=== PATIENT | female | born 1960 | race Caucasian/White ===

== ENCOUNTER 2016-12-01 11:24 | Inpatient (IN) ==
[2016-12-01] MEDS ORDERED: Ipratropium/Albuterol Neb 3 ML IH ONE (11:51)
[2016-12-01] MEDS ORDERED: methylPREDNISolone 125 MG/2 ML VIAL IVP ONE (11:51)
--- NOTE | 2016-12-01 11:54 | Emergency Department Note ---
Disposition Clinical Impression: Acute exacerbation of chronic obstructive airways disease Disposition: Admitted As Inpatient Condition: Fair Referrals: Siena Crespo, SAUD [Primary Care Provider] - Forms: ED Satisfaction Letter Time of Disposition: 13:44 SOB HPI - General Chief Complaint: ED Shortness of Breath/Dyspnea Stated Complaint: cough, low oxygen sats, lethargy Time Seen by Provider: 12/01/16 11:36 Source: patient, EMS Mode of arrival: ambulatory Limitations: no limitations Nursing Notes Reviewed: Yes Vital Signs Reviewed: Yes - History of Present Illness 56-year-old female who has a history of COPD comes in with increasing shortness of breath. Home health found her with pulse ox in the 70s. Squad arrived her pulse ox was in the 80s. Given a breathing treatment prior to arrival with minimal improvement. Pt Subjective Complaint: shortness of breath, cough Onset (ago): day(s) Context: recent illness Severity: moderate Consistency/Duration: constant Improves with: nothing Known history of: COPD Associated symptoms: Reports: cough, wheezing - Related Data Home Medications Medication Instructions Recorded Confirmed Albuterol Sulfate [Proair 2 puff IH Q4H PRN 11/26/15 03/19/16 Respiclick] Ascorbic Acid [Vitamin C] 500 mg PO DAILY 11/26/15 03/19/16 Aspirin [Adult Low Dose Aspirin EC] 81 mg PO DAILY 11/26/15 03/19/16 Cholecalciferol (Vitamin D3) 50,000 unit PO 2XW MDD mon, fri 11/26/15 03/19/16 [Vitamin D3] Diazepam [Valium] 5 mg PO BID 11/26/15 03/19/16 DiphenhydraMINE [Benadryl] 50 mg PO Q6HR 11/26/15 03/19/16 Diphenoxylate/Atropine [Lomotil 1 tab PO QID PRN 11/26/15 03/19/16 2.5 mg/0.025 mg] Esomeprazole Magnesium [Nexium] 40 mg PO BID 11/26/15 03/19/16 Ezetimibe [Zetia] 10 mg PO DAILY 11/26/15 03/19/16 FentaNYL PATCH [Duragesic] 25 mcg TD Q72H 11/26/15 03/19/16 Folic Acid [FA-8] 0.8 mg PO DAILY 11/26/15 03/19/16 Glucagon,Human Recombinant 1 mg IJ PER PKG DI 11/26/15 03/19/16 [Glucagon Emergency Kit] HYDROcodone/Acet 5/325 mg [[place] 1 tab PO Q6H PRN 11/26/15 03/19/16 5-325 mg] Isosorbide MONOnitrate (24 HR) 120 mg PO DAILY 11/26/15 03/19/16 [Imdur] Metoprolol [Lopressor] 100 mg PO BID 11/26/15 03/19/16 Nitroglycerin [Nitrostat] 0.4 mg SL Q8H 11/26/15 03/19/16 Potassium Chloride [K-Tab ER] 20 meq PO BID 11/26/15 03/19/16 Promethazine HCl 12.5 mg PO PRN PRN 11/26/15 03/19/16 Psyllium Husk [Metamucil] 660 gm PO PRN PRN 11/26/15 03/19/16 Ranitidine HCl 150 mg PO DAILY 11/26/15 03/19/16 Trazodone HCl 150 mg PO HS PRN 11/26/15 03/19/16 Venlafaxine XR (24 HR) [Effexor Xr] 37.5 mg PO DAILY 11/26/15 03/19/16 Vitamin B Complex [B Complex] 1 tab PO DAILY 11/26/15 03/19/16 Vitamin E (Dl,Tocopheryl Acet) 400 unit PO DAILY 11/26/15 03/19/16 [Vitamin E] Insulin ASPART [NovoLOG] 100 unit SQ DAILY 03/19/16 03/19/16 Insulin Glargine [Lantus] 35 unit SQ TID 03/19/16 03/19/16 Previous Rx's Medication Instructions Recorded Ferrous Sulfate 325 mg PO DAILY #30 tablet 07/21/16 Allergies Allergy/AdvReac Type Severity Reaction Status Date / Time Estrogens Allergy See Verified 12/01/16 11:42 Comments gabapentin Allergy Swelling Verified 12/01/16 11:42 of Lip/Tongue/Throat Penicillins Allergy See Verified 12/01/16 11:42 Comments aspirin [ASA] AdvReac See Verified 12/01/16 11:42 Comments lisinopril AdvReac Cough Verified 12/01/16 11:42 Constitutional: Denies: fever, chills, weakness, weight change Eyes: Denies: eye pain, eye discharge, vision change ENT ED: Denies: ear pain, throat pain, dental pain, hearing loss, epistaxis, congestion, dysphagia Cardiovascular: Denies: chest pain, palpitations, dyspnea on exertion, edema, syncope Respiratory: Reports: cough, dyspnea, wheezes. Denies: hemoptysis, stridor Gastrointestinal: Denies: abdominal pain, nausea, vomiting, diarrhea, constipation, hematemesis, melena, hematochezia Genitourinary: Denies: dysuria, frequency, hematuria, discharge Musculoskeletal: Denies: back pain, neck pain, arthralgia, myalgia Integumentary: Denies: rash, abrasion, lesions Neurological: Denies: headache, weakness, numbness, paresthesias, confusion, abnormal gait, vertigo Psychiatric: Denies: anxiety, depression, suicidal thoughts, homicidal thoughts , auditory hallucinations, visual hallucinations Endocrine: Denies: fatigue Hematological/Lymphatic: Denies: easy bleeding, easy bruising Allergic/Immunologic: Denies: facial swelling, urticaria Past Medical History - Past Medical History Medical history: Reports: atrial fibrillation, COPD, diabetes, hypertension Surgical history: Reports: other Psychiatric history: Reports: anxiety, bipolar, depression [employer] history: Reports: other - Social History Smoking Status: Current every day smoker Smokeless Tobacco Status: No Alcohol use: Reports: none Drug use: Reports: none Physical Exam - General Limitations: no limitations General appearance: alert - Head Head exam: atraumatic, normocephalic, normal inspection - Eye Eye exam: Present: normal appearance, PERRL, EOMI - ENT ENT exam: normal exam, normal oropharynx, mucous membranes moist - Neck Neck exam: Present: normal inspection, full ROM, trachea midline - Respiratory Respiratory exam: Present: respiratory distress, wheezes - Cardiovascular Cardiovascular exam: Present: regular rate, normal rhythm, normal heart sounds - Extremities Exam Extremities exam: Present: normal inspection, full ROM. Absent: tenderness, pedal edema - Expanded Lower Extremity Exam Neurovascular/Tendon exam: Absent: motor deficit, sensory deficit, tendon deficit Gait: observed and normal - Back Exam Back exam: Present: normal inspection, full ROM. Absent: tenderness - Neurological Exam Neurological exam: Present: alert, oriented X3 - Psychiatric Psychiatric exam: Present: normal affect, normal mood - Skin Skin exam: Present: warm, dry, intact, normal color Course - Reevaluation(s) Reevaluation #1: 56-year-old with history of COPD comes in with shortness of breath wheezing. Workup EKG was negative for acute findings her troponin is negative her BNP is negative. Chest x-ray was read as possible congestive changes although her BNP is negative Time: 13:43 - Consultations Consultation #1: Discussed with Anastasiia Alegre nurse practitioner, admit. Time: 13:42 Vital Signs Temperature 99.1 F 12/01/16 11:31 Pulse Rate 87 12/01/16 11:31 Respiratory Rate 28 12/01/16 11:31 Blood Pressure 120/73 12/01/16 11:31 O2 Sat by Pulse Oximetry 96 12/01/16 11:31 Temperature 99.1 F 12/01/16 11:31 Pulse Rate 89 12/01/16 13:07 Respiratory Rate 23 12/01/16 13:07 Blood Pressure 125/62 12/01/16 13:07 O2 Sat by Pulse Oximetry 96 12/01/16 13:07 Oxygen Delivery Oxygen Delivery Nasal Cannula Shortness of Breath/Dyspnea - Lab Data Lab results reviewed: Yes I reviewed the patient's lab results. Result diagrams: 12/01/16 12:48 12/01/16 12:48 Lab Results 12/01/16 12/01/16 12/01/16 Range/Units 12:05 12:48 12:48 WBC 6.8 (4.3-11.1) K/mcL RBC 4.76 (3.82-4.97) M/mcL Hgb 14.3 (11.5-15.4) g/dL Hct 42.7 (35.3-44.9) % MCV 89.7 (83.0-100.0) fL MCH 30.0 (28.0-33.3) pg MCHC 33.5 (31.6-35.5) g/dL RDW 13.6 (11.5-14.5) % Plt Count 115 L (140-400) K/mcL MPV 12.2 (9.4-12.4) fL Immature Gran % 0.6 (0-4) % Seg Neutrophils % 67.8 % Lymphocytes % 19.6 % Monocytes % 11.5 % Eosinophils % 0.1 % Basophils % 0.4 % Neutrophils # 4.6 (1.6-8.9) K/mcL Lymphocytes # 1.3 (0.6-4.6) K/mcL Monocytes # 0.8 (0.0-1.3) K/mcL Eosinophils # 0.0 (0.0-0.6) K/mcL Basophils # 0.0 (0.0-0.2) K/mcL PT 11.5 (9.4-12.1) Seconds INR 1.1 APTT 22.3 L (26.0-36.0) Seconds ABG pH 7.30 L (7.32-7.45) pH Units ABG pCO2 54 H (35-45) mmHg ABG pO2 62 L (85-104) mmHg ABG HCO3 26.6 (21-27) mEQ/L ABG Total CO2 28.3 H (20-26) mEq/L ABG O2 Saturation 89 L (95-98) % ABG Base Excess -0.8 (-2.0 to 3.0) mEq/L Liter Flow 2 L/MIN Blood Gas Modality NC Sodium (136-145) mEq/L Potassium (3.5-4.5) mEq/L Chloride (98-109) mEq/L Carbon Dioxide (19-29) mEq/L BUN (7-20) mg/dL Creatinine (0.57-1.11) mg/dL Est GFR ( Amer) (> 60) Est GFR (Non-Af Amer) (> 60) BUN/Creatinine Ratio (6-26) Glucose (70-99) mg/dL Calculated Osmolality (280-300) Lactic Acid (0.5-2.2) mmol/L Calcium (8.6-10.8) mg/dL Troponin I (0-0.03) ng/mL B-Natriuretic Peptide (0-100) pg/mL 12/01/16 12/01/16 12/01/16 Range/Units 12:48 12:48 12:48 WBC (4.3-11.1) K/mcL RBC (3.82-4.97) M/mcL Hgb (11.5-15.4) g/dL Hct (35.3-44.9) % MCV (83.0-100.0) fL MCH (28.0-33.3) pg MCHC (31.6-35.5) g/dL RDW (11.5-14.5) % Plt Count (140-400) K/mcL MPV (9.4-12.4) fL Immature Gran % (0-4) % Seg Neutrophils % % Lymphocytes % % Monocytes % % Eosinophils % % Basophils % % Neutrophils # (1.6-8.9) K/mcL Lymphocytes # (0.6-4.6) K/mcL Monocytes # (0.0-1.3) K/mcL Eosinophils # (0.0-0.6) K/mcL Basophils # (0.0-0.2) K/mcL PT (9.4-12.1) Seconds INR APTT (26.0-36.0) Seconds ABG pH (7.32-7.45) pH Units ABG pCO2 (35-45) mmHg ABG pO2 (85-104) mmHg ABG HCO3 (21-27) mEQ/L ABG Total CO2 (20-26) mEq/L ABG O2 Saturation (95-98) % ABG Base Excess (-2.0 to 3.0) mEq/L Liter Flow L/MIN Blood Gas Modality Sodium 130 L (136-145) mEq/L Potassium 3.7 (3.5-4.5) mEq/L Chloride 97 L (98-109) mEq/L Carbon Dioxide 25 (19-29) mEq/L BUN 14 (7-20) mg/dL Creatinine 1.63 H (0.57-1.11) mg/dL Est GFR ( Amer) 39 L (> 60) Est GFR (Non-Af Amer) 32 L (> 60) BUN/Creatinine Ratio 9 (6-26) Glucose 140 H (70-99) mg/dL Calculated Osmolality 273 L (280-300) Lactic Acid 1.0 (0.5-2.2) mmol/L Calcium 9.0 (8.6-10.8) mg/dL Troponin I 0.01 (0-0.03) ng/mL B-Natriuretic Peptide (0-100) pg/mL 12/01/16 Range/Units 12:48 WBC (4.3-11.1) K/mcL RBC (3.82-4.97) M/mcL Hgb (11.5-15.4) g/dL Hct (35.3-44.9) % MCV (83.0-100.0) fL MCH (28.0-33.3) pg MCHC (31.6-35.5) g/dL RDW (11.5-14.5) % Plt Count (140-400) K/mcL MPV (9.4-12.4) fL Immature Gran % (0-4) % Seg Neutrophils % % Lymphocytes % % Monocytes % % Eosinophils % % Basophils % % Neutrophils # (1.6-8.9) K/mcL Lymphocytes # (0.6-4.6) K/mcL Monocytes # (0.0-1.3) K/mcL Eosinophils # (0.0-0.6) K/mcL Basophils # (0.0-0.2) K/mcL PT (9.4-12.1) Seconds INR APTT (26.0-36.0) Seconds ABG pH (7.32-7.45) pH Units ABG pCO2 (35-45) mmHg ABG pO2 (85-104) mmHg ABG HCO3 (21-27) mEQ/L ABG Total CO2 (20-26) mEq/L ABG O2 Saturation (95-98) % ABG Base Excess (-2.0 to 3.0) mEq/L Liter Flow L/MIN Blood Gas Modality Sodium (136-145) mEq/L Potassium (3.5-4.5) mEq/L Chloride (98-109) mEq/L Carbon Dioxide (19-29) mEq/L BUN (7-20) mg/dL Creatinine (0.57-1.11) mg/dL Est GFR ( Amer) (> 60) Est GFR (Non-Af Amer) (> 60) BUN/Creatinine Ratio (6-26) Glucose (70-99) mg/dL Calculated Osmolality (280-300) Lactic Acid (0.5-2.2) mmol/L Calcium (8.6-10.8) mg/dL Troponin I (0-0.03) ng/mL B-Natriuretic Peptide 39 (0-100) pg/mL - Radiology Data Radiology results reviewed: Yes I reviewed the patient's radiology results. Chest X-Ray 12/01/16 11:51 IMPRESSION: Cardiomegaly with central pulmonary venous congestion and possible early congestive heart failure. No lobar pneumonia or large effusions. D/ / 12/01/2016 12:24:46 Moustapha Wise MD / blank Interpreting Provider: Moustapha Wise MD - EKG Data EKG attestation: Yes I reviewed and interpreted this EKG. EKG shows normal: Reports: sinus rhythm Rate: Reports: normal Rhythm: Reports: NSR Interpretation: Reports: no acute changes
[2016-12-01 12:18] LABS: ABG Base Excess -0.8 mEq/L (-2.0 to 3.0); ABG HCO3 26.6 mEQ/L (21-27); ABG Oxygen Saturation 89 % (95-98); ABG PCO2 54 mmHg (35-45); ABG PO2 62 mmHg (85-104); ABG TCO2 28.3 mEq/L (20-26); Blood Gas Liter Flow 2 L/MIN
[2016-12-01 12:57] LABS: Basophils % 0.4 %; Eosinophils % 0.1 %; Hematocrit 42.7 % (35.3-44.9); Hemoglobin 14.3 g/dL (11.5-15.4); Immature Granulocytes % 0.6 % (0-4); Lymphocytes # 1.3 K/mcL (0.6-4.6); Lymphocytes % 19.6 %; Mean Corpuscular HGB Conc 33.5 g/dL (31.6-35.5); Mean Corpuscular Volume 89.7 fL (83.0-100.0); Mean Platelet Volume 12.2 fL (9.4-12.4); Monocytes # 0.8 K/mcL (0.0-1.3); Monocytes % 11.5 %; Neutrophils # 4.6 K/mcL (1.6-8.9); Platelet Count 115 K/mcL (140-400); Red Blood Count 4.76 M/mcL (3.82-4.97); Red Cell Distribution Width 13.6 % (11.5-14.5); Segmented Neutrophils % 67.8 %
[2016-12-01 13:07] LABS: INR 1.1; Prothrombin Time 11.5 Seconds (9.4-12.1)
[2016-12-01 13:09] LABS: Activated Partial Thrombo Time 22.3 Seconds (26.0-36.0)
[2016-12-01 13:23] LABS: Potassium 3.7 mEq/L (3.5-4.5)
[2016-12-01] MEDS ORDERED: *HR* HYDROmorphone (PF) 1 MG/ML SYRINGE IVP ONE (13:24)
[2016-12-01] MEDS ORDERED: Ondansetron 4 MG/2 ML VIAL IVP ONE (13:24)
[2016-12-01 14:55] LABS: Bilirubin,Urine Negative (Negative); Blood,Urine Negative (Negative); Clarity,Urine Clear (Clear); Color,Urine Yellow (Yellow); Glucose,Urine (UA) Normal (Normal); Ketones,Urine Negative (Negative); Leukocyte Esterase,Urine Negative (Negative); Nitrite,Urine Negative (Negative); Protein,Urine Trace mg/dL (Neg-Trace); Specific Gravity,Urine 1.009 (1.010-1.025); Urobilinogen,Urine Normal (Normal)
[2016-12-01 14:59] LABS: Bacteria,Urine None Seen per hpf (None-Few); Hyaline Casts,Urine None Seen per lpf (None-Few); Squamous Epithelial Cell,Urine Many per lpf (None-Few)
[2016-12-01 15:10] LABS: RBC,Urine 0-3 per hpf (0-3)
[2016-12-01 15:11] LABS: Yeast,Urine Many per hpf (None Seen)
--- NOTE | 2016-12-01 16:23 | Internal Med History&Physical ---
<Art Jiang - Last Filed: 12/01/16 18:31> Date of Encounter: 12/01/16 Time of Encounter: 14:00 Assessment and Plan (1) COPD exacerbation Current visit: Yes Status: Acute Currently meets the criteria of COPD exacerbation with increasing SOB, increased coughing with sputum production plus change in color of sputum. ABG in the emergency department demonstrates pH 7.30, PCO2 54, PO2 62, bicarbonate 26.6 demonstrating respiratory acidosis uncompensated. Contributing factors: 3 pack per day smoker, underline COPD, failure to wear home oxygen as recommended. Plan: - 40mg Prednisone daily - Duonebs scheduled, Albuterol nebulizer - Levaquin 750 daily PO - Nasal canula oxygen (2) Hypercapnic respiratory failure Current visit: Yes Status: Acute Patient stable upon examination with 2 L nasal Oxygen. Likely multifactorial as patient has multiple contributing factors including COPD, obesity hypoventilation syndrome, obstructive sleep apnea. Currently meets the criteria of COPD exacerbation with increasing SOB, increased coughing with sputum production pluse change in color of sputum. ABG in the emergency department demonstrates pH 7.30, PCO2 54, PO2 62, bicarbonate 26.6 demonstrating respiratory acidosis uncompensated. Patient would benefit from BiPAP qualification and BiPAP at night while sleeping and at rest. Qualifiers: Qualified Code(s): J96.92 - Respiratory failure, unspecified with hypercapnia (3) Diastolic CHF Current visit: Yes Status: Acute Patient is a significant history of CAD with history of quadruple bypass. Patient recently evaluated by cardiology with last echocardiogram demonstrating EF of 60% mild diastolic heart failure. BNP 39 - Nuclear med stress test from 09/17/2016 demonstrated gated LVEF of 66%, there is a small size, moderate intensity, reversible perfusion defect involving the apical anterior wall, apical lateral wall and apex. Findings are consistent with reversible myocardial ischemia. - Bilateral carotid duplex imaging demonstrated minimal plaque disease. Chest x-ray from 12/01/2016 demonstrates cardiomegaly with central pulmonary venous congestion and possible early congestive heart failure. No lobar pneumonia and large effusions. Plan: - Lasix 40mg once - Cardiac diet - Fluid restictions 2L - Daily weights - Continue home medications including aspirin 81 mg daily, Lasix 40 mg by mouth twice a day, Lopressor 100 mg by mouth twice a day, patient is not on an David because she has an allergy and stage III kidney disease, continue Lipitor 40 mg by mouth at bedtime. Continue spironolactone 50 mg by mouth twice a day Qualifiers: Qualified Code(s): I50.30 - Unspecified diastolic (congestive) heart failure (4) Obesity hypoventilation syndrome Current visit: Yes Status: Acute Patient is morbidly obese BMI 43.3, obstructive sleep apnea and just x-ray demonstrates reduced lung volume with excess adipose. (5) Type 2 diabetes mellitus Current visit: Yes Status: Acute Type II diabetic - uncontrolled, patient presents hyperglycemic, last hemoglobin A1c in 03/19/2016 was 11.0 Home anti-hyperglycemics include NovoLog 30 units subcutaneous 3 times a day and sliding scale insulin. According to patient's outpatient record (11/03/2016): 1. Type II diabetes mellitus Notes: change to tid on u500 up to 40 units on a standard u100 syringe may increase at next appt follow up 1 month a1c remains the same but elevated. Plan: - inpatient sliding scale insulin- High dose - Start with Levemir 35units BID ( patients home medications should be verified.) - ACHS glucose checks - Hgb A1C Qualifiers: Qualified Code(s): E11.9 - Type 2 diabetes mellitus without complications (6) Diabetic neuropathy Current visit: Yes Status: Acute Patient is a type II diabetic with known history of diabetic neuropathy. Qualifiers: Qualified Code(s): E08.42 - Diabetes mellitus due to underlying condition with diabetic polyneuropathy (7) CAD (coronary artery disease) of artery bypass graft Current visit: No Status: Acute History of coronary artery disease with previous history of quadruple bypass, [place]. Recent cardiac workup demonstrated reversible myocardial ischemia on nuclear stress test. Patient states that she was told that she is not a candidate for left heart catheterization. Contributing factors include hyperlipidemia, hypercholesterolemia, uncontrolled type 2 diabetes, daily smoker and morbid obesity Review of patient's outpatient record demonstrates that she had an abnormal stress test recently and per cardiology recommended treating with medical therapy as she does not represent a good candidate for invasive approach unless absolutely necessary. Was recommended that she continue on both aspirin 81 mg and Plavix. Plan: - Continue Lipitor 40 mg at bedtime - Aspirin 81 mg by mouth daily - Plavix 75 mg by mouth daily - Continue isosorbide mononitrate 120 mg by mouth daily Qualifiers: [place] vs. transplanted heart: [place] heart Associated angina: without angina Qualified Code(s): I25.810 - Atherosclerosis of coronary artery bypass graft(s) without angina pectoris (8) Depression Current visit: Yes Status: Acute Stable. Continue home medications. Qualifiers: Qualified Code(s): F32.9 - Major depressive disorder, single episode, unspecified (9) Hypertension Current visit: Yes Status: Acute Blood pressure stable. Continue home antihypertensives. Qualifiers: Qualified Code(s): I10 - Essential (primary) hypertension (10) Colostomy and enterostomy malfunction Current visit: Yes Status: Acute Patient has a colostomy with complication of fistula surfacing to abdominal wall. Significant GI surgical history, (11) Syncope and collapse Current visit: Yes Status: Acute Patient patient's described multiple episodes of blacking out, no preceding symptoms including blurry vision, seeing spots, lightheadedness dizziness, weakness or fatigue. Patient has had multiple episodes per day for the last 7 weeks. Patient denies hitting her head with any episode. Head exam does not demonstrate any noticeable signs of trauma. CT of the head demonstrates no acute intracranial abnormalities. Differential: Orthostatic hypotension given the patient's GI loss, possible cardiac arrhythmia. Patient has a history of atrial fibrillation, recent reversible myocardial ischemia. - Patient had a recent cardiac workup roughly 2 months ago without plaque findings in the carotid arteries bilaterally, echocardiogram as described above , recent nuclear med stress test as described above. Plan: - Patient be placed on telemetry - Orthostatic blood pressures - Collect TSH, magnesium, phosphate with a.m. labs - Fall precautions. (12) GERD (gastroesophageal reflux disease) Current visit: Yes Status: Acute Continue home medications Qualifiers: Qualified Code(s): K21.9 - Gastro-esophageal reflux disease without esophagitis (13) DVT prophylaxis Current visit: Yes Status: Acute Lovenox 40 sq every am. Internal Medicine - H&P: HPI Admitted From: Emergency Dept Plans for Post Hospital Care: Home History of present illness: Ms. Price is a 56 year old female past medical history of diastolic heart failure, CAD, quadruple bypass, type 2 diabetes uncontrolled, COPD, obesity hypoventilation syndrome, diabetic neuropathy, morbid obesity, colectomy, colostomy with fistulization, CKD stage III who presented by EMS to the emergency department with hypoxia and trouble awakening. According to the patient's he had a difficult time trying to wake her up. He tried waking her up for 2 hours prior to calling EMS and found her oxygen saturations at home to be 70%. He said this is not the first time he has had difficulties waking her up and she sleeps 23 hours per day and is chronically tired. Ms. Price says that she has had difficulty with staying awake for roughly 7 weeks with worsening of symptoms including falling multiple times a day. She says that she blacks out at home with no preceding symptoms and fall to the floor. She also presents with associated symptoms of increasing worsening of shortness of breath, sputum production which is white to yellow in color with a tinge of blood recently. She says she takes her medications at home and schedule but is unsure exactly what she takes. Her is concerned given her symptoms that she falls multiple times daily and that she recently fell on him and he had difficulty moving her which she did not wake up originally to moving her over. They did not find it necessary to call EMS for these prior events. She denies wearing oxygen consistently at home and when asked about wearing a CPAP or BiPAP she said that the mask did not fit so she does not use it. She is every day smoker and smokes 3 packs a day. According to her this is not the first time she has had issues with breathing or her first admission for respiratory related issues. She was recently seen by Dr. King with cardiology in September of this year for which she says she was told she had blockages in her coronary arteries but was not a candidate for intervention including left heart catheterization. With regards to multiple falls at home she denies preceding symptoms including lightheadedness dizziness spotty vision, lightheadedness when standing or laying down, history of cardiac arrhythmias, chest pain, chest pressure, palpitations. She denies hitting her head with any of these falls but is unsure how long she is out with each of these falls. She denies any post ictal- like symptoms. The patient's was very concerned about her other medical problems mainly her abdominal colostomy. He said that after her last abdominal surgery she had a colostomy which was draining appropriately until the fistula fistulized to the surface and started draining fecal matter. She now uses the fistula for drainage but continue to have drainage from the original colostomy site which then wets the surrounding glue of the colostomy today and it falls off frequently. 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 They are very concerned about the colostomy and if we could have wound care evaluate. Past Med Surg Social Fam HX - Past Medical History Medical history: atrial fibrillation, CHF (diastolic), COPD, diabetes, hyperlipidemia, hypertension, myocardial infarction Psychiatric history: anxiety, bipolar, depression - Past Surgical History Surgical History: other - Social History Smoking Status: Current every day smoker Smokeless Tobacco Status: No Alcohol use: none Drug use: none Internal Medicine - H&P: Meds Albuterol Sulfate [Proair Respiclick] 2 puff IH Q4H PRN 11/26/15 [History] Ascorbic Acid [Vitamin C] 500 mg PO DAILY 11/26/15 [History] Aspirin [Adult Low Dose Aspirin EC] 81 mg PO DAILY 11/26/15 [History] Diazepam [Valium] 5 mg PO BID 11/26/15 [History] DiphenhydraMINE [Benadryl] 50 mg PO Q6HR 11/26/15 [History] Diphenoxylate/Atropine [Lomotil 2.5 mg/0.025 mg] 2 tab PO Q6H PRN 11/26/15 [ History] Esomeprazole Magnesium [Nexium] 40 mg PO BID 11/26/15 [History] Ezetimibe [Zetia] 10 mg PO DAILY 11/26/15 [History] FentaNYL PATCH [Duragesic] 25 mcg TD Q72H 11/26/15 [History] Folic Acid [FA-8] 0.8 mg PO DAILY 11/26/15 [History] Glucagon,Human Recombinant [Glucagon Emergency Kit] 1 mg IJ PER PKG DI 11/26/15 [History] HYDROcodone/Acet 5/325 mg [Odon 5-325 mg] 1 tab PO TID PRN 11/26/15 [History] Metoprolol [Lopressor] 100 mg PO BID 11/26/15 [History] Nitroglycerin [Nitrostat] 0.4 mg SL Q5M PRN 11/26/15 [History] Potassium Chloride [K-Tab ER] 20 meq PO DAILY 11/26/15 [History] Ranitidine HCl 150 mg PO DAILY 11/26/15 [History] Trazodone HCl 150 mg PO HS PRN 11/26/15 [History] Vitamin B Complex [B Complex] 1 tab PO DAILY 11/26/15 [History] Vitamin E (Dl,Tocopheryl Acet) [Vitamin E] 400 unit PO DAILY 11/26/15 [History] Insulin ASPART [NovoLOG] 30 unit SQ TID 03/19/16 [History] Ferrous Sulfate 325 mg PO DAILY #30 tablet 07/21/16 [Rx] Atorvastatin [Lipitor] 40 mg PO HS 12/01/16 [History] Cholecalciferol (Vitamin D3) [Dialyvite Vitamin D] 5,000 unit PO MOFR 12/01/16 [ History] Clopidogrel [Plavix] 75 mg PO DAILY 12/01/16 [History] Furosemide [Lasix] 40 mg PO DAILY PRN 12/01/16 [History] Hydrochlorothiazide 25 mg PO DAILY 12/01/16 [History] Hydroxychloroquine [Plaquenuil] 200 mg PO HS 12/01/16 [History] Insulin LISPRO [HumaLOG] 0 unit SQ TID 12/01/16 [History] Ipratropium/Albuterol Neb [Duoneb] 3 ml IH QID PRN 12/01/16 [History] Isosorbide MONOnitrate [Isosorbide Mononitrate ER] 120 mg PO DAILY 12/01/16 [ History] Oxygen 2 l NS AD 12/01/16 [History] Promethazine [Phenergan] 25 mg PO Q4H PRN 12/01/16 [History] Psyllium [Metamucil Fiber Singles Packet] 1 packet PO DAILY 12/01/16 [History] Farideh-D-Hp 2 appl TP 3-4XD 12/01/16 [History] Rosuvastatin [Crestor] 20 mg PO HS 12/01/16 [History] Spironolactone [Aldactone] 50 mg PO BID 12/01/16 [History] Venlafaxine [Effexor] 37.5 mg PO BID 12/01/16 [History] Allergies Estrogens Allergy (Verified 12/01/16 11:42) See Comments gabapentin Allergy (Verified 12/01/16 11:42) Swelling of Lip/Tongue/Throat Penicillins Allergy (Verified 12/01/16 11:42) See Comments aspirin [ASA] Adverse Reaction (Verified 12/01/16 11:42) See Comments CKD not allowed ASA lisinopril Adverse Reaction (Verified 12/01/16 11:42) Cough All Systems PM: A 10-system review of systems was performed and is negative for pertinent findings except as documented above in the HPI. - Constitutional Constitutional: as per HPI - EENT Eyes: no blurry vision, no change in vision, no loss of vision Nose, mouth and throat: as per HPI, no lip swelling, no mouth lesions, no sore throat - Cardiovascular Cardiovascular ROS IM: dyspnea, dyspnea on exertion, syncope, no chest pain, no palpitations - Respiratory Respiratory: cough, dyspnea, excessive phlegm production, change in phlegm color - Gastrointestinal Gastrointestinal: change in stool character, diarrhea, loose stools, vomiting, no hematemesis, no melena - Genitourinary Genitourinary: no urinary incontinence, no urinary urgency - Musculoskeletal Musculoskeletal ROS IM: no muscle cramps - Integumentary Integumentary IM: no rash, no skin ulcer - Neurological Neurological ROS: no convulsions, no dizziness, no loss of vision, no memory loss, no numbness - Psychiatric Psychiatric: no confusion - Constitutional Vitals: Temp Pulse Resp BP Pulse Ox 99.1 F 84 23 126/85 93 L 12/01/16 11:31 12/01/16 15:01 12/01/16 13:07 12/01/16 15:01 12/01/16 15:01 - Other Additional findings: Mrs. Dee Camargo well-developed well-nourished obese 56-year-old female awake alert interactive. HEENT: Normocephalic, atraumatic, pupils equal reactive EOMI, oral mucosa is moist, neck is supple, trachea midline Thoracic Cavity: excess adipose tissue, old sternum scar with signs of poor wound healing. Thoracic expansion correlates with respiratory effort. Respiratory: Diffuse wheezing with diminished inspiratory and expiratory breath sounds. Cardiac: RRR, Radial pulses 2+ bilaterally Abdomen: Obese abdomen, colostomy bag with appropriate drainage, Large central abdomen scar with increased vascularization. Abdomen is tender to deep palpation but soft with + bowel sounds. Extremities: Bilateral LE demonstrate venous stasis with poorly kept feet and callouses. No pedal ulcerations appreciated on examination. Swelling to bilateral lateral ankles without pain with ankle rotation. Internal Med - H&P Results - Labs CBC & Chem 7: 12/01/16 12:48 12/01/16 12:48 <Ivan Ruiz - Last Filed: 12/01/16 19:39> Assessment and Plan (1) Acute respiratory failure Current visit: Yes Status: Acute Qualifiers: Respiratory failure complication: hypoxia and hypercapnia Qualified Code(s) : J96.01 - Acute respiratory failure with hypoxia; J96.02 - Acute respiratory failure with hypercapnia (2) Acute exacerbation of chronic obstructive airways disease Current visit: Yes Status: Acute (3) Diastolic CHF Current visit: Yes Status: Acute Qualifiers: Congestive heart failure chronicity: chronic Qualified Code(s): I50.32 - Chronic diastolic (congestive) heart failure (4) GERD (gastroesophageal reflux disease) Current visit: Yes Status: Acute Qualifiers: Esophagitis presence: without esophagitis Qualified Code(s): K21.9 - Gastro -esophageal reflux disease without esophagitis (5) Hypertension Current visit: Yes Status: Acute Qualifiers: Hypertension type: essential hypertension Qualified Code(s): I10 - Essential (primary) hypertension (6) Obesity hypoventilation syndrome Current visit: Yes Status: Acute (7) CAD (coronary artery disease) of artery bypass graft Current visit: No Status: Acute Qualifiers: [place] vs. transplanted heart: [place] heart Associated angina: without angina Qualified Code(s): I25.810 - Atherosclerosis of coronary artery bypass graft(s) without angina pectoris Internal Medicine - H&P: HPI History of present illness: Ms. Price is a 56 year old female All Systems PM: A 10-system review of systems was performed and is negative for pertinent findings except as documented above in the HPI. - Constitutional Vitals: Temp Pulse Resp BP Pulse Ox 97.9 F 92 16 112/59 92 L 12/01/16 18:01 12/01/16 18:01 12/01/16 18:01 12/01/16 18:01 12/01/16 18:01 Internal Med - H&P Results - Labs CBC & Chem 7: 12/01/16 12:48 12/01/16 12:48 - Attending Attestation I examined this patient and my medical decision-making was reviewed with the Resident Physician on 12/01/16. I agree with the documented findings, disposition and treatment plan as described except to the extent set forth below. Ms. Price is 56 y/o female with hx of obesity hypoventilaton presented to ED with worsening dyspnea. At this time she denies specific complaints. She has been more dyspneic over last few days. Has hx of abnl stress test with medical management. She also has been having episodes of sudden syncope. She appears to have high volume fistula output. Exam Alert. comfortable Mucus membranes dry Heart distant - regular at this time Lungs with scant end exp wheeze Abd obese. Soft I/P 1. Acute hypercarbic resp failure - was improved after treatment in ED. Will continue aggressive pulmonary care with aerosols, abx steroids oxygen 2. Obesity hypoventilation 3. CAD Further diagnoses and plan as above. Pt is high risk at this time due to potential for worsening respiratory status.
[2016-12-01] MEDS ORDERED: Acetaminophen 325 MG TABLET PO PRN (18:17)
[2016-12-01] MEDS ORDERED: Naloxone 0.4 MG/ML INJ IVP PRN (18:17)
[2016-12-01] MEDS ORDERED: Ondansetron ODT 4 MG TAB.RAPDIS SL PRN (18:17)
[2016-12-01] MEDS ORDERED: Dextrose Gel 15 GM PO PRN ×2 (18:21)
[2016-12-01] MEDS ORDERED: D5% in Water 1,000 ML IVC PRN (18:21)
[2016-12-01] MEDS ORDERED: *HR* Dextrose 50 % in Water (Syg) 50 ML SYRINGE IVP PRN (18:21)
[2016-12-01] MEDS ORDERED: *HR* HYDROcodone/Acet 5/325 mg TABLET PO PRN (18:26)
[2016-12-01] MEDS ORDERED: Furosemide 40 MG TABLET PO PRN (18:26)
[2016-12-01] MEDS ORDERED: Nitroglycerin 0.4 MG TAB.SUBL SL PRN (18:26)
[2016-12-01] MEDS ORDERED: levoFLOXacin 750 MG TABLET PO SCH (18:30)
[2016-12-01] MEDS: Insulin LISPRO 300 UNITS/3 ML VIAL SQ SCH (19:01)
[2016-12-01 19:11] LABS: Hemoglobin A1C 9.4 %
[2016-12-01] MEDS: Ipratropium/Albuterol Neb 3 ML IH SCH ×2 (19:39→23:14)
[2016-12-01] MEDS: Albuterol 2.5 MG/3 ML NEBULIZER IH SCH ×2 (19:41→23:14)
[2016-12-01 20:13] LABS: ABG Base Excess -0.2 mEq/L (-2.0 to 3.0); ABG HCO3 28.9 mEQ/L (21-27); ABG Oxygen Saturation 87 % (95-98); ABG PCO2 66 mmHg (35-45); ABG PH 7.25 pH Units (7.32-7.45); ABG PO2 61 mmHg (85-104); ABG TCO2 30.9 mEq/L (20-26)
[2016-12-01 20:17] LABS: Blood Gas FiO2 32 %
[2016-12-01] MEDS: Levofloxacin 750 MG/150 ML 750 MG/150 ML BAG IVPB SCH (20:54)
[2016-12-01] MEDS: Metoprolol 100 MG TABLET PO SCH (20:58)
[2016-12-01] MEDS: Insulin DETEMIR 100 UNIT/ML X5UNITS SQ SCH (20:59)
[2016-12-01] MEDS ORDERED: Insulin LISPRO 300 UNITS/3 ML VIAL SQ SCH (21:00)
[2016-12-01] MEDS: Nystatin POWDER 30 GM BOTTLE TP SCH (22:23)
[2016-12-02 01:04] LABS: ABG Base Excess -0.5 mEq/L (-2.0 to 3.0); ABG HCO3 28.7 mEQ/L (21-27); ABG Oxygen Saturation 93 % (95-98); ABG PCO2 67 mmHg (35-45); ABG PH 7.24 pH Units (7.32-7.45); ABG PO2 77 mmHg (85-104); ABG TCO2 30.8 mEq/L (20-26)
[2016-12-02 01:05] LABS: Blood Gas FiO2 45 %
[2016-12-02] MEDS: Albuterol 2.5 MG/3 ML NEBULIZER IH SCH ×3 (04:41→11:30)
[2016-12-02] MEDS: Ipratropium/Albuterol Neb 3 ML IH SCH ×6 (04:41→23:26)
[2016-12-02] MEDS ORDERED: *HR* Enoxaparin 30 MG/0.3 ML SYRINGE SQ SCH (06:00)
[2016-12-02 07:01] LABS: Basophils % 0.1 %; Red Cell Distribution Width 13.5 % (11.5-14.5)
[2016-12-02 07:03] LABS: Hematocrit 42.3 % (35.3-44.9); Hemoglobin 14.4 g/dL (11.5-15.4); Immature Granulocytes % 0.7 % (0-4); Immature Platelets 16.1 % (1.1-6.1); Lymphocytes # 0.9 K/mcL (0.6-4.6); Lymphocytes % 8.8 %; Mean Corpuscular Hemoglobin 30.6 pg (28.0-33.3); Mean Corpuscular Volume 89.8 fL (83.0-100.0); Mean Platelet Volume 12.6 fL (9.4-12.4); Monocytes # 0.8 K/mcL (0.0-1.3); Monocytes % 7.7 %; Neutrophils # 8.4 K/mcL (1.6-8.9); Red Blood Count 4.71 M/mcL (3.82-4.97); Segmented Neutrophils % 82.7 %
[2016-12-02 07:15] LABS: Albumin 3.3 g/dL (3.5-5.0); Albumin/Globulin Ratio 0.9 (1.1-2.2); Bilirubin,Total 0.4 mg/dL (0.2-1.2); Calcium 8.7 mg/dL (8.6-10.8); Chol/HDL Ratio 4.5 (0-4.9); Globulin 3.7 g/dL (2.4-3.5); Magnesium 1.7 mg/dL (1.6-2.6); Phosphorous 4.8 mg/dL (2.3-4.7); Potassium 4.7 mEq/L (3.5-4.5)
[2016-12-02 07:26] LABS: Thyroid Stimulating Hormone 0.366 mcIU/mL (0.350-4.840)
[2016-12-02] MEDS: Insulin LISPRO 300 UNITS/3 ML VIAL SQ SCH ×3 (08:09→16:45)
[2016-12-02 08:11] LABS: Platelet Count 94 K/mcL (140-400)
[2016-12-02] MEDS: predniSONE 20 MG TABLET PO SCH (09:36)
[2016-12-02] MEDS: hydroCHLOROthiazide 25 MG TABLET PO SCH (09:36)
[2016-12-02] MEDS: (Ezetimibe [Zetia] 10 MG) PO SCH (09:36)
[2016-12-02] MEDS: Metoprolol 100 MG TABLET PO SCH ×2 (09:36→22:06)
[2016-12-02] MEDS: Isosorbide MONOnitrate (24 HR) 60 MG TAB.ER.24H PO SCH (09:36)
[2016-12-02] MEDS: Nystatin POWDER 30 GM BOTTLE TP SCH ×3 (09:36→22:08)
[2016-12-02] MEDS: Aspirin Enteric Coated 81 MG Tablet PO SCH (09:36)
[2016-12-02] MEDS: Famotidine 20 MG TABLET PO SCH (09:36)
[2016-12-02] MEDS: Insulin DETEMIR 100 UNIT/ML X5UNITS SQ SCH ×2 (09:37→22:07)
[2016-12-02 12:10] LABS: ABG Base Excess 2.8 mEq/L (-2.0 to 3.0); ABG HCO3 30.7 mEQ/L (21-27); ABG Oxygen Saturation 87 % (95-98); ABG PCO2 61 mmHg (35-45); ABG PH 7.31 pH Units (7.32-7.45); ABG PO2 59 mmHg (85-104); ABG TCO2 32.6 mEq/L (20-26); Blood Gas FiO2 36 %
--- NOTE | 2016-12-02 15:17 | Internal Med Progress Note ---
Date of Encounter: 12/02/16 Time of Encounter: 15:15 - Assessment and plan (1) Acute exacerbation of chronic obstructive airways disease Current Visit: Yes Status: Acute Assessment and plan: noted that patient has a previous multiple admissions for COPD exacerbation presently she is on IV levofloxacin 750 mg every 24 hours-Day 2 oral prednisone 40 mg every 24 hours inhaled albuterol. noted that patient's blood gas improved as compare to yesterday but clinically she is still drowsy. his patient needs at least2-3 days of intravenous antibiotics She has a risk of fall. (2) Hypercapnic respiratory failure Current Visit: Yes Status: Acute Assessment and plan: will continue present treatment she is responding to treatment appropriately pCO2 is trending down. no need for further blood gas. Qualifiers: Qualified Code(s): J96.92 - Respiratory failure, unspecified with hypercapnia (3) Colostomy and enterostomy malfunction Current Visit: Yes Status: Acute Assessment and plan: will get wound care team to evaluate. (4) Hypertension Current Visit: Yes Status: Acute Assessment and plan: presently well controlled medications will continue home meds. Qualifiers: Hypertension type: essential hypertension Qualified Code(s): I10 - Essential (primary) hypertension (5) Type 2 diabetes mellitus Current Visit: Yes Status: Acute Assessment and plan: Poorly controlled DM will continue present regimen goal around 200-250 for now and gradually will have more tight control. Qualifiers: Diabetes mellitus complication status: with unspecified complications Diabetes mellitus nursing home insulin use: with nursing home use Qualified Code(s) : E11.8 - Type 2 diabetes mellitus with unspecified complications; Z79.4 - snf (current) use of insulin (6) DVT prophylaxis Current Visit: Yes Status: Acute Assessment and plan: lovenox medical decision making: This patient has amoderate to severe risk of worsening respiratory failure in spite on appropriate medication - Subjective Interval history: seen and examined. patient is drowsy. noted that patient is known to have COPD. patient claims that she is occasionally short of breath. - Constitutional Vitals: Temp Pulse Resp BP Pulse Ox 98.7 F 83 18 108/61 96 12/02/16 11:19 12/02/16 11:19 12/02/16 11:28 12/02/16 11:19 12/02/16 11:28 General appearance: Present: disheveled, A&O X 2, morbidly obese, pleasant, answers questions appropriately - Head Head exam: Present: atraumatic, normocephalic - Eye Eye exam: Present: PERRL, conjuntiva pink, sclera anicteric Pupils: Present: PERRL - Neck Neck exam general surgery: Present: supple, trachea midline. Absent: lymphadenopathy - Respiratory Respiratory exam: Present: CTAB. Absent: accessory muscle use, rales, rhonchi, wheezes - Cardiovascular Cardiovascular exam: Present: RRR, +S1, +S2. Absent: diastolic murmur, gallop, rubs, systolic murmur - GI/Abdominal GI/Abdominal exam: Present: normal bowel sounds, soft, no peritoneal signs. Absent: distended, tenderness - Extremities Exam Extremities exam: Present: warm, radial pulses palpable and symetrical. Absent : calf tenderness, cyanotic, pedal edema - Neurological Exam Neurological exam: Present: CN II-XII intact, oriented X3, no focal deficits. Absent: pronater drift, facial droop, speech deficit - Skin Skin exam: Present: dry, intact Internal Medicine: Result - Labs CBC & Chem 7: 12/02/16 06:42 12/02/16 06:42 Labs: Short CBC 12/02/16 Range/Units 06:42 WBC 10.1 (4.3-11.1) K/mcL Hgb 14.4 (11.5-15.4) g/dL Hct 42.3 (35.3-44.9) % Plt Count 94 L (140-400) K/mcL Neutrophils # 8.4 (1.6-8.9) K/mcL BMP 12/02/16 06:42 Sodium 130 L Potassium 4.7 H D Chloride 96 L Carbon Dioxide 21 BUN 24 H D Creatinine 1.72 H Glucose 385 H Calcium 8.7 Liver Function 12/02/16 Range/Units 06:42 Total Bilirubin 0.4 (0.2-1.2) mg/dL AST 28 (5-34) Units/L ALT 29 (0-55) Units/L Alkaline Phosphatase 160 H (38-126) Units/L Albumin 3.3 L (3.5-5.0) g/dL - ABG Interpretation ABG results: ABG ABG pH 7.31 pH Units (7.32-7.45) L 12/02/16 12:00 ABG pCO2 61 mmHg (35-45) H 12/02/16 12:00 ABG pO2 59 mmHg (85-104) L 12/02/16 12:00 ABG O2 Saturation 87 % (95-98) L 12/02/16 12:00 PT/INR, D-dimer PT 11.5 Seconds (9.4-12.1) 12/01/16 12:48 Consult Discharge Plan - Plan Referrals: Siena Crespo, VIDEO SPECIALIST [Primary Care Provider] -
[2016-12-02] MEDS ORDERED: *HR* Dextrose 50 % in Water (Syg) 50 ML SYRINGE IVP PRN (23:04)
[2016-12-02] MEDS ORDERED: Insulin Human Regular 10 UNIT in 0.9 % Sodium Chloride 10 ML IV ONE (23:06)
[2016-12-02] MEDS ORDERED: Insulin Human Regular 100 UNIT in 0.9 % Sodium Chloride 100 ML IVC SCH (23:15)
--- NOTE | 2016-12-03 00:33 | Event Note ---
Date of Encounter: 12/02/16 Time of Encounter: 23:00 The patient's blood glucose is greater than 600 in spite of escalating sliding scale, she is requiring large amounts of insulin. She has received 1 dose of IV Solu-Medrol in the emergency department which could make her diabetes more difficult to control. Plan: I will discontinue the subcutaneous insulin and I will start IV insulin drip, titrate to blood glucose between 150 and 200. Will monitor blood glucose by fingerstick every one hour.
[2016-12-03] MEDS: Ipratropium/Albuterol Neb 3 ML IH SCH ×6 (04:35→23:41)
[2016-12-03] MEDS: *HR* Enoxaparin 40 MG/0.4 ML SYRINGE SQ SCH (05:50)
[2016-12-03 06:07] LABS: Basophils % 0.1 %; Hematocrit 39.2 % (35.3-44.9); Hemoglobin 13.3 g/dL (11.5-15.4); Immature Granulocytes % 0.6 % (0-4); Lymphocytes % 12.6 %; Mean Corpuscular HGB Conc 33.9 g/dL (31.6-35.5); Mean Corpuscular Hemoglobin 30.7 pg (28.0-33.3); Mean Corpuscular Volume 90.5 fL (83.0-100.0); Mean Platelet Volume 12.6 fL (9.4-12.4); Monocytes # 0.6 K/mcL (0.0-1.3); Neutrophils # 6.2 K/mcL (1.6-8.9); Platelet Count 108 K/mcL (140-400); Red Blood Count 4.33 M/mcL (3.82-4.97); Red Cell Distribution Width 13.7 % (11.5-14.5); Segmented Neutrophils % 78.7 %
[2016-12-03 06:24] LABS: Albumin 3.1 g/dL (3.5-5.0); Albumin/Globulin Ratio 0.9 (1.1-2.2); Bilirubin,Total 0.3 mg/dL (0.2-1.2); Calcium 9.2 mg/dL (8.6-10.8); Globulin 3.6 g/dL (2.4-3.5); Potassium 3.8 mEq/L (3.5-4.5); Total Protein 6.7 g/dL (6.0-8.3)
--- NOTE | 2016-12-03 07:27 | Electrocardiograph Report ---
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
[2016-12-03] MEDS: Metoprolol 100 MG TABLET PO SCH ×2 (08:26→20:24)
[2016-12-03] MEDS: hydroCHLOROthiazide 25 MG TABLET PO SCH (08:26)
[2016-12-03] MEDS: Aspirin Enteric Coated 81 MG Tablet PO SCH (08:26)
[2016-12-03] MEDS: Isosorbide MONOnitrate (24 HR) 60 MG TAB.ER.24H PO SCH (08:26)
[2016-12-03] MEDS: Famotidine 20 MG TABLET PO SCH (08:26)
[2016-12-03] MEDS: (Ezetimibe [Zetia] 10 MG) PO SCH (08:27)
[2016-12-03] MEDS: Nystatin POWDER 30 GM BOTTLE TP SCH ×3 (08:27→20:24)
[2016-12-03] MEDS: predniSONE 20 MG TABLET PO SCH (08:27)
--- NOTE | 2016-12-03 11:31 | Internal Med Progress Note ---
<Kami Pickens - Last Filed: 12/03/16 17:32> Date of Encounter: 12/03/16 Time of Encounter: 10:15 - Assessment and plan (1) Acute exacerbation of chronic obstructive airways disease Current Visit: Yes Status: Acute Assessment and plan: - Patient has multiple prior admissions for COPD exacerbation - Improves as patient reports less shortness of breath and decrease in oxygen need. - Continue IV levofloxacin 750 mg q24H (Day 2), prednisone 40 mg PO q24H, bronchodilators and supplemental oxygen. - Patient needs at least2-3 days of intravenous antibiotics. - Continue to monitor. (2) Hypercapnic respiratory failure Current Visit: Yes Status: Acute Assessment and plan: - ABG on admission showed respiratory acidosis with hypercapnia. - Likely secondary to AE COPD in the setting of OHS/MAR. - Patient continues to response to treatment appropriately with pCO2 trending down. - Continue current treatment. Qualifiers: Chronicity: acute on chronic Qualified Code(s): J96.22 - Acute and chronic respiratory failure with hypercapnia (3) Type 2 diabetes mellitus Current Visit: Yes Status: Chronic Assessment and plan: - Poorly controlled DM and patient is on very high dose of insulin at home. - The blood glucose goal is around 200-250 for now and will have more tight control gradually. - Resume basal and sliding scale SQ insulin and continue blood glucose monitoring. Qualifiers: Diabetes mellitus complication status: with unspecified complications Diabetes mellitus shelter insulin use: with terminologist use Qualified Code(s) : E11.8 - Type 2 diabetes mellitus with unspecified complications; Z79.4 - detention (current) use of insulin (4) Hypertension Current Visit: Yes Status: Acute Assessment and plan: - BP well controlled. - Continue current antihypertensive regimen. Qualifiers: Hypertension type: essential hypertension Qualified Code(s): I10 - Essential (primary) hypertension (5) Colostomy and enterostomy malfunction Current Visit: Yes Status: Acute Assessment and plan: - Wound care consulted to evaluate and manage. (6) DVT prophylaxis Current Visit: Yes Status: Acute Assessment and plan: - Continue Lovenox. medical decision making: This patient has a moderate to severe risk of worsening respiratory failure in spite on appropriate medication - Subjective Interval history: Patient was noted to have blood glucose over 600 last night and switched from SQ insulin to IV insulin drip. Patient was seen and examined this morning. Patient reports shortness of breath better but still has some productive cough with yellow sputum. Patient denies fever, chills, chest pain, nausea, vomiting, diarrhea. - Constitutional Vitals: Temp Pulse Resp BP Pulse Ox 97.7 F 64 18 104/63 93 L 12/03/16 07:15 12/03/16 07:15 12/03/16 07:33 12/03/16 07:15 12/03/16 07:33 General appearance: Present: A&O X 2, morbidly obese, no acute distress, answers questions appropriately - Head Head exam: Present: atraumatic, normocephalic - Eye Eye exam: Present: PERRL, conjuntiva pink, sclera anicteric - Neck Neck exam general surgery: Present: supple, trachea midline. Absent: lymphadenopathy - Respiratory Respiratory exam: Present: decreased breath sounds, wheezes. Absent: accessory muscle use, rales, rhonchi - Cardiovascular Cardiovascular exam: Present: RRR, +S1, +S2. Absent: diastolic murmur, gallop, rubs, systolic murmur - GI/Abdominal GI/Abdominal exam: Present: normal bowel sounds, soft, tenderness (around colostomy site), no peritoneal signs. Absent: distended Additional comments: Two colostomy sites noted with some surrounding erythema and tenderness to palpation. - Extremities Exam Extremities exam: Present: warm, radial pulses palpable and symetrical. Absent : calf tenderness, cyanotic, pedal edema - Neurological Exam Neurological exam: Present: CN II-XII intact, oriented X3, no focal deficits. Absent: pronater drift, facial droop, speech deficit - Skin Skin exam: Present: dry, warm Internal Medicine: Result - Labs CBC & Chem 7: 12/03/16 05:52 12/03/16 05:52 Labs: Short CBC 12/03/16 Range/Units 05:52 WBC 7.9 (4.3-11.1) K/mcL Hgb 13.3 (11.5-15.4) g/dL Hct 39.2 (35.3-44.9) % Plt Count 108 L (140-400) K/mcL Neutrophils # 6.2 (1.6-8.9) K/mcL BMP 12/03/16 12/03/16 00:08 05:52 Sodium 132 L Potassium 3.8 Chloride 96 L Carbon Dioxide 26 BUN 34 H D Creatinine 1.69 H Glucose 717 H* 338 H Calcium 9.2 Liver Function 12/03/16 Range/Units 05:52 Total Bilirubin 0.3 (0.2-1.2) mg/dL AST 17 (5-34) Units/L ALT 18 (0-55) Units/L Alkaline Phosphatase 132 H (38-126) Units/L Albumin 3.1 L (3.5-5.0) g/dL - ABG Interpretation ABG results: ABG ABG pH 7.31 pH Units (7.32-7.45) L 12/02/16 12:00 ABG pCO2 61 mmHg (35-45) H 12/02/16 12:00 ABG pO2 59 mmHg (85-104) L 12/02/16 12:00 ABG O2 Saturation 87 % (95-98) L 12/02/16 12:00 PT/INR, D-dimer PT 11.5 Seconds (9.4-12.1) 12/01/16 12:48 Consult Discharge Plan - Plan Referrals: Siena Crespo, CATEGORY ANALYST [Primary Care Provider] - <Fareed Camacoh - Last Filed: 12/03/16 18:03> Date of Encounter: 12/03/16 - Assessment and plan (1) Acute exacerbation of chronic obstructive airways disease Current Visit: Yes Status: Acute (2) Hypercapnic respiratory failure Current Visit: Yes Status: Acute Qualifiers: Chronicity: acute on chronic Qualified Code(s): J96.22 - Acute and chronic respiratory failure with hypercapnia (3) Colostomy and enterostomy malfunction Current Visit: Yes Status: Acute (4) Hypertension Current Visit: Yes Status: Acute Qualifiers: Hypertension type: essential hypertension Qualified Code(s): I10 - Essential (primary) hypertension (5) Type 2 diabetes mellitus Current Visit: Yes Status: Chronic Qualifiers: Diabetes mellitus complication status: with unspecified complications Diabetes mellitus shelter insulin use: with terminologist use Qualified Code(s) : E11.8 - Type 2 diabetes mellitus with unspecified complications; Z79.4 - watermelon inspector (current) use of insulin (6) DVT prophylaxis Current Visit: Yes Status: Acute - Constitutional Vitals: Temp Pulse Resp BP Pulse Ox 98.9 F 55 18 129/64 96 12/03/16 15:53 12/03/16 15:53 12/03/16 16:08 12/03/16 15:53 12/03/16 16:08 Internal Medicine: Result - Labs CBC & Chem 7: 12/03/16 05:52 12/03/16 05:52 Labs: Short CBC 12/03/16 Range/Units 05:52 WBC 7.9 (4.3-11.1) K/mcL Hgb 13.3 (11.5-15.4) g/dL Hct 39.2 (35.3-44.9) % Plt Count 108 L (140-400) K/mcL Neutrophils # 6.2 (1.6-8.9) K/mcL BMP 12/03/16 12/03/16 00:08 05:52 Sodium 132 L Potassium 3.8 Chloride 96 L Carbon Dioxide 26 BUN 34 H D Creatinine 1.69 H Glucose 717 H* 338 H Calcium 9.2 Liver Function 12/03/16 Range/Units 05:52 Total Bilirubin 0.3 (0.2-1.2) mg/dL AST 17 (5-34) Units/L ALT 18 (0-55) Units/L Alkaline Phosphatase 132 H (38-126) Units/L Albumin 3.1 L (3.5-5.0) g/dL - ABG Interpretation ABG results: ABG ABG pH 7.31 pH Units (7.32-7.45) L 12/02/16 12:00 ABG pCO2 61 mmHg (35-45) H 12/02/16 12:00 ABG pO2 59 mmHg (85-104) L 12/02/16 12:00 ABG O2 Saturation 87 % (95-98) L 12/02/16 12:00 PT/INR, D-dimer PT 11.5 Seconds (9.4-12.1) 12/01/16 12:48 - Impressions Impressions Head CT 12/03/16 12:00 IMPRESSION: Stable appearance of the brain with no acute intracranial abnormality. D/ / Gerardo Link MD / Gerardo Link MD Interpreting Provider: Gerardo Link MD - Attending Attestation I examined this patient and my medical decision-making was reviewed with the GLASS MECHANIC/PA/Advanced Practice Nurse/Resident Physician. I agree with the documented findings, disposition and treatment plan as described except to the extent set forth below. Spoke with patient's at length. Explained him regarding reason for insulin drip. We will resume her home medication/home insulin dose. If the blood sugar goes about 500 and we will start insulin drip.
[2016-12-03] MEDS: *HR* Insulin Regular U-500 500 UNIT/ML SQ SCH ×2 (12:38→18:56)
[2016-12-03] MEDS ORDERED: *HR* Insulin Regular U-500 500 UNIT/ML SQ ONE (17:14)
[2016-12-03] MEDS: Levofloxacin 750 MG/150 ML 750 MG/150 ML BAG IVPB SCH (20:06)
[2016-12-04] MEDS: Ipratropium/Albuterol Neb 3 ML IH SCH ×6 (04:26→23:06)
[2016-12-04 06:09] LABS: Basophils % 0.2 %; Eosinophils % 0.1 %; Hematocrit 40.6 % (35.3-44.9); Hemoglobin 13.7 g/dL (11.5-15.4); Immature Granulocytes % 0.8 % (0-4); Lymphocytes # 1.8 K/mcL (0.6-4.6); Lymphocytes % 20.8 %; Mean Corpuscular HGB Conc 33.7 g/dL (31.6-35.5); Mean Corpuscular Hemoglobin 30.3 pg (28.0-33.3); Mean Corpuscular Volume 89.8 fL (83.0-100.0); Mean Platelet Volume 12.7 fL (9.4-12.4); Monocytes % 11.9 %; Neutrophils # 5.6 K/mcL (1.6-8.9); Platelet Count 143 K/mcL (140-400); Red Blood Count 4.52 M/mcL (3.82-4.97); Red Cell Distribution Width 13.5 % (11.5-14.5); Segmented Neutrophils % 66.2 %
[2016-12-04] MEDS: *HR* Enoxaparin 40 MG/0.4 ML SYRINGE SQ SCH (06:21)
[2016-12-04 06:38] LABS: Albumin 3.1 g/dL (3.5-5.0); Albumin/Globulin Ratio 0.9 (1.1-2.2); Bilirubin,Total 0.4 mg/dL (0.2-1.2); Calcium 9.7 mg/dL (8.6-10.8); Globulin 3.6 g/dL (2.4-3.5); Potassium 3.6 mEq/L (3.5-4.5); Total Protein 6.7 g/dL (6.0-8.3)
[2016-12-04] MEDS: Isosorbide MONOnitrate (24 HR) 60 MG TAB.ER.24H PO SCH (07:53)
[2016-12-04] MEDS: Metoprolol 100 MG TABLET PO SCH ×2 (07:53→21:19)
[2016-12-04] MEDS: predniSONE 20 MG TABLET PO SCH (07:53)
[2016-12-04] MEDS: Aspirin Enteric Coated 81 MG Tablet PO SCH (07:53)
[2016-12-04] MEDS: Famotidine 20 MG TABLET PO SCH (07:53)
[2016-12-04] MEDS: hydroCHLOROthiazide 25 MG TABLET PO SCH (07:54)
[2016-12-04] MEDS: (Ezetimibe [Zetia] 10 MG) PO SCH (07:54)
[2016-12-04] MEDS: Nystatin POWDER 30 GM BOTTLE TP SCH ×3 (07:55→21:21)
[2016-12-04] MEDS: *HR* Insulin Regular U-500 500 UNIT/ML SQ SCH ×3 (08:03→16:27)
--- NOTE | 2016-12-04 09:30 | Internal Med Progress Note ---
<Kami Pickens - Last Filed: 12/04/16 14:15> Date of Encounter: 12/03/16 Time of Encounter: 09:15 - Assessment and plan (1) Acute exacerbation of chronic obstructive airways disease Current Visit: Yes Status: Acute Assessment and plan: - Patient has multiple prior admissions for COPD exacerbation - Improves as patient reports less shortness of breath and decrease in oxygen need. - Continue IV levofloxacin 750 mg q24H (Day 3), prednisone 40 mg PO q24H, bronchodilators and supplemental oxygen. - Continue to monitor. - Possible discharge tomorrow. (2) Hypercapnic respiratory failure Current Visit: Yes Status: Acute Assessment and plan: - ABG on admission showed respiratory acidosis with hypercapnia. - Likely secondary to AE COPD in the setting of OHS/MAR. - Patient continues to response to treatment appropriately with pCO2 trending down. - Continue current treatment. Qualifiers: Chronicity: acute on chronic Qualified Code(s): J96.22 - Acute and chronic respiratory failure with hypercapnia (3) Type 2 diabetes mellitus Current Visit: Yes Status: Chronic Assessment and plan: - Poorly controlled DM and patient is on very high dose of insulin at home. - The blood glucose goal is around 200-250 for now and will have more tight control gradually. - Patient was noted to have hypoglycemia this morning. Will hold insulin for now and continue to monitor glucose. Qualifiers: Diabetes mellitus complication status: with unspecified complications Diabetes mellitus terminal system operator insulin use: with half-way use Qualified Code(s) : E11.8 - Type 2 diabetes mellitus with unspecified complications; Z79.4 - [facility] (current) use of insulin (4) Hypertension Current Visit: Yes Status: Acute Assessment and plan: - BP well controlled. - Continue current antihypertensive regimen. Qualifiers: Hypertension type: essential hypertension Qualified Code(s): I10 - Essential (primary) hypertension (5) Colostomy and enterostomy malfunction Current Visit: Yes Status: Acute Assessment and plan: - Wound care consulted to evaluate and manage. (6) DVT prophylaxis Current Visit: Yes Status: Acute Assessment and plan: - Continue Lovenox. medical decision making: This patient has a moderate to severe risk of worsening respiratory failure in spite on appropriate medication - Subjective Interval history: Patient was noted to have blood glucose as low as 62 this AM, which was corrected to 124 after orange juice. Patient was seen and examined this morning. Patient reports breathing better. Patient denies fever, chills, chest pain, nausea, vomiting, diarrhea. - Constitutional Vitals: Temp Pulse Resp BP Pulse Ox 97.9 F 59 18 104/52 93 L 12/04/16 07:15 12/04/16 07:15 12/04/16 08:05 12/04/16 07:15 12/04/16 08:05 General appearance: Present: A&O X 2, morbidly obese, no acute distress, answers questions appropriately - Head Head exam: Present: atraumatic, normocephalic - Eye Eye exam: Present: PERRL, conjuntiva pink, sclera anicteric - Neck Neck exam general surgery: Present: supple, trachea midline. Absent: lymphadenopathy - Respiratory Respiratory exam: Present: decreased breath sounds, wheezes (Few). Absent: accessory muscle use, rales, rhonchi - Cardiovascular Cardiovascular exam: Present: RRR, +S1, +S2. Absent: diastolic murmur, gallop, rubs, systolic murmur - GI/Abdominal GI/Abdominal exam: Present: normal bowel sounds, soft, tenderness (Lower quadrants), no peritoneal signs. Absent: distended Additional comments: Ostomy and fistula noted on the abdomen. - Extremities Exam Extremities exam: Present: warm, radial pulses palpable and symetrical. Absent : calf tenderness, cyanotic, pedal edema - Neurological Exam Neurological exam: Present: CN II-XII intact, oriented X3, no focal deficits. Absent: pronater drift, facial droop, speech deficit - Skin Skin exam: Present: dry, intact Internal Medicine: Result - Labs CBC & Chem 7: 12/04/16 05:20 12/04/16 05:20 Labs: Short CBC 12/04/16 Range/Units 05:20 WBC 8.4 (4.3-11.1) K/mcL Hgb 13.7 (11.5-15.4) g/dL Hct 40.6 (35.3-44.9) % Plt Count 143 (140-400) K/mcL Neutrophils # 5.6 (1.6-8.9) K/mcL BMP 12/04/16 05:20 Sodium 136 Potassium 3.6 Chloride 98 Carbon Dioxide 29 BUN 32 H Creatinine 1.40 H Glucose 79 Calcium 9.7 Liver Function 12/04/16 Range/Units 05:20 Total Bilirubin 0.4 (0.2-1.2) mg/dL AST 15 (5-34) Units/L ALT 15 (0-55) Units/L Alkaline Phosphatase 127 H (38-126) Units/L Albumin 3.1 L (3.5-5.0) g/dL - ABG Interpretation ABG results: ABG ABG pH 7.31 pH Units (7.32-7.45) L 12/02/16 12:00 ABG pCO2 61 mmHg (35-45) H 12/02/16 12:00 ABG pO2 59 mmHg (85-104) L 12/02/16 12:00 ABG O2 Saturation 87 % (95-98) L 12/02/16 12:00 PT/INR, D-dimer PT 11.5 Seconds (9.4-12.1) 12/01/16 12:48 - Impressions Impressions Head CT 12/03/16 12:00 IMPRESSION: Stable appearance of the brain with no acute intracranial abnormality. D/ / Gerardo Link MD / Gerardo Link MD Interpreting Provider: Gerardo Link MD Consult Discharge Plan - Plan Referrals: Siena Crespo, MONOGRAM OPERATOR [Primary Care Provider] - <Fareed Camacho - Last Filed: 12/04/16 17:49> Date of Encounter: 12/03/16 - Assessment and plan (1) Acute exacerbation of chronic obstructive airways disease Current Visit: Yes Status: Acute (2) Hypercapnic respiratory failure Current Visit: Yes Status: Acute Qualifiers: Chronicity: acute on chronic Qualified Code(s): J96.22 - Acute and chronic respiratory failure with hypercapnia (3) Colostomy and enterostomy malfunction Current Visit: Yes Status: Acute (4) Hypertension Current Visit: Yes Status: Acute Qualifiers: Hypertension type: essential hypertension Qualified Code(s): I10 - Essential (primary) hypertension (5) Type 2 diabetes mellitus Current Visit: Yes Status: Chronic Qualifiers: Diabetes mellitus complication status: with unspecified complications Diabetes mellitus terminal system operator insulin use: with half-way use Qualified Code(s) : E11.8 - Type 2 diabetes mellitus with unspecified complications; Z79.4 - superintendent marine oil terminal (current) use of insulin (6) DVT prophylaxis Current Visit: Yes Status: Acute - Constitutional Vitals: Temp Pulse Resp BP Pulse Ox 97.6 F 65 18 100/54 95 12/04/16 15:41 12/04/16 15:41 12/04/16 15:53 12/04/16 15:41 12/04/16 15:53 Internal Medicine: Result - Labs CBC & Chem 7: 12/04/16 05:20 12/04/16 05:20 Labs: Short CBC 12/04/16 Range/Units 05:20 WBC 8.4 (4.3-11.1) K/mcL Hgb 13.7 (11.5-15.4) g/dL Hct 40.6 (35.3-44.9) % Plt Count 143 (140-400) K/mcL Neutrophils # 5.6 (1.6-8.9) K/mcL BMP 12/04/16 05:20 Sodium 136 Potassium 3.6 Chloride 98 Carbon Dioxide 29 BUN 32 H Creatinine 1.40 H Glucose 79 Calcium 9.7 Liver Function 12/04/16 Range/Units 05:20 Total Bilirubin 0.4 (0.2-1.2) mg/dL AST 15 (5-34) Units/L ALT 15 (0-55) Units/L Alkaline Phosphatase 127 H (38-126) Units/L Albumin 3.1 L (3.5-5.0) g/dL - ABG Interpretation ABG results: ABG ABG pH 7.31 pH Units (7.32-7.45) L 12/02/16 12:00 ABG pCO2 61 mmHg (35-45) H 12/02/16 12:00 ABG pO2 59 mmHg (85-104) L 12/02/16 12:00 ABG O2 Saturation 87 % (95-98) L 12/02/16 12:00 PT/INR, D-dimer PT 11.5 Seconds (9.4-12.1) 12/01/16 12:48 - Attending Attestation I examined this patient and my medical decision-making was reviewed with the OIL WELL FISHING TOOL TECHNICIAN/PA/Advanced Practice Nurse/Resident Physician. I agree with the documented findings, disposition and treatment plan as described except to the extent set forth below.
[2016-12-04] MEDS ORDERED: *HR* Insulin Regular U-500 500 UNIT/ML SQ STA (17:20)
[2016-12-04] MEDS ORDERED: *HR* Insulin Regular U-500 500 UNIT/ML SQ ONE (21:47)
[2016-12-04] MEDS: *HR* HYDROcodone/Acet 5/325 mg TABLET PO PRN (22:36)
[2016-12-05] MEDS: Ipratropium/Albuterol Neb 3 ML IH SCH ×5 (04:21→21:14)
[2016-12-05] MEDS: *HR* Enoxaparin 40 MG/0.4 ML SYRINGE SQ SCH (05:41)
[2016-12-05 06:44] LABS: Basophils % 0.1 %; Eosinophils % 0.1 %; Hemoglobin 13.6 g/dL (11.5-15.4); Immature Granulocytes % 0.7 % (0-4); Lymphocytes # 1.7 K/mcL (0.6-4.6); Lymphocytes % 17.6 %; Mean Corpuscular Hemoglobin 30.4 pg (28.0-33.3); Mean Corpuscular Volume 89.3 fL (83.0-100.0); Mean Platelet Volume 12.3 fL (9.4-12.4); Monocytes # 0.8 K/mcL (0.0-1.3); Monocytes % 8.6 %; Neutrophils # 7.2 K/mcL (1.6-8.9); Platelet Count 162 K/mcL (140-400); Red Blood Count 4.48 M/mcL (3.82-4.97); Red Cell Distribution Width 13.2 % (11.5-14.5); Segmented Neutrophils % 72.9 %
[2016-12-05 06:48] LABS: Albumin 3.2 g/dL (3.5-5.0); Albumin/Globulin Ratio 0.9 (1.1-2.2); Bilirubin,Total 0.4 mg/dL (0.2-1.2); Calcium 9.8 mg/dL (8.6-10.8); Globulin 3.5 g/dL (2.4-3.5); Potassium 3.5 mEq/L (3.5-4.5); Total Protein 6.7 g/dL (6.0-8.3)
[2016-12-05] MEDS ORDERED: Levofloxacin 750 MG/150 ML 750 MG/150 ML BAG IVPB SCH (09:00)
[2016-12-05] MEDS: levoFLOXacin 750 MG TABLET PO SCH (09:10)
[2016-12-05] MEDS: Metoprolol 100 MG TABLET PO SCH ×2 (09:10→21:07)
[2016-12-05] MEDS: Aspirin Enteric Coated 81 MG Tablet PO SCH (09:11)
[2016-12-05] MEDS: hydroCHLOROthiazide 25 MG TABLET PO SCH (09:11)
[2016-12-05] MEDS: predniSONE 20 MG TABLET PO SCH (09:11)
[2016-12-05] MEDS: Isosorbide MONOnitrate (24 HR) 60 MG TAB.ER.24H PO SCH (09:11)
[2016-12-05] MEDS: Famotidine 20 MG TABLET PO SCH (09:11)
[2016-12-05] MEDS: (Ezetimibe [Zetia] 10 MG) PO SCH (09:13)
[2016-12-05] MEDS: Nystatin POWDER 30 GM BOTTLE TP SCH ×2 (09:13→21:10)
[2016-12-05] MEDS: *HR* Insulin Regular U-500 500 UNIT/ML SQ SCH ×3 (09:19→17:04)
--- NOTE | 2016-12-05 16:02 | Internal Med Progress Note ---
<Kami Pickens - Last Filed: 12/05/16 15:59> Date of Encounter: 12/05/16 Time of Encounter: 10:00 - Assessment and plan (1) Acute exacerbation of chronic obstructive airways disease Current Visit: Yes Status: Acute Assessment and plan: - Patient has multiple prior admissions for COPD exacerbation - Improves as patient reports less shortness of breath and decrease in oxygen need. - Continue Levofloxacin (Day 5), prednisone 40 mg PO q24H, bronchodilators and supplemental oxygen. - Continue to monitor. (2) Hypercapnic respiratory failure Current Visit: Yes Status: Acute Assessment and plan: - ABG on admission showed respiratory acidosis with hypercapnia. - Likely secondary to AE COPD in the setting of OHS/MAR. - Respiratory status significantly improves. O2 sat 91% or higher on 3L NC. - Continue current treatment. Qualifiers: Chronicity: acute on chronic Qualified Code(s): J96.22 - Acute and chronic respiratory failure with hypercapnia (3) Type 2 diabetes mellitus Current Visit: Yes Status: Chronic Assessment and plan: - Poorly controlled DM and patient is on very high dose of insulin at home. - The blood glucose goal is around 200-250 for now and will have more tight control gradually. - Continue current SQ insulin regimen. Qualifiers: Diabetes mellitus complication status: with unspecified complications Diabetes mellitus oysterman insulin use: with oysterman use Qualified Code(s) : E11.8 - Type 2 diabetes mellitus with unspecified complications; Z79.4 - oysterman (current) use of insulin (4) Hypertension Current Visit: Yes Status: Acute Assessment and plan: - BP well controlled. - Continue current antihypertensive regimen. Qualifiers: Hypertension type: essential hypertension Qualified Code(s): I10 - Essential (primary) hypertension (5) Colostomy and enterostomy malfunction Current Visit: Yes Status: Acute Assessment and plan: - Wound care consulted to evaluate and manage. (6) DVT prophylaxis Current Visit: Yes Status: Acute Assessment and plan: - Continue Lovenox. medical decision making: This patient has a moderate to severe risk of worsening respiratory failure in spite on appropriate medication - Subjective Interval history: No significant event noted overnight. Patient was seen and examined this morning. Patient reports breathing fine. Patient denies fever, chills, chest pain, nausea, vomiting, diarrhea. Patient states she wants to go home. - Constitutional Vitals: Temp Pulse Resp BP Pulse Ox 98.3 F 69 16 106/62 93 12/05/16 15:11 12/05/16 15:11 12/05/16 15:53 12/05/16 15:11 12/05/16 15:53 General appearance: Present: A&O X 2, morbidly obese, no acute distress, answers questions appropriately - Head Head exam: Present: atraumatic, normocephalic - Eye Eye exam: Present: PERRL, conjuntiva pink, sclera anicteric - Neck Neck exam general surgery: Present: supple, trachea midline. Absent: lymphadenopathy - Respiratory Respiratory exam: Present: decreased breath sounds. Absent: accessory muscle use, rales, rhonchi, wheezes - Cardiovascular Cardiovascular exam: Present: RRR, +S1, +S2. Absent: diastolic murmur, gallop, rubs, systolic murmur - GI/Abdominal GI/Abdominal exam: Present: normal bowel sounds, soft, tenderness (Lower quadrants), no peritoneal signs. Absent: distended Additional comments: Colostomy bag and fistula noted - Extremities Exam Extremities exam: Present: pedal edema, warm, radial pulses palpable and symetrical. Absent: calf tenderness, cyanotic - Neurological Exam Neurological exam: Present: CN II-XII intact, oriented X3, no focal deficits. Absent: pronater drift, facial droop, speech deficit - Skin Skin exam: Present: dry, intact Internal Medicine: Result - Labs CBC & Chem 7: 12/05/16 06:02 12/05/16 06:02 Labs: Short CBC 12/05/16 Range/Units 06:02 WBC 9.8 (4.3-11.1) K/mcL Hgb 13.6 (11.5-15.4) g/dL Hct 40.0 (35.3-44.9) % Plt Count 162 (140-400) K/mcL Neutrophils # 7.2 (1.6-8.9) K/mcL BMP 12/05/16 06:02 Sodium 133 L Potassium 3.5 Chloride 94 L Carbon Dioxide 30 H BUN 30 H Creatinine 1.57 H Glucose 221 H Calcium 9.8 Liver Function 12/05/16 Range/Units 06:02 Total Bilirubin 0.4 (0.2-1.2) mg/dL AST 14 (5-34) Units/L ALT 15 (0-55) Units/L Alkaline Phosphatase 122 (38-126) Units/L Albumin 3.2 L (3.5-5.0) g/dL - ABG Interpretation ABG results: ABG ABG pH 7.31 pH Units (7.32-7.45) L 12/02/16 12:00 ABG pCO2 61 mmHg (35-45) H 12/02/16 12:00 ABG pO2 59 mmHg (85-104) L 12/02/16 12:00 ABG O2 Saturation 87 % (95-98) L 12/02/16 12:00 PT/INR, D-dimer PT 11.5 Seconds (9.4-12.1) 12/01/16 12:48 Consult Discharge Plan - Plan Referrals: Siena Crespo, SAUD [Primary Care Provider] - <Fareed Camacho - Last Filed: 12/05/16 17:09> Date of Encounter: 12/05/16 - Assessment and plan (1) Acute exacerbation of chronic obstructive airways disease Current Visit: Yes Status: Acute (2) Hypercapnic respiratory failure Current Visit: Yes Status: Acute Qualifiers: Chronicity: acute on chronic Qualified Code(s): J96.22 - Acute and chronic respiratory failure with hypercapnia (3) Colostomy and enterostomy malfunction Current Visit: Yes Status: Acute (4) Hypertension Current Visit: Yes Status: Acute Qualifiers: Hypertension type: essential hypertension Qualified Code(s): I10 - Essential (primary) hypertension (5) Type 2 diabetes mellitus Current Visit: Yes Status: Chronic Qualifiers: Diabetes mellitus complication status: with unspecified complications Diabetes mellitus oysterman insulin use: with oysterman use Qualified Code(s) : E11.8 - Type 2 diabetes mellitus with unspecified complications; Z79.4 - oysterman (current) use of insulin (6) DVT prophylaxis Current Visit: Yes Status: Acute - Constitutional Vitals: Temp Pulse Resp BP Pulse Ox 98.3 F 69 16 106/62 93 12/05/16 15:11 12/05/16 15:11 12/05/16 15:53 12/05/16 15:11 12/05/16 15:53 Internal Medicine: Result - Labs CBC & Chem 7: 12/05/16 06:02 12/05/16 06:02 Labs: Short CBC 12/05/16 Range/Units 06:02 WBC 9.8 (4.3-11.1) K/mcL Hgb 13.6 (11.5-15.4) g/dL Hct 40.0 (35.3-44.9) % Plt Count 162 (140-400) K/mcL Neutrophils # 7.2 (1.6-8.9) K/mcL BMP 12/05/16 06:02 Sodium 133 L Potassium 3.5 Chloride 94 L Carbon Dioxide 30 H BUN 30 H Creatinine 1.57 H Glucose 221 H Calcium 9.8 Liver Function 12/05/16 Range/Units 06:02 Total Bilirubin 0.4 (0.2-1.2) mg/dL AST 14 (5-34) Units/L ALT 15 (0-55) Units/L Alkaline Phosphatase 122 (38-126) Units/L Albumin 3.2 L (3.5-5.0) g/dL - ABG Interpretation ABG results: ABG ABG pH 7.31 pH Units (7.32-7.45) L 12/02/16 12:00 ABG pCO2 61 mmHg (35-45) H 12/02/16 12:00 ABG pO2 59 mmHg (85-104) L 12/02/16 12:00 ABG O2 Saturation 87 % (95-98) L 12/02/16 12:00 PT/INR, D-dimer PT 11.5 Seconds (9.4-12.1) 12/01/16 12:48 - Attending Attestation I examined this patient and my medical decision-making was reviewed with the GLASS RIBBON MACHINE OPERATOR/PA/Advanced Practice Nurse/Resident Physician. I agree with the documented findings, disposition and treatment plan as described except to the extent set forth below.
[2016-12-05] MEDS: *HR* HYDROcodone/Acet 5/325 mg TABLET PO PRN (22:56)
[2016-12-06] MEDS ORDERED: *HR* Morphine 2 MG/ML SYRINGE IVP ONE (00:02)
[2016-12-06] MEDS: Ipratropium/Albuterol Neb 3 ML IH SCH ×4 (00:02→10:38)
[2016-12-06] MEDS: *HR* HYDROcodone/Acet 5/325 mg TABLET PO PRN (04:43)
[2016-12-06] MEDS: *HR* Enoxaparin 40 MG/0.4 ML SYRINGE SQ SCH (05:34)
[2016-12-06 07:35] LABS: Basophils % 0.3 %; Eosinophils % 0.2 %; Hematocrit 41.4 % (35.3-44.9); Hemoglobin 14.4 g/dL (11.5-15.4); Immature Granulocytes % 1.5 % (0-4); Lymphocytes % 15.9 %; Mean Corpuscular HGB Conc 34.8 g/dL (31.6-35.5); Mean Corpuscular Hemoglobin 30.9 pg (28.0-33.3); Mean Corpuscular Volume 88.8 fL (83.0-100.0); Monocytes # 0.9 K/mcL (0.0-1.3); Neutrophils # 9.4 K/mcL (1.6-8.9); Platelet Count 175 K/mcL (140-400); Red Blood Count 4.66 M/mcL (3.82-4.97); Red Cell Distribution Width 13.1 % (11.5-14.5); Segmented Neutrophils % 75.1 %
[2016-12-06 07:40] LABS: Calcium 9.7 mg/dL (8.6-10.8); Potassium 3.6 mEq/L (3.5-4.5)
[2016-12-06] MEDS: hydroCHLOROthiazide 25 MG TABLET PO SCH (08:59)
[2016-12-06] MEDS: predniSONE 20 MG TABLET PO SCH (08:59)
[2016-12-06] MEDS: Isosorbide MONOnitrate (24 HR) 60 MG TAB.ER.24H PO SCH (08:59)
[2016-12-06] MEDS: *HR* Insulin Regular U-500 500 UNIT/ML SQ SCH ×2 (09:00→12:11)
[2016-12-06] MEDS: Metoprolol 100 MG TABLET PO SCH (09:00)
[2016-12-06] MEDS: Aspirin Enteric Coated 81 MG Tablet PO SCH (09:00)
[2016-12-06] MEDS: levoFLOXacin 750 MG TABLET PO SCH (09:00)
[2016-12-06] MEDS: (Ezetimibe [Zetia] 10 MG) PO SCH (09:00)
[2016-12-06] MEDS: Famotidine 20 MG TABLET PO SCH (09:00)
--- NOTE | 2016-12-06 09:45 | Internal Med Progress Note ---
<Kami Pickens - Last Filed: 12/06/16 10:39> Date of Encounter: 12/06/16 Time of Encounter: 09:30 - Assessment and plan (1) Acute exacerbation of chronic obstructive airways disease Status: Acute Assessment and plan: - Patient has multiple prior admissions for COPD exacerbation - Improves as patient reports less shortness of breath and decrease in oxygen need. - Continue Levofloxacin (Day 6), prednisone 40 mg PO q24H, bronchodilators and supplemental oxygen. - Continue to monitor. - Pending placement. (2) Hypercapnic respiratory failure Status: Acute Assessment and plan: - ABG on admission showed respiratory acidosis with hypercapnia. - Likely secondary to AE COPD in the setting of OHS/MAR. - Respiratory status has significantly improved. O2 sat 91% or higher on 3L NC. - Continue current treatment. Qualifiers: Chronicity: acute on chronic Qualified Code(s): J96.22 - Acute and chronic respiratory failure with hypercapnia (3) Type 2 diabetes mellitus Status: Chronic Assessment and plan: - Poorly controlled DM and patient is on very high dose of insulin at home. - The blood glucose goal is around 200-250 for now and will have more tight control gradually. - Continue current SQ insulin regimen. Qualifiers: Diabetes mellitus complication status: with unspecified complications Diabetes mellitus buttermaker continuous churn insulin use: with buttermaker continuous churn use Qualified Code(s) : E11.8 - Type 2 diabetes mellitus with unspecified complications; Z79.4 - superintendent marine oil terminal (current) use of insulin (4) Hypertension Status: Acute Assessment and plan: - BP well controlled. - Continue current antihypertensive regimen. Qualifiers: Hypertension type: essential hypertension Qualified Code(s): I10 - Essential (primary) hypertension (5) Colostomy and enterostomy malfunction Status: Acute Assessment and plan: - Wound care consulted to evaluate and manage. (6) DVT prophylaxis Status: Acute Assessment and plan: - Continue Lovenox. medical decision making: This patient has a moderate to severe risk of worsening respiratory failure in spite on appropriate medication - Subjective Interval history: No significant event noted overnight. Patient was seen and examined this morning. Patient reports breathing okay. Patient denies fever, chills, chest pain, nausea, vomiting, diarrhea. Patient states she wants to go home. - Constitutional Vitals: Temp Pulse Resp BP Pulse Ox 97.4 F L 64 16 110/74 95 12/06/16 06:47 12/06/16 06:47 12/06/16 06:47 12/06/16 06:47 12/06/16 06:47 General appearance: Present: A&O X 2, morbidly obese, no acute distress, answers questions appropriately - Head Head exam: Present: atraumatic, normocephalic - Eye Eye exam: Present: PERRL, conjuntiva pink, sclera anicteric - Neck Neck exam general surgery: Present: supple, trachea midline. Absent: lymphadenopathy - Respiratory Respiratory exam: Present: decreased breath sounds. Absent: accessory muscle use, rales, rhonchi, wheezes - Cardiovascular Cardiovascular exam: Present: RRR, +S1, +S2. Absent: diastolic murmur, gallop, rubs, systolic murmur - GI/Abdominal GI/Abdominal exam: Present: normal bowel sounds, soft, tenderness (At same RLQ area), no peritoneal signs. Absent: distended Additional comments: Colostomy bag and fistula noted - Extremities Exam Extremities exam: Present: pedal edema, warm, radial pulses palpable and symetrical. Absent: calf tenderness, cyanotic - Neurological Exam Neurological exam: Present: CN II-XII intact, oriented X3, no focal deficits. Absent: pronater drift, facial droop, speech deficit - Skin Skin exam: Present: dry, intact Internal Medicine: Result - Labs CBC & Chem 7: 12/06/16 06:48 12/06/16 06:48 Labs: Short CBC 12/06/16 Range/Units 06:48 WBC 12.5 H (4.3-11.1) K/mcL Hgb 14.4 (11.5-15.4) g/dL Hct 41.4 (35.3-44.9) % Plt Count 175 (140-400) K/mcL Neutrophils # 9.4 H (1.6-8.9) K/mcL BMP 12/06/16 06:48 Sodium 135 L Potassium 3.6 Chloride 95 L Carbon Dioxide 27 BUN 31 H Creatinine 1.48 H Glucose 186 H Calcium 9.7 - ABG Interpretation ABG results: ABG ABG pH 7.31 pH Units (7.32-7.45) L 12/02/16 12:00 ABG pCO2 61 mmHg (35-45) H 12/02/16 12:00 ABG pO2 59 mmHg (85-104) L 12/02/16 12:00 ABG O2 Saturation 87 % (95-98) L 12/02/16 12:00 PT/INR, D-dimer PT 11.5 Seconds (9.4-12.1) 12/01/16 12:48 Consult Discharge Plan - Plan Instructions: Prednisone (By mouth), Acute Respiratory Distress Syndrome (DC) Additional Instructions: Please take prednisone taper (30 mg by mouth daily for 3 days, followed by 20 mg by mouth daily for 3 days and finally 10 mg by mouth daily for 3 days Please continue use of home Duoneb, albuterol and oxygen. Please follow up with your primary care provider within a week. Referrals: Siena Crespo, [facility] [Primary Care Provider] - (Within a week) Prescriptions: PredniSONE See Taper PO DAILY #18 tablet <Fareed Camacho P - Last Filed: 12/06/16 18:03> Date of Encounter: 12/06/16 - Assessment and plan (1) Acute exacerbation of chronic obstructive airways disease Status: Acute (2) Hypercapnic respiratory failure Status: Acute Qualifiers: Chronicity: acute on chronic Qualified Code(s): J96.22 - Acute and chronic respiratory failure with hypercapnia (3) Colostomy and enterostomy malfunction Status: Acute (4) Hypertension Status: Acute Qualifiers: Hypertension type: essential hypertension Qualified Code(s): I10 - Essential (primary) hypertension (5) Type 2 diabetes mellitus Status: Chronic Qualifiers: Diabetes mellitus complication status: with unspecified complications Diabetes mellitus buttermaker continuous churn insulin use: with longterm use Qualified Code(s) : E11.8 - Type 2 diabetes mellitus with unspecified complications; Z79.4 - superintendent marine oil terminal (current) use of insulin (6) DVT prophylaxis Status: Acute - Constitutional Vitals: Temp Pulse Resp BP Pulse Ox 97.5 F L 64 16 116/73 93 12/06/16 11:26 12/06/16 11:26 12/06/16 11:26 12/06/16 11:26 12/06/16 11:26 Internal Medicine: Result - Labs CBC & Chem 7: 12/06/16 06:48 12/06/16 06:48 Labs: Short CBC 12/06/16 Range/Units 06:48 WBC 12.5 H (4.3-11.1) K/mcL Hgb 14.4 (11.5-15.4) g/dL Hct 41.4 (35.3-44.9) % Plt Count 175 (140-400) K/mcL Neutrophils # 9.4 H (1.6-8.9) K/mcL BMP 12/06/16 06:48 Sodium 135 L Potassium 3.6 Chloride 95 L Carbon Dioxide 27 BUN 31 H Creatinine 1.48 H Glucose 186 H Calcium 9.7 - ABG Interpretation ABG results: ABG ABG pH 7.31 pH Units (7.32-7.45) L 12/02/16 12:00 ABG pCO2 61 mmHg (35-45) H 12/02/16 12:00 ABG pO2 59 mmHg (85-104) L 12/02/16 12:00 ABG O2 Saturation 87 % (95-98) L 12/02/16 12:00 PT/INR, D-dimer PT 11.5 Seconds (9.4-12.1) 12/01/16 12:48 - Attending Attestation I examined this patient and my medical decision-making was reviewed with the WINDOWS APPLICATION PACKAGER/PA/Advanced Practice Nurse/Resident Physician. I agree with the documented findings, disposition and treatment plan as described except to the extent set forth below.
[2016-12-06 11:29] VITALS: BP 116/73
--- NOTE | 2016-12-06 12:55 | Discharge Summary ---
<Kami Pickens - Last Filed: 12/06/16 12:49> Date of Encounter: 12/06/16 Time of Encounter: 10:30 - Discharge Diagnosis (1) Acute exacerbation of chronic obstructive airways disease Priority: Primary Status: Acute (2) Hypercapnic respiratory failure Priority: Secondary Status: Acute Qualifiers: Chronicity: acute on chronic Qualified Code(s): J96.22 - Acute and chronic respiratory failure with hypercapnia (3) Type 2 diabetes mellitus Priority: Secondary Status: Chronic Qualifiers: Diabetes mellitus complication status: with unspecified complications Diabetes mellitus retirement insulin use: with termite control service representative use Qualified Code(s) : E11.8 - Type 2 diabetes mellitus with unspecified complications; Z79.4 - tank terminal gauger (current) use of insulin (4) Hypertension Priority: Secondary Status: Acute Qualifiers: Hypertension type: essential hypertension Qualified Code(s): I10 - Essential (primary) hypertension (5) Colostomy and enterostomy malfunction Priority: Secondary Status: Acute - Discharge Medications Prescriptions: PredniSONE See Taper PO DAILY #18 tablet Home Medications: Albuterol Sulfate [Proair Respiclick] 2 puff IH Q4H PRN 11/26/15 [History] Ascorbic Acid [Vitamin C] 500 mg PO DAILY 11/26/15 [History] Aspirin [Adult Low Dose Aspirin EC] 81 mg PO DAILY 11/26/15 [History] Diazepam [Valium] 5 mg PO BID 11/26/15 [History] DiphenhydraMINE [Benadryl] 50 mg PO Q6HR 11/26/15 [History] Diphenoxylate/Atropine [Lomotil 2.5 mg/0.025 mg] 2 tab PO Q6H PRN 11/26/15 [ History] Esomeprazole Magnesium [Nexium] 40 mg PO BID 11/26/15 [History] Ezetimibe [Zetia] 10 mg PO DAILY 11/26/15 [History] FentaNYL PATCH [Duragesic] 25 mcg TD Q72H 11/26/15 [History] Folic Acid [FA-8] 0.8 mg PO DAILY 11/26/15 [History] Glucagon,Human Recombinant [Glucagon Emergency Kit] 1 mg IJ PER PKG DI 11/26/15 [History] HYDROcodone/Acet 5/325 mg [[place] 5-325 mg] 1 tab PO TID PRN 11/26/15 [History] Metoprolol [Lopressor] 100 mg PO BID 11/26/15 [History] Nitroglycerin [Nitrostat] 0.4 mg SL Q5M PRN 11/26/15 [History] Potassium Chloride [K-Tab ER] 20 meq PO DAILY 11/26/15 [History] Ranitidine HCl 150 mg PO DAILY 11/26/15 [History] Trazodone HCl 150 mg PO HS PRN 11/26/15 [History] Vitamin B Complex [B Complex] 1 tab PO DAILY 11/26/15 [History] Vitamin E (Dl,Tocopheryl Acet) [Vitamin E] 400 unit PO DAILY 11/26/15 [History] Insulin ASPART [NovoLOG] 30 unit SQ TID 03/19/16 [History] Ferrous Sulfate 325 mg PO DAILY #30 tablet 07/21/16 [Rx] Atorvastatin [Lipitor] 40 mg PO HS 12/01/16 [History] Cholecalciferol (Vitamin D3) [Dialyvite Vitamin D] 5,000 unit PO MOFR 12/01/16 [ History] Clopidogrel [Plavix] 75 mg PO DAILY 12/01/16 [History] Furosemide [Lasix] 40 mg PO DAILY PRN 12/01/16 [History] Hydrochlorothiazide 25 mg PO DAILY 12/01/16 [History] Hydroxychloroquine [Plaquenuil] 200 mg PO HS 12/01/16 [History] Ipratropium/Albuterol Neb [Duoneb] 3 ml IH QID PRN 12/01/16 [History] Isosorbide MONOnitrate [Isosorbide Mononitrate ER] 120 mg PO DAILY 12/01/16 [ History] Oxygen 2 l NS AD 12/01/16 [History] Promethazine [Phenergan] 25 mg PO Q4H PRN 12/01/16 [History] Psyllium [Metamucil Fiber Singles Packet] 1 packet PO DAILY 12/01/16 [History] Farideh-D-Hp 2 appl TP 3-4XD 12/01/16 [History] Rosuvastatin [Crestor] 20 mg PO HS 12/01/16 [History] Spironolactone [Aldactone] 50 mg PO BID 12/01/16 [History] Venlafaxine [Effexor] 37.5 mg PO BID 12/01/16 [History] Insulin Regular U-500 [HumuLIN R U-500] 250 unit SQ TID 12/02/16 [History] PredniSONE See Taper PO DAILY #18 tablet 12/06/16 [Rx] Allergies/Adverse Reactions: Allergies Estrogens Allergy (Verified 12/01/16 11:42) See Comments gabapentin Allergy (Verified 12/01/16 11:42) Swelling of Lip/Tongue/Throat Penicillins Allergy (Verified 12/01/16 11:42) See Comments aspirin [ASA] Adverse Reaction (Verified 12/01/16 11:42) See Comments CKD not allowed ASA lisinopril Adverse Reaction (Verified 12/01/16 11:42) Cough Procedures/tests Complete & Pending: Procedures Performed prior 72 hours Category Date Time Status CT head/brain wo con [CT] Routine Cat Scan 12/03/16 12:00 Completed Date of admission: 12/02/16 15:21 Primary care physician: Siena Crespo CNP Consults: 12/05/16 12:19 Consult to Occupational Therapy [CONS] Routine Comment: Evaluate, develop and implement POC Consult to Physical Therapy [CONS] Routine Comment: Evaluate, develop and implement POC Discharging clinician: Kami Pickens Anticipated date of discharge: 12/06/16 - Patient Status Disposition: Home Health Service Condition: Fair Functional capacity at discharge: independent ambulation Overall status at discharge: patient is progressing back to baseline - Discharge Instructions Instructions: Prednisone (By mouth), Acute Respiratory Distress Syndrome (DC) Follow Up With: Siena Crespo CNP [Primary Care Provider] - (Within a week) Additional Instructions: Please take prednisone taper (30 mg by mouth daily for 3 days, followed by 20 mg by mouth daily for 3 days and finally 10 mg by mouth daily for 3 days Please continue use of home Duoneb, albuterol and oxygen. Please follow up with your primary care provider within a week. - Diet and Activity Activity: increase activity as tolerated Diet: diabetic diet Hospital course: Ms. Price is a 56 year old female past medical history of diastolic heart failure, CAD, quadruple bypass, type 2 diabetes uncontrolled, COPD, obesity hypoventilation syndrome, diabetic neuropathy, morbid obesity, colectomy, colostomy with fistulization, CKD stage III. Patient was admitted on 12/01/16 for acute on chronic hypercapnic respiratory failure secondary to COPE exacerbation in the setting of OHS/MAR and diastolic CHF. CXR showed no lobar pneumonia or large effusion. Patient was started on levofloxacin along with Prednisone, bronchodilators and supplemental oxygen. Patient's respiratory status gradually improves during her hospital status with O2 sat > 92% on 3L NC on 12/06/16. Patient will be discharged home with prednisone taper (30 mg daily x 3 days, 20 mg x 3 days and 10 mg x 3 days) while continuing her home bronchodilators. Patient has home health set up and will need follow up with her PCP within a day. - Time Spent with Patient Total time spent providing and/or coordinating discharge services: Greater than 30 minutes - Constitutional Vitals: Temp Pulse Resp BP Pulse Ox 97.5 F L 64 16 116/73 93 12/06/16 11:26 12/06/16 11:26 12/06/16 11:26 12/06/16 11:26 12/06/16 11:26 General appearance: Present: A&O X 3, morbidly obese, no acute distress, answers questions appropriately - Head Head exam: Present: atraumatic, normocephalic - Eye Eye exam: Present: PERRL, conjuntiva pink, sclera anicteric - Neck Neck exam general surgery: Present: supple, trachea midline. Absent: lymphadenopathy - Respiratory Respiratory exam: Present: CTAB. Absent: accessory muscle use, rales, rhonchi, wheezes - Cardiovascular Cardiovascular exam: Present: RRR, +S1, +S2. Absent: diastolic murmur, gallop, rubs, systolic murmur - GI/Abdominal GI/Abdominal exam: Present: normal bowel sounds, soft, tenderness (At same RLQ area), no peritoneal signs. Absent: distended Additional comments: Colostomy bag and fistula noted - Extremities Exam Extremities exam: Present: warm, radial pulses palpable and symetrical. Absent : calf tenderness, cyanotic, pedal edema - Neurological Exam Neurological exam: Present: CN II-XII intact, oriented X3, no focal deficits. Absent: pronater drift, facial droop, speech deficit - Skin Skin exam: Present: dry, intact <Janice,Fareed P - Last Filed: 12/06/16 18:02> Date of Encounter: 12/06/16 - Discharge Diagnosis (1) Acute exacerbation of chronic obstructive airways disease Status: Acute (2) Hypercapnic respiratory failure Status: Acute Qualifiers: Chronicity: acute on chronic Qualified Code(s): J96.22 - Acute and chronic respiratory failure with hypercapnia (3) Colostomy and enterostomy malfunction Status: Acute (4) Hypertension Status: Acute Qualifiers: Hypertension type: essential hypertension Qualified Code(s): I10 - Essential (primary) hypertension (5) Type 2 diabetes mellitus Status: Chronic Qualifiers: Diabetes mellitus complication status: with unspecified complications Diabetes mellitus retirement insulin use: with retirement use Qualified Code(s) : E11.8 - Type 2 diabetes mellitus with unspecified complications; Z79.4 - penitentiary (current) use of insulin (6) DVT prophylaxis Status: Acute Date of admission: 12/02/16 15:21 Primary care physician: Siena Crespo CNP Consults: 12/05/16 12:19 Consult to Occupational Therapy [CONS] Routine Comment: Evaluate, develop and implement POC Consult to Physical Therapy [CONS] Routine Comment: Evaluate, develop and implement POC Hospital course: Ms. Price is a 56 year old female - Time Spent with Patient Total time spent providing and/or coordinating discharge services: - Constitutional Vitals: Temp Pulse Resp BP Pulse Ox 97.5 F L 64 16 116/73 93 12/06/16 11:26 12/06/16 11:26 12/06/16 11:26 12/06/16 11:26 12/06/16 11:26 - Attending Attestation I examined this patient and my medical decision-making was reviewed with the ANIMAL TAXONOMIST/PA/Advanced Practice Nurse/Resident Physician. I agree with the documented findings, disposition and treatment plan as described except to the extent set forth below.
--- NOTE | 2016-12-06 14:06 | Physician Discharge Referral ---
<Kami Pickens - Last Filed: 12/06/16 14:04> Home Health/Hosp Referral Info Transfer to: Home Health Provider in Charge Post Discharge: PCP - Diagnosis (1) Acute exacerbation of chronic obstructive airways disease Priority: Primary Status: Acute (2) Hypercapnic respiratory failure Priority: Secondary Status: Acute (3) Type 2 diabetes mellitus Priority: Secondary Status: Chronic (4) Hypertension Priority: Secondary Status: Acute (5) Colostomy and enterostomy malfunction Priority: Secondary Status: Acute - Respiratory Orders Oxygen / L per min (3L) Smoking Cessation: Smoking cessation has been advised. For more information, call the [employer] Tobacco Quit Line at 2-206-PPGA-NOW. - Dressing/Wound Care Site: Colonostomy and fistula. - Diet/Nutrition Diet/Nutrition Orders: No Concentrated Sweets - Activity Activity Orders: Ambulate - Services Needed Following services are medically necessary services: Nursing, Home Health Aide - Transfer Medications Prescriptions: PredniSONE See Taper PO DAILY #18 tablet Home Medications: Albuterol Sulfate [Proair Respiclick] 2 puff IH Q4H PRN 11/26/15 [History] Ascorbic Acid [Vitamin C] 500 mg PO DAILY 11/26/15 [History] Aspirin [Adult Low Dose Aspirin EC] 81 mg PO DAILY 11/26/15 [History] Diazepam [Valium] 5 mg PO BID 11/26/15 [History] DiphenhydraMINE [Benadryl] 50 mg PO Q6HR 11/26/15 [History] Diphenoxylate/Atropine [Lomotil 2.5 mg/0.025 mg] 2 tab PO Q6H PRN 11/26/15 [ History] Esomeprazole Magnesium [Nexium] 40 mg PO BID 11/26/15 [History] Ezetimibe [Zetia] 10 mg PO DAILY 11/26/15 [History] FentaNYL PATCH [Duragesic] 25 mcg TD Q72H 11/26/15 [History] Folic Acid [FA-8] 0.8 mg PO DAILY 11/26/15 [History] Glucagon,Human Recombinant [Glucagon Emergency Kit] 1 mg IJ PER PKG DI 11/26/15 [History] HYDROcodone/Acet 5/325 mg [[place] 5-325 mg] 1 tab PO TID PRN 11/26/15 [History] Metoprolol [Lopressor] 100 mg PO BID 11/26/15 [History] Nitroglycerin [Nitrostat] 0.4 mg SL Q5M PRN 11/26/15 [History] Potassium Chloride [K-Tab ER] 20 meq PO DAILY 11/26/15 [History] Ranitidine HCl 150 mg PO DAILY 11/26/15 [History] Trazodone HCl 150 mg PO HS PRN 11/26/15 [History] Vitamin B Complex [B Complex] 1 tab PO DAILY 11/26/15 [History] Vitamin E (Dl,Tocopheryl Acet) [Vitamin E] 400 unit PO DAILY 11/26/15 [History] Insulin ASPART [NovoLOG] 30 unit SQ TID 03/19/16 [History] Ferrous Sulfate 325 mg PO DAILY #30 tablet 07/21/16 [Rx] Atorvastatin [Lipitor] 40 mg PO HS 12/01/16 [History] Cholecalciferol (Vitamin D3) [Dialyvite Vitamin D] 5,000 unit PO MOFR 12/01/16 [ History] Clopidogrel [Plavix] 75 mg PO DAILY 12/01/16 [History] Furosemide [Lasix] 40 mg PO DAILY PRN 12/01/16 [History] Hydrochlorothiazide 25 mg PO DAILY 12/01/16 [History] Hydroxychloroquine [Plaquenuil] 200 mg PO HS 12/01/16 [History] Ipratropium/Albuterol Neb [Duoneb] 3 ml IH QID PRN 12/01/16 [History] Isosorbide MONOnitrate [Isosorbide Mononitrate ER] 120 mg PO DAILY 12/01/16 [ History] Oxygen 2 l NS AD 12/01/16 [History] Promethazine [Phenergan] 25 mg PO Q4H PRN 12/01/16 [History] Psyllium [Metamucil Fiber Singles Packet] 1 packet PO DAILY 12/01/16 [History] Farideh-D-Hp 2 appl TP 3-4XD 12/01/16 [History] Rosuvastatin [Crestor] 20 mg PO HS 12/01/16 [History] Spironolactone [Aldactone] 50 mg PO BID 12/01/16 [History] Venlafaxine [Effexor] 37.5 mg PO BID 12/01/16 [History] Insulin Regular U-500 [HumuLIN R U-500] 250 unit SQ TID 12/02/16 [History] PredniSONE See Taper PO DAILY #18 tablet 12/06/16 [Rx] Allergies/Adverse Reactions: Allergies Estrogens Allergy (Verified 12/01/16 11:42) See Comments gabapentin Allergy (Verified 12/01/16 11:42) Swelling of Lip/Tongue/Throat Penicillins Allergy (Verified 12/01/16 11:42) See Comments aspirin [ASA] Adverse Reaction (Verified 12/01/16 11:42) See Comments CKD not allowed ASA lisinopril Adverse Reaction (Verified 12/01/16 11:42) Cough Certification: Further, I certify that my clinical findings support that this patient is homebound (i.e. absences from home require considerable and taxing effort and are for medical reasons or sabianism services or infrequently or short duration when for other reasons) because: Homebound Reason: Patient requires assistance of a person or device to safely leave home Attestation: My signature below is to certify that this patient is under my care and that I, or nurse practitioner, or a physician's assistant film editor working with me, has a face-to -face encounter with this patient. <Fareed Camacho P - Last Filed: 12/06/16 18:03> - Diagnosis (1) Acute exacerbation of chronic obstructive airways disease Status: Acute (2) Hypercapnic respiratory failure Status: Acute (3) Colostomy and enterostomy malfunction Status: Acute (4) Hypertension Status: Acute (5) Type 2 diabetes mellitus Status: Chronic (6) DVT prophylaxis Status: Acute - Respiratory Orders Smoking Cessation: Smoking cessation has been advised. For more information, call the [place] Tobacco Quit Line at 0-091-QSKA-NOW. Certification: Further, I certify that my clinical findings support that this patient is homebound (i.e. absences from home require considerable and taxing effort and are for medical reasons or sabianism services or infrequently or short duration when for other reasons) because: Attestation: My signature below is to certify that this patient is under my care and that I, or nurse practitioner, or a physician's assistant film editor working with me, has a face-to -face encounter with this patient.
== END 2016-12-06 14:50 | disposition home health service (06) | DRG 189 ==
LOC: 2NENU 11:24 → EMEROO 11:24 → SUATTDRO 16:09 → 2NENU 17:34
PROVIDERS: ADMIT Nurse Practitioner Acute Care; ATTEND Internal Medicine

== ENCOUNTER 2016-12-31 21:57 | Observation (INO) ==
[2016-12-31] MEDS ORDERED: *HR* HYDROmorphone (PF) 1 MG/ML SYRINGE IVP ONE (22:04)
[2016-12-31] MEDS ORDERED: Ondansetron 4 MG/2 ML VIAL IVP ONE (22:05)
--- NOTE | 2016-12-31 22:31 | Emergency Department Note ---
Disposition Clinical Impression: Ambulatory dysfunction Disposition: Admitted As Inpatient Condition: Fair Referrals: NO,PCP [Non-Partnered Physician] - Forms: ED Satisfaction Letter General Adult HPI - General Chief complaint: ED Fall Stated complaint: fall Time Seen by Provider: 12/31/16 22:01 Source: patient, family, EMS Limitations: no limitations - History of Present Illness HPI Narrative: This is a 56-year-old female who is morbidly obese and has multiple medical problems including a colostomy. She slipped on a wet floor in the bathroom and hit multiple objects on the way down. She hit her head and jaw and complained of pain in her left shoulder and left hip and left ribs. She is brought in by the squad. She was not able to get up on her own. Pain is rated as a 10. Pain Scale: 10 - Related Data Home Medications Medication Instructions Recorded Confirmed Albuterol Sulfate [Proair 2 puff IH Q4H PRN 11/26/15 12/01/16 Respiclick] Ascorbic Acid [Vitamin C] 500 mg PO DAILY 11/26/15 03/19/16 Aspirin [Adult Low Dose Aspirin EC] 81 mg PO DAILY 11/26/15 03/19/16 Diazepam [Valium] 5 mg PO BID 11/26/15 03/19/16 DiphenhydraMINE [Benadryl] 50 mg PO Q6HR 11/26/15 03/19/16 Diphenoxylate/Atropine [Lomotil 2 tab PO Q6H PRN 11/26/15 12/01/16 2.5 mg/0.025 mg] Esomeprazole Magnesium [Nexium] 40 mg PO BID 11/26/15 12/01/16 Ezetimibe [Zetia] 10 mg PO DAILY 11/26/15 12/01/16 FentaNYL PATCH [Duragesic] 25 mcg TD Q72H 11/26/15 03/19/16 Folic Acid [FA-8] 0.8 mg PO DAILY 11/26/15 03/19/16 Glucagon,Human Recombinant 1 mg IJ PER PKG DI 11/26/15 03/19/16 [Glucagon Emergency Kit] HYDROcodone/Acet 5/325 mg [[place] 1 tab PO TID PRN 11/26/15 12/01/16 5-325 mg] Metoprolol [Lopressor] 100 mg PO BID 11/26/15 12/01/16 Nitroglycerin [Nitrostat] 0.4 mg SL Q5M PRN 11/26/15 12/01/16 Potassium Chloride [K-Tab ER] 20 meq PO DAILY 11/26/15 12/01/16 Ranitidine HCl 150 mg PO DAILY 11/26/15 12/01/16 Trazodone HCl 150 mg PO HS PRN 11/26/15 03/19/16 Vitamin B Complex [B Complex] 1 tab PO DAILY 11/26/15 03/19/16 Vitamin E (Dl,Tocopheryl Acet) 400 unit PO DAILY 11/26/15 03/19/16 [Vitamin E] Insulin ASPART [NovoLOG] 30 unit SQ TID 03/19/16 12/01/16 Atorvastatin [Lipitor] 40 mg PO HS 12/01/16 12/01/16 Cholecalciferol (Vitamin D3) 5,000 unit PO MOFR 12/01/16 12/01/16 [Dialyvite Vitamin D] Clopidogrel [Plavix] 75 mg PO DAILY 12/01/16 12/01/16 Furosemide [Lasix] 40 mg PO DAILY PRN 12/01/16 12/01/16 Hydrochlorothiazide 25 mg PO DAILY 12/01/16 12/01/16 Hydroxychloroquine [Plaquenuil] 200 mg PO HS 12/01/16 12/01/16 Ipratropium/Albuterol Neb [Duoneb] 3 ml IH QID PRN 12/01/16 12/01/16 Isosorbide MONOnitrate [Isosorbide 120 mg PO DAILY 12/01/16 12/01/16 Mononitrate ER] Oxygen 2 l NS AD 12/01/16 12/01/16 Promethazine [Phenergan] 25 mg PO Q4H PRN 12/01/16 12/01/16 Psyllium [Metamucil Fiber Singles 1 packet PO DAILY 12/01/16 12/01/16 Packet] Farideh-D-Hp 2 appl TP 3-4XD 12/01/16 12/01/16 Rosuvastatin [Crestor] 20 mg PO HS 12/01/16 12/01/16 Spironolactone [Aldactone] 50 mg PO BID 12/01/16 12/01/16 Venlafaxine [Effexor] 37.5 mg PO BID 12/01/16 12/01/16 Insulin Regular U-500 [HumuLIN R 250 unit SQ TID 12/02/16 12/02/16 U-500] Previous Rx's Medication Instructions Recorded Ferrous Sulfate 325 mg PO DAILY #30 tablet 07/21/16 PredniSONE See Taper PO DAILY #18 tablet 12/06/16 Allergies Allergy/AdvReac Type Severity Reaction Status Date / Time Estrogens Allergy See Verified 12/01/16 11:42 Comments gabapentin Allergy Swelling Verified 12/01/16 11:42 of Lip/Tongue/Throat Penicillins Allergy See Verified 12/01/16 11:42 Comments aspirin [ASA] AdvReac See Verified 12/01/16 11:42 Comments lisinopril AdvReac Cough Verified 12/01/16 11:42 All systems ED: reviewed and negative except as stated. Constitutional: Denies: fever, chills Eyes: Denies: vision change Cardiovascular: Reports: chest pain Respiratory: Reports: dyspnea Gastrointestinal: Denies: nausea, vomiting Musculoskeletal: Reports: back pain Neurological: Reports: headache Past Medical History - Past Medical History Attestation: Yes The following information was validated with the patient. 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 No hematomas or lacerations noted) - Eye Eye exam: Present: PERRL, EOMI - ENT ENT exam: normal oropharynx - Neck Neck exam: Present: other (C collar in place) - Respiratory Respiratory exam: Present: other ( distant breath sounds bilaterally secondary to body habitus) - Cardiovascular Cardiovascular exam: Present: regular rate, normal rhythm - Abdominal Exam Abdominal exam: Present: other (Colostomy noted) - Extremities Exam Extremities exam: Present: other (She appears to have rotation of the left hip on initial exam. 2 out of 4 distal pulses. She was not able to do range of motion of the left shoulder at all normal movement of the right arm. She is not able to do any range of motion of the left leg.) - Back Exam Back exam: Present: other (No point tenderness) - Neurological Exam Neurological exam: Present: alert, oriented X3, CN II-XII intact Course Course Narrative: This patient is morbidly obese and deconditioned and had a fall impacting multiple objects on the way down. She complained of pain in her left shoulder and left hip and left ribs. She was not able to get up and walk. She arrived with a c-collar in place on a backboard. We obtained CT scans of the head and cervical spine which were interpreted by the radiologist as negative. X-rays of the left humerus and left femur and ribs and chest interpreted by the radiologist as well with no evidence of fracture or traumatic injury. Nonetheless she is not able to get up. Not able to ambulate and will not be able to take care of herself at home. I discussed the case with the hospitalist to arrange for admission. Vital Signs Temperature 97.7 F 12/31/16 22:00 Pulse Rate 94 12/31/16 22:00 Respiratory Rate 14 12/31/16 22:00 Blood Pressure 121/71 12/31/16 22:00 O2 Sat by Pulse Oximetry 93 12/31/16 22:00 Temperature 97.7 F 12/31/16 22:00 Pulse Rate 94 12/31/16 22:00 Respiratory Rate 14 12/31/16 22:00 Blood Pressure 121/71 12/31/16 22:00 O2 Sat by Pulse Oximetry 93 12/31/16 22:00 Oxygen Delivery Oxygen Delivery Room Air Medical Decision Making - Medical Records Medical records reviewed: Yes I reviewed the patient's medical records. - Lab Data Lab results reviewed: Yes I reviewed the patient's lab results. Result diagrams: 12/31/16 22:27 12/31/16 22:27 Lab Results 12/31/16 12/31/16 Range/Units 22:27 22:27 WBC 16.3 H (4.3-11.1) K/mcL RBC 4.73 (3.82-4.97) M/mcL Hgb 14.1 (11.5-15.4) g/dL Hct 43.3 (35.3-44.9) % MCV 91.5 (83.0-100.0) fL MCH 29.8 (28.0-33.3) pg MCHC 32.6 (31.6-35.5) g/dL RDW 13.6 (11.5-14.5) % Plt Count 260 (140-400) K/mcL MPV 11.0 (9.4-12.4) fL Immature Gran % 2.4 (0-4) % Seg Neutrophils % 76.2 % Lymphocytes % 13.4 % Monocytes % 6.6 % Eosinophils % 0.6 % Basophils % 0.8 % Neutrophils # 12.4 H (1.6-8.9) K/mcL Lymphocytes # 2.2 (0.6-4.6) K/mcL Monocytes # 1.1 (0.0-1.3) K/mcL Eosinophils # 0.1 (0.0-0.6) K/mcL Basophils # 0.1 (0.0-0.2) K/mcL Immature Plt Fraction 9.6 H (1.1-6.1) % Sodium 134 L (136-145) mEq/L Potassium 4.5 (3.5-4.5) mEq/L Chloride 100 (98-109) mEq/L Carbon Dioxide 24 (19-29) mEq/L BUN 17 (7-20) mg/dL Creatinine 1.54 H (0.57-1.11) mg/dL Est GFR ( Amer) 42 L (> 60) Est GFR (Non-Af Amer) 35 L (> 60) BUN/Creatinine Ratio 11 (6-26) Glucose 122 H (70-99) mg/dL Calculated Osmolality 281 (280-300) Calcium 10.6 (8.6-10.8) mg/dL Total Bilirubin 0.6 (0.2-1.2) mg/dL AST 36 H (5-34) Units/L ALT 47 (0-55) Units/L Alkaline Phosphatase 210 H (38-126) Units/L Serum Total Protein 7.8 (6.0-8.3) g/dL Albumin 3.8 (3.5-5.0) g/dL Globulin 4.0 H (2.4-3.5) g/dL Albumin/Globulin Ratio 1.0 L (1.1-2.2) - Radiology Data Radiology results reviewed: Yes I reviewed the patient's radiology results. - EKG Data EKG #1 EKG attestation: Yes I reviewed and interpreted this EKG. EKG results narrative: EKG interpreted by me showing sinus rhythm at a rate of 82, QRS of approximately 80 ms, QTC of 138
[2016-12-31 22:34] LABS: Basophils # 0.1 K/mcL (0.0-0.2); Basophils % 0.8 %; Eosinophils # 0.1 K/mcL (0.0-0.6); Eosinophils % 0.6 %; Hematocrit 43.3 % (35.3-44.9); Hemoglobin 14.1 g/dL (11.5-15.4); Immature Granulocytes % 2.4 % (0-4); Immature Platelets 9.6 % (1.1-6.1); Lymphocytes # 2.2 K/mcL (0.6-4.6); Lymphocytes % 13.4 %; Mean Corpuscular HGB Conc 32.6 g/dL (31.6-35.5); Mean Corpuscular Hemoglobin 29.8 pg (28.0-33.3); Mean Corpuscular Volume 91.5 fL (83.0-100.0); Monocytes # 1.1 K/mcL (0.0-1.3); Monocytes % 6.6 %; Neutrophils # 12.4 K/mcL (1.6-8.9); Platelet Count 260 K/mcL (140-400); Red Blood Count 4.73 M/mcL (3.82-4.97); Red Cell Distribution Width 13.6 % (11.5-14.5); Segmented Neutrophils % 76.2 %
[2016-12-31 22:46] LABS: Albumin 3.8 g/dL (3.5-5.0); Bilirubin,Total 0.6 mg/dL (0.2-1.2); Calcium 10.6 mg/dL (8.6-10.8); Potassium 4.5 mEq/L (3.5-4.5); Total Protein 7.8 g/dL (6.0-8.3)
--- NOTE | 2017-01-01 03:57 | Internal Med History&Physical ---
Date of Encounter: 01/01/17 Time of Encounter: 03:20 Assessment and Plan (1) Fall Current visit: Yes Status: Acute this is mechanical in nature, she reports that she and her are working on moving into another house with more safety features and handicap friendly, for now we will manage her pain and get PT/OT to weigh in Qualifiers: Encounter type: initial encounter Qualified Code(s): W19.XXXA - Unspecified fall, initial encounter (2) Ambulatory dysfunction Current visit: Yes Status: Acute most likely related to her nuropathy, we will appreciate PT/OT input (3) Hyperkalemia Current visit: Yes Status: Acute most likely related to her CKD, we will follow BMP, no need for urgent interventions (4) HTN (hypertension) Current visit: Yes Status: Chronic we will continue her home medications with BP monitoring Qualifiers: Hypertension type: essential hypertension Qualified Code(s): I10 - Essential (primary) hypertension (5) COPD (chronic obstructive pulmonary disease) Current visit: Yes Status: Chronic chest is clear currently, we will continue home medications Qualifiers: COPD type: chronic bronchitis Chronic bronchitis type: simple Qualified Code(s): J41.0 - Simple chronic bronchitis (6) CAD (coronary artery disease) of artery bypass graft Current visit: Yes Status: Chronic patient reports CAD s/p 3 stents, later followed by a quadruple bypass about 5 years ago, she reports no angina symptoms, we will continue her home medications Qualifiers: [place] vs. transplanted heart: [place] heart Associated angina: without angina Qualified Code(s): I25.810 - Atherosclerosis of coronary artery bypass graft(s) without angina pectoris (7) Diastolic CHF Current visit: Yes Status: Chronic currently euvolemic, we will do daily weights, salt and fluid restriction, continue home heart failure meds Qualifiers: Congestive heart failure chronicity: chronic Qualified Code(s): I50.32 - Chronic diastolic (congestive) heart failure (8) Obesity hypoventilation syndrome Current visit: Yes Status: Chronic we will need to monitor (9) Type 2 diabetes mellitus Current visit: Yes Status: Chronic Hx of DM type 2 with A1c of 9.4 in 11/2016, she is not on long acting insulin but has short acting insulin on her home med list, we will do basal bolus insulin regimen Qualifiers: Diabetes mellitus complication status: with neurologic complications Diabetes mellitus complication detail: with polyneuropathy 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 Price is a 56 year old female with a history of peripheral neuropathy from diabetes and ambulatory dysfunction with multiple falls in the past who gets home physical therapy with a home companion was brought to the ER of [place] following a fall at home. She was in her usual state of health until the evening of the day of admission when she slipped on the wet floor and fell. She hit the left side of her body in the process. After the event she was unable to get up from the floor and was in excruciating pain. Her pain was 10/10 dull achy as well as sharp and involved the left shoulder, her left ribs and her left leg. Squad was called and she was brought here. She denies any reports of lightheadedness, palpitations, nausea or vomiting. She denies loosing consciousness. PAST MEDICAL HISTORY: [place], ?AFIB, COPD, stomach ulcer, sleep apnea, diabetes, CKD stage 3-4 right knee artificial joint, anemia, hypertension, asthma, cardiac stent placement, anxiety, hiatal hernia, diverticulitis. PAST SURGICAL HISTORY: Cyst removed from head x3, tonsillectomy, adenoidectomy, cardiac stents x3, CABG, cholecystectomy, appendectomy, hysterectomy, bowel resection with colostomy, hernia repair x2, bilateral knee arthroscopies, carpal tunnel release bilaterally, left shoulder surgeries x2. SOCIAL HISTORY: Denies alcohol or illicit drug use. Admits to smoking one pack of cigarettes a day for >35 years, currently smokes 1/2 a pack/day. FAMILY HISTORY: History of lung cancer and prostate cancer in her brother. Stroke in an uncle. Diabetes in mother and brother, heart disease mother and father, and hypertension in two sisters. Past Med Surg Social Fam HX - Past Medical History Medical history: atrial fibrillation, CHF, COPD, diabetes, hyperlipidemia, hypertension, myocardial infarction, renal disease Psychiatric history: anxiety, bipolar, depression - Past Surgical History Surgical History: angioplasty/stent, appendectomy, cholecystectomy, colectomy, colostomy, coronary bypass (CABG), hysterectomy, other - Social History Smoking Status: Current every day smoker Smokeless Tobacco Status: No Alcohol use: none Drug use: none - Family History Father Hx Family Cardiac Disorders: Yes Mother Hx Family Cardiac Disorders: Yes Internal Medicine - H&P: Meds Albuterol Sulfate [Proair Respiclick] 2 puff IH Q4H PRN 11/26/15 [History] Diphenoxylate/Atropine [Lomotil 2.5 mg/0.025 mg] 2 tab PO Q6H PRN 11/26/15 [ History] Esomeprazole Magnesium [Nexium] 40 mg PO BID 11/26/15 [History] Ezetimibe [Zetia] 10 mg PO DAILY 11/26/15 [History] HYDROcodone/Acet 5/325 mg [[place] 5-325 mg] 1 tab PO TID PRN 11/26/15 [History] Metoprolol [Lopressor] 100 mg PO BID 11/26/15 [History] Nitroglycerin [Nitrostat] 0.4 mg SL Q5M PRN 11/26/15 [History] Potassium Chloride [K-Tab ER] 20 meq PO DAILY 11/26/15 [History] Ranitidine HCl 150 mg PO DAILY 11/26/15 [History] Insulin ASPART [NovoLOG] 30 unit SQ TID 03/19/16 [History] Ferrous Sulfate 325 mg PO DAILY #30 tablet 07/21/16 [Rx] Atorvastatin [Lipitor] 40 mg PO HS 12/01/16 [History] Cholecalciferol (Vitamin D3) [Dialyvite Vitamin D] 5,000 unit PO MOFR 12/01/16 [ History] Clopidogrel [Plavix] 75 mg PO DAILY 12/01/16 [History] Furosemide [Lasix] 40 mg PO DAILY PRN 12/01/16 [History] Hydrochlorothiazide 25 mg PO DAILY 12/01/16 [History] Hydroxychloroquine [Plaquenuil] 200 mg PO HS 12/01/16 [History] Ipratropium/Albuterol Neb [Duoneb] 3 ml IH QID PRN 12/01/16 [History] Isosorbide MONOnitrate [Isosorbide Mononitrate ER] 120 mg PO DAILY 12/01/16 [ History] Oxygen 2 l NS AD 12/01/16 [History] Promethazine [Phenergan] 25 mg PO Q4H PRN 12/01/16 [History] Psyllium [Metamucil Fiber Singles Packet] 1 packet PO DAILY 12/01/16 [History] Farideh-D-Hp 2 appl TP 3-4XD 12/01/16 [History] Rosuvastatin [Crestor] 20 mg PO HS 12/01/16 [History] Spironolactone [Aldactone] 50 mg PO BID 12/01/16 [History] Venlafaxine [Effexor] 37.5 mg PO BID 12/01/16 [History] Insulin Regular U-500 [HumuLIN R U-500] 250 unit SQ TID 12/02/16 [History] PredniSONE See Taper PO DAILY #18 tablet 12/06/16 [Rx] Allergies Estrogens Allergy (Verified 12/01/16 11:42) See Comments gabapentin Allergy (Verified 12/01/16 11:42) Swelling of Lip/Tongue/Throat Penicillins Allergy (Verified 12/01/16 11:42) See Comments aspirin [ASA] Adverse Reaction (Verified 12/01/16 11:42) See Comments CKD not allowed ASA lisinopril Adverse Reaction (Verified 12/01/16 11:42) Cough All Systems PM: A 10-system review of systems was performed and is negative for pertinent findings except as documented above in the HPI. - Constitutional Vitals: Temp Pulse Resp BP Pulse Ox 97.8 F 91 16 103/68 95 01/01/17 02:57 01/01/17 02:57 01/01/17 02:57 01/01/17 02:57 01/01/17 02:57 Gen. Adult female, lying bed, alert interactive, morbidly obese looking, not in obvious pain or distress, HEENT: Normocephalic, atraumatic, LISA, EOMI, oral mucosa is moist, neck is supple, trachea midline Chest: excess adipose tissue, old sternum scar noted Respiratory: clear breath sounds but diminished at the base with no crackles or wheeze Cardiac: RRR, Radial pulses 2+ bilaterally, no ankle edema Abdomen: Obese abdomen, colostomy bag on the left with appropriate drainage, Large central abdomen scar with increased vascularization, soft non tender abdomen, right side fistula Extremities: Bilateral LE demonstrate venous stasis with poorly kept feet and callouses. No pedal ulcerations appreciated on examination. Neuro: CN 2-12 grossly intact, no focal motor exam, diminished sensation in a stocking pattern Skin: chronic skin changes on the lower extremities bilaterally Internal Med - H&P Results - Labs CBC & Chem 7: 12/31/16 22:27 01/01/17 04:37 - EKG Data -: EKG Interpreted by Myself Rate: normal - Diagnostic Studies CT scan - head Status: image reviewed by me Other Images Status: image reviewed by me (other images ordered for eval for fractures were also reviewed)
[2017-01-01] MEDS ORDERED: *HR* HYDROmorphone (PF) 1 MG/ML SYRINGE IVP PRN (03:58)
[2017-01-01] MEDS ORDERED: Naloxone 0.4 MG/ML INJ IVP PRN (03:58)
[2017-01-01] MEDS ORDERED: Nitroglycerin 0.4 MG TAB.SUBL SL PRN (04:01)
[2017-01-01] MEDS ORDERED: Furosemide 40 MG TABLET PO PRN (04:01)
[2017-01-01] MEDS ORDERED: *HR* HYDROcodone/Acet 5/325 mg TABLET PO PRN (04:01)
[2017-01-01] MEDS ORDERED: PROAIR RESPICLICK IH PRN (04:01)
[2017-01-01] MEDS ORDERED: Diphenoxylate/Atropine 1 TAB TABLET PO PRN (04:01)
[2017-01-01] MEDS ORDERED: *HR* Dextrose 50 % in Water (Syg) 50 ML SYRINGE IVP PRN (04:05)
[2017-01-01] MEDS ORDERED: Dextrose Gel 15 GM PO PRN ×2 (04:05)
[2017-01-01] MEDS ORDERED: D5% in Water 1,000 ML IVC PRN (04:05)
[2017-01-01] MEDS ORDERED: NON-FORMULARY MEDICATION 1 EACH EACH (Oxygen [Oxygen] 2 L) NS SCH (04:15)
[2017-01-01] MEDS: Insulin LISPRO 300 UNITS/3 ML VIAL SQ SCH ×4 (04:30→18:39)
[2017-01-01 05:08] LABS: Calcium 9.9 mg/dL (8.6-10.8); Magnesium 1.4 mg/dL (1.6-2.6); Phosphorous 5.4 mg/dL (2.3-4.7); Potassium 5.5 mEq/L (3.5-4.5)
[2017-01-01] MEDS ORDERED: 0.9 % Sodium Chloride 1,000 ML IVC SCH (08:00)
[2017-01-01] MEDS ORDERED: Insulin LISPRO 300 UNITS/3 ML VIAL SQ SCH ×4 (09:00→21:00)
[2017-01-01] MEDS ORDERED: INSULIN ASPART 7 UNIT SQ SCH (09:00)
[2017-01-01] MEDS ORDERED: INSULIN ASPART 30 UNIT SQ SCH (09:00)
[2017-01-01] MEDS: Nicotine 7 MG PATCH.TD24 TD SCH (09:01)
[2017-01-01] MEDS: predniSONE 10 MG TABLET PO SCH (09:02)
[2017-01-01] MEDS: (Ezetimibe [Zetia] 10 MG) PO SCH (09:02)
[2017-01-01] MEDS: Isosorbide MONOnitrate (24 HR) 60 MG TAB.ER.24H PO SCH (09:02)
[2017-01-01] MEDS: Metoprolol 100 MG TABLET PO SCH ×2 (09:02→21:16)
[2017-01-01] MEDS: *HR* Heparin 5,000 UNIT/ML VIAL SQ SCH ×2 (09:11→14:41)
[2017-01-01 13:16] LABS: Calcium 9.8 mg/dL (8.6-10.8); Magnesium 1.7 mg/dL (1.6-2.6)
[2017-01-01] MEDS: *HR* Insulin Regular U-500 500 UNIT/ML SQ SCH (18:39)
--- NOTE | 2017-01-01 19:23 | Internal Med Progress Note ---
Date of Encounter: 01/01/17 Time of Encounter: 09:50 - Assessment and plan (1) Fall Current Visit: Yes Status: Acute Assessment and plan: Patient fell last night at home. She said that she fell over some leakage from her ostomy bag. She said that she fell hitting a metal shelf on the way down. She was not able to get up on her own due to pain. She is brought to the emergency department by squad. All of her x-rays were negative. Her pain was a 10 out of 10 involving her left shoulder, left ribs left leg. She also reports to me left neck. She said it was a mechanical fall on water and denies lightheadedness, dizziness, chest pain, shortness of breath, nausea or vomiting. She denies loss of consciousness. Patient has home health aide services at home. Physical therapy has evaluated and says that she does not have extra needs at home. She will be discharged with a bariatric bedside commode prescription. She does live at home with her . Fall precautions Up with assist Qualifiers: Encounter type: initial encounter Qualified Code(s): W19.XXXA - Unspecified fall, initial encounter (2) Hyperkalemia Current Visit: Yes Status: Acute Assessment and plan: Sodium was initially 5.5. After IV hydration it came down to 5.0. Patient was given Kayexalate 1 dose 15 g. We will redraw labs in the morning. Magnesium was initially 1.4. Without intervention and IV hydration is 1.7 and within normal limits. (3) Hyperlipemia Current Visit: No Status: Chronic Assessment and plan: Chronic. Continue statin. Qualifiers: Hyperlipidemia type: unspecified Qualified Code(s): E78.5 - Hyperlipidemia , unspecified (4) HTN (hypertension) Current Visit: Yes Status: Chronic Assessment and plan: Chronic. Continue home medication. Well controlled while inpatient. Qualifiers: Hypertension type: essential hypertension Qualified Code(s): I10 - Essential (primary) hypertension (5) CAD (coronary artery disease) of artery bypass graft Current Visit: Yes Status: Chronic Assessment and plan: Patient has coronary artery disease with 3 stents. She has had a quadruple bypass about 5 years ago that ended in her having a colostomy, fistula, and removal of her entire sternum. Continue home medications media monitor Monitor labs Monitor vital signs Qualifiers: [place] vs. transplanted heart: [place] heart Associated angina: without angina Qualified Code(s): I25.810 - Atherosclerosis of coronary artery bypass graft(s) without angina pectoris (6) Diastolic CHF Current Visit: Yes Status: Chronic Assessment and plan: Chronic. Qualifiers: Congestive heart failure chronicity: chronic Qualified Code(s): I50.32 - Chronic diastolic (congestive) heart failure (7) Type 2 diabetes mellitus Current Visit: Yes Status: Chronic Assessment and plan: Chronic. A1c is 9.4 in November of this year. Accu-Cheks are around 250. states that patient cannot take normal Humalog and that normal sliding scale insulin does not work for her. Primary nurse spoke with pharmacy and current order is what patient had ordered previously and appeared to be effective in controlling blood sugar during last admission. Insulin change to U500 60 units subcutaneous 3 times a day. Qualifiers: Diabetes mellitus complication status: with neurologic complications Diabetes mellitus complication detail: with polyneuropathy Diabetes mellitus intermediate teacher insulin use: without snf use Qualified Code(s): E11.42 - Type 2 diabetes mellitus with diabetic polyneuropathy (8) Ambulatory dysfunction Current Visit: Yes Status: Chronic Assessment and plan: Patient has difficulty moving in bed and difficulty with physical therapy due to pain and difficulty ambulating. Pain control Physical therapy (9) CKD (chronic kidney disease) stage 3, GFR 30-59 ml/min Current Visit: Yes Status: Chronic Assessment and plan: Creatinine 1.59, GFR 32. Chronic Avoid nephrotoxins Monitor labs (10) COPD (chronic obstructive pulmonary disease) Current Visit: Yes Status: Chronic Assessment and plan: Chronic. Continue home medications Patient has wheezing posteriorly DuoNeb nebs scheduled albuterol nebs when necessary Oxygen as needed, titrate to maintain saturations greater than 92%. Qualifiers: COPD type: unspecified COPD Qualified Code(s): J44.9 - Chronic obstructive pulmonary disease, unspecified - Time Spent With Patient less than 15 minutes - Subjective Interval history: Patient was seen and examined this morning at about 950. She was very drowsy with slurred speech during initial evaluation. She would begin to talk to me and tell me part of her story and fall asleep. She is easily arousable to verbal stimuli, however it was brief. I ended up sitting her up in high Guerra' s position and she stayed awake easily and spoke. She describes left side pain specifically neck, left arm, left hip. She says that one of her ostomies was leaking and she fell on it in the floor. She said she fell into a metal shelf. She does not appear to have much bruising, but she does have pain with range of motion. Patient appears to be very dry. She got IV fluids then another lab draw to check on electrolytes. Patient said that she is currently not interested in discussing smoking cessation. She has a wheezing and her posterior lung escoto and a dry cough. She says that she does not like patches because her insurance does not pay for them and that she is unable to take Chantix. We will revisit this prior to discharge. Patient already gets home health aide, will discuss with secondary social studies teacher need for physical therapy at home along with home health. - Constitutional Vitals: Temp Pulse Resp BP Pulse Ox 98.1 F 94 15 100/63 93 01/01/17 18:38 01/01/17 18:38 01/01/17 18:38 01/01/17 18:38 01/01/17 18:38 General appearance: Present: cooperative, A&O X 3, pleasant, answers questions appropriately - Head Head exam: Present: normal inspection - Eye Eye exam: Present: normal appearance, conjuntiva pink - ENT ENT exam: Present: mucous membranes dry, normal external ear exam, normal oropharynx - Neck Neck exam general surgery: Present: normal inspection. Absent: lymphadenopathy , tenderness - Respiratory Respiratory exam: Present: decreased breath sounds, wheezes. Absent: rales, respiratory distress, rhonchi - Cardiovascular Cardiovascular exam: Present: RRR, +S1, +S2. Absent: diastolic murmur, systolic murmur - Extremities Exam Extremities exam: Present: pedal edema, warm, radial pulses palpable and symetrical - Neurological Exam Neurological exam: Present: alert, oriented X3. Absent: facial droop, speech deficit Additional comments: Patient had slurred speech and was drowsy, after sitting her up patient was alert and speech cleared dramatically Internal Medicine: Result - Labs CBC & Chem 7: 12/31/16 22:27 01/01/17 12:49 Labs: BMP 01/01/17 01/01/17 04:37 12:49 Sodium 133 L 133 L Potassium 5.5 H D 5.0 H Chloride 102 98 Carbon Dioxide 20 24 BUN 19 23 H Creatinine 1.59 H 1.66 H Glucose 192 H 269 H Calcium 9.9 9.8 Consult Discharge Plan - Plan Referrals: Siena Crespo, TRACTOR ENGINE ASSEMBLER [Primary Care Provider] -
--- NOTE | 2017-01-01 19:35 | Electrocardiograph Report ---
[place] [id number] Test Date: 2016-12-31 Pat Name: Odilia Price Department: 102 Room: 3B Gender: F Incident Analyst: Caitlyn : 1960 Requested By: Edwin Odonnell Order Number: [id number] Reading MD: Santiago Cordero MD Measurements Intervals [place] Rate: 82 P: 260 MN: 167 QRS: 0 QRSD: T: 0 QT: 99 QTc: 138 Interpretive Statements SINUS RHYTHM INDETERMINATE AXIS LOW VOLTAGE Electronically Signed On 01-01-2017 19:33:36 EDT by Santiago Cordero MD
[2017-01-01] MEDS: Ipratropium/Albuterol Neb 3 ML IH SCH ×2 (20:30→23:32)
[2017-01-01] MEDS: Albuterol 2.5 MG/3 ML NEBULIZER IH SCH ×2 (20:32→23:38)
[2017-01-02] MEDS: Albuterol 2.5 MG/3 ML NEBULIZER IH SCH ×5 (04:33→20:09)
[2017-01-02] MEDS: Ipratropium/Albuterol Neb 3 ML IH SCH ×5 (04:33→20:09)
[2017-01-02 06:24] LABS: Basophils # 0.1 K/mcL (0.0-0.2); Basophils % 0.7 %; Eosinophils # 0.1 K/mcL (0.0-0.6); Eosinophils % 0.8 %; Hematocrit 39.6 % (35.3-44.9); Immature Granulocytes % 2.1 % (0-4); Lymphocytes # 1.9 K/mcL (0.6-4.6); Lymphocytes % 18.6 %; Mean Corpuscular HGB Conc 31.6 g/dL (31.6-35.5); Mean Corpuscular Hemoglobin 29.6 pg (28.0-33.3); Mean Corpuscular Volume 93.6 fL (83.0-100.0); Mean Platelet Volume 11.2 fL (9.4-12.4); Monocytes # 0.9 K/mcL (0.0-1.3); Monocytes % 8.2 %; Neutrophils # 7.3 K/mcL (1.6-8.9); Platelet Count 180 K/mcL (140-400); Red Blood Count 4.23 M/mcL (3.82-4.97); Red Cell Distribution Width 13.6 % (11.5-14.5); Segmented Neutrophils % 69.6 %
[2017-01-02 06:30] LABS: Hemoglobin 12.5 g/dL (11.5-15.4)
[2017-01-02 06:59] LABS: Calcium 9.3 mg/dL (8.6-10.8)
[2017-01-02 07:00] LABS: Potassium 4.8 mEq/L (3.5-4.5)
[2017-01-02] MEDS: Metoprolol 100 MG TABLET PO SCH (08:40)
[2017-01-02] MEDS: Nicotine 7 MG PATCH.TD24 TD SCH (08:40)
[2017-01-02] MEDS: Isosorbide MONOnitrate (24 HR) 60 MG TAB.ER.24H PO SCH (08:40)
[2017-01-02] MEDS: predniSONE 10 MG TABLET PO SCH (08:41)
[2017-01-02] MEDS: *HR* Insulin Regular U-500 500 UNIT/ML SQ SCH ×2 (08:41→16:03)
[2017-01-02] MEDS: (Ezetimibe [Zetia] 10 MG) PO SCH (08:42)
[2017-01-02] MEDS ORDERED: Cholecalciferol (D-3) 1,000 UNIT TABLET PO SCH (09:00)
[2017-01-02] MEDS ORDERED: Ketorolac 15 MG/ML VIAL IVP ONE (09:49)
[2017-01-02] MEDS ORDERED: Ondansetron 4 MG/2 ML VIAL IVP ONE (09:50)
[2017-01-02 11:06] LABS: Calcium 9.4 mg/dL (8.6-10.8); Potassium 4.9 mEq/L (3.5-4.5)
[2017-01-02 15:38] VITALS: BP 93/56
[2017-01-02] MEDS ORDERED: Insulin LISPRO 300 UNITS/3 ML VIAL SQ SCH ×2 (16:30→21:00)
--- NOTE | 2017-01-02 18:02 | Discharge Summary ---
Date of Encounter: 01/02/17 Time of Encounter: 09:30 - Discharge Diagnosis (1) Fall Priority: Primary Status: Acute Comments: Patient was initially admitted due to intractable pain from fall at home. She told me when I interviewed her yesterday that she had fallen into a metal shelf at home that she kept her medications on. In reality she fell into her bedside commode which was over her toilet. She broke the bedside commode and also the toilet. I have written a prescription for a bariatric bedside commode for home. He was given to Evaristo Peraza today. She will not be able to get this until Thursday, she will have to use the toilet at home, her has repaired it. Patient does not have any visible injuries from the fall. Today she reports facial pain on the left side. She states that she was getting a migraine this morning. She says that she normally goes to her family doctor for an IM medication. She says that she cannot take pills because they go so fast through her due to her colostomy and fistula. I did give her Benadryl 25 mg IV and Toradol 15 mg IV along with the Zofran ODT that seemed to alleviate her pain. Qualifiers: Encounter type: initial encounter Qualified Code(s): W19.XXXA - Unspecified fall, initial encounter (2) Hyperkalemia Priority: Secondary Status: Acute Comments: Patient has had Kayexalate. Potassium is 4.8. Waiting on a redraw from lab was ordered stat. Patient has also received insulin. (3) Hyperlipemia Priority: Secondary Status: Chronic Comments: Chronic. Continue home medications. Qualifiers: Hyperlipidemia type: unspecified Qualified Code(s): E78.5 - Hyperlipidemia , unspecified (4) HTN (hypertension) Priority: Secondary Status: Chronic Comments: Chronic. Continue home medications. Qualifiers: Hypertension type: essential hypertension Qualified Code(s): I10 - Essential (primary) hypertension (5) CAD (coronary artery disease) of artery bypass graft Priority: Secondary Status: Chronic Comments: Coronary artery disease with 3 stents. CABG 5 years ago. Continued normal home medications. Beta milady, nitrate, statin. Qualifiers: [place] vs. transplanted heart: [place] heart Associated angina: without angina Qualified Code(s): I25.810 - Atherosclerosis of coronary artery bypass graft(s) without angina pectoris (6) Diastolic CHF Priority: Secondary Status: Chronic Comments: Chronic. Qualifiers: Congestive heart failure chronicity: chronic Qualified Code(s): I50.32 - Chronic diastolic (congestive) heart failure (7) Type 2 diabetes mellitus Priority: Secondary Status: Chronic Comments: Patient's blood sugar has been hyperglycemic for entire visit. has been bringing in large sweet teas, bags of chips, and extra snacks. I did discuss with him yesterday that we are trying to get her blood sugar under control so she could feel better, he became upset and complained to the nurses that had been rude to him. He claims that sugar is not what makes a person hyperglycemic. Mrs. Price has seen magento developer on more than one occasion , charge nurse consult at her again for this visit. We have been attempting to get her blood sugar down with her normal U5 100 insulin that she takes at home, we also added sliding scale medium dose coverage. Her blood sugar was over 400. We did explain to her that we are trying to get his lower so she could go home. Unit staff says that patient is sitting in her room eating a bag of potato chips that her has brought for her. Patient is also getting by mouth steroids. Qualifiers: Diabetes mellitus complication status: with neurologic complications Diabetes mellitus complication detail: with polyneuropathy Diabetes mellitus dry wall sprayer insulin use: without dry wall sprayer use Qualified Code(s): E11.42 - Type 2 diabetes mellitus with diabetic polyneuropathy (8) Ambulatory dysfunction Priority: Secondary Status: Chronic Comments: Patient does appear to be weak and unsteady. At times she does appear to be drowsy. She says this is normal for her. Therapy did not identify any needs. She says she uses a walker at home. She will be discharged. (9) CKD (chronic kidney disease) stage 3, GFR 30-59 ml/min Priority: Secondary Status: Chronic Comments: Chronic. Creatinine is at baseline. (10) COPD (chronic obstructive pulmonary disease) Priority: Secondary Status: Chronic Comments: Chronic. No exacerbation. Continue home medications Qualifiers: COPD type: unspecified COPD Qualified Code(s): J44.9 - Chronic obstructive pulmonary disease, unspecified - Discharge Medications Home Medications: Albuterol Sulfate [Proair Respiclick] 2 puff IH Q4H PRN 11/26/15 [History] Diphenoxylate/Atropine [Lomotil 2.5 mg/0.025 mg] 2 tab PO Q6H PRN 11/26/15 [ History] Esomeprazole Magnesium [Nexium] 40 mg PO BID 11/26/15 [History] Ezetimibe [Zetia] 10 mg PO DAILY 11/26/15 [History] HYDROcodone/Acet 5/325 mg [[place] 5-325 mg] 1 tab PO TID PRN 11/26/15 [History] Metoprolol [Lopressor] 100 mg PO BID 11/26/15 [History] Nitroglycerin [Nitrostat] 0.4 mg SL Q5M PRN 11/26/15 [History] Potassium Chloride [K-Tab ER] 20 meq PO DAILY 11/26/15 [History] Ranitidine HCl 150 mg PO DAILY 11/26/15 [History] Insulin ASPART [NovoLOG] 30 unit SQ TID 03/19/16 [History] Ferrous Sulfate 325 mg PO DAILY #30 tablet 07/21/16 [Rx] Atorvastatin [Lipitor] 40 mg PO HS 12/01/16 [History] Cholecalciferol (Vitamin D3) [Dialyvite Vitamin D] 5,000 unit PO MOFR 12/01/16 [ History] Clopidogrel [Plavix] 75 mg PO DAILY 12/01/16 [History] Furosemide [Lasix] 40 mg PO DAILY PRN 12/01/16 [History] Hydrochlorothiazide 25 mg PO DAILY 12/01/16 [History] Hydroxychloroquine [Plaquenuil] 200 mg PO HS 12/01/16 [History] Ipratropium/Albuterol Neb [Duoneb] 3 ml IH QID PRN 12/01/16 [History] Isosorbide MONOnitrate [Isosorbide Mononitrate ER] 120 mg PO DAILY 12/01/16 [ History] Oxygen 2 l NS AD 12/01/16 [History] Promethazine [Phenergan] 25 mg PO Q4H PRN 12/01/16 [History] Psyllium [Metamucil Fiber Singles Packet] 1 packet PO DAILY 12/01/16 [History] Farideh-D-Hp 2 appl TP 3-4XD 12/01/16 [History] Rosuvastatin [Crestor] 20 mg PO HS 12/01/16 [History] Spironolactone [Aldactone] 50 mg PO BID 12/01/16 [History] Venlafaxine [Effexor] 37.5 mg PO BID 12/01/16 [History] Insulin Regular U-500 [HumuLIN R U-500] 250 unit SQ TID 12/02/16 [History] Allergies/Adverse Reactions: Allergies Estrogens Allergy (Verified 12/01/16 11:42) See Comments gabapentin Allergy (Verified 12/01/16 11:42) Swelling of Lip/Tongue/Throat Penicillins Allergy (Verified 12/01/16 11:42) See Comments aspirin [ASA] Adverse Reaction (Verified 12/01/16 11:42) See Comments CKD not allowed ASA lisinopril Adverse Reaction (Verified 12/01/16 11:42) Cough Date of admission: 01/01/17 01:24 Primary care physician: Siena Crespo CNP Consults: 01/01/17 04:00 Consult to Occupational Therapy [CONS] Routine Comment: Evaluate, develop and implement POC Consult to Physical Therapy [CONS] Routine Comment: Evaluate, develop and implement POC 01/01/17 16:30 Consult to Receiving Coordinator [CONS] Routine Comment: Discharging clinician: Yarely Dumont Anticipated date of discharge: 01/02/17 - Patient Status Disposition: Home, Self-Care Condition: Fair Functional capacity at discharge: wheelchair bound Overall status at discharge: patient is back to baseline - Discharge Instructions Instructions: Coronary Artery Disease in Women (DC), Chronic Obstructive Pulmonary Disease (DC), Chronic Hypertension (DC) Follow Up With: Siena Crespo CNP [Primary Care Provider] - 01/15/17 4:00 pm (This will be a home visit. ) Additional Instructions: Follow-up appointments: If there is not an appointment listed below, please call your physician and schedule a follow-up appointment. If you have congestive heart failure and your symptoms return, make an appointment with your physician. Medication List: Carry an up to date list of medications you are taking at all time. We have given you an updated medication list including any new medications that you have been prescribed. Please provide that list to your primary provider Symptoms: If your condition changes or you experience any of the following symptoms, notify your physician immediately: Unusual or worsening pain, fever, persistent nausea and vomiting, bleeding, increase in swelling (especially in your legs), sudden weight gain, extreme dizziness, chest pain, increased drainage or redness from a wound or incision. Go to the emergency department if you experience a problem with breathing. Weights: If you have a history of swelling or shortness of breath, weigh yourself daily and notify your physician if you have a weight gain of two or more pounds in one day or 5 or more pounds in a week. If you experience any of the warning signs for stroke: Sudden numbness or weakness of the face, arm or leg; especially on one side of the body, sudden confusion, trouble speaking or understanding, sudden trouble seeing in one or both eyes, sudden trouble walking, dizziness, loss of balance or coordination, sudden sever headache with no cause; Call 911 or go to the emergency room. Stroke is a medical emergency. Some risk factors for stroke: Age, cigarette smoking, diabetes, excessive alcohol consumption, family history , high blood pressure, overweight, physical inactivity, prior stroke, heart attack, diagnosis of carotid artery stenosis or other artery disease. If you smoke, STOP: Smoking or tobacco use significantly increases your risk of heart and lung disease. Your chance of disease greatly increases if you continue to smoke. For more information, call the [place] tobacco quit line for smoking cessation 4 QUIT-NOW ( ) - Diet and Activity Activity: resume usual activities as tolerated Diet: diabetic diet, low fat, low cholesterol, low salt diet Interval History: Mrs. Price is a 56-year-old female with chronic kidney disease, diabetes, CHF, COPD, weakness and debility, hypertension, hyperlipidemia . She lives at home with her . 2 nights ago she fell in the bathroom. She says that she slipped on some drainage from her colostomy bag. She fell into the bariatric but psychomotor she has her bathroom, she also broke her toilet as well as the bedside commode. She was brought to the emergency room for intractable pain, she could not get herself up from the floor. All of her x -rays have been negative. She has had migratory pain while she has been here. Today she had a migraine that was treated effectively with 25 mg of Benadryl IV 50 mg of Toradol IV and 1 Zofran or milligram ODT. She did ask me for Dilaudid and says that that is the only thing that helps her headaches. She says that she normally has to go to her primary care physician and get injections when she has a headache because by mouth medications go right through her due to her fistula and colostomy. Patient has been hyperglycemic since arrival. We have changed the insulin that she uses from our standard protocol to the U5 100 insulin that she uses at home. We have seen little change in blood glucose. She is also getting prednisone by mouth and is not helping. Her is contributory, as well. He has brought her high carbohydrate, high fat snacks and sugary drinks. Sodium is 133, potassium 4.9. She has been given Kayexalate and she is having output from her colostomy. Blood sugar is 462. Patient is not having a COPD exacerbation at this time. Her renal function is close to baseline. She has not complained of pain to me today. Patient is stable for discharge. She has been given a prescription for a new bariatric bedside commode that we will be available to her on Thursday. She and both state that she is able to use their normal commode at home, it has been repaired. Patient will be going home with [facility] Patient states that if she does not get more pain medication right now she is going to go home. Hospital course: Ms. Price is a 56 year old female Time spent discussing smoking cessation with patient: 3 to 10 minutes - Time Spent with Patient Total time spent providing and/or coordinating discharge services: Less than 30 minutes - Constitutional Vitals: Temp Pulse Resp BP Pulse Ox 98.0 F 80 18 93/56 94 01/02/17 15:36 01/02/17 15:36 01/02/17 15:51 01/02/17 15:36 01/02/17 15:51 General appearance: Present: cooperative, A&O X 3, pleasant, answers questions appropriately - Head Head exam: Present: normal inspection - Eye Eye exam: Present: normal appearance, conjuntiva pink - ENT ENT exam: Present: mucous membranes moist, normal exam, normal external ear exam - Neck Neck exam general surgery: Present: normal inspection. Absent: lymphadenopathy , tenderness - Respiratory Respiratory exam: Present: decreased breath sounds, CTAB. Absent: respiratory distress, rhonchi, stridor, wheezes - Cardiovascular Cardiovascular exam: Present: RRR, +S1, +S2. Absent: diastolic murmur, systolic murmur - GI/Abdominal GI/Abdominal exam: Present: normal bowel sounds, soft. Absent: tenderness Additional comments: Patient has colostomy and fistula abdomen. - Extremities Exam Extremities exam: Present: warm, radial pulses palpable and symetrical. Absent : pedal edema, tenderness - Neurological Exam Neurological exam: Present: alert, oriented X3, no focal deficits, strengths equal and symetr throughout. Absent: facial droop, speech deficit
[2017-01-02 18:07] LABS: Potassium 5.2 mEq/L (3.5-4.5)
--- NOTE | 2017-01-02 18:24 | Physician Discharge Referral ---
Home Health/Hosp Referral Info Transfer to: Home Health Provider in Charge Post Discharge: PCP - Diagnosis (1) Fall Priority: Primary Status: Acute (2) Hyperkalemia Priority: Secondary Status: Acute (3) Hyperlipemia Priority: Secondary Status: Chronic (4) HTN (hypertension) Priority: Secondary Status: Chronic (5) CAD (coronary artery disease) of artery bypass graft Priority: Secondary Status: Chronic (6) Diastolic CHF Priority: Secondary Status: Chronic (7) Type 2 diabetes mellitus Priority: Secondary Status: Chronic (8) Ambulatory dysfunction Priority: Secondary Status: Chronic (9) CKD (chronic kidney disease) stage 3, GFR 30-59 ml/min Priority: Secondary Status: Chronic (10) COPD (chronic obstructive pulmonary disease) Priority: Secondary Status: Chronic - Respiratory Orders Smoking Cessation: Smoking cessation has been advised. For more information, call the [place] Tobacco Quit Line at 4-213-VCQG-NOW. - Diet/Nutrition Diet/Nutrition Orders: No Added Salt ([place]), Renal, Cardiac, No Concentrated Sweets - Activity Activity Orders: Up ad fabian, Walker - Services Needed Following services are medically necessary services: Nursing, Physical Therapy, Occupational Therapy - Transfer Medications Home Medications: Albuterol Sulfate [Proair Respiclick] 2 puff IH Q4H PRN 11/26/15 [History] Diphenoxylate/Atropine [Lomotil 2.5 mg/0.025 mg] 2 tab PO Q6H PRN 11/26/15 [ History] Esomeprazole Magnesium [Nexium] 40 mg PO BID 11/26/15 [History] Ezetimibe [Zetia] 10 mg PO DAILY 11/26/15 [History] HYDROcodone/Acet 5/325 mg [Mazama 5-325 mg] 1 tab PO TID PRN 11/26/15 [History] Metoprolol [Lopressor] 100 mg PO BID 11/26/15 [History] Nitroglycerin [Nitrostat] 0.4 mg SL Q5M PRN 11/26/15 [History] Potassium Chloride [K-Tab ER] 20 meq PO DAILY 11/26/15 [History] Ranitidine HCl 150 mg PO DAILY 11/26/15 [History] Insulin ASPART [NovoLOG] 30 unit SQ TID 03/19/16 [History] Ferrous Sulfate 325 mg PO DAILY #30 tablet 11/14/16 [Rx] Atorvastatin [Lipitor] 40 mg PO HS 12/01/16 [History] Cholecalciferol (Vitamin D3) [Dialyvite Vitamin D] 5,000 unit PO MOFR 12/01/16 [ History] Clopidogrel [Plavix] 75 mg PO DAILY 12/01/16 [History] Furosemide [Lasix] 40 mg PO DAILY PRN 12/01/16 [History] Hydrochlorothiazide 25 mg PO DAILY 12/01/16 [History] Hydroxychloroquine [Plaquenuil] 200 mg PO HS 12/01/16 [History] Ipratropium/Albuterol Neb [Duoneb] 3 ml IH QID PRN 12/01/16 [History] Isosorbide MONOnitrate [Isosorbide Mononitrate ER] 120 mg PO DAILY 12/01/16 [ History] Oxygen 2 l NS AD 12/01/16 [History] Promethazine [Phenergan] 25 mg PO Q4H PRN 12/01/16 [History] Psyllium [Metamucil Fiber Singles Packet] 1 packet PO DAILY 12/01/16 [History] Farideh-D-Hp 2 appl TP 3-4XD 12/01/16 [History] Rosuvastatin [Crestor] 20 mg PO HS 12/01/16 [History] Spironolactone [Aldactone] 50 mg PO BID 12/01/16 [History] Venlafaxine [Effexor] 37.5 mg PO BID 12/01/16 [History] Insulin Regular U-500 [HumuLIN R U-500] 250 unit SQ TID 12/02/16 [History] Allergies/Adverse Reactions: Allergies Estrogens Allergy (Verified 12/01/16 11:42) See Comments gabapentin Allergy (Verified 12/01/16 11:42) Swelling of Lip/Tongue/Throat Penicillins Allergy (Verified 12/01/16 11:42) See Comments aspirin [ASA] Adverse Reaction (Verified 12/01/16 11:42) See Comments CKD not allowed ASA lisinopril Adverse Reaction (Verified 12/01/16 11:42) Cough Certification: Further, I certify that my clinical findings support that this patient is homebound (i.e. absences from home require considerable and taxing effort and are for medical reasons or zoroastrianism services or infrequently or short duration when for other reasons) because: Homebound Reason: Patient requires assistance of a person or device to safely leave home, Leaving home requires considerable and taxing effort due to condition Attestation: My signature below is to certify that this patient is under my care and that I, or nurse practitioner, or a physician's assistant plant control operator working with me, has a face-to -face encounter with this patient.
== END 2017-01-02 19:40 | disposition home health service (06) ==
LOC: EMEROO 21:57 → 3BNU 21:57
PROVIDERS: ADMIT Registered Nurse; ATTEND Registered Nurse

== ENCOUNTER 2018-01-16 13:34 | Observation (INO) ==
--- NOTE | 2018-01-16 14:54 | Emergency Department Note ---
Disposition Clinical Impression: Chest pain Qualifiers: Chest pain type: unspecified Qualified Code(s): R07.9 - Chest pain, unspecified Disposition: Admitted As Inpatient Condition: Good Referrals: NONE,PCP [Primary Care Provider] - Forms: ED Satisfaction Letter Time of Disposition: 17:40 Chest Pain HPI - General Chief Complaint: ED Chest Pain Stated Complaint: "Chest Pain" Time Seen by Provider: 01/16/18 14:41 Source: patient Mode of arrival: ambulatory Limitations: no limitations Vital Signs Reviewed: Yes Nursing Notes Reviewed: Yes - History of Present Illness HPI Narrative: Patient is a 57-year-old female with past medical history of cardiac bypass, previous LA, reported previous stent placement, colostomy. She presents today due to chest pain. She states that over the past several weeks, she has had intermittent chest discomfort that is worsened with exertion. She reports that her disbursing officer Dr. King has told her that "she is due sooner or later for a heart catheter" and to come to the ER if she had any new or worsening chest discomfort. She presents today with left-sided chest pressure that radiates to the left arm and is associated with mild shortness of breath. Denies any other nausea, vomiting, fevers, diarrhea, abdominal pain. This pain is not present for the past 1-2 hours. Pain was also present last night prior to bed. Pain is worsening with exertion. She took 2 nitroglycerin at home and states that it took her pain down from a 10 out of 10 to a 5 or 6 out of 10. She did not take aspirin home. Severity scale (1-10): 8 - Related Data Allergies Allergy/AdvReac Type Severity Reaction Status Date / Time Estrogens Allergy Hives Verified 01/16/18 17:28 gabapentin Allergy Swelling Verified 01/16/18 17:28 of Lip/Tongue/Throat Penicillins Allergy Itching Verified 01/16/18 17:28 aspirin [ASA] AdvReac See Verified 01/16/18 17:28 Comments lisinopril AdvReac Cough Verified 01/16/18 17:28 All systems ED: reviewed and negative except as stated. Constitutional: Denies: fever Cardiovascular: Reports: chest pain Respiratory: Reports: dyspnea. 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 Absent : tenderness, rash - Respiratory Respiratory exam: Present: normal lung sounds bilaterally - Cardiovascular Cardiovascular exam: Present: regular rate, normal rhythm, normal heart sounds - Abdominal Exam Abdominal exam: Present: soft, Non-Tender, other (two ostomy sites present, pink and viable). Absent: tenderness, distention, guarding, rebound, rigidity - Extremities Exam Extremities exam: Present: normal inspection, full ROM. Absent: tenderness, pedal edema - Neurological Exam Neurological exam: Present: alert, oriented X3 - Psychiatric Psychiatric exam: Present: normal affect, normal mood - Skin Skin exam: Present: warm, dry, intact, normal color Course Course Narrative: Vitals within normal limits. Physical exam shows no reproducible chest discomfort. EKG showed no acute ST changes, troponin negative, chest x-ray showed pulmonary vascular congestion. Patient was given fentanyl for pain control because blood pressure was 120s over 80s after 2 nitroglycerin and did not want to make the patient hypotensive. She currently rates her pain as 0-1 out of 10. Patient was accepted to the hospitalist for further care. He requested that I talk with cardiology due to the patient reporting that she was told by cardiology that she may require a heart catheter. 17:[address] velasco, discussed case, presentation, vitals, lab results. He did not recommend any further intervention at this time and cardiology will act as consult. Patient given aspirin 325mg. Chest X-Ray 01/16/18 13:54 IMPRESSION: Stable cardiomegaly with pulmonary vascular congestion. D/ / Lucie Lu MD / Lucie Lu MD Interpreting Provider: Lucie Lu MD 17:25 Vital Signs Temperature 98.2 F 01/16/18 13:49 Pulse Rate 78 01/16/18 13:49 Respiratory Rate 14 01/16/18 13:49 Blood Pressure 111/71 01/16/18 13:49 O2 Sat by Pulse Oximetry 92 01/16/18 13:49 Temperature 98.2 F 01/16/18 13:49 Pulse Rate 69 01/16/18 17:00 Respiratory Rate 18 01/16/18 17:00 Blood Pressure 124/68 01/16/18 17:00 O2 Sat by Pulse Oximetry 93 01/16/18 17:00 Oxygen Delivery Oxygen Delivery Room Air Chest Pain - MDM Narrative Medical decision making narrative: Vitals within normal limits. Physical exam shows no reproducible chest discomfort. EKG showed no acute ST changes, troponin negative, chest x-ray showed pulmonary vascular congestion. Patient was given fentanyl for pain control because blood pressure was 120s over 80s after 2 nitroglycerin and did not want to make the patient hypotensive. She currently rates her pain as 0-1 out of 10. Patient was accepted to the hospitalist for further care. He requested that I talk with cardiology due to the patient reporting that she was told by cardiology that she may require a heart catheter. 17:[address] velasco, discussed case, presentation, vitals, lab results. He did not recommend any further intervention at this time and cardiology will act as consult. Patient given aspirin 325mg. - Medical Records Medical records reviewed: Yes I reviewed the patient's medical records. - Lab Data Lab results reviewed: Yes I reviewed the patient's lab results. Result diagrams: 01/16/18 14:52 01/16/18 14:52 Lab Results 01/16/18 01/16/18 01/16/18 Range/Units 14:52 14:52 14:52 WBC 10.5 (4.3-11.1) K/mcL RBC 4.75 (3.82-4.97) M/mcL Hgb 15.5 H (11.5-15.4) g/dL Hct 44.1 (35.3-44.9) % MCV 92.8 (83.0-100.0) fL MCH 32.6 (28.0-33.3) pg MCHC 35.1 (31.6-35.5) g/dL RDW 13.4 (11.5-14.5) % Plt Count 195 (140-400) K/mcL MPV 12.1 (9.4-12.4) fL Immature Gran % 0.7 (0-4) % Seg Neutrophils % 68.1 % Lymphocytes % 23.0 % Monocytes % 6.3 % Eosinophils % 1.1 % Basophils % 0.8 % Neutrophils # 7.2 (1.6-8.9) K/mcL Lymphocytes # 2.4 (0.6-4.6) K/mcL Monocytes # 0.7 (0.0-1.3) K/mcL Eosinophils # 0.1 (0.0-0.6) K/mcL Basophils # 0.1 (0.0-0.2) K/mcL PT 11.2 (9.4-12.1) Seconds INR 1.0 APTT 27.3 (26.0-36.0) Seconds Sodium 135 L (136-145) mEq/L Potassium 3.9 (3.5-5.1) mEq/L Chloride 103 (98-107) mEq/L Carbon Dioxide 26 (23-29) mEq/L BUN 9 (6-20) mg/dL Creatinine 0.99 (0.60-1.20) mg/dL Est GFR ( Amer) > 60 (> 60) Est GFR (Non-Af Amer) 57 L (> 60) BUN/Creatinine Ratio 9 (6-26) Glucose 258 H (70-105) mg/dL Calculated Osmolality 288 (280-300) Calcium 9.2 (8.6-10.3) mg/dL Troponin I < 0.03 (< 0.04) ng/mL - Radiology Data Radiology results reviewed: Yes I reviewed the patient's radiology results. Chest X-Ray 01/16/18 13:54 IMPRESSION: Stable cardiomegaly with pulmonary vascular congestion. D/ / Lucie Lu MD / Lucie Lu MD Interpreting Provider: Lucie Lu MD - EKG Data EKG attestation: Yes I reviewed and interpreted this EKG. EKG results narrative: 01/16/2018 at 13:44. Normal sinus rhythm. Rate 74. IN 163. QRS 78. QTC 406. Normal axis. No acute ST elevation or depression. Heart Score - Score History: Moderately Suspicious EKG: Normal Age: 45-65 Risk Factors: Equal/Greater than 3 risk factor or history of atherosclerotic disease Troponin: Less than normal limit HEART Score Total: 4 S.B.A.R. - S.B.A.R. Situation: Demographics, MOA Background: Presenting Complaint, Relevant PMH, Meds, & Allergies Assessment: Vital Signs, Course and respsone to treatment, Exam Concerns, Patient/Family Expectation, Pertinant Lab Results, Outstanding Labs Recommendation: Barrier(s) to disposition, Recommendation based on pending studies, treatments, or consults S.B.A.R. Report Given to: Art Gee
[2018-01-16 15:07] LABS: Basophils # 0.1 K/mcL (0.0-0.2); Basophils % 0.8 %; Eosinophils # 0.1 K/mcL (0.0-0.6); Eosinophils % 1.1 %; Hematocrit 44.1 % (35.3-44.9); Hemoglobin 15.5 g/dL (11.5-15.4); Immature Granulocytes % 0.7 % (0-4); Lymphocytes # 2.4 K/mcL (0.6-4.6); Mean Corpuscular HGB Conc 35.1 g/dL (31.6-35.5); Mean Corpuscular Hemoglobin 32.6 pg (28.0-33.3); Mean Corpuscular Volume 92.8 fL (83.0-100.0); Mean Platelet Volume 12.1 fL (9.4-12.4); Monocytes # 0.7 K/mcL (0.0-1.3); Monocytes % 6.3 %; Neutrophils # 7.2 K/mcL (1.6-8.9); Platelet Count 195 K/mcL (140-400); Red Blood Count 4.75 M/mcL (3.82-4.97); Red Cell Distribution Width 13.4 % (11.5-14.5); Segmented Neutrophils % 68.1 %
[2018-01-16 15:10] LABS: Prothrombin Time 11.2 Seconds (9.4-12.1)
[2018-01-16 15:13] LABS: Activated Partial Thrombo Time 27.3 Seconds (26.0-36.0)
[2018-01-16 15:25] LABS: BUN/Creatinine Ratio 9 (6-26); Blood Urea Nitrogen 9 mg/dL (6-20); Calcium 9.2 mg/dL (8.6-10.3); Carbon Dioxide 26 mEq/L (23-29); Chloride 103 mEq/L (98-107); Glucose 258 mg/dL (70-105); Osmolality,Calculated 288 (280-300); Potassium 3.9 mEq/L (3.5-5.1); Sodium 135 mEq/L (136-145); Troponin I < 0.03 ng/mL (< 0.04); eGFR For African Americans > 60 (> 60); eGFR For Non-African Americans 57 (> 60)
[2018-01-16] MEDS ORDERED: Aspirin 325 MG TABLET PO ONE (15:47)
[2018-01-16] MEDS ORDERED: *HR* FentaNYL (PF) 100 MCG/2 ML VIAL IVP ONE (15:47)
--- NOTE | 2018-01-16 16:27 | Emergency Department Note ---
Disposition Clinical Impression: Chest pain Qualifiers: Chest pain type: unspecified Qualified Code(s): R07.9 - Chest pain, unspecified Disposition: Admitted As Inpatient Condition: Good Referrals: NONE,PCP [Primary Care Provider] - Forms: ED Satisfaction Letter General Adult HPI - General Chief complaint: ED Chest Pain Stated complaint: "Chest Pain" Time Seen by Provider: 01/16/18 14:41 Source: patient Mode of arrival: ambulatory Limitations: no limitations - History of Present Illness Pain Scale: 8 - Related Data Home Medications Medication Instructions Recorded Confirmed Albuterol Sulfate [Proair 2 puff IH Q4H PRN 11/26/15 01/01/17 Respiclick] Diphenoxylate/Atropine [Lomotil 2 tab PO Q6H PRN 11/26/15 01/01/17 2.5 mg/0.025 mg] Esomeprazole Magnesium [Nexium] 40 mg PO BID 11/26/15 01/01/17 Ezetimibe [Zetia] 10 mg PO DAILY 11/26/15 01/01/17 HYDROcodone/Acet 5/325 mg [Varney 1 tab PO TID PRN 11/26/15 01/01/17 5-325 mg] Metoprolol [Lopressor] 100 mg PO BID 11/26/15 01/01/17 Nitroglycerin [Nitrostat] 0.4 mg SL Q5M PRN 11/26/15 01/01/17 Potassium Chloride [K-Tab ER] 20 meq PO DAILY 11/26/15 01/01/17 raNITIdine HCl [Ranitidine HCl] 150 mg PO DAILY 11/26/15 01/01/17 Insulin ASPART [NovoLOG] 30 unit SQ TID 03/19/16 01/01/17 Atorvastatin [Lipitor] 40 mg PO HS 12/01/16 01/01/17 Cholecalciferol (Vitamin D3) 5,000 unit PO MOFR 12/01/16 01/01/17 [Dialyvite Vitamin D] Clopidogrel [Plavix] 75 mg PO DAILY 12/01/16 01/01/17 Furosemide [Lasix] 40 mg PO DAILY PRN 12/01/16 01/01/17 Hydroxychloroquine [Plaquenuil] 200 mg PO HS 12/01/16 01/01/17 Ipratropium/Albuterol Neb [Duoneb] 3 ml IH QID PRN 12/01/16 01/01/17 Isosorbide MONOnitrate [Isosorbide 120 mg PO DAILY 12/01/16 01/01/17 Mononitrate ER] Oxygen 2 l NS AD 12/01/16 01/01/17 Promethazine [Phenergan] 25 mg PO Q4H PRN 12/01/16 01/01/17 Psyllium [Metamucil Fiber Singles 1 packet PO DAILY 12/01/16 01/01/17 Packet] Farideh-D-Hp 2 appl TP 3-4XD 12/01/16 01/01/17 Rosuvastatin [Crestor] 20 mg PO HS 12/01/16 01/01/17 Spironolactone [Aldactone] 50 mg PO BID 12/01/16 01/01/17 Venlafaxine [Effexor] 37.5 mg PO BID 12/01/16 01/01/17 hydroCHLOROthiazide 25 mg PO DAILY 12/01/16 01/01/17 [Hydrochlorothiazide] Insulin Regular U-500 [HumuLIN R 250 unit SQ TID 12/02/16 01/01/17 U-500] Previous Rx's Medication Instructions Recorded Ferrous Sulfate 325 mg PO DAILY #30 tablet 07/21/16 Allergies Allergy/AdvReac Type Severity Reaction Status Date / Time Estrogens Allergy See Verified 06/09/17 12:43 Comments gabapentin Allergy Swelling Verified 06/09/17 12:43 of Lip/Tongue/Throat Penicillins Allergy See Verified 06/09/17 12:43 Comments aspirin [ASA] AdvReac See Verified 06/09/17 12:43 Comments lisinopril AdvReac Cough Verified 06/09/17 12:43 Past Medical History - Past Medical History Medical history: Reports: COPD, diabetes Surgical history: Reports: angioplasty/stent, appendectomy, cholecystectomy, colectomy, colostomy, coronary bypass (CABG), hysterectomy, other Psychiatric history: Reports: anxiety, bipolar, depression 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 - Social History Smoking Status: Current every day smoker Smokeless Tobacco Status: No Alcohol use: Reports: none Drug use: Reports: none Physical Exam - General Limitations: no limitations General appearance: alert Course Vital Signs Temperature 98.2 F 01/16/18 13:49 Pulse Rate 78 01/16/18 13:49 Respiratory Rate 14 01/16/18 13:49 Blood Pressure 111/71 01/16/18 13:49 O2 Sat by Pulse Oximetry 92 01/16/18 13:49 Temperature 98.2 F 01/16/18 13:49 Pulse Rate 75 01/16/18 16:18 Respiratory Rate 18 01/16/18 16:18 Blood Pressure 134/74 01/16/18 16:18 O2 Sat by Pulse Oximetry 96 01/16/18 16:18 Oxygen Delivery Oxygen Delivery Nasal Cannula Medical Decision Making - Lab Data Result diagrams: 01/16/18 14:52 01/16/18 14:52 Lab Results 01/16/18 01/16/18 01/16/18 Range/Units 14:52 14:52 14:52 WBC 10.5 (4.3-11.1) K/mcL RBC 4.75 (3.82-4.97) M/mcL Hgb 15.5 H (11.5-15.4) g/dL Hct 44.1 (35.3-44.9) % MCV 92.8 (83.0-100.0) fL MCH 32.6 (28.0-33.3) pg MCHC 35.1 (31.6-35.5) g/dL RDW 13.4 (11.5-14.5) % Plt Count 195 (140-400) K/mcL MPV 12.1 (9.4-12.4) fL Immature Gran % 0.7 (0-4) % Seg Neutrophils % 68.1 % Lymphocytes % 23.0 % Monocytes % 6.3 % Eosinophils % 1.1 % Basophils % 0.8 % Neutrophils # 7.2 (1.6-8.9) K/mcL Lymphocytes # 2.4 (0.6-4.6) K/mcL Monocytes # 0.7 (0.0-1.3) K/mcL Eosinophils # 0.1 (0.0-0.6) K/mcL Basophils # 0.1 (0.0-0.2) K/mcL PT 11.2 (9.4-12.1) Seconds INR 1.0 APTT 27.3 (26.0-36.0) Seconds Sodium 135 L (136-145) mEq/L Potassium 3.9 (3.5-5.1) mEq/L Chloride 103 (98-107) mEq/L Carbon Dioxide 26 (23-29) mEq/L BUN 9 (6-20) mg/dL Creatinine 0.99 (0.60-1.20) mg/dL Est GFR ( Amer) > 60 (> 60) Est GFR (Non-Af Amer) 57 L (> 60) BUN/Creatinine Ratio 9 (6-26) Glucose 258 H (70-105) mg/dL Calculated Osmolality 288 (280-300) Calcium 9.2 (8.6-10.3) mg/dL Troponin I < 0.03 (< 0.04) ng/mL Attestation Statement - Attestation Attestation: I examined this patient and my medical decision-making was reviewed with the Resident Physician. I agree with the documented findings, disposition and treatment plan as described except to the extent set forth below. 57 year old female presents to the ED with copmlaitn of chest pain and has a concerning cardiac history with multiple risk factors. Sarath states that she follows with Dr. King and thathe had recommedned her to have a heart catherization but she decliens at the time. Sarath states that her cardiac pain is back. WE will admit to medicine
--- NOTE | 2018-01-16 20:42 | Internal Med History&Physical ---
<Fareed Camacho P - Last Filed: 01/16/18 21:23> Date of Encounter: 01/16/18 Internal Medicine - H&P: HPI History of present illness: Ms. Price is a 57 year old female Internal Medicine - H&P: Meds Atorvastatin [Lipitor] 40 mg PO HS 01/16/18 [History] BuPROPion SR (12 HR) [Wellbutrin SR] 150 mg PO BID 01/16/18 [History] Cholecalciferol (D-3) [Vitamin D] 5,000 unit PO MOFR 01/16/18 [History] Clopidogrel [Plavix] 75 mg PO DAILY 01/16/18 [History] Insulin Regular U-500 [HumuLIN R U-500] 10 - 40 unit SQ TID 01/16/18 [History] Isosorbide MONOnitrate [Isosorbide Mononitrate] 20 mg PO BID 01/16/18 [History] Loratadine [Claritin] 10 mg PO DAILY 01/16/18 [History] Metoprolol Tartrate [Metoprolol Tartrate] 100 mg PO BID 01/16/18 [History] Omeprazole [PriLOSEC] 20 mg PO DAILY 01/16/18 [History] Oxygen 2 l NS AD 01/16/18 [History] Ranitidine HCl [Acid Tanning Wheel Operator] 150 mg PO BID 01/16/18 [History] Spironolactone [Aldactone] 50 mg PO BID 01/16/18 [History] Tramadol HCl [Ultram] 50 mg PO QID PRN 01/16/18 [History] Venlafaxine [Effexor] 37.5 mg PO BID 01/16/18 [History] diazePAM [Valium] 5 mg PO BID PRN 01/16/18 [History] diazePAM [Valium] 10 mg PO BID PRN 01/16/18 [History] 3 Allergy/AdvReac Type Severity Reaction Status Date / Time Estrogens Allergy Hives Verified 01/16/18 17:28 gabapentin Allergy Swelling Verified 01/16/18 17:28 of Lip/Tongue/Throat Penicillins Allergy Itching Verified 01/16/18 17:28 aspirin [ASA] AdvReac See Verified 01/16/18 17:28 Comments lisinopril AdvReac Cough Verified 01/16/18 17:28 All Systems PM: A 10-system review of systems was performed and is negative for pertinent findings except as documented above in the HPI. - Constitutional Vitals: Temp Pulse Resp BP Pulse Ox 98.5 F 71 15 101/65 96 01/16/18 18:31 18 18:31 18 18:31 01/16/18 18:31 01/16/18 18:31 Internal Med - H&P Results - Labs CBC & Chem 7: 01/16/18 14:52 01/16/18 14:52 - Attending Attestation I examined this patient and my medical decision-making was reviewed with the Resident Physician. I agree with the documented findings, disposition and treatment plan as described except to the extent set forth below. seen and examined came to hospital ER as per recommendation of cardiology admit as observation LASHAUN protocol cardiology consulted will follow recommendations from cardiology - Time Spent With Patient Total time spent is greater than 50% in coordination of care (as documented) at patient's floor/unit and/or counseling patient: <Mila Guzman - Last Filed: 01/16/18 22:31> Date of Encounter: 01/16/18 Time of Encounter: 20:15 Internal Medicine - H&P: HPI Chief complaint: Chest pain Admitted From: Emergency Dept Plans for Post Hospital Care: Home History of present illness: Ms. Price is a 57 year old female PMH CABG, diabetes, Gerd, colostomy, COPD, depression who presented to [facility] complaining of worsening chest pain. She reported that she has had chest pain since her CABG 5yr ago but over the past 3 months she is had increased frequency and severity of the chest pain. The chest pain occurs that both exertion and rest however she notices when she is exerting herself she will feel her heart beating fast then develop chest pain and lightheadedness. She then sits and rest and waits for the pain to go away. Yesterday was different in that last night the chest pain was more severe and was on going for hours until she took Nitro which relieved the pain and went to bed. This morning she woke up about 4 AM and had the chest pain again, took another Nitro and the pain went away. Later about 11 o'clock the chest pain was back and she decided to go to the ER. The chest pain was on the left side of her chest and radiated across to her right side and down her back and left arm. She has had associated lightheadedness. She reported that her blueprint reader Dr. King told her that she may be needing another heart catheter soon. In the ED she was given aspirin and fentanyl, cardiology was consulted. EKG demonstrated NSR HR 74, no ST or T wave changes. Troponin negative. CXR stable cardiomegaly, vascular congestion. Upon my examination of the patient she was chest pain free, however the pain was reproducible upon palpation of the left side of her chest. She is a current smoker of 1ppd/ 43yr. Of note, she reported after her CABG her postop recovery was complicated by a perforation of the bowel and was sent to [facility] for which she had a colostomy placed and part of her sternum removed. Upon reviewing [facility] records the patient was scheduled for a LHC on 01/26/2017 however the patient canceled it, and on November [address] King's office wanting to reschedule LHC. TTE 09/17/2016: EF 60%, mild diastolic dysfunction. Pharm stress test 09/17/2016: small sized, moderate intensity, reversible perfusion defect involving the apical anterior wall, apical lateral wall, and apex. Findings consistent with reversible myocardial ischemia. Past Med Surg Social Fam HX - Past Medical History Medical history: CHF (Diastolic), COPD, coronary artery disease, diabetes, GERD Psychiatric history: anxiety, bipolar, depression - Past Surgical History Surgical History: angioplasty/stent, appendectomy, cholecystectomy, colectomy, colostomy, coronary bypass (CABG), hysterectomy, other - Social History Smoking Status: Current every day smoker Smokeless Tobacco Status: No Alcohol use: none Drug use: none - Family History Father Hx Family Cardiac Disorders: Yes Mother Hx Family Cardiac Disorders: Yes All Systems PM: A 10-system review of systems was performed and is negative for pertinent findings except as documented above in the HPI. - Constitutional Constitutional: falls, no chills, no fever(s) - Cardiovascular Cardiovascular ROS IM: chest pain, lightheadedness, palpitations, no syncope - Respiratory Respiratory: no cough, no dyspnea, no wheezing - Gastrointestinal Gastrointestinal: abdominal pain, nausea, no hematochezia, no melena, no vomiting - Integumentary Integumentary IM: no rash - Constitutional Vitals: Temp Pulse Resp BP Pulse Ox 98.5 F 71 15 101/65 96 01/16/18 18:31 01/16/18 18:31 01/16/18 18:31 01/16/18 18:31 01/16/18 18:31 General appearance: Present: A&O X 3, pleasant, no acute distress - Head Head exam: Present: atraumatic, normal inspection - Eye Eye exam: Present: normal appearance. Absent: scleral icterus - Respiratory Respiratory exam: Present: chest wall tenderness, decreased breath sounds, CTAB. Absent: rales, rhonchi, wheezes - Cardiovascular Cardiovascular exam: Present: RRR, +S1, +S2. Absent: gallop - GI/Abdominal GI/Abdominal exam: Present: normal bowel sounds, soft. Absent: guarding, tenderness Additional comments: Colostomy bag - Extremities Exam Extremities exam: Present: normal inspection. Absent: calf tenderness, pedal edema - Neurological Exam Neurological exam: Present: alert, oriented X3 - Psychiatric Psychiatric exam: Present: normal affect, normal mood - Skin Skin exam: Present: dry, intact Internal Med - H&P Results - Labs CBC & Chem 7: 01/16/18 14:52 01/16/18 14:52 - Assessment and plan (1) Chest pain Current Visit: Yes Status: Acute Assessment and plan: Anginal chest pain, unstable. Chest pain occurring with exertion and rest, left- sided chest radiating to right-sided chest and down left arm. Relieved with nitroglycerin worsened with exertion. Chest pain occurred last night and was relieved with nitroglycerin, chest pain at 4 AM relieved with nitroglycerin, chest pain 11 AM and came to ED. Patient was scheduled for [facility] 01/26/2017 due to abnormal cardiac testing and canceled it, she called Dr. King's office November 2017 to reschedule [facility]. Hx CABG 05/2013 Patient given aspirin in ED. EKG demonstrated NSR HR 74, no ST or T wave changes. Troponin negative. CORINNE 3: CAD risk factors, severe chest pain, CAD >50% stenosis Patient is currently chest pain free. Plan -cardiology consulted, recommendations appreciated -ordered echocardiogram -ordered repeat troponin Qualifiers: Chest pain type: unspecified Qualified Code(s): R07.9 - Chest pain, unspecified (2) Diastolic CHF Current Visit: No Status: Chronic Assessment and plan: History of known diastolic CHF TTE 09/17/2016: EF 60%, mild diastolic dysfunction. Qualifiers: Qualified Code(s): I50.32 - Chronic diastolic (congestive) heart failure (3) CAD (coronary artery disease) of artery bypass graft Current Visit: No Status: Chronic Assessment and plan: History of known CAD, CABG 05/2013. Her [employer] is Dr. King TTE 09/17/2016: EF 60%, mild diastolic dysfunction. Pharm stress test 09/17/2016: small sized, moderate intensity, reversible perfusion defect involving the apical anterior wall, apical lateral wall, and apex. Findings consistent with reversible myocardial ischemia. -Continue home medications of Aldactone, metoprolol, Lipitor, Plavix -holding home isosorbide mononitrate Qualifiers: [place] vs. transplanted heart: [place] heart Associated angina: without angina Qualified Code(s): I25.810 - Atherosclerosis of coronary artery bypass graft(s) without angina pectoris (4) Colostomy in place Current Visit: Yes Status: Acute Assessment and plan: Colostomy in place and lower abdomen. (5) HTN (hypertension) Current Visit: No Status: Chronic Assessment and plan: History of known hypertension controlled with metoprolol BP stable -continue her medication Qualifiers: Hypertension type: essential hypertension Qualified Code(s): I10 - Essential (primary) hypertension (6) COPD (chronic obstructive pulmonary disease) Current Visit: No Status: Chronic Assessment and plan: History of COPD on 2 L oxygen at night continue supplemental oxygen continue duoneb Qualifiers: COPD type: chronic bronchitis Chronic bronchitis type: simple Qualified Code(s): J41.0 - Simple chronic bronchitis (7) Type 2 diabetes mellitus Current Visit: No Status: Chronic Assessment and plan: History of diabetes taking insulin continue medium sliding scale insulin Accu check Qualifiers: Diabetes mellitus nursing home insulin use: without nursing home use Diabetes mellitus complication status: with neurologic complications Diabetes mellitus complication detail: with polyneuropathy Qualified Code(s): E11.42 - Type 2 diabetes mellitus with diabetic polyneuropathy (8) Depression Current Visit: No Status: Acute Assessment and plan: History of known depression taking Wellbutrin, Valium, Effexor continue home Wellbutrin and Effexor Qualifiers: Qualified Code(s): F32.9 - Major depressive disorder, single episode, unspecified (9) CKD (chronic kidney disease) stage 3, GFR 30-59 ml/min Current Visit: No Status: Chronic Assessment and plan: History of known CK D stage III creatinine 0.99 improved from baseline -avoid nephrotoxic agents -monitor serum creatinine (10) DVT prophylaxis Current Visit: No Status: Acute Assessment and plan: Heparin SQ - Time Spent With Patient Total time spent is greater than 50% in coordination of care (as documented) at patient's floor/unit and/or counseling patient:
[2018-01-16] MEDS ORDERED: Naloxone 0.4 MG/ML INJ IVP PRN (20:48)
[2018-01-16] MEDS ORDERED: Ipratropium/Albuterol Neb 3 ML IH PRN (21:08)
[2018-01-16] MEDS ORDERED: GI Cocktail 40 ML EACH PO ONE (22:09)
[2018-01-16] MEDS: ISOSORBIDE MONONITRATE PO SCH (22:11)
[2018-01-16] MEDS: BuPROPion SR (12 HR) 150 MG TABLET PO SCH (22:11)
[2018-01-16] MEDS: Metoprolol 100 MG TABLET PO SCH (22:11)
[2018-01-16] MEDS: Spironolactone 25 MG TABLET PO SCH (22:11)
[2018-01-16] MEDS: Insulin LISPRO 300 UNITS/3 ML VIAL SQ SCH (23:32)
[2018-01-17] MEDS: Acetaminophen 325 MG TABLET PO PRN ×2 (03:37→17:16)
[2018-01-17] MEDS: *HR* Heparin 5,000 UNIT/ML VIAL SQ SCH ×3 (06:07→19:52)
--- NOTE | 2018-01-17 06:31 | Cardiology Consult Note ---
Date of Encounter: 01/17/18 Time of Encounter: 06:30 Assessment and Plan (1) Unstable angina Current Visit: Yes Status: Acute LHC tomorrow, NPO after breakfast. Recurrent symptoms requiring hospitalization. A/R/B including 1% chance of TN//CVA/CABG/CHARITO/bleeding. Patient aware and agreeable with plan. (2) HTN (hypertension) Current Visit: No Status: Chronic controlled Qualifiers: Hypertension type: essential hypertension Qualified Code(s): I10 - Essential (primary) hypertension Discussion w patient/family: The assessment and plan as outlined above was discussed with the patient and/or family members who expressed understanding and agreement. All questions were answered. Thank you for involving us in the care of your patient. Please call with any questions. History of Present Illness Consult date: 01/17/18 Consult reason: unstable angina Chief complaint: chest discomfort History of present illness: Ms. Price is a 57 year old female PMH w CAD sp CABG, diabetes, spcolostomy, COPD, depression, 1ppd smoker presented to ED with worsening chest pain. It is similar to her previous angina prior to CABG and over the past 3 months she has had increased frequency and severity of the chest pain. The chest pain occurs that both exertion and rest however she notices when she is exerting herself she will feel her heart beating fast then develop chest pain and lightheadedness. It improves with rest. Thursday night was more severe and was on going for hours until she took Nitro which relieved the pain and went to bed. Thursday morning she woke up about 4 AM and had the chest pain again, took another Nitro and the pain went away. Later the chest pain was back and she decided to go to the ER. The chest pain was on the left side of her chest and radiated across to her right side and down her back and left arm. She has had associated lightheadedness. Of note, she reported after her CABG her postop recovery was complicated by a perforation of the bowel and was sent to [facility] for which she had a colostomy placed and part of her sternum removed. The patient was scheduled for a LHC on 01/26/2017 however the patient canceled it , and on November [address] King's office wanting to reschedule LHC. TTE 09/17/2016: EF 60%, mild diastolic dysfunction. Pharm stress test 09/17/2016: small sized, moderate intensity, reversible perfusion defect involving the apical anterior wall, apical lateral wall, and apex. Findings consistent with reversible myocardial ischemia. Past Med Surg Social Fam HX - Past Medical History Medical history: CHF (Diastolic), COPD, coronary artery disease, diabetes, GERD Psychiatric history: anxiety, bipolar, depression - Past Surgical History Surgical History: angioplasty/stent, appendectomy, cholecystectomy, colectomy, colostomy, coronary bypass (CABG), hysterectomy, other - Social History Smoking Status: Current every day smoker Smokeless Tobacco Status: No Alcohol use: none Drug use: none - Family History Father Hx Family Cardiac Disorders: Yes Mother Hx Family Cardiac Disorders: Yes Medications and Allergies Atorvastatin [Lipitor] 40 mg PO HS 01/16/18 [History] Cholecalciferol (D-3) [Vitamin D] 5,000 unit PO MOFR 01/16/18 [History] Metoprolol Tartrate [Metoprolol Tartrate] 100 mg PO BID 01/16/18 [History] RX: BuPROPion SR (12 HR) [Wellbutrin SR] 150 mg PO BID 01/16/18 [History] RX: Clopidogrel [Plavix] 75 mg PO DAILY 01/16/18 [History] RX: Insulin Regular U-500 [HumuLIN R U-500] 10 - 40 unit SQ TID 01/16/18 [ History] RX: Isosorbide MONOnitrate [Isosorbide Mononitrate] 20 mg PO BID 01/16/18 [ History] RX: Loratadine [Claritin] 10 mg PO DAILY 01/16/18 [History] RX: Omeprazole [PriLOSEC] 20 mg PO DAILY 01/16/18 [History] RX: Oxygen 2 l NS AD 01/16/18 [History] RX: Spironolactone [Aldactone] 50 mg PO BID 01/16/18 [History] RX: Venlafaxine [Effexor] 37.5 mg PO BID 01/16/18 [History] RX: diazePAM [Valium] 5 mg PO BID PRN 01/16/18 [History] RX: diazePAM [Valium] 10 mg PO BID PRN 01/16/18 [History] Ranitidine HCl [Acid Chief Technician] 150 mg PO BID 01/16/18 [History] Tramadol HCl [Ultram] 50 mg PO QID PRN 01/16/18 [History] 3 Allergy/AdvReac Type Severity Reaction Status Date / Time Estrogens Allergy Hives Verified 01/16/18 17:28 gabapentin Allergy Swelling Verified 01/16/18 17:28 of Lip/Tongue/Throat Penicillins Allergy Itching Verified 01/16/18 17:28 aspirin [ASA] AdvReac See Verified 01/16/18 17:28 Comments lisinopril AdvReac Cough Verified 01/16/18 17:28 All Systems Review: The remainder of the systems were reviewed and are negative - Constitutional Constitutional: no chills, no fever(s) - EENT Nose, mouth and throat: no bleeding gums, no epistaxis - Cardiovascular Cardiovascular: chest pain at rest, chest pain with exertion - Respiratory Respiratory: dyspnea, no hemoptysis - Gastrointestinal Gastrointestinal: no hematemesis, no hematochezia - Genitourinary Genitourinary: no dysuria, no hematuria - Musculoskeletal Musculoskeletal: no muscle cramps, no muscle weakness - Integumentary Integumentary: no rash, no unusual bruising - Neurological Neurological: no syncope, no tingling - Psychiatric Psychiatric: no hallucinations, no panic attacks - Hematological/Lymphatic Hematologic/Lymphatic: no easy bleeding, no easy bruising Physical Examination Vital Signs, Last 4 Hours Temp Pulse Resp BP Pulse Ox 01/17/18 03:46 98.0 F 66 16 124/75 94 General: Conversant HEENT: Atraumatic Neck: No JVD Cardiac: Reg Rate and Rhythm Lungs: Normal Breath Sounds Neuro: Alert and responsive Abdomen: Soft Skin: No rashes noted on visualized skin Musculoskeletal: No Chest Wall Tenderness Extremities: No Edema Results 01/16/18 14:52 01/16/18 14:52 Lab Results 01/16/18 01/17/18 22:18 04:26 Troponin I < 0.03 < 0.03 - EKG Interpretation EKG results cardiology: personally reviewed, no diagnostic ischemia Consult Discharge Plan - Plan Referrals: NONE,PCP [Primary Care Provider] -
[2018-01-17] MEDS: Metoprolol 100 MG TABLET PO SCH ×2 (08:25→19:52)
[2018-01-17] MEDS: BuPROPion SR (12 HR) 150 MG TABLET PO SCH ×2 (08:25→19:52)
[2018-01-17] MEDS: Spironolactone 25 MG TABLET PO SCH ×2 (08:25→19:52)
[2018-01-17] MEDS: Insulin LISPRO 300 UNITS/3 ML VIAL SQ SCH ×4 (08:27→22:41)
[2018-01-17] MEDS: ISOSORBIDE MONONITRATE PO SCH ×2 (08:28→19:52)
--- NOTE | 2018-01-17 15:03 | Internal Med Progress Note ---
Date of Encounter: 01/17/18 Time of Encounter: 10:01 - Assessment and plan (1) Chest pain Current Visit: Yes Status: Acute Assessment and plan: Patient will undergo left heart catheter tomorrow nothing by mouth after breakfast-farm stress test 09/17 2016 small sized moderate intensity reversible perfusion defect involving the apical anterior wall apical lateral wall and apex findings consistent with reversible myocardial ischemia. Patient did undergo a CABG 5 years ago her postoperative care was complicated by perforation of bowel and was sent to [facility] and had a colostomy and part of her sternum removed. Nitroglycerin as needed for chest pain Continuous cardiac monitoring Qualifiers: Chest pain type: unspecified Qualified Code(s): R07.9 - Chest pain, unspecified (2) Colostomy in place Current Visit: Yes Status: Acute Assessment and plan: Colostomy in place lower abdomen-received colostomy after complications of CABG -5 years ago (3) CAD (coronary artery disease) of artery bypass graft Current Visit: No Status: Chronic Assessment and plan: Continue with aspirin and statin beta milady Nitroglycerin as needed for chest pain 2 years chronic monitoring Qualifiers: [place] vs. transplanted heart: [place] heart Associated angina: without angina Qualified Code(s): I25.810 - Atherosclerosis of coronary artery bypass graft(s) without angina pectoris (4) CKD (chronic kidney disease) stage 3, GFR 30-59 ml/min Current Visit: No Status: Chronic Assessment and plan: Creatinine baseline around 1.4-1.5 presently 0.99 we will continue to monitor Avoid nephrotoxins (5) HTN (hypertension) Current Visit: No Status: Chronic Assessment and plan: Blood pressure is stable we will continue with home medications Qualifiers: Hypertension type: essential hypertension Qualified Code(s): I10 - Essential (primary) hypertension (6) Type 2 diabetes mellitus Current Visit: No Status: Chronic Assessment and plan: History of diabetes on insulin continue with sliding scale and Accu-Cheks before meals at bedtime Qualifiers: Diabetes mellitus fci insulin use: without fci use Diabetes mellitus complication status: with neurologic complications Diabetes mellitus complication detail: with polyneuropathy Qualified Code(s): E11.42 - Type 2 diabetes mellitus with diabetic polyneuropathy (7) DVT prophylaxis Current Visit: No Status: Acute Assessment and plan: Heparin subcutaneous (8) Diastolic CHF Current Visit: Yes Status: Acute Assessment and plan: TTE 09/17/2016 EF of 60% mild diastolic dysfunction -TTE 01/17/2018 EF 6065% no pulmonary hypertension mild left ventricular diastolic dysfunction no significant valvular disease Continue with spell lactone Monitor intake output daily weights Qualifiers: Heart failure chronicity: chronic Qualified Code(s): I50.32 - Chronic diastolic (congestive) heart failure - Time Spent With Patient Total time spent is greater than 50% in coordination of care (as documented) at patient's floor/unit and/or counseling patient: - Subjective Interval history: This patient is new to me I did review medical records. I did see the patient earlier today at bedside she was asleep and did not arouse to verbal stimuli. She was groggy during assessment and stated that she did not sleep very well last night She denies any chest pain or discomfort at this time she is to undergo a cardiac catheterization in the a.m. I did review treatment plan with patient who verbalized understanding - Constitutional Vitals: Temp Pulse Resp BP Pulse Ox 98.8 F 53 16 111/73 95 01/17/18 11:24 01/17/18 11:24 01/17/18 11:24 01/17/18 11:24 01/17/18 11:24 General appearance: Present: A&O X 3, pleasant, no acute distress Exam: A shunt is groggy she states she did not sleep for a while last night - Head Head exam: Present: atraumatic, normocephalic - Eye Eye exam: Present: PERRL, conjuntiva pink, sclera anicteric Pupils: Present: PERRL - Neck Neck exam general surgery: Present: supple, trachea midline. Absent: lymphadenopathy - Respiratory Respiratory exam: Present: CTAB. Absent: accessory muscle use, rales, rhonchi, wheezes - Cardiovascular Cardiovascular exam: Present: RRR, +S1, +S2. Absent: diastolic murmur, gallop, rubs, systolic murmur - Extremities Exam Extremities exam: Present: warm, radial pulses palpable and symmetrical. Absent : calf tenderness, cyanotic, pedal edema - Neurological Exam Neurological exam: Present: CN II-XII intact, oriented X3, no focal deficits. Absent: pronater drift, facial droop, speech deficit - Skin Skin exam: Present: dry, intact Internal Medicine: Result - Labs CBC & Chem 7: 01/16/18 14:52 01/16/18 14:52 Labs: Cardiac Enzymes 01/16/18 01/17/18 Range/Units 22:18 04:26 Troponin I < 0.03 < 0.03 (< 0.04) ng/mL - ABG Interpretation ABG results: PT/INR, D-dimer PT 11.2 Seconds (9.4-12.1) 01/16/18 14:52 - Impressions Impressions Echocardiogram 01/16/18 20:52 Impressions: No pulmonary hypertension. LVEF 60-65%. Mild left ventricular diastolic dysfunction. No significant valvular dysfunction. Left Ventricular Wall Motion: Rest Echo Findings All wall segments showed normal motion. Findings: Study Quality * Technically adequate exam. Right Ventricle * Normal right ventricular structure and function. Left Atrium * Normal left atrial size. Mitral Valve * Normal mitral valve structure and function. Aorta * Normally sized aortic root. Pericardium * The pericardium appears normal. ECG Findings * Normal sinus rhythm. Tricuspid Valve * Trace tricuspid regurgitation. * No tricuspid stenosis. * Estimated RVSP is 19 mmHg. * Estimated RA pressure is 0-10 mmHg. * No pulmonary hypertension. Pulmonic Valve * No pulmonic regurgitation. * No pulmonic stenosis. * Pulmonic valve is not well visualized. Aortic Valve * No aortic regurgitation. * No aortic stenosis. * Aortic valve not well visualized. IVC * The IVC is not dilated. * The IVC is not well evaluated. Right Atrium * Right atrium is not well visualized. Interatrial Septum * Interatrial septum not well evaluated. Left Ventricle * LVEF 60-65%. * Mild left ventricular diastolic dysfunction. Consult Discharge Plan - Plan Referrals: NONE,PCP [Primary Care Provider] -
[2018-01-18] MEDS: *HR* Heparin 5,000 UNIT/ML VIAL SQ SCH (06:18)
[2018-01-18] MEDS: Insulin LISPRO 300 UNITS/3 ML VIAL SQ SCH ×2 (08:22→10:57)
[2018-01-18] MEDS ORDERED: traMADol 50 MG TABLET PO PRN (08:22)
[2018-01-18] MEDS ORDERED: Nitroglycerin 1,000 MCG/10 ML VIAL IV ONE (08:33)
[2018-01-18] MEDS ORDERED: ISOVUE-370 200 ML INFUS..BTL IV ONE ×2 (08:33→09:41)
[2018-01-18] MEDS ORDERED: Heparin 1,000 UNITS/500 mL 500 ML ONE (08:33)
[2018-01-18] MEDS ORDERED: 0.9 % Sodium Chloride 2,000 ML ONE (08:33)
[2018-01-18] MEDS ORDERED: *HR* Heparin 10,000 UNIT/10 ML VIAL ONE (08:33)
--- NOTE | 2018-01-18 08:53 | Pre-Sedation Evaluation ---
Pre-sedation evaluation - Pre-sedation checklist Date of procedure: 01/18/18 Procedure: cardiac catheterization Recent Vitals: Last Vital Signs Temp 98.6 F 01/18/18 06:51 Pulse 66 01/18/18 06:51 Resp 17 01/18/18 06:51 BP 109/72 01/18/18 06:51 Pulse Ox 90 01/18/18 06:51 H&P (including ROS) documented in medical record: Yes Previous reaction to sedatives/anesthetics: No Dietary Status: NPO after Midnight Dentition: No loose teeth or bridges, dentures removed ASA Classification *see protocol: CLASS II-Mild systemic disease Plan of Care: Pt appropriate candidate for procedure/moderate/conscious sedation , Risks/benefits of procedure/sedation discussed w/ patient/family
[2018-01-18] MEDS ORDERED: Famotidine 20 MG TABLET PO SCH (09:00)
[2018-01-18] MEDS ORDERED: *HR* Midazolam HCl 2 MG/2 ML VIAL ONE ×2 (09:01→09:14)
[2018-01-18] MEDS ORDERED: *HR* FentaNYL (PF) 100 MCG/2 ML VIAL ONE ×2 (09:01→09:58)
[2018-01-18] MEDS ORDERED: Aspirin 81 MG TAB.CHEW ONE (09:12)
--- NOTE | 2018-01-18 10:18 | Event Note ---
Date of Encounter: 01/18/18 Time of Encounter: 10:16 - Cardiology Event Note S/P C. Known hx of bypass. Stable disease, no intervention warranted. Continue Plavix, Statin, BB. Cardiology signing off. Reconsult PRN. Will coordinate outpt follow-up in 3-4 weeks. RISK FACTORS: STOP SMOKING: If you smoke, STOP. Smoking or tobacco use significantly increases your risk of heart disease because nicotine causes the arteries to narrow or constrict. It also causes fats to stick to the artery. Your chances of having a heart attack are greatly increased if you continue to smoke. For more information, call the education line for smoking cessation 7-238-EWRLRAP EAT A LOW FAT/CHOLESTEROL/SODIUM DIET: This diet may help reduce your chances of having a heart attack. LIFTING: Avoid lifting anything more than 10 pounds for 5-7 days Prior to straining, laughing, sneezing and/or coughing, apply manual pressure directly over insertion site. ACTIVITY: You may walk or climb stairs as tolerated You can resume sexual activity as tolerated In general, you are encouraged to engage in a minimum of 30 minutes or more of moderate intensity physical activity, such as brisk walking, daily or at least 3 -4 times weekly BATHING Do not submerge the site into water (bath tub, hot tub, swimming pool) for 1 week. This can be a source for infection into the blood stream. You may shower after 24 hours SITE CARE: After 24 hours, you may remove the dressing and leave the site open to air. Keep the site clean and dry. Clean gently and pat dry. You can expect bruising and tenderness that gradually resolve within a week or two. Return to work as instructed per your physician Resume driving as instructed per physician Keep all scheduled follow up appointments Resume medications as instructed IMPORTANT: If prescribed a Platelet Aggregation Inhibitor such as, Plavix, Brilinta or Effient: Duration of therapy is minimum one year These medications are often used in combination with Aspirin in prevention of future heart attacks Never discontinue unless consult with your Escort Patients STROKE (CVA) Risk factors for a stroke are: Age, cigarette smoking, diabetes, excessive alcohol consumption, family history, high blood pressure, overweight, physical inactivity, prior stroke, heart attack, diagnosis of carotid artery stenosis or other artery disease. Warning signs: Sudden numbness or weakness of the face, arm or leg; especially on one side of the body, sudden confusion, trouble speaking or understanding, sudden trouble seeing in one or both eyes, sudden trouble walking, dizziness, loss of balance or coordination, sudden severe headache with no cause. Call 911 or go to the Emergency Room. CONGESTIVE HEART FAILURE: If you have been diagnosed with Congestive Heart Failure (CHF) and your symptoms return, make an appointment with your physician Weigh yourself daily. Notify your physician if you have a weight gain of two or more pounds in one day or five or more pounds in one week. If you experience any difficulty breathing, please call 911 BLEEDING: Although the risk of bleeding is minimal, it can happen. If you have any bleeding from the site, apply firm pressure above the puncture site for 10-15 minutes. If the bleeding does not stop, continue manual pressure and call 911 Contact your physician if: You develop a fever greater than 101 degrees Fahrenheit Your site becomes reddened or has any drainage You have an increase in pain or burning at the site or if a large knot forms at the site. If you experience chest pain, shortness of breath, dizziness, or extreme tiredness, stop the activity and rest. Please notify your physicians office if you experience any of these symptoms and they are not relieved by rest please call 911!
[2018-01-18] MEDS: ISOSORBIDE MONONITRATE PO SCH (10:35)
[2018-01-18] MEDS: Metoprolol 100 MG TABLET PO SCH (10:48)
[2018-01-18] MEDS: BuPROPion SR (12 HR) 150 MG TABLET PO SCH (10:54)
[2018-01-18] MEDS: Spironolactone 25 MG TABLET PO SCH (10:55)
[2018-01-18 11:09] LABS: Basophils % 0.3 %; Eosinophils # 0.1 K/mcL (0.0-0.6); Hematocrit 45.5 % (35.3-44.9); Hemoglobin 15.9 g/dL (11.5-15.4); Immature Granulocytes % 1.9 % (0-4); Lymphocytes # 1.4 K/mcL (0.6-4.6); Lymphocytes % 14.9 %; Mean Corpuscular HGB Conc 34.9 g/dL (31.6-35.5); Mean Corpuscular Hemoglobin 32.1 pg (28.0-33.3); Mean Corpuscular Volume 91.9 fL (83.0-100.0); Mean Platelet Volume 12.5 fL (9.4-12.4); Monocytes # 0.5 K/mcL (0.0-1.3); Monocytes % 5.8 %; Neutrophils # 7.1 K/mcL (1.6-8.9); Platelet Count 151 K/mcL (140-400); Red Blood Count 4.95 M/mcL (3.82-4.97); Red Cell Distribution Width 13.2 % (11.5-14.5); Segmented Neutrophils % 76.1 %
[2018-01-18 12:11] LABS: BUN/Creatinine Ratio 13 (6-26); Blood Urea Nitrogen 11 mg/dL (6-20); Calcium 9.4 mg/dL (8.6-10.3); Carbon Dioxide 30 mEq/L (23-29); Chloride 102 mEq/L (98-107); Glucose 224 mg/dL (70-105); Osmolality,Calculated 290 (280-300); Potassium 4.6 mEq/L (3.5-5.1); Sodium 137 mEq/L (136-145); eGFR For African Americans > 60 (> 60); eGFR For Non-African Americans > 60 (> 60)
--- NOTE | 2018-01-18 13:14 | Electrocardiograph Report ---
[address] [place], [place] [address] Test Date: 2018-01-16 Pat Name: Odilia Price Department: 104 Room: 3B32 Gender: F Clothing Man: HALLIE : 1960 Requested By: Dalia Dobbs Order Number: [id number] Reading MD: Santiago Cordero Measurements Intervals [place] Rate: 74 P: 44 ND: 163 QRS: 185 QRSD: 78 T: 55 QT: 378 QTc: 406 Interpretive Statements SINUS RHYTHM INDETERMINATE AXIS LOW QRS VOLTAGE IN PRECORDIAL LEADS PATTERN CONSISTENT WITH PULMONARY DISEASE INFERIOR MYOCARDIAL INFARCTION, PROBABLY OLD Electronically Signed On 01-18-2018 10:00:49 EDT by Santiago Cordero
--- NOTE | 2018-01-18 13:15 | Invasive Diagnostic Lab Proc ---
Name: Odilia Price Date of Study: 01/18/2018 Date: 1960 Ht: 65.0in Medical Record#: [id number] Age: 57 Wt: 257.94lb Gender: Female BSA: 2.2 Order #: [id number] BMI: 42.98 Physicians Procedure Physician: Santiago Cordero MD, [facility] Referring MD: Referring MD: Staff Name Position Time In April Lo RN Strategic Client Executive 08:38 AM Aidan Hardy RT (R) Monitor 08:38 AM Leora Estrada RT (R) Scrub 08:38 AM Indications Indication Unstable Angina Cardiomyopathy Procedures Performed Procedure L HRT ART/GRFT ANGIO Add'l Complete exam Pre-Procedure Checklist Informed consent is complete signed and on chart. H&P is on chart. ID band is on and ID verified with patient. Patient NPO for procedure The procedure was described for the patient and questions were answered. Blood Pressure: 134/71 ECG is on chart. Rhythm: NSR Plan of Care Patient will tolerate the procedure without complications. Adequate level of comfort will be maintained. Hemodynamics will remain stable Patient will recover from procedure without complications. Respiratory function will be maintained. Cardiac rhythm will remain stable. Patient temperature will be maintained. Patient and/or family have verbalized understanding of the procedure. Patient Education Chief Complaint/Reason for Test: Cardiac Cath Developmental Category: Adult (18-64 years) Developmentally Appropriate for Age: Yes Learning Barriers: None Education Needs: Procedure Education Method: Verbal Information Taught: Cardiac Cath Educational Evaluation: Able to repeat information Intravenous Access Time IV Size Location DC'd Fluid/Drip Rate Units RN 07:26 AM 20g 1 1/4" Patent On Arrival Rt Arm 09:00 AM Started with 22g 1 " Lt Wrist 0.9NaCl 25 ml/hr April Lo RN Allergies aspirin gabapentin lisinopril Penicillin Estrogen Vital Signs Time BP (mmHg) HR (bpm) O2 Sat. RR (bpm) LOC 08:44 AM 134 / 71 65 99 % 18 5 = Fully awake and oriented or at pre-proc level 09:00 AM / % 4 = Oriented but drowsy 09:16 AM / % 4 = Oriented but drowsy 09:31 AM / % 4 = Oriented but drowsy 09:02 AM 134 / 71 62 99 % 09:07 AM 143 / 83 131 98 % 09:12 AM 154 / 78 68 95 % 09:17 AM 143 / 79 67 93 % 09:22 AM 143 / 79 69 93 % 09:27 AM 134 / 74 70 92 % 09:32 AM 142 / 87 76 93 % 09:37 AM 139 / 71 77 92 % 09:42 AM 133 / 68 73 93 % 09:47 AM 124 / 73 68 93 % 09:52 AM 140 / 73 66 93 % 5 = Fully awake and oriented or at pre-proc level 09:46 AM / % 5 = Fully awake and oriented or at pre-proc level Procedural Medications Time Medication Dose Units Method Given By 08:52 AM Oxygen 2 L/min nasal cannula April Lo RN 09:02 AM Versed 2 mg Intravenous April Lo RN 09:02 AM Fentanyl 50 mcg Intravenous April Lo RN 09:13 AM Aspirin (81mg) 81 mg Orally April Lo RN 09:14 AM Heparin 2 units Intravenous April Lo RN 09:14 AM Fentanyl 25 mcg Intravenous April Lo RN 09:16 AM Lidocaine 2% 20 ml Subcutaneous Santiago Cordero MD, [facility] ASA Classification: CLASS III- Severe systemic disease (i.e. prior AMI, diabetes with vascular complications, morbid obesity) Yumiko Score Preprocedure Postprocedure Activity 2- Moves 4 extremities sustained head lift Activity 2- Moves 4 extremities sustained head lift Circulation 2- SBP +/= 20 points of pre-anesthetic level Circulation 2- SBP +/= 20 points of pre-anesthetic level Consciousness 2- Awake and alert oriented x 3 Consciousness 2- Awake and alert oriented x 3 O2 Saturation 2- Able to maintain O2 satruation of 92% on room air O2 Saturation 2- Able to maintain O2 satruation of 92% on room air Respiratory 2- Able to deep breathe and cough well Respiratory 2- Able to deep breathe and cough well Total Score 10 Total Score 10 Contrast Agent: Isovue Diagnostic Contrast: 110 ml Total Contrast: 110 ml Fluoro Dose: 763 mGy Procedure Log Time Note Enter By 08:38 AM April Lo RN Position: Strategic Client Executive Time in: 08:38 [email or web address] 08:38 AM Aidan Hardy RT (R) Position: Monitor Time in: 08:38 [email or web address] 08:38 AM Leora Estrada RT (R) Position: Scrub Time in: 08:38 [email or web address] 08:38 AM Patient charges- Angio tray pack, Navilyst 3mm J, Pulse Oximetry and ACIST tubing and transducer [email or web address] 08:42 AM Clinical Presentation: Unstable angina [email or web address] 08:44 AM Pt arrived to woven label designer 2 at 08:44 [email or web address] 08:44 AM Case Delayed No [email or web address] 08:44 AM Time: 08:44 Patient comfortable and pain free: Yes [email or web address] 08:44 AM Time: 08:44LOC: 5 = Fully awake and oriented or at pre-proc level [email or web address] 08:44 AM Physician arrived 08:44 [email or web address] 08:44 AM Meet and lee ann completed [email or web address] 08:44 AM Sign in performed according to hospital policy. [email or web address] 08:45 AM Procedure start 08:44 [email or web address] 08:45 AM ASA Class CLASS III- Severe systemic disease (i.e. prior AMI, diabetes with vascular complications, morbid obesity) [email or web address] 08:47 AM CathStat 08:52 AM IV bad in Rt Arm, starting new IV [email or web address] 08:52 AM Time: 08:52 Oxygen on at 2 L/min per nasal cannula by April Lo RN [email or web address] 08:53 AM Recorded ECG: IK=903 Condition=Condition 1 08:53 AM Recorded ECG: HR=68 Condition=Condition 1 09:00 AM Time: 08:44LOC: 5 = Fully awake and oriented or at pre-proc level [email or web address] 09:00 AM Time: 08:44 Patient comfortable and pain free: Yes [email or web address] 09:01 AM Vitals capture started with the following parameters, Patient=Adult, Interval=5 min, Initial Rucdbjtd=341 mmHg, Deflation Rate=5 mmHg, Cuff placed on Right Arm 09:01 AM 22g IV started lt wrist by April Lo RN [email or web address] 09:02 AM HR=62 bpm, IOWP=272/71 mmhg, SpO2=99.0 % 09:02 AM Hair removed from procedure site in procedure lab using clippers. Bilateral groin prepped with Chloraprep by Leora Estrada RT (R), then patient was draped. Skin intact. [email or web address] 09:02 AM Time: : Versed 2 mg Intravenous Given by April Lo RN ilson 09:02 AM Time: 09:02 Fentanyl 50 mcg Intravenous Given by April Lo RN [place] [id number] 09:07 AM JB=589 bpm, GIZV=489/83 mmhg, SpO2=98.0 % 09:08 AM Pressure channel 1 zeroed. 09:12 AM HR=68 bpm, VRBK=384/78 mmhg, SpO2=95.0 % 09:13 AM Time: 09:13 Aspirin (81mg) 81 mg Orally Given by April Lo RN [place] [id number] 09:14 AM Time out performed according to hospital policy 09:14 AM Time: 09:14 Heparin 2 units Intravenous Given by April Lo RN [place] [id number] 09:14 AM Time: 09:14 Fentanyl 25 mcg Intravenous Given by April Lo RN [place] [id number] 09:15 AM Time: 09:00 Patient comfortable and pain free: Yes 09:16 AM Time: 09:00LOC: 4 = Oriented but drowsy 09:17 AM HR=67 bpm, FZNO=499/79 mmhg, SpO2=93.0 % 09:17 AM Time: 09:16 20 ml Lidocaine 2% to right groin Subcutaneous Given by Santiago Cordero MD, [place] [id number] 09:18 AM Unsuccessful access attempt # 1 into the right Femoral artery. Manual pressure applied to achieve hemostasis.. 09:18 AM Access obtained by percutaneous puncture. 5Fr 10cm Terumo [place] sheath placed in right Femoral artery. [id number] [place] [id number] 09:18 AM 0.035 145cm Navilyst 3mmJ wire [id number] [facility] 09:19 AM 5Fr FR 4 catheter inserted over the wire [place] [id number] 09:20 AM Recorded Pressure: Ao, HR=71, Condition=Condition 1 (Aorta) Ao 154/87/113 09:20 AM RCA angiography performed in multiple views. 09:20 AM Recorded Pressure: Ao, HR=72, Condition=Condition 1 (Aorta) Ao 136/94/112 09:21 AM Coronary Dominance: right [facility] 09:22 AM HR=69 bpm, VFJO=613/79 mmhg, SpO2=93.0 % 09:22 AM Lesion found in Proximal RCA. Pre Stenosis: 60 Pre CORINNE Flow: :22 AM Lesion found in Distal RCA. Pre Stenosis: 80 Pre CORINNE Flow: [email or web address] 09:22 AM Right Coronary, Right Posterior Descending Arteries with Right Posterolateral and Acute Marginal branches with 80 % stenosis. If graft is supplying this area, 0 % stenosis [email or web address] 09:22 AM SVG to the RPDA angio performed in multiple views. [email or web address] 09:23 AM SVG to the 1st Diagonal angio performed in multiple views. [email or web address] 09:23 AM Recorded Pressure: Ao, HR=67, Condition=Condition 1 (Aorta) Ao 134/91/111 09:26 AM Catheter removed [email or web address] 09:27 AM HR=70 bpm, PTQV=233/74 mmhg, SpO2=92.0 % 09:27 AM 5Fr FL 4 catheter inserted over the wire DNC [email or web address] 09:29 AM Catheter removed [email or web address] 09:29 AM 5Fr FL3.5 catheter inserted over the wire [id number] [email or web address] 09:30 AM LCA angiography performed in multiple views. [email or web address] 09:30 AM Recorded Pressure: Ao, HR=75, Condition=Condition 1 (Aorta) Ao 134/90/109 09:31 AM Time: 09:16LOC: 4 = Oriented but drowsy [email or web address] 09:31 AM Time: 09:15 Patient comfortable and pain free: Yes [email or web address] 09:32 AM HR=76 bpm, REOE=573/87 mmhg, SpO2=93.0 % 09:32 AM Lesion found in Proximal LAD. Pre Stenosis: 70 Pre CORINNE Flow: [email or web address] 09:32 AM Proximal Left Anterior Descending Coronary Artery with 70% stenosis. If graft is supplying this territory, 0 % stenosis. [email or web address] 09:33 AM Lesion found in Mid LAD. Pre Stenosis: 80 Pre CORINNE Flow: [email or web address] 09:33 AM Mid/Distal Left Anterior Descending Coronary Artery and diagonal branches with 80% stenosis. If graft is supplying this area, 0 % stenosis [email or web address] 09:33 AM Lesion found in Distal Circumflex. Pre Stenosis: 50 Pre CORINNE Flow: [email or web address] 09:33 AM Circumflex, Obtuse Marginal, Left Posterior Descending, and Left Posterolateral Coronary Arteries with 50 % stenosis. If graft is supplying this area, 0 % stenosis [email or web address] 09:33 AM Lesion found in 1st Marginal. Pre Stenosis: 50 Pre CORINNE Flow: [email or web address] 09:33 AM Catheter removed [email or web address] 09:34 AM 5Fr Pigtail catheter inserted over the wire [facility] [email or web address] 09:35 AM Pressure channel 1 zeroed. 09:35 AM Recorded Pressure: LV, HR=80, Condition=Condition 1 (Left Ventricle) LV 116/-3/16 09:35 AM Catheter selectively placed in left ventricle [email or web address] 09:35 AM Bolus angiogram of left Ventricle complete: 10 ml/sec for a total of 20 mls [email or web address] 09:36 AM Recorded Pressure: LV, Ao, HR=79, Condition=Condition 1 (Left Ventricle) LV 116/0/34, (Aorta) Ao 114/60/84 09:36 AM Bolus angiogram of Ascending aorta complete: 10 ml/sec for a total of 20 mls [email or web address] 09:36 AM Recorded Pressure: Ao, HR=76, Condition=Condition 1 (Aorta) Ao 123/63/88 09:37 AM HR=77 bpm, EFQX=501/71 mmhg, SpO2=92.0 % 09:37 AM Catheter removed [email or web address] 09:37 AM JR 4 catheter advanced [email or web address] 09:39 AM Catheter removed [email or web address] 09:39 AM 5Fr MPA catheter inserted over the wire [id number] [email or web address] 09:42 AM HR=73 bpm, EUJG=684/68 mmhg, SpO2=93.0 % 09:42 AM 0.035 260cm Navilyst 3mmJ wire [id number] [email or web address] 09:42 AM Catheter removed [email or web address] 09:42 AM 5Fr IM catheter inserted over the wire [id number] [email or web address] 09:44 AM Left [place] to the LAD angio performed in multiple views. [email or web address] 09:45 AM Recorded Pressure: Ao, HR=71, Condition=Condition 1 (Aorta) Ao 99/66/82 09:45 AM Catheter removed [email or web address] 09:46 AM Time: 09:31 Patient comfortable and pain free: Yes [email or web address] 09:46 AM Time: 09:31LOC: 4 = Oriented but drowsy [email or web address] 09:47 AM HR=68 bpm, UKFD=662/73 mmhg, SpO2=93.0 % 09:48 AM Physician reviewing films [email or web address] 09:50 AM Isovue 370 - 200ml,2 Bottle(s) used. [email or web address] 09:50 AM Arterial sheath pulled, Mynx closure device used and was Successful [id number] S/N. [email or web address] 09:51 AM Procedure completed at 09:51 [email or web address] 09:51 AM Sign out completed: Radiation Dose 763.38 mGy Fluoro Time: 9.9 Isovue 370 - 200ml contrast 110.6 ml given by Santiago Cordero MD, FACC. Complications: NoneCardiac Rehab Consult needed: NoConfirmed administered medications: Yes [email or web address] 09:52 AM HR=66 bpm, BFTQ=746/73 mmhg, SpO2=93.0 % 09:52 AM Estimated Blood Loss: less than 20cc [email or web address] 09:52 AM Post ECG NSR [email or web address] 09:52 AM Post Blood Pressure 140/73 [email or web address] 09:53 AM Information taught Cardiac Cath and Mynx [email or web address] 09:53 AM Education needs Procedure, Plan of Care, and Disease Process [email or web address] 09:53 AM Learning barriers :Sedated [email or web address] 09:53 AM Education Methods Verbal [email or web address] 09:53 AM Education evaluation Needs further instruction [email or web address] 09:53 AM Site status No bleeding/hematoma - Rt Groin as reported by Leora Estrada RT (R) at 09:53 [email or web address] 09:53 AM Opsite applied [email or web address] 09:53 AM Delay to floor No [email or web address] 09:53 AM Family placed in consult room. [email or web address] 09:53 AM Complications: None [email or web address] 09:53 AM Fluoro Time: 9.9 [email or web address] 09:53 AM Isovue 370 - 200ml contrast 110.6 ml given by . [email or web address] 09:54 AM Radiation Dose 763.38 mGy [email or web address] 09:56 AM Vitals capture stopped. 09:56 AM 09:56 Post Pulses Bilateral DP & PT 1+ [email or web address] 09:59 AM Report given to awais NAVARRO Pt taken to Room #32. 09:58 [email or web address] 10:01 AM Time: 09:46LOC: 5 = Fully awake and oriented or at pre-proc level [email or web address] 10:01 AM Time: 09:46 Patient comfortable and pain free: Yes [email or web address] 10:03 AM Patient out of room: 10:03 [email or web address] Complications Complication None None Hemodynamics Pressures Site Systolic/A Wave Diastolic/V Wave Mean AO 154 87 113 AO 136 94 112 AO 134 91 111 AO 134 90 109 LV 116 -3 16 LV 116 0 34 AO 114 60 84 AO 123 63 88 AO 99 66 82 Post Procedure Information Blood Pressure: 140/73 mmHg Rhythm: NSR Closure Device Time Device Success/Fail 01/18/2018 9:50:00 AM MynxGrip Successful Site Checks Time Location Status Staff Sheath In? Note 09:53 AM Rt Groin No bleeding/hematoma Leora Estrada RT (R) Pulses Time Site Pre-Procedure Post-Procedure Note 01/18/2018 7:26:00 AM Bilateral DP 1+ 01/18/2018 7:26:00 AM Bilateral radial 2+ 9:56:00 AM Bilateral DP & PT 1+ Updated by Aidan Hardy RT (R) on 01/18/2018 10:03:32 AM Aidan Hardy RT electronically signed on 01/18/2018 10:03:59 AM with status of Final
--- NOTE | 2018-01-18 14:18 | Discharge Summary ---
- NOTES TO OUTPATIENT PROVIDER Notes to Outpatient Provider: Patient is to follow-up with cardiology in 3-4 weeks -cardiac catheterization completed with no stent placement Orders not resulted at time of discharge: Pending orders 01/17/18 10:25 Left Heart Cath [CL Cardiac Catheterization] [CL] Routine Date of Encounter: 01/18/18 Time of Encounter: 14:16 - Discharge Diagnosis (1) Chest pain Priority: Primary Status: Acute Qualifiers: Chest pain type: unspecified Qualified Code(s): R07.9 - Chest pain, unspecified (2) Colostomy in place Priority: Secondary Status: Chronic (3) CAD (coronary artery disease) of artery bypass graft Priority: Secondary Status: Chronic Qualifiers: [place] vs. transplanted heart: [place] heart Associated angina: without angina Qualified Code(s): I25.810 - Atherosclerosis of coronary artery bypass graft(s) without angina pectoris (4) CKD (chronic kidney disease) stage 3, GFR 30-59 ml/min Priority: Secondary Status: Chronic (5) HTN (hypertension) Priority: Secondary Status: Chronic Qualifiers: Hypertension type: essential hypertension Qualified Code(s): I10 - Essential (primary) hypertension (6) Type 2 diabetes mellitus Priority: Secondary Status: Chronic Qualifiers: Diabetes mellitus regional sales executive insulin use: without regional sales executive use Diabetes mellitus complication status: with neurologic complications Diabetes mellitus complication detail: with polyneuropathy Qualified Code(s): E11.42 - Type 2 diabetes mellitus with diabetic polyneuropathy (7) Diastolic CHF Priority: Secondary Status: Acute Qualifiers: Heart failure chronicity: chronic Qualified Code(s): I50.32 - Chronic diastolic (congestive) heart failure Hospital course: Ms. Price is a 57 year old female past medical history of CAD status post CABG diabetes colostomy COPD depression 1 pack-a-day smoker she presented to the ER with complaints of worsening chest pain that has been occurring over the past 3 months. The chest pain occurs with both exertion and at rest and has associated symptoms of lightheadedness and fast heart rate. The symptoms improved with rest troponins were negative 3 echo was completed no pulmonary hypertension LVEF 6065% mild left ventricular diastolic dysfunction no significant valvular disease patient was seen by cardiology and underwent a left heart catheter which revealed stable disease no intervention warranted cardiology recommending continue Plavix statin beta milady follow-up with cardiology and 3-4 weeks. Patient will be discharged home advised patient to follow-up with PCP as well as cardiology continue home medications and take as prescribed. She verbalized understanding. - Time Spent with Patient Total time spent providing and/or coordinating discharge services: - Discharge Medications Home Medications: Atorvastatin [Lipitor] 40 mg PO HS 01/16/18 [History] BuPROPion SR (12 HR) [Wellbutrin SR] 150 mg PO BID 01/16/18 [History] Cholecalciferol (D-3) [Vitamin D] 5,000 unit PO MOFR 01/16/18 [History] Clopidogrel [Plavix] 75 mg PO DAILY 01/16/18 [History] Insulin Regular U-500 [HumuLIN R U-500] 50 - 200 unit SQ TID 01/16/18 [History] Isosorbide MONOnitrate [Isosorbide Mononitrate] 20 mg PO BID 01/16/18 [History] Loratadine [Claritin] 10 mg PO DAILY 01/16/18 [History] Metoprolol Tartrate 100 mg PO BID 01/16/18 [History] Omeprazole [PriLOSEC] 20 mg PO DAILY 01/16/18 [History] Oxygen 2 l NS AD 01/16/18 [History] Ranitidine HCl [Acid Reconsignment Clerk] 150 mg PO BID 01/16/18 [History] Spironolactone [Aldactone] 50 mg PO BID 01/16/18 [History] Tramadol HCl [Ultram] 50 mg PO QID PRN 01/16/18 [History] Venlafaxine [Effexor] 37.5 mg PO BID 01/16/18 [History] diazePAM [Valium] 5 mg PO BID PRN 01/16/18 [History] diazePAM [Valium] 10 mg PO BID PRN 01/16/18 [History] Allergies/Adverse Reactions: 3 Allergy/AdvReac Type Severity Reaction Status Date / Time Estrogens Allergy Hives Verified 01/16/18 17:28 gabapentin Allergy Swelling Verified 01/16/18 17:28 of Lip/Tongue/Throat Penicillins Allergy Itching Verified 01/16/18 17:28 aspirin [ASA] AdvReac See Verified 01/16/18 17:28 Comments lisinopril AdvReac Cough Verified 01/16/18 17:28 Date of admission: 01/16/18 17:34 Primary care physician: PCP NONE Consults: 01/18/18 08:26 Consult to Nurse Navigator [CONS] Routine Comment: Diastolic CHF Discharging clinician: Anastasiia Alegre Anticipated date of discharge: 01/18/18 - Constitutional Vitals: Temp Pulse Resp BP Pulse Ox 98.3 F 64 16 100/68 93 01/18/18 11:23 01/18/18 12:58 01/18/18 12:58 01/18/18 12:58 01/18/18 12:58 General appearance: Present: A&O X 3, pleasant, no acute distress - Head Head exam: Present: atraumatic, normocephalic - Eye Eye exam: Present: PERRL, conjuntiva pink, sclera anicteric Pupils: Present: PERRL - Neck Neck exam general surgery: Present: supple, trachea midline. Absent: lymphadenopathy - Respiratory Respiratory exam: Present: CTAB. Absent: accessory muscle use, rales, rhonchi, wheezes - Cardiovascular Cardiovascular exam: Present: RRR, +S1, +S2. Absent: diastolic murmur, gallop, rubs, systolic murmur - GI/Abdominal GI/Abdominal exam: Present: normal bowel sounds, soft, no peritoneal signs. Absent: distended, tenderness - Extremities Exam Extremities exam: Present: warm, radial pulses palpable and symmetrical. Absent : calf tenderness, cyanotic, pedal edema - Neurological Exam Neurological exam: Present: CN II-XII intact, oriented X3, no focal deficits. Absent: pronater drift, facial droop, speech deficit - Skin Skin exam: Present: dry, intact - Patient Status Disposition: Home, Self-Care Condition: Good Overall status at discharge: patient is back to baseline - Discharge Instructions Instructions: Chest Pain (DC) Follow Up With: NONE,PCP [Primary Care Provider] - Additional Instructions: Follow-up appointments: If there is not an appointment listed below, please call your physician and schedule a follow-up appointment. If you have congestive heart failure and your symptoms return, make an appointment with your physician. Medication List: Carry an up to date list of medications you are taking at all time. We have given you an updated medication list including any new medications that you have been prescribed. Please provide that list to your primary provider Symptoms: If your condition changes or you experience any of the following symptoms, notify your physician immediately: Unusual or worsening pain, fever, persistent nausea and vomiting, bleeding, increase in swelling (especially in your legs), sudden weight gain, extreme dizziness, chest pain, increased drainage or redness from a wound or incision. Go to the emergency department if you experience a problem with breathing. Weights: If you have a history of swelling or shortness of breath, weigh yourself daily and notify your physician if you have a weight gain of two or more pounds in one day or 5 or more pounds in a week. If you experience any of the warning signs for stroke: Sudden numbness or weakness of the face, arm or leg; especially on one side of the body, sudden confusion, trouble speaking or understanding, sudden trouble seeing in one or both eyes, sudden trouble walking, dizziness, loss of balance or coordination, sudden sever headache with no cause; Call 911 or go to the emergency room. Stroke is a medical emergency. Some risk factors for stroke: Age, cigarette smoking, diabetes, excessive alcohol consumption, family history , high blood pressure, overweight, physical inactivity, prior stroke, heart attack, diagnosis of carotid artery stenosis or other artery disease. If you smoke, STOP: Smoking or tobacco use significantly increases your risk of heart and lung disease. Your chance of disease greatly increases if you continue to smoke. For more information, call the [employer] tobacco quit line for smoking cessation QUIT-NOW ( ) - Diet and Activity Activity: other Diet: low fat, low cholesterol, low salt diet
[2018-01-18 15:01] VITALS: BP 127/75
== END 2018-01-18 15:05 | disposition home or self-care (01) ==
LOC: EMEROO 13:34 → 3BNU 13:34
PROVIDERS: ADMIT Nurse Practitioner Family; ATTEND Nurse Practitioner Family

== ENCOUNTER 2018-02-21 13:57 | Inpatient (IN) ==
[2018-02-21] MEDS ORDERED: Ipratropium/Albuterol Neb 3 ML IH ONE (14:25)
[2018-02-21] MEDS ORDERED: methylPREDNISolone 125 MG/2 ML VIAL IVP ONE (14:37)
[2018-02-21] MEDS ORDERED: Acetaminophen 325 MG TABLET PO ONE (14:56)
[2018-02-21 14:58] LABS: Basophils # 0.1 K/mcL (0.0-0.2); Basophils % 0.7 %; Eosinophils # 0.1 K/mcL (0.0-0.6); Eosinophils % 1.8 %; Hemoglobin 15.6 g/dL (11.5-15.4); Immature Granulocytes % 1.1 % (0-4); Lymphocytes # 1.4 K/mcL (0.6-4.6); Mean Corpuscular HGB Conc 33.9 g/dL (31.6-35.5); Mean Corpuscular Hemoglobin 31.3 pg (28.0-33.3); Mean Corpuscular Volume 92.2 fL (83.0-100.0); Mean Platelet Volume 11.9 fL (9.4-12.4); Monocytes # 0.8 K/mcL (0.0-1.3); Monocytes % 11.1 %; Neutrophils # 4.9 K/mcL (1.6-8.9); Platelet Count 141 K/mcL (140-400); Red Blood Count 4.99 M/mcL (3.82-4.97); Red Cell Distribution Width 13.5 % (11.5-14.5); Segmented Neutrophils % 66.3 %
--- NOTE | 2018-02-21 15:03 | Emergency Department Note ---
Disposition Clinical Impression: Acute exacerbation of chronic obstructive airways disease, Malaise Disposition: Admitted As Inpatient Condition: Fair Referrals: NONE,PCP [Primary Care Provider] - Forms: ED Satisfaction Letter Time of Disposition: 17:26 General Adult HPI - General Chief complaint: ED Upper Respiratory Infection Stated complaint: "wheezing, sob,sick" Time Seen by Provider: 02/21/18 14:05 Source: patient Limitations: no limitations - History of Present Illness Pain Scale: 8 - Related Data Home Medications Medication Instructions Recorded Confirmed Atorvastatin [Lipitor] 40 mg PO HS 01/16/18 01/16/18 BuPROPion SR (12 HR) [Wellbutrin 150 mg PO BID 01/16/18 01/16/18 SR] Cholecalciferol (D-3) [Vitamin D] 5,000 unit PO MOFR 01/16/18 01/16/18 Clopidogrel [Plavix] 75 mg PO DAILY 01/16/18 01/16/18 Insulin Regular U-500 [HumuLIN R 50 - 200 unit SQ TID 01/16/18 01/18/18 U-500] Isosorbide MONOnitrate [Isosorbide 20 mg PO BID 01/16/18 01/16/18 Mononitrate] Loratadine [Claritin] 10 mg PO DAILY 01/16/18 01/16/18 Metoprolol Tartrate 100 mg PO BID 01/16/18 01/16/18 Omeprazole [PriLOSEC] 20 mg PO DAILY 01/16/18 01/16/18 Oxygen 2 l NS AD 01/16/18 01/16/18 Ranitidine HCl [Acid Diesel Dinkey Operator] 150 mg PO BID 01/16/18 01/16/18 Spironolactone [Aldactone] 50 mg PO BID 01/16/18 01/16/18 Tramadol HCl [Ultram] 50 mg PO QID PRN 01/16/18 01/16/18 Venlafaxine [Effexor] 37.5 mg PO BID 01/16/18 01/16/18 diazePAM [Valium] 10 mg PO BID PRN 01/16/18 01/16/18 Allergies Allergy/AdvReac Type Severity Reaction Status Date / Time Estrogens Allergy Hives Verified 01/16/18 17:28 gabapentin Allergy Swelling Verified 01/16/18 17:28 of Lip/Tongue/Throat Penicillins Allergy Itching Verified 01/16/18 17:28 aspirin [ASA] AdvReac See Verified 01/16/18 17:28 Comments lisinopril AdvReac Cough Verified 01/16/18 17:28 Past Medical History - Past Medical History Medical history: Reports: CHF, COPD, coronary artery disease, diabetes, GERD Surgical history: Reports: angioplasty/stent, appendectomy, cholecystectomy, colectomy, colostomy, coronary bypass (CABG), hysterectomy, other Psychiatric history: Reports: anxiety, bipolar, depression 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 - Social History Smoking Status: Current every day smoker Smokeless Tobacco Status: No Alcohol use: Reports: none Drug use: Reports: none Physical Exam - General Limitations: no limitations General appearance: alert, in no apparent distress Course Vital Signs Temperature 97.4 F L 02/21/18 13:59 Pulse Rate 78 02/21/18 13:59 Respiratory Rate 20 02/21/18 13:59 Blood Pressure 108/70 02/21/18 13:59 O2 Sat by Pulse Oximetry 91 02/21/18 13:59 Temperature 97.4 F L 02/21/18 14:05 Pulse Rate 84 02/21/18 16:36 Respiratory Rate 17 02/21/18 16:36 Blood Pressure 115/73 02/21/18 16:36 O2 Sat by Pulse Oximetry 92 02/21/18 16:36 Oxygen Delivery Oxygen Delivery Nasal Cannula Medical Decision Making - Lab Data Result diagrams: 02/21/18 14:45 02/21/18 14:47 Lab Results 02/21/18 02/21/18 02/21/18 Range/Units 14:45 14:47 14:47 WBC 7.4 (4.3-11.1) K/mcL RBC 4.99 H (3.82-4.97) M/mcL Hgb 15.6 H (11.5-15.4) g/dL Hct 46.0 H (35.3-44.9) % MCV 92.2 (83.0-100.0) fL MCH 31.3 (28.0-33.3) pg MCHC 33.9 (31.6-35.5) g/dL RDW 13.5 (11.5-14.5) % Plt Count 141 (140-400) K/mcL MPV 11.9 (9.4-12.4) fL Immature Gran % 1.1 (0-4) % Seg Neutrophils % 66.3 % Lymphocytes % 19.0 % Monocytes % 11.1 % Eosinophils % 1.8 % Basophils % 0.7 % Neutrophils # 4.9 (1.6-8.9) K/mcL Lymphocytes # 1.4 (0.6-4.6) K/mcL Monocytes # 0.8 (0.0-1.3) K/mcL Eosinophils # 0.1 (0.0-0.6) K/mcL Basophils # 0.1 (0.0-0.2) K/mcL Sodium 133 L (136-145) mEq/L Potassium 3.6 (3.5-5.1) mEq/L Chloride 97 L (98-107) mEq/L Carbon Dioxide 27 (23-29) mEq/L BUN 6 (6-20) mg/dL Creatinine 1.01 (0.60-1.20) mg/dL Est GFR ( Amer) > 60 (> 60) Est GFR (Non-Af Amer) 56 L (> 60) BUN/Creatinine Ratio 6 (6-26) Glucose 260 H (70-105) mg/dL Calculated Osmolality 283 (280-300) Lactic Acid 2.0 (0.5-2.2) mmol/L Calcium 9.4 (8.6-10.3) mg/dL Troponin I < 0.03 (< 0.04) ng/mL Attestation Statement - Attestation Attestation: I, Td Harley DO, examined this patient [id number] and my medical decision-making was reviewed with Mila Guzman PGY-1, Resident Physician. I agree with the documented findings, disposition and treatment plan as described except to the extent set forth below. Please see my progress notes for details. 57-year-old female presents emergency room multiple complaints. Patient presents here today with cough congestion and generalized malaise and body aches along with belly discomfort and pain. Patient has multiple chronic medical issues. She does typically use oxygen at home and has known COPD. She has not been using breathing treatments for symptoms. Patient denies any trauma or injury. She has not had any new medications. She has not been on any antibiotics at home. She is denying chest pain, fevers, chills, nausea vomiting and diarrhea, headache or vision change. Her main complaint is shortness of breath and generalized malaise. She also has noticed some abnormal discharge from her right previous ostomy site. Vital signs reviewed and are otherwise unremarkable. Patient does have some increased work of breathing. She has diminished breath sounds on the right with wheezing on the left. Her heart is regular. Abdomen is soft. She does have some tenderness around the ostomy site with the ostomy themselves look to be patent with good pink coloration to the tissue. Patient has had appropriate output. She has no signs of significant distention or other etiology at this point. She moves her extremities with purpose. Patient seems to have what appears to be upper respiratory infection, pneumonia, COPD exacerbation along with potential viral illness patient will have CBC chemistry urinalysis along with lactic acid troponin EKG chest x-ray completed here. She also have CT imaging of the abdomen ordered secondary to the discharge and discomfort in her abdomen. She does have chronic kidney related injury but we will hydrate as needed. Disposition pending full workup and evaluation. See detailed documentation of the physical exam, medical intervention, medical decision-making and disposition in the resident physician's note. No critical care provider the patient's treatment course at this time. 1615 Patient has a negative chest x-ray and CT the abdomen at this time. Pulse ox and respiratory status have been better but the patient does have wheezing. Patient will admission completed this time for COPD exacerbation with failed outpatient management. Antibiotics steroids breathing treatments as well as detailed evaluation completed. 1715 Patient acceptable hospitals no other recommendations or issues.
[2018-02-21] MEDS ORDERED: traMADol 50 MG TABLET PO ONE (15:05)
[2018-02-21] MEDS ORDERED: *HR* HYDROcodone/Acet 5/325 mg TABLET PO ONE (15:10)
--- NOTE | 2018-02-21 15:18 | Emergency Department Note ---
Disposition Clinical Impression: Acute exacerbation of chronic obstructive airways disease, Malaise, COPD exacerbation Disposition: Admitted As Inpatient Condition: Fair Time of Disposition: 17:26 SOB HPI - General Chief Complaint: ED Upper Respiratory Infection Stated Complaint: "wheezing, sob,sick" Time Seen by Provider: 02/21/18 14:05 Source: patient Mode of arrival: ambulatory Limitations: no limitations Nursing Notes Reviewed: Yes Vital Signs Reviewed: Yes - History of Present Illness 57yo female with past medical history of CABG, COPD, ileostomy presented to [facility] complaining of shortness of breath and cough for 5 days that has been worsening. She has been around little grandchildren that have been sick and she recently with her and air-conditioner that was turned down much colder than it normally is. She has had aware her 2 L of oxygen during the daytime for the past couple days, when she normally wears only at bedtime. Additionally, she has had fever, chills, left ear pain, congestion, runny nose, abdominal pain, chest soreness from coughing, change of ileostomy output. She reported she has been admitted multiple times for pneumonia in the past. She is a continued smoker of 1/2 -2 pdd for about 45 years. - Related Data Home Medications Medication Instructions Recorded Confirmed Atorvastatin [Lipitor] 40 mg PO HS 01/16/18 02/21/18 BuPROPion SR (12 HR) [Wellbutrin 150 mg PO BID 01/16/18 02/21/18 SR] Cholecalciferol (D-3) [Vitamin D] 5,000 unit PO MOFR 01/16/18 02/21/18 Clopidogrel [Plavix] 75 mg PO DAILY 01/16/18 02/21/18 Insulin Regular U-500 [HumuLIN R 10 - 40 unit SQ TID 01/16/18 02/21/18 U-500] Isosorbide MONOnitrate [Isosorbide 20 mg PO BID 01/16/18 02/21/18 Mononitrate] Loratadine [Claritin] 10 mg PO DAILY 01/16/18 02/21/18 Metoprolol Tartrate 100 mg PO BID 01/16/18 02/21/18 Omeprazole [PriLOSEC] 20 mg PO DAILY 01/16/18 02/21/18 Oxygen 2 l NS AD 01/16/18 02/21/18 Ranitidine HCl [Acid Superintendent Custodian Janitor] 150 mg PO BID 01/16/18 02/21/18 Spironolactone [Aldactone] 50 mg PO BID 01/16/18 02/21/18 Tramadol HCl [Ultram] 50 mg PO QID PRN 01/16/18 02/21/18 Venlafaxine [Effexor] 37.5 mg PO BID 01/16/18 02/21/18 diazePAM [Valium] 10 mg PO BID PRN 01/16/18 02/21/18 Allergies Allergy/AdvReac Type Severity Reaction Status Date / Time Estrogens Allergy Hives Verified 01/16/18 17:28 gabapentin Allergy Swelling Verified 01/16/18 17:28 of Lip/Tongue/Throat Penicillins Allergy Itching Verified 01/16/18 17:28 aspirin [ASA] AdvReac See Verified 01/16/18 17:28 Comments lisinopril AdvReac Cough Verified 01/16/18 17:28 All systems ED: reviewed and negative except as stated. Review of Systems: As Per HPI Constitutional: Reports: fever, chills ENT ED: Reports: ear pain, congestion Cardiovascular: Denies: chest pain, palpitations Respiratory: Reports: cough, dyspnea, wheezes, sputum production Gastrointestinal: Reports: abdominal pain, nausea Genitourinary: Denies: urgency Integumentary: Denies: rash Neurological: Denies: headache Past Medical History - Past Medical History Attestation: Yes The following information was validated with the patient. Source: patient Medical history: Reports: CHF, COPD, coronary artery disease, diabetes, GERD Surgical history: Reports: angioplasty/stent, appendectomy, cholecystectomy, colectomy, colostomy, coronary bypass (CABG), hysterectomy, other Psychiatric history: Reports: anxiety, bipolar, depression [employer] CONTROL SPECIALIST history: Reports: other - Social History Smoking Status: Current every day smoker Smokeless Tobacco Status: No Alcohol use: Reports: none Drug use: Reports: none Physical Exam - General Limitations: no limitations General appearance: alert, in no apparent distress - Head Head exam: atraumatic, normocephalic - Eye Eye exam: Present: PERRL - ENT ENT exam: mucous membranes dry, other (Tragus and external ear tender) - Chest Chest inspection: Present: tenderness, other (Depressed anterior chest). Absent : normal inspection, rash - Respiratory Respiratory exam: Present: wheezes (Bilateral basilar), other (Decreased breath sounds bilaterally) - Cardiovascular Cardiovascular exam: Present: regular rate, normal rhythm - Abdominal Exam Abdominal exam: Present: soft, Non-Tender, normal bowel sounds - Extremities Exam Extremities exam: Present: normal inspection. Absent: tenderness - Neurological Exam Neurological exam: Present: alert, oriented X3 - Psychiatric Psychiatric exam: Present: normal affect, normal mood - Skin Skin exam: Present: dry, intact Course Course Narrative: 57yo female with past medical history of CABG, COPD,ileostomy presented to [facility] complaining of shortness of breath and cough for 5 days that has been worsening. Additionally, she has had fever, chills, left ear pain, congestion, runny nose, abdominal pain, chest soreness from coughing, change of ileostomy output. She has been admitted multiple times for pneumonia and COPD exacerbations. She has reported a change of ileostomy output along with abdominal pain. She likely has pneumonia vs COPD exacerbation along with external otitis infection. Differential includes ACS, pneumothorax. Will order is CBC, BMP, troponin, EKG, chest x-ray, abdominal CT. - Reevaluation(s) Reevaluation #1: Chest x-ray was stable from previous. Abdominal CT demonstrated no acute abdominal abnormality. There was anterior defect of the abdominal wall containing small loops about that was non-obstructive. Time: 17:11 Vital Signs Temperature 97.4 F L 02/21/18 13:59 Pulse Rate 78 02/21/18 13:59 Respiratory Rate 20 02/21/18 13:59 Blood Pressure 108/70 02/21/18 13:59 O2 Sat by Pulse Oximetry 91 02/21/18 13:59 Temperature 97.4 F L 02/21/18 14:05 Pulse Rate 84 02/21/18 16:36 Respiratory Rate 17 02/21/18 16:36 Blood Pressure 115/73 02/21/18 16:36 O2 Sat by Pulse Oximetry 92 02/21/18 16:36 Oxygen Delivery Oxygen Delivery Nasal Cannula Shortness of Breath/Dyspnea - MDM Narrative Medical decision making narrative: 57yo female with past medical history of CABG, COPD, ileostomy, diabetes presented to [facility] complaining of shortness of breath and cough for 5 days that has been worsening. She has been around little grandchildren that have been sick and she recently with her and air-conditioner that was turned down much colder than it normally is. She has had aware her 2 L of oxygen during the daytime for the past couple days, when she normally wears only at bedtime. Additionally, she has had fever, chills, left ear pain, congestion, runny nose, abdominal pain, chest soreness from coughing, change of ileostomy output. Chest x-ray is stable from previous. Abdominal CT demonstrated no acute abdominal abnormality. There was anterior defect of the abdominal wall containing small loops about that was non-obstructive. CBC, BMP, lactic acid, troponin, unremarkable. She has received a dose of solumedrol, Levaquin, duoneb. Blood culture and influenza tests are pending. This is likely a COPD exacerbation where the patient has failed outpatient treatment with worsening of symptoms. Due to her significant respiratory disease she likely needs admitted for continued COPD exacerbation treatment with IV antibiotics. Dr. Haro excepted admission and requested the addition of sliding scale insulin and Accu checks. - Differential Diagnosis Likely: acute exacerbation of chronic obstructive airways disease, pneumonia - Medical Records Medical records reviewed: Yes I reviewed the patient's medical records. - Lab Data Lab results reviewed: Yes I reviewed the patient's lab results. Result diagrams: 02/21/18 14:45 02/21/18 14:47 Lab Results 02/21/18 02/21/18 02/21/18 Range/Units 14:45 14:47 14:47 WBC 7.4 (4.3-11.1) K/mcL RBC 4.99 H (3.82-4.97) M/mcL Hgb 15.6 H (11.5-15.4) g/dL Hct 46.0 H (35.3-44.9) % MCV 92.2 (83.0-100.0) fL MCH 31.3 (28.0-33.3) pg MCHC 33.9 (31.6-35.5) g/dL RDW 13.5 (11.5-14.5) % Plt Count 141 (140-400) K/mcL MPV 11.9 (9.4-12.4) fL Immature Gran % 1.1 (0-4) % Seg Neutrophils % 66.3 % Lymphocytes % 19.0 % Monocytes % 11.1 % Eosinophils % 1.8 % Basophils % 0.7 % Neutrophils # 4.9 (1.6-8.9) K/mcL Lymphocytes # 1.4 (0.6-4.6) K/mcL Monocytes # 0.8 (0.0-1.3) K/mcL Eosinophils # 0.1 (0.0-0.6) K/mcL Basophils # 0.1 (0.0-0.2) K/mcL Sodium 133 L (136-145) mEq/L Potassium 3.6 (3.5-5.1) mEq/L Chloride 97 L (98-107) mEq/L Carbon Dioxide 27 (23-29) mEq/L BUN 6 (6-20) mg/dL Creatinine 1.01 (0.60-1.20) mg/dL Est GFR ( Amer) > 60 (> 60) Est GFR (Non-Af Amer) 56 L (> 60) BUN/Creatinine Ratio 6 (6-26) Glucose 260 H (70-105) mg/dL Calculated Osmolality 283 (280-300) Lactic Acid 2.0 (0.5-2.2) mmol/L Calcium 9.4 (8.6-10.3) mg/dL Troponin I < 0.03 (< 0.04) ng/mL - Radiology Data Radiology results reviewed: Yes I reviewed the patient's radiology results. Chest X-Ray 02/21/18 14:37 IMPRESSION: Stable portable study. D/ / Bell Wilson Cha, MD / Bell Wilson Cha, MD Interpreting Provider: Bell Wilson Cha, MD Abdomen/Pelvis CT 02/21/18 15:25 IMPRESSION: Findings similar the prior study showing enlarged lower anterior midline abdominal wall defect containing multiple loops of small bowel. No bowel obstruction is identified at this time. D/ / Bell Wilson Cha, MD / Bell Wilson Cha, MD Interpreting Provider: Bell Wilson Cha, MD - EKG Data EKG attestation: Yes I reviewed and interpreted this EKG. EKG results narrative: EKG HR 75, normal sinus rhythm, normal axis, no ST or T wave changes. EKG is similar to prior EKG. MO 174, QRS 86, QT/QTC 391/419 Critical Care Time Critical Care Time: No Attestation Statement - Attestation Attestation: I, Td Harley DO, examined this patient [id number] and my medical decision-making was reviewed with Mila , Resident Physician. I agree with the documented findings, disposition and treatment plan as described except to the extent set forth below. Please see my progress notes for details.
[2018-02-21 15:20] LABS: BUN/Creatinine Ratio 6 (6-26); Blood Urea Nitrogen 6 mg/dL (6-20); Calcium 9.4 mg/dL (8.6-10.3); Carbon Dioxide 27 mEq/L (23-29); Chloride 97 mEq/L (98-107); Glucose 260 mg/dL (70-105); Osmolality,Calculated 283 (280-300); Potassium 3.6 mEq/L (3.5-5.1); Sodium 133 mEq/L (136-145); eGFR For African Americans > 60 (> 60); eGFR For Non-African Americans 56 (> 60)
[2018-02-21 15:21] LABS: Troponin I < 0.03 ng/mL (< 0.04)
[2018-02-21] MEDS: Levofloxacin 750 MG/150 ML 750 MG/150 ML BAG IVPB SCH (15:23)
[2018-02-21] MEDS ORDERED: diazePAM 10 MG TABLET PO PRN (17:46)
[2018-02-21] MEDS ORDERED: Ipratropium/Albuterol Neb 3 ML IH PRN (17:48)
[2018-02-21] MEDS ORDERED: D5% in Water 1,000 ML IVC PRN (17:48)
[2018-02-21] MEDS ORDERED: *HR* Dextrose 50 % in Water (Syg) 50 ML SYRINGE IVP PRN (17:48)
[2018-02-21] MEDS ORDERED: Dextrose Gel 15 GM/37.5 ML TUBE PO PRN ×2 (17:48)
[2018-02-21] MEDS ORDERED: Naloxone 0.4 MG/ML INJ IVP PRN (17:49)
--- NOTE | 2018-02-21 17:55 | Internal Med History&Physical ---
Date of Encounter: 02/21/18 Time of Encounter: 17:53 Internal Medicine - H&P: HPI Chief complaint: Multi systemic complaints, short of breath History of present illness: Ms. Price is a 57 year old female with a history of CAD status post CABG approximately 4 years ago complicated by bowel perforation status post ileostomy and mucous fistula, diabetes type 2 on insulin, COPD who smokes one pack a day who presents with viral syndrome and mild acute bronchitis. He he started to develop emesis since Thursday associated with anorexia. The symptoms were associated with multi systemic symptoms such as head, year, chest , throat, stomach discomfort. No chills but subjective low-grade fever 100.3. Today associated with increased mucus production and increased shortness of breath was on exertion. At baseline she uses 2 L of oxygen at night and as per needed in the daytime. She uses a wheelchair, walker at home and has a scooter. EKG personally reviewed with rate 75, normal sinus rhythm CT/CT abd pelvis wo no iv no oral IMPRESSION: Findings similar the prior study showing enlarged lower anterior midline abdominal wall defect containing multiple loops of small bowel. No bowel obstruction is identified at this time. XR/XR chest 1V portable IMPRESSION: Stable portable study. Past Med Surg Social Fam HX - Past Medical History Medical history: CHF, COPD, coronary artery disease, diabetes, GERD Additional medical history: ckd stage 3 Psychiatric history: anxiety, bipolar, depression - Past Surgical History Surgical History: angioplasty/stent, appendectomy, cholecystectomy, colectomy, colostomy, coronary bypass (CABG), hysterectomy, other Additional surgical history: 4 stents. sternum removed. tonsils and adnoids,. 25inch bowel removed - Social History Smoking Status: Current every day smoker Smokeless Tobacco Status: No Alcohol use: none Drug use: none - Family History Father Hx Family Cardiac Disorders: Yes Mother Hx Family Cardiac Disorders: Yes Internal Medicine - H&P: Meds Atorvastatin [Lipitor] 40 mg PO HS 01/16/18 [History] BuPROPion SR (12 HR) [Wellbutrin SR] 150 mg PO BID 01/16/18 [History] Cholecalciferol (D-3) [Vitamin D] 5,000 unit PO MOFR 01/16/18 [History] Clopidogrel [Plavix] 75 mg PO DAILY 01/16/18 [History] Insulin Regular U-500 [HumuLIN R U-500] 10 - 40 unit SQ TID 01/16/18 [History] Isosorbide MONOnitrate [Isosorbide Mononitrate] 20 mg PO BID 01/16/18 [History] Loratadine [Claritin] 10 mg PO DAILY 01/16/18 [History] Metoprolol Tartrate 100 mg PO BID 01/16/18 [History] Omeprazole [PriLOSEC] 20 mg PO DAILY 01/16/18 [History] Oxygen 2 l NS AD 01/16/18 [History] Ranitidine HCl [Acid Tromper] 150 mg PO BID 01/16/18 [History] Spironolactone [Aldactone] 50 mg PO BID 01/16/18 [History] Tramadol HCl [Ultram] 50 mg PO QID PRN 01/16/18 [History] Venlafaxine [Effexor] 37.5 mg PO BID 01/16/18 [History] diazePAM [Valium] 10 mg PO BID PRN 01/16/18 [History] 3 Allergy/AdvReac Type Severity Reaction Status Date / Time Estrogens Allergy Hives Verified 01/16/18 17:28 gabapentin Allergy Swelling Verified 01/16/18 17:28 of Lip/Tongue/Throat Penicillins Allergy Itching Verified 01/16/18 17:28 aspirin [ASA] AdvReac See Verified 01/16/18 17:28 Comments lisinopril AdvReac Cough Verified 01/16/18 17:28 All Systems PM: A 10-system review of systems was performed and is negative for pertinent findings except as documented above in the HPI. Review of systems: ROS 14 point review of systems reviewed as best as possible given presentation. Pertinent positive or negative as per HPI or otherwise reviewed as negative - Constitutional Vitals: Temp Pulse Resp BP Pulse Ox 97.4 F L 84 18 117/63 92 02/21/18 14:05 02/21/18 17:43 02/21/18 17:43 02/21/18 17:43 02/21/18 17:43 Exam: General - AAO x 3 Psych - Appropriate affect/speech. No agitation Eyes - LARISSA. Eye lids intact. No scleral icterus. Neuro - No gross peripheral or central neuro deficits on inspection Heart - Sinus. RRR. S1 and S2 present. No added HS/murmurs appreciated. No elevated JVD appreciated. Lung - Adequate air entry b/l, No crackles/wheezes appreciated GI - Ileostomy and a mucus fistula. Soft, non-tender. No hepatosplenomegaly/ ascites. BS+ - No CVA/suprapubic tenderness or palpable bladder distension Skin - Intact. No rash/petechiae/ecchymosis. B/l lower extremity edema Internal Med - H&P Results - Labs CBC & Chem 7: 02/21/18 14:45 02/21/18 14:47 - Assessment and plan (1) COPD exacerbation Current Visit: Yes Status: Acute Assessment and plan: duonebs, IV azithro will attempt to spare steroids close monitoring send RVP (2) Viral syndrome Current Visit: Yes Status: Acute Assessment and plan: monitor on IVF send RVP supportive care for now (3) Excess ear wax Current Visit: Yes Status: Acute Assessment and plan: rec outpatient OTC debrox to clean ear out Qualifiers: Laterality: bilateral Qualified Code(s): H61.23 - Impacted cerumen, bilateral (4) CAD (coronary artery disease) Current Visit: Yes Status: Acute Assessment and plan: s/p cabg continue cardiac med Qualifiers: Coronary Disease-Associated Artery/Lesion type: [place] artery [place] vs. transplanted heart: [place] heart Qualified Code(s): I25.10 - Atherosclerotic heart disease of [place] coronary artery without angina pectoris (5) DMII (diabetes mellitus, type 2) Current Visit: Yes Status: Acute Assessment and plan: uses his own scale in his "head" at home will start on high dose ISS for now. May need additional mealtime fixed dose insulin if high Qualifiers: Qualified Code(s): E11.9 - Type 2 diabetes mellitus without complications; Z79.4 - [facility] (current) use of insulin - Time Spent With Patient Total time spent is greater than 50% in coordination of care (as documented) at patient's floor/unit and/or counseling patient:
[2018-02-21] MEDS: Azithromycin 500 MG in D5% in Water 250 ML IVPB SCH (18:19)
[2018-02-21] MEDS: Ringers Solution, Lactated 1,000 ML IVC SCH (18:19)
[2018-02-21] MEDS ORDERED: Insulin LISPRO 300 UNITS/3 ML VIAL SQ SCH (20:00)
[2018-02-21] MEDS: Metoprolol 100 MG TABLET PO SCH (20:56)
[2018-02-21] MEDS: Famotidine 20 MG TABLET PO SCH (20:56)
[2018-02-21] MEDS: Insulin LISPRO 300 UNITS/3 ML VIAL SQ SCH (20:57)
[2018-02-21] MEDS: BuPROPion SR (12 HR) 150 MG TABLET PO SCH (20:57)
[2018-02-21] MEDS: traMADol 50 MG TABLET PO PRN (21:40)
[2018-02-21] MEDS: ISOSORBIDE MONONITRATE PO SCH (21:44)
[2018-02-21] MEDS: Ondansetron 4 MG/2 ML VIAL IVP PRN (21:56)
[2018-02-21] MEDS: Ipratropium/Albuterol Neb 3 ML IH SCH (23:06)
[2018-02-22 00:53] LABS: Adenovirus Not Detected (Not Detect); Bordetella Pertussis Not Detected (Not Detect); Chlamydophila pneumoniae Not Detected (Not Detect); Coronavirus 229E Not Detected (Not Detect); Coronavirus HKU1 Not Detected (Not Detect); Coronavirus NL63 Not Detected (Not Detect); Coronavirus OC43 Not Detected (Not Detect); Human Metapneumovirus Not Detected (Not Detect); Human Rhinovirus/Enterovirus ***DETECTED*** (Not Detect); Influenza A Subtype 2009 H1 Not Detected (Not Detect); Influenza A Untypeable Not Detected (Not Detect); Influenza B Not Detected (Not Detect); Mycoplasma pneumoniae Not Detected (Not Detect); Parainfluenza Virus 1 Not Detected (Not Detect); Parainfluenza Virus 2 Not Detected (Not Detect); Parainfluenza Virus 3 Not Detected (Not Detect); Parainfluenza Virus 4 Not Detected (Not Detect); Respiratory Syncytial Virus Not Detected (Not Detect)
[2018-02-22] MEDS: Ipratropium/Albuterol Neb 3 ML IH SCH ×4 (03:40→22:12)
[2018-02-22 05:05] LABS: Bilirubin,Urine Negative (Negative); Blood,Urine Negative (Negative); Clarity,Urine Clear (Clear); Color,Urine Yellow (Yellow); Glucose,Urine (UA) >=1000 mg/dL (Normal); Ketones,Urine Negative (Negative); Leukocyte Esterase,Urine Negative (Negative); Nitrite,Urine Negative (Negative); PH,Urine 6.5 pH Units (5.0-8.0); Protein,Urine Negative (Neg-Trace); Urobilinogen,Urine Normal (Normal)
[2018-02-22 05:21] LABS: Basophils % 0.1 %; Hematocrit 49.2 % (35.3-44.9); Hemoglobin 16.7 g/dL (11.5-15.4); Immature Granulocytes % 1.1 % (0-4); Lymphocytes # 0.5 K/mcL (0.6-4.6); Lymphocytes % 6.4 %; Mean Corpuscular HGB Conc 33.9 g/dL (31.6-35.5); Mean Corpuscular Hemoglobin 31.7 pg (28.0-33.3); Mean Corpuscular Volume 93.5 fL (83.0-100.0); Mean Platelet Volume 12.7 fL (9.4-12.4); Monocytes # 0.3 K/mcL (0.0-1.3); Monocytes % 3.9 %; Neutrophils # 7.4 K/mcL (1.6-8.9); Platelet Count 135 K/mcL (140-400); Red Blood Count 5.26 M/mcL (3.82-4.97); Red Cell Distribution Width 13.2 % (11.5-14.5); Segmented Neutrophils % 88.5 %
[2018-02-22 05:44] LABS: Calcium 9.4 mg/dL (8.6-10.3); Potassium 4.7 mEq/L (3.5-5.1)
[2018-02-22] MEDS ORDERED: Insulin LISPRO 300 UNITS/3 ML VIAL SQ ONE (06:02)
[2018-02-22] MEDS: *HR* Enoxaparin 40 MG/0.4 ML SYRINGE SQ SCH (06:25)
[2018-02-22] MEDS: Ringers Solution, Lactated 1,000 ML IVC SCH (06:25)
[2018-02-22] MEDS: Metoprolol 100 MG TABLET PO SCH ×2 (08:10→21:05)
[2018-02-22] MEDS: Cholecalciferol (D-3) 1,000 UNIT TABLET PO SCH (08:10)
[2018-02-22] MEDS: Famotidine 20 MG TABLET PO SCH ×2 (08:10→20:54)
[2018-02-22] MEDS: Loratadine 10 MG TABLET PO SCH (08:10)
[2018-02-22] MEDS: BuPROPion SR (12 HR) 150 MG TABLET PO SCH ×2 (08:10→20:54)
[2018-02-22] MEDS: Insulin LISPRO 300 UNITS/3 ML VIAL SQ SCH ×4 (08:12→20:53)
[2018-02-22] MEDS: Nicotine 21 MG PATCH.TD24 TD SCH (08:13)
[2018-02-22] MEDS: Levofloxacin 750 MG/150 ML 750 MG/150 ML BAG IVPB SCH (08:14)
[2018-02-22] MEDS ORDERED: Azithromycin 500 MG in D5% in Water 250 ML IVPB SCH (09:00)
[2018-02-22] MEDS ORDERED: Insulin DETEMIR 100 UNIT/ML X5UNITS SQ SCH (09:00)
--- NOTE | 2018-02-22 10:14 | Electrocardiograph Report ---
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
--- NOTE | 2018-02-22 11:32 | Internal Med Progress Note ---
Date of Encounter: 02/22/18 Time of Encounter: 11:29 - Assessment and plan (1) COPD exacerbation Current Visit: Yes Status: Acute Assessment and plan: Symptomatic with low-grade fever, general weakness and malaise and shortness of breath. CXR nonacute. Suspect mild COPD exacerbation. Respiratory PCR with enterovirus. Continue IV azithromycin, add ceftriaxone. No wheezing, avoid steroids as of now with high blood sugar. Continue bronchodilators. Smoking cessation advised smoking cessation advised (2) Viral syndrome Current Visit: Yes Status: Acute Assessment and plan: as noted above (3) CAD (coronary artery disease) Current Visit: Yes Status: Acute Assessment and plan: per hx. S/p CABG; 01/2018 [facility] showed 3 of 3 patent bypass grafts, EF 60%. Asymptomatic. Denied chest pain. Continue home Plavix, statin, isosorbide. Qualifiers: Coronary Disease-Associated Artery/Lesion type: [place] artery [place] vs. transplanted heart: [place] heart Qualified Code(s): I25.10 - Atherosclerotic heart disease of [place] coronary artery without angina pectoris (4) DMII (diabetes mellitus, type 2) Current Visit: Yes Status: Acute Assessment and plan: per hx. Uncontrolled with blood sugars in the 500s. Suspect secondary to steroids and dietary/lifestyle noncompliance. On U-500 at home. Discussed with pharmacy and will resume home U-500 at lower dose. Continue SSI. Monitor blood sugar and titrate PRN. Hgb A1c pending Qualifiers: Qualified Code(s): E11.9 - Type 2 diabetes mellitus without complications; Z79.4 - [facility] (current) use of insulin (5) Ileostomy in place Current Visit: Yes Status: Acute Assessment and plan: Secondary to bowel perforation after CABG 4 years ago. Has LUQ ileostomy. ABD CT with abdominal wall defect containing multiple loops of small bowel, no obstruction. + Stool output from ileostomy. (6) Excess ear wax Current Visit: Yes Status: Acute Assessment and plan: Outpatient OTC debrox Qualifiers: Laterality: bilateral Qualified Code(s): H61.23 - Impacted cerumen, bilateral (7) DVT prophylaxis Current Visit: No Status: Acute Assessment and plan: lovenox - Time Spent With Patient Total time spent is greater than 50% in coordination of care (as documented) at patient's floor/unit and/or counseling patient: - Subjective Interval history: Seen and examined at bedside. Patient is new to me, information obtained from chart review and patient report. Says she feels a little bit better from when she came in. Still has achiness and cough but she has an appetite now and feels like eating. Has some shortness of breath with exertion. No chest pain. Productive cough at times. - Constitutional Vitals: Temp Pulse Resp BP Pulse Ox 97.6 F 66 18 103/49 93 02/22/18 07:42 02/22/18 07:42 02/22/18 07:42 02/22/18 07:42 02/22/18 07:42 General appearance: Present: A&O X 3, morbidly obese, no acute distress - Head Head exam: Present: atraumatic, normocephalic - Eye Eye exam: Present: PERRL, conjuntiva pink, sclera anicteric Pupils: Present: PERRL - Neck Neck exam general surgery: Present: supple, trachea midline. Absent: lymphadenopathy - Respiratory Respiratory exam: Present: rhonchi. Absent: accessory muscle use, rales, wheezes - Cardiovascular Cardiovascular exam: Present: RRR, +S1, +S2. Absent: diastolic murmur, gallop, rubs, systolic murmur - GI/Abdominal GI/Abdominal exam: Present: normal bowel sounds, soft, no peritoneal signs. Absent: distended, tenderness Additional comments: LUQ ileostomy with brown stool - Extremities Exam Extremities exam: Present: pedal edema, warm, radial pulses palpable and symmetrical. Absent: calf tenderness, cyanotic - Neurological Exam Neurological exam: Present: CN II-XII intact, oriented X3, no focal deficits. Absent: pronater drift, facial droop, speech deficit - Skin Skin exam: Present: dry, intact Internal Medicine: Result - Labs CBC & Chem 7: 02/22/18 03:56 02/22/18 03:56 Labs: Short CBC 02/22/18 Range/Units 03:56 WBC 8.4 (4.3-11.1) K/mcL Hgb 16.7 H (11.5-15.4) g/dL Hct 49.2 H (35.3-44.9) % Plt Count 135 L (140-400) K/mcL Neutrophils # 7.4 (1.6-8.9) K/mcL BMP 02/22/18 03:56 Sodium 132 L Potassium 4.7 D Chloride 96 L Carbon Dioxide 27 BUN 13 Creatinine 1.16 Glucose 510 H* Calcium 9.4 Urine 02/22/18 Range/Units 04:35 Urine Color Yellow (Yellow) Urine Clarity Clear (Clear) Urine pH 6.5 (5.0-8.0) pH Units Ur Specific Micro 1.030 H (1.010-1.025) Urine Protein Negative (Neg-Trace) mg/dL Urine Glucose (UA) >=1000 H (Normal) mg/dL Consult Discharge Plan - Plan Referrals: NONE,PCP [Primary Care Provider] -
[2018-02-22] MEDS: Isosorbide MONOnitrate (24 HR) 30 MG TAB.ER.24H PO SCH ×2 (12:34→12:35)
[2018-02-22] MEDS: cefTRIAXone 1,000 MG in Water for inj. (sterile) 20 ML 10 ML IVP SCH (12:34)
[2018-02-22] MEDS: *HR* Insulin Regular U-500 500 UNIT/ML SQ SCH ×2 (12:34→17:04)
[2018-02-22] MEDS ORDERED: Ketorolac 30 MG/ML VIAL IVP ONE ×2 (13:37→22:21)
[2018-02-22] MEDS: Azithromycin 500 MG in D5% in Water 250 ML IVPB SCH (17:05)
[2018-02-22] MEDS ORDERED: Psyllium 1 PACKET POWD.PACK PO PRN (22:21)
[2018-02-22] MEDS: ISOSORBIDE MONONITRATE PO SCH (23:05)
[2018-02-23] MEDS: Nicotine 21 MG PATCH.TD24 TD SCH (02:25)
[2018-02-23] MEDS: Ipratropium/Albuterol Neb 3 ML IH SCH ×4 (04:06→23:24)
[2018-02-23] MEDS: *HR* Enoxaparin 40 MG/0.4 ML SYRINGE SQ SCH (06:04)
[2018-02-23] MEDS: *HR* Insulin Regular U-500 500 UNIT/ML SQ SCH ×3 (07:52→17:41)
[2018-02-23] MEDS: Insulin LISPRO 300 UNITS/3 ML VIAL SQ SCH (07:52)
[2018-02-23 08:04] LABS: Potassium 3.4 mEq/L (3.5-5.1)
[2018-02-23 08:07] LABS: Calcium 9.5 mg/dL (8.6-10.3)
[2018-02-23 08:59] LABS: Estimated Average Glucose 223 mg/dl; Hemoglobin A1C 9.4 %
[2018-02-23] MEDS: Metoprolol 100 MG TABLET PO SCH ×2 (09:05→20:44)
[2018-02-23] MEDS: Loratadine 10 MG TABLET PO SCH (09:09)
[2018-02-23] MEDS: Cholecalciferol (D-3) 1,000 UNIT TABLET PO SCH (09:09)
[2018-02-23] MEDS: Famotidine 20 MG TABLET PO SCH ×2 (09:10→20:43)
[2018-02-23] MEDS: BuPROPion SR (12 HR) 150 MG TABLET PO SCH ×2 (09:10→20:44)
[2018-02-23] MEDS: cefTRIAXone 1,000 MG in Water for inj. (sterile) 20 ML 10 ML IVP SCH (11:50)
[2018-02-23] MEDS: traMADol 50 MG TABLET PO PRN ×2 (15:30→22:15)
[2018-02-23] MEDS: Azithromycin 500 MG in D5% in Water 250 ML IVPB SCH (17:41)
--- NOTE | 2018-02-23 19:03 | Internal Med Progress Note ---
Date of Encounter: 02/23/18 Time of Encounter: 10:30 - Assessment and plan (1) COPD exacerbation Current Visit: Yes Status: Acute Assessment and plan: Acute exacerbation with subjective low-grade fevers, weakness, malaise, increasing shortness of breath, myalgias. Chest x-ray is negative, patient is using O2 above her baseline demand. Respiratory infectious panel positive for Entero/rhinovirus, likely exacerbating COPD. Continue O2 to maintain sats greater than 92% Continue IV antibiotics, de-escalate tomorrow. Continue bronchodilators and NicoDerm patch when necessary (2) Viral syndrome Current Visit: Yes Status: Acute Assessment and plan: Plan as above. (3) Excess ear wax Current Visit: Yes Status: Acute Assessment and plan: Will give prescription for Debrox on discharge. Qualifiers: Laterality: bilateral Qualified Code(s): H61.23 - Impacted cerumen, bilateral (4) CAD (coronary artery disease) Current Visit: Yes Status: Acute Assessment and plan: Chronic CABG 01/2018, C showed 3 of 3 patent bypass grafts, EF 60%. Denies chest pain. Continue home Plavix, statin, isosorbide. Continue telemetry Qualifiers: Coronary Disease-Associated Artery/Lesion type: [place] artery [place] vs. transplanted heart: [place] heart Qualified Code(s): I25.10 - Atherosclerotic heart disease of [place] coronary artery without angina pectoris (5) DMII (diabetes mellitus, type 2) Current Visit: Yes Status: Acute Assessment and plan: Chronic Uncontrolled with blood sugars in the 500s. Suspect secondary to steroids and dietary/lifestyle noncompliance. Patient has requested several times today that I take her off her diabetic diet and that she does not eat those foods at home. On U-500 at home will continue with lower dose, SSI has been stopped. A1c uncontrolled at 9.4%. Qualifiers: Diabetes mellitus director long term care insulin use: without senior living use Diabetes mellitus complication status: with unspecified complications Qualified Code(s) : E11.8 - Type 2 diabetes mellitus with unspecified complications (6) Ileostomy in place Current Visit: Yes Status: Acute Assessment and plan: Secondary to bowel perforation after CABG 4 years ago. Has LUQ ileostomy. ABD CT with abdominal wall defect containing multiple loops of small bowel, no obstruction. + Stool output from ileostomy. Patient denies any abdominal pain, nausea, vomiting. (7) DVT prophylaxis Current Visit: Yes Status: Acute Assessment and plan: Lovenox subcutaneous. Encourage ambulation. - Time Spent With Patient Total time spent is greater than 50% in coordination of care (as documented) at patient's floor/unit and/or counseling patient: - Subjective Interval history: Patient was seen and assessed the bedside at 1030 AM. Patient appeared ill, fatigued. She states that she is not feeling well. She states the only thing that would make her feel well is to take her off her diabetic diet. Patient agrees that she should stay for continued treatments, oxygen. She denies any headache, blurred vision, neck pain, fever or chills. She denies chest pain or shortness of breath, no nausea, vomiting no diarrhea. She does report fatigue and some myalgias. - Constitutional Vitals: Temp Pulse Resp BP Pulse Ox 98.2 F 66 18 102/41 94 02/23/18 16:09 02/23/18 16:09 02/23/18 16:09 02/23/18 16:09 02/23/18 16:09 General appearance: Present: cooperative, A&O X 3, morbidly obese, no acute distress, answers questions appropriately - Head Head exam: Present: atraumatic, normal inspection, normocephalic - Eye Eye exam: Present: normal appearance, conjuntiva pink, sclera anicteric - Neck Neck exam general surgery: Present: normal inspection, supple, trachea midline. Absent: lymphadenopathy, tenderness - Respiratory Respiratory exam: Present: decreased breath sounds, CTAB. Absent: accessory muscle use, chest wall tenderness, rales, respiratory distress, rhonchi, wheezes - Cardiovascular Cardiovascular exam: Present: RRR, +S1, +S2. Absent: diastolic murmur, gallop, rubs, systolic murmur - GI/Abdominal GI/Abdominal exam: Present: normal bowel sounds, soft. Absent: distended, hepatomegaly, tenderness - Extremities Exam Extremities exam: Present: normal capillary refill, normal inspection, warm, radial pulses palpable and symmetrical. Absent: calf tenderness, cyanotic, pedal edema, tenderness - Neurological Exam Neurological exam: Present: alert, oriented X3, no focal deficits. Absent: facial droop, speech deficit - Skin Skin exam: Present: dry, intact, normal color, warm. Absent: rash Internal Medicine: Result - Labs CBC & Chem 7: 02/22/18 03:56 02/23/18 07:06 Labs: BMP 02/23/18 07:06 Sodium 136 Potassium 3.4 L Chloride 101 Carbon Dioxide 27 BUN 19 Creatinine 1.26 H Glucose 49 L Calcium 9.5 Consult Discharge Plan - Plan Referrals: NONE,PCP [Primary Care Provider] -
[2018-02-23] MEDS: Ondansetron 4 MG/2 ML VIAL IVP PRN (22:15)
[2018-02-24] MEDS: Ipratropium/Albuterol Neb 3 ML IH SCH ×3 (03:38→15:30)
[2018-02-24] MEDS: *HR* Enoxaparin 40 MG/0.4 ML SYRINGE SQ SCH (05:13)
[2018-02-24 05:21] LABS: Basophils % 0.5 %; Eosinophils % 0.5 %; Hematocrit 47.3 % (35.3-44.9); Hemoglobin 16.1 g/dL (11.5-15.4); Immature Granulocytes % 1.1 % (0-4); Immature Platelets 12.7 % (1.1-6.1); Lymphocytes # 2.1 K/mcL (0.6-4.6); Lymphocytes % 25.9 %; Mean Corpuscular Hemoglobin 31.8 pg (28.0-33.3); Mean Corpuscular Volume 93.5 fL (83.0-100.0); Monocytes # 0.8 K/mcL (0.0-1.3); Monocytes % 9.4 %; Neutrophils # 5.1 K/mcL (1.6-8.9); Platelet Count 132 K/mcL (140-400); Red Blood Count 5.06 M/mcL (3.82-4.97); Red Cell Distribution Width 13.7 % (11.5-14.5); Segmented Neutrophils % 62.6 %
[2018-02-24 05:59] LABS: BUN/Creatinine Ratio 14 (6-26); Blood Urea Nitrogen 15 mg/dL (6-20); Calcium 9.6 mg/dL (8.6-10.3); Carbon Dioxide 25 mEq/L (23-29); Chloride 110 mEq/L (98-107); Glucose 133 mg/dL (70-105); Osmolality,Calculated 299 (280-300); Potassium 4.6 mEq/L (3.5-5.1); Sodium 143 mEq/L (136-145); eGFR For African Americans > 60 (> 60); eGFR For Non-African Americans 54 (> 60)
[2018-02-24] MEDS: Famotidine 20 MG TABLET PO SCH (08:04)
[2018-02-24] MEDS: Nicotine 21 MG PATCH.TD24 TD SCH (08:04)
[2018-02-24] MEDS: Cholecalciferol (D-3) 1,000 UNIT TABLET PO SCH (08:04)
[2018-02-24] MEDS: BuPROPion SR (12 HR) 150 MG TABLET PO SCH (08:04)
[2018-02-24] MEDS: Isosorbide MONOnitrate (24 HR) 30 MG TAB.ER.24H PO SCH (08:05)
[2018-02-24] MEDS: Metoprolol 100 MG TABLET PO SCH (08:05)
[2018-02-24] MEDS: Loratadine 10 MG TABLET PO SCH (08:05)
[2018-02-24] MEDS: *HR* Insulin Regular U-500 500 UNIT/ML SQ SCH ×2 (08:10→11:58)
[2018-02-24] MEDS ORDERED: Fluticasone Propionate Nasal 50 MCG/SPRAY BOTTLE NS SCH (09:00)
[2018-02-24 11:05] VITALS: BP 121/58
[2018-02-24] MEDS: cefTRIAXone 1,000 MG in Water for inj. (sterile) 20 ML 10 ML IVP SCH (11:58)
--- NOTE | 2018-02-24 15:09 | Discharge Summary ---
- NOTES TO OUTPATIENT PROVIDER Notes to Outpatient Provider: Pt was admitted for AECOPD, treated with abx, steroids, nebulizer treatments and has improved. Date of Encounter: 02/24/18 Time of Encounter: 10:10 - Discharge Diagnosis (1) COPD exacerbation Priority: Primary Status: Acute Assessment and Plan: Acute exacerbation with subjective low-grade fevers, weakness, malaise, increasing shortness of breath, myalgias. Chest x-ray is negative, patient is using O2 above her baseline demand. Respiratory infectious panel positive for Entero/rhinovirus, likely exacerbating COPD. Pt reports that she is feeling better today and is ready for discharge. Continue O2 at home to maintain sats greater than 92% po antibiotics Continue bronchodilators at home and NicoDerm patch when necessary Rx given for new nebulizer machine and Duonebs. (2) Viral syndrome Priority: Secondary Status: Acute Assessment and Plan: Plan as above. Entero/rhinovirus exacerbating COPD. (3) Excess ear wax Priority: Secondary Status: Acute Assessment and Plan: Debrox for home. Qualifiers: Laterality: bilateral Qualified Code(s): H61.23 - Impacted cerumen, bilateral (4) CAD (coronary artery disease) Priority: Secondary Status: Chronic Assessment and Plan: Chronic. Pt denies chest pain. CABG 01/2018, [facility] showed 3 of 3 patent bypass grafts, EF 60%. Continue home Plavix, statin, isosorbide. Qualifiers: Coronary Disease-Associated Artery/Lesion type: [place] artery [place] vs. transplanted heart: [place] heart Qualified Code(s): I25.10 - Atherosclerotic heart disease of [place] coronary artery without angina pectoris (5) DMII (diabetes mellitus, type 2) Priority: Secondary Status: Chronic Assessment and Plan: Chronic Uncontrolled with blood sugars in the 500s. Patient has requested several times today that I take her off her diabetic diet and that she does not eat those foods at home. Suspect obesity and uncontrolled DM secondary to dietary non-compliance. On U-500 at home will continue with lower dose, SSI has been stopped. A1c uncontrolled at 9.4%. Qualifiers: Diabetes mellitus exterminator insulin use: without exterminator use Diabetes mellitus complication status: with unspecified complications Qualified Code(s) : E11.8 - Type 2 diabetes mellitus with unspecified complications (6) Ileostomy in place Priority: Secondary Status: Acute Assessment and Plan: Chronic. Patient denies any abdominal pain, nausea, vomiting. (7) DVT prophylaxis Priority: Secondary Status: Acute Assessment and Plan: [facility] Hospital course: Ms. Price is a 57 year old female with past medical history of iron deficiency anemia, hypertension, COPD, hyperlipidemia, see KD, chronic respiratory failure , diabetic systolic CHF, obesity, diabetes, diabetic neuropathy, depression. Pt admitted for AECOPD. See assessment and plan for hospital course. Discharge discussed with: patient, family, nurse, social work - Time Spent with Patient Total time spent providing and/or coordinating discharge services: Less than 30 minutes - Discharge Medications Prescriptions: Azithromycin [Zithromax] 500 mg PO DAILY #4 tablet GuaiFENesin ER [Mucinex] 600 mg PO BID PRN #30 tbbp.12hr PRN Reason: Cough Nicotine Patch [Nicoderm] 21 mg TD DAILY #30 patch.td24 Home Medications: Atorvastatin [Lipitor] 40 mg PO HS 01/16/18 [History] BuPROPion SR (12 HR) [Wellbutrin SR] 150 mg PO BID 01/16/18 [History] Cholecalciferol (D-3) [Vitamin D] 5,000 unit PO MOFR 01/16/18 [History] Clopidogrel [Plavix] 75 mg PO DAILY 01/16/18 [History] Insulin Regular U-500 [HumuLIN R U-500] 10 - 40 unit SQ TID 01/16/18 [History] Isosorbide MONOnitrate [Isosorbide Mononitrate] 20 mg PO BID 01/16/18 [History] Loratadine [Claritin] 10 mg PO DAILY 01/16/18 [History] Metoprolol Tartrate 100 mg PO BID 01/16/18 [History] Omeprazole [PriLOSEC] 20 mg PO DAILY 01/16/18 [History] Oxygen 2 l NS AD 01/16/18 [History] Ranitidine HCl [Acid [place]] 150 mg PO BID 01/16/18 [History] Spironolactone [Aldactone] 50 mg PO BID 01/16/18 [History] Tramadol HCl [Ultram] 50 mg PO QID PRN 01/16/18 [History] Venlafaxine [Effexor] 37.5 mg PO BID 01/16/18 [History] diazePAM [Valium] 10 mg PO BID PRN 01/16/18 [History] Azithromycin [Zithromax] 500 mg PO DAILY #4 tablet 02/24/18 [Rx] Fluticasone Propionate Nasal [Flonase] 50 mcg NS DAILY bottle 02/24/18 [Rx] GuaiFENesin ER [Mucinex] 600 mg PO BID PRN #30 tbbp.12hr 02/24/18 [Rx] Ipratropium/Albuterol Neb [Duoneb] 3 ml IH [id number] PRN inhsol 02/24/18 [Rx] Ipratropium/Albuterol Neb [Duoneb] 3 ml IH QIDR inhsol 02/24/18 [Rx] Nicotine Patch [Nicoderm] 21 mg TD DAILY #30 patch.td24 02/24/18 [Rx] Allergies/Adverse Reactions: 3 Allergy/AdvReac Type Severity Reaction Status Date / Time Estrogens Allergy Hives Verified 01/16/18 17:28 gabapentin Allergy Swelling Verified 01/16/18 17:28 of Lip/Tongue/Throat Penicillins Allergy Itching Verified 01/16/18 17:28 aspirin [ASA] AdvReac See Verified 01/16/18 17:28 Comments lisinopril AdvReac Cough Verified 01/16/18 17:28 Date of admission: 02/22/18 23:43 Primary care physician: PCP NONE Discharging clinician: Yarely Dumont Anticipated date of discharge: 02/24/18 - Constitutional Vitals: Temp Pulse Resp BP Pulse Ox 98.1 F 75 20 121/58 92 02/24/18 11:04 02/24/18 11:04 02/24/18 11:04 02/24/18 11:04 02/24/18 11:04 General appearance: Present: cooperative, A&O X 3, morbidly obese, no acute distress, answers questions appropriately - Head Head exam: Present: atraumatic, normal inspection, normocephalic - Eye Eye exam: Present: normal appearance, conjuntiva pink, sclera anicteric - Neck Neck exam general surgery: Present: supple, trachea midline. Absent: lymphadenopathy, tenderness - Respiratory Respiratory exam: Present: decreased breath sounds, CTAB. Absent: accessory muscle use, chest wall tenderness, rales, rhonchi, wheezes - Cardiovascular Cardiovascular exam: Present: RRR, +S1, +S2. Absent: diastolic murmur, gallop, rubs, systolic murmur - GI/Abdominal GI/Abdominal exam: Present: normal bowel sounds, soft. Absent: distended, hepatomegaly, tenderness - Extremities Exam Extremities exam: Present: normal capillary refill, normal inspection, warm, radial pulses palpable and symmetrical. Absent: calf tenderness, cyanotic, pedal edema, tenderness - Neurological Exam Neurological exam: Present: alert, oriented X3, no focal deficits. Absent: facial droop, speech deficit - Skin Skin exam: Present: dry, intact, normal color, warm. Absent: rash - Patient Status Disposition: Home, Self-Care Condition: Fair Functional capacity at discharge: independent ambulation Overall status at discharge: patient is progressing back to baseline - Discharge Instructions Follow Up With: NONE,PCP [Primary Care Provider] - Additional Instructions: Please follow up with your PCP in the next 5-7 days for recheck. Your new prescriptions are at your pharmacy. Resume your other medications and take as directed. Return to your normal diet and activities as tolerated. Return to the ER as needed for any other problems or concerns, or if your symptoms return or worsen. - Diet and Activity Activity: increase activity as tolerated Diet: advance to your usual diet
[2018-02-24] MEDS ORDERED: Azithromycin 250 MG TABLET PO SCH (18:00)
== END 2018-02-24 16:22 | disposition home or self-care (01) | DRG 191 ==
LOC: EMEROO 13:57 → 3BNU 13:57
PROVIDERS: ADMIT Family Medicine; ATTEND Family Medicine

== ENCOUNTER 2018-05-10 14:01 | Inpatient (IN) ==
--- NOTE | 2018-05-10 14:57 | Emergency Department Note ---
Disposition Clinical Impression: Urinary tract infection, Chest pain, Lactic acidosis, Hyperglycemia Disposition: Admitted As Inpatient General Adult HPI - General Chief complaint: ED Chest Pain Stated complaint: CP, multiple complaints Time Seen by Provider: 05/10/18 14:12 Source: patient, other (home health nurse) Mode of arrival: private vehicle Limitations: no limitations Nursing Notes Reviewed: Yes Vital Signs Reviewed: Yes - History of Present Illness HPI Narrative: Patient is a 57-year-old female with past medical history including CKD stage III, hypertension, diabetes mellitus type 2, CAD status post CABG and stent placement, colostomy bag, who presents with chief complaint of abdominal and chest pain half an hour prior to arrival. The patient complains of sudden onset shortness of breath at 0 200 this morning that woke her up from sleep. She put on her oxygen at 2 L. This minimally helped her shortness of breath. She also complains of palpitations but denies chest pain at this time. She checked her heart rate and it was 1:30. Throughout the day today she was feeling periodic episodes of palpitations and the shortness of breath. The home health nurse at bedside states the patient had an increased foul smell around her ostomy bag. There is increased dark brown drainage from the back. There is also mild blood noted. The patient states that half an hour prior to arrival she developed sudden onset right-sided abdominal pain which she describes as knifelike. This is constant. She also complains of left-sided chest pain that is radiating into her jaw. She states this is more pressure- like. This concerned her and so she came to the ER for further evaluation. She also complains of nausea but no vomiting. No fevers. No new lower extremity swelling. Pain Scale: 10 - Related Data Home Medications Medication Instructions Recorded Confirmed Atorvastatin [Lipitor] 40 mg PO HS 01/16/18 05/10/18 Cholecalciferol (D-3) [Vitamin D] 5,000 unit PO MOFR 01/16/18 05/10/18 Clopidogrel [Plavix] 75 mg PO DAILY 01/16/18 05/10/18 Isosorbide MONOnitrate [Isosorbide 20 mg PO BID 01/16/18 05/10/18 Mononitrate] Loratadine [Claritin] 10 mg PO DAILY 01/16/18 05/10/18 Metoprolol Tartrate 100 mg PO BID 01/16/18 05/10/18 Omeprazole [PriLOSEC] 20 mg PO DAILY 01/16/18 05/10/18 Oxygen 2 l NS AD 01/16/18 05/10/18 Ranitidine HCl [Acid Medical Esthetician] 150 mg PO BID 01/16/18 05/10/18 Spironolactone [Aldactone] 50 mg PO BID 01/16/18 05/10/18 Tramadol HCl [Ultram] 50 mg PO QID PRN 01/16/18 05/10/18 Venlafaxine [Effexor] 37.5 mg PO BID 01/16/18 05/10/18 diazePAM [Valium] 10 mg PO QID PRN 01/16/18 05/10/18 Insulin Regular U-500 [HumuLIN R SQ BID 05/10/18 U-500] Previous Rx's Medication Instructions Recorded GuaiFENesin ER [Mucinex] 600 mg PO BID PRN #30 tbbp.12hr 02/24/18 Ipratropium/Albuterol Neb [Duoneb] 3 ml IH [id number] PRN inhsol 02/24/18 Ipratropium/Albuterol Neb [Duoneb] 3 ml IH QIDR inhsol 02/24/18 Nicotine Patch [Nicoderm] 21 mg TD DAILY #30 patch.td24 02/24/18 Allergies Allergy/AdvReac Type Severity Reaction Status Date / Time Estrogens Allergy Hives Verified 01/16/18 17:28 gabapentin Allergy Swelling Verified 01/16/18 17:28 of Lip/Tongue/Throat Penicillins Allergy Itching Verified 01/16/18 17:28 aspirin [ASA] AdvReac See Verified 01/16/18 17:28 Comments lisinopril AdvReac Cough Verified 01/16/18 17:28 All systems ED: reviewed and negative except as stated. Review of Systems: As Per HPI Constitutional: Denies: fever, chills Eyes: Denies: vision change ENT ED: Denies: throat pain Cardiovascular: Reports: chest pain, palpitations Respiratory: Reports: dyspnea. Denies: cough, wheezes, hemoptysis Gastrointestinal: Reports: abdominal pain, nausea, other (Dark brown watery stool from ostomy bag). Denies: vomiting Integumentary: Reports: other (Skin graft on abdomen with two circular 0.5 cm sores, covered with bandage. Ostomy site appears red, no purulent drainage. ) Hematological/Lymphatic: Denies: easy bleeding Past Medical History - Past Medical History Attestation: Yes The following information was validated with the patient. Source: patient Medical history: Reports: CHF, COPD, coronary artery disease, diabetes, GERD Surgical history: Reports: angioplasty/stent, appendectomy, cholecystectomy, colectomy, colostomy, coronary bypass (CABG), hysterectomy, other Psychiatric history: Reports: anxiety, bipolar, depression HORTICULTURAL THERAPIST history: Reports: other - Social History Smoking Status: Current every day smoker Smokeless Tobacco Status: No Alcohol use: Reports: none Drug use: Reports: none Physical Exam - General Limitations: no limitations General appearance: alert, in no apparent distress - Head Head exam: atraumatic, normocephalic - Eye Eye exam: Present: normal appearance, EOMI - ENT ENT exam: mucous membranes dry - Respiratory Respiratory exam: Present: normal lung sounds bilaterally, other (Oxygenatin on room air). Absent: respiratory distress, wheezes - Cardiovascular Cardiovascular exam: Present: regular rate, normal rhythm, normal heart sounds - Abdominal Exam Abdominal exam: Present: soft, tenderness (To the right of the ostomy bag. ), normal bowel sounds - Extremities Exam Extremities exam: Present: other (Mild bilateral lower extremity swelling) - Neurological Exam Neurological exam: Present: alert, oriented X3 - Psychiatric Psychiatric exam: Present: normal affect, normal mood - Skin Skin exam: Present: warm, dry. Absent: diaphoresis Course Vital Signs Temperature 98.2 F 05/10/18 14:04 Pulse Rate 84 05/10/18 14:04 Respiratory Rate 16 05/10/18 14:04 Blood Pressure 106/66 05/10/18 14:04 O2 Sat by Pulse Oximetry 93 05/10/18 14:04 Temperature 97.7 F 05/10/18 21:16 Pulse Rate 72 05/10/18 21:16 Respiratory Rate 15 05/10/18 21:16 Blood Pressure 124/73 05/10/18 21:16 O2 Sat by Pulse Oximetry 96 05/10/18 21:16 Oxygen Delivery Oxygen Delivery Room Air Medical Decision Making - MDM Narrative Medical decision making narrative: Will obtain cardiac and abdominal workup. Patient does not have SIRS and do not suspect an infection at this time. With the patient's extensive cardiac history , will check troponin and ekg and cxr. CBC, BMP, hepatic panel, lipase, lactate ordered as well. Await kidney function prior to obtaining CT with contrast. 16:00 Critical glucose of 534 was called from lab at 16:00. Anion gap is 11.0 Additional normal saline given. Subq insulin also given. Creatinine is within normal limits. Will get CT abdomen and pelvis with contrast to evaluate the patient's abdominal pain. Lactic acid is 2.6. She will need to be admitted for further management. 17:49 Urinalysis positive with nitrites. Suspect urinary tract infection. CT results show small amount of gas in the nondependent urinary bladder. Patient will be treated for urinary tract infection. Blood cultures will be obtained as lactate was elevated. Urine culture will also be sent. We will start IV antibiotics. Patient will be admitted for urinary tract infection, hyperglycemia, further chest pain cardiac workup. Will consult hospitalist 18:30 Discussed with hospitalist, Dr. Light who accepts patient. - Medical Records Medical records reviewed: Yes I reviewed the patient's medical records. - Lab Data Lab results reviewed: Yes I reviewed the patient's lab results. Result diagrams: 05/10/18 14:45 05/10/18 14:45 - Radiology Data Radiology results reviewed: Yes I reviewed the patient's radiology results. Chest X-Ray 05/10/18 14:35 IMPRESSION: No acute process. D/ / Freddy Roth MD / Freddy Roth MD Interpreting Provider: Freddy Roth MD - EKG Data EKG #1 EKG attestation: Yes I reviewed and interpreted this EKG. EKG results narrative: EKG on 05/10/2018 at 1416 shows sinus rhythm with heart rate 87. There is no ST elevation or depression noted. FL interval 169. QT 385. QTc 464. There is also abnormal R-wave progression. As well as low voltage in the precordial leads. This is compared to EKG on 04/04/2018. This shows sinus rhythm with rate 72. No changes noted. Attestation Statement - Attestation Attestation: I examined this patient and my medical decision-making was reviewed with the Resident Physician, Dr. Granados. I agree with the documented findings, disposition and treatment plan as described except to the extent set forth below. Patient is a 57-year-old white female with multiple medical problems who presents to emergency Department with multiple complaints today including chest pain pressure sensation that she is been having since she woke this morning followed by right-sided abdominal pain and generalized weakness. Patient has a history of known coronary disease and underwent CABG in spring of this year that hospitalization was complicated by bowel perforation in which she required only initial ileostomy and colostomy. Patient denies any fevers or chills, no diaphoresis, no nausea vomiting, no bowel changes in regards to stool output his colostomy bag. I agree with patient's physical exam findings as documented. Vital signs are stable. G is normal sinus rhythm without acute ischemia. Patient's lab evaluation was unremarkable overall and CT abdomen and pelvis was unremarkable with the exception of cystitis itch was confirmed on her urinalysis. Patient will be admitted for further evaluation of her chest pain was given aspirin here in the ED. Patient will so be treated with antibiotics for her cystitis. Case was discussed with hospitalist who accepted patient for admission for further evaluation and management.
[2018-05-10 15:27] LABS: Basophils # 0.1 K/mcL (0.0-0.2); Basophils % 0.6 %; Eosinophils # 0.1 K/mcL (0.0-0.6); Eosinophils % 1.5 %; Hematocrit 39.9 % (35.3-44.9); Hemoglobin 13.9 g/dL (11.5-15.4); Immature Granulocytes % 0.7 % (0-4); Lymphocytes # 1.5 K/mcL (0.6-4.6); Lymphocytes % 19.1 %; Mean Corpuscular HGB Conc 34.8 g/dL (31.6-35.5); Mean Corpuscular Hemoglobin 32.6 pg (28.0-33.3); Mean Corpuscular Volume 93.4 fL (83.0-100.0); Mean Platelet Volume 12.7 fL (9.4-12.4); Monocytes # 0.5 K/mcL (0.0-1.3); Monocytes % 6.7 %; Neutrophils # 5.8 K/mcL (1.6-8.9); Platelet Count 126 K/mcL (140-400); Red Blood Count 4.27 M/mcL (3.82-4.97); Red Cell Distribution Width 13.4 % (11.5-14.5); Segmented Neutrophils % 71.4 %
[2018-05-10 15:33] LABS: Prothrombin Time 11.6 Seconds (9.4-12.1)
[2018-05-10] MEDS ORDERED: *HR* FentaNYL (PF) 100 MCG/2 ML VIAL IVP ONE (15:35)
[2018-05-10 15:36] LABS: Activated Partial Thrombo Time 26.5 Seconds (26.0-36.0)
[2018-05-10 15:39] LABS: Albumin 3.6 g/dL (3.5-5.7); Albumin/Globulin Ratio 1.6 (1.1-2.2); Bilirubin,Direct 0.1 mg/dL (0.0-0.2); Bilirubin,Indirect 0.5 mg/dL (0.0-1.2); Bilirubin,Total 0.6 mg/dL (0.3-1.0); Globulin 2.2 g/dL (2.4-3.5); Total Protein 5.8 g/dL (6.4-8.9)
[2018-05-10] MEDS: 0.9 % Sodium Chloride 500 ML IVC ONE ×2 (15:48→15:50)
[2018-05-10 16:01] LABS: BUN/Creatinine Ratio 9 (6-26); Blood Urea Nitrogen 10 mg/dL (6-20); Calcium 8.9 mg/dL (8.6-10.3); Carbon Dioxide 24 mEq/L (23-29); Chloride 100 mEq/L (98-107); Glucose 532 mg/dL (70-105); Osmolality,Calculated 303 (280-300); Potassium 3.8 mEq/L (3.5-5.1); Sodium 135 mEq/L (136-145); Troponin I < 0.03 ng/mL (< 0.04); eGFR For Non-African Americans 53 (> 60)
[2018-05-10] MEDS ORDERED: 0.9 % Sodium Chloride 1,000 ML IVC ONE (16:14)
[2018-05-10] MEDS ORDERED: Insulin Regular, Human 100 UNIT/ML SQ ONE ×2 (16:17→16:21)
[2018-05-10] MEDS ORDERED: Isovue-370 500 ML INFUS..BTL IV ONE (16:20)
[2018-05-10 16:51] LABS: Bilirubin,Urine Negative (Negative); Blood,Urine Negative (Negative); Clarity,Urine Clear (Clear); Color,Urine Yellow (Yellow); Glucose,Urine (UA) 500 mg/dL (Normal); Ketones,Urine Negative (Negative); Leukocyte Esterase,Urine Negative (Negative); Nitrite,Urine Positive (Negative); PH,Urine 5.5 pH Units (5.0-8.0); Protein,Urine Negative (Neg-Trace); Specific Gravity,Urine 1.015 (1.010-1.025); Urobilinogen,Urine Normal (Normal)
[2018-05-10 16:53] LABS: Bacteria,Urine Many per hpf (None-Few); Hyaline Casts,Urine None Seen per lpf (None-Few); RBC,Urine 0-3 per hpf (0-3); Squamous Epithelial Cell,Urine Many per lpf (None-Few); WBC,Urine 15-30 per hpf (0-3)
[2018-05-10] MEDS ORDERED: Cefepime HCl 1,000 MG in Water for inj. (sterile) 20 ML 10 ML IVP ONE (18:10)
[2018-05-10] MEDS ORDERED: Naloxone 0.4 MG/ML INJ IVP PRN ×2 (19:39→22:33)
[2018-05-10] MEDS ORDERED: Acetaminophen 325 MG TABLET PO PRN (19:39)
[2018-05-10] MEDS: Nicotine 21 MG PATCH.TD24 TD SCH (20:06)
[2018-05-10] MEDS ORDERED: Dextrose Gel 15 GM/37.5 ML TUBE PO PRN ×2 (20:13)
[2018-05-10] MEDS ORDERED: *HR* Dextrose 50 % in Water (Syg) 50 ML SYRINGE IVP PRN (20:13)
[2018-05-10] MEDS ORDERED: D5% in Water 1,000 ML IVC PRN (20:13)
--- NOTE | 2018-05-10 20:15 | Internal Med History&Physical ---
<BrodyRajani A - Last Filed: 05/10/18 21:41> Date of Encounter: 05/10/18 Internal Medicine - H&P: HPI History of present illness: Ms. Price is a 57 year old female Internal Medicine - H&P: Meds Atorvastatin [Lipitor] 40 mg PO HS 01/16/18 [History] Cholecalciferol (D-3) [Vitamin D] 5,000 unit PO MOFR 01/16/18 [History] Clopidogrel [Plavix] 75 mg PO DAILY 01/16/18 [History] Isosorbide MONOnitrate [Isosorbide Mononitrate] 20 mg PO BID 01/16/18 [History] Loratadine [Claritin] 10 mg PO DAILY 01/16/18 [History] Metoprolol Tartrate 100 mg PO BID 01/16/18 [History] Omeprazole [PriLOSEC] 20 mg PO DAILY 01/16/18 [History] Oxygen 2 l NS AD 01/16/18 [History] Ranitidine HCl [Acid Cotton Puller] 150 mg PO BID 01/16/18 [History] Spironolactone [Aldactone] 50 mg PO BID 01/16/18 [History] Tramadol HCl [Ultram] 50 mg PO QID PRN 01/16/18 [History] Venlafaxine [Effexor] 37.5 mg PO BID 01/16/18 [History] diazePAM [Valium] 10 mg PO BID PRN 01/16/18 [History] GuaiFENesin ER [Mucinex] 600 mg PO BID PRN #30 tbbp.12hr 02/24/18 [Rx] Ipratropium/Albuterol Neb [Duoneb] 3 ml IH [id number] PRN inhsol 02/24/18 [Rx] Nicotine Patch [Nicoderm] 21 mg TD DAILY #30 patch.td24 02/24/18 [Rx] Insulin Regular U-500 [HumuLIN R U-500] 0 - 50 units SQ TID 05/10/18 [History] Albuterol Sulfate [Ventolin Hfa] 2 puff IH Q6H PRN 05/11/18 [History] 3 Allergy/AdvReac Type Severity Reaction Status Date / Time Estrogens Allergy Hives Verified 01/16/18 17:28 gabapentin Allergy Swelling Verified 01/16/18 17:28 of Lip/Tongue/Throat Penicillins Allergy Itching Verified 01/16/18 17:28 aspirin [ASA] AdvReac See Verified 01/16/18 17:28 Comments lisinopril AdvReac Cough Verified 01/16/18 17:28 All Systems PM: A 10-system review of systems was performed and is negative for pertinent findings except as documented above in the HPI. - Constitutional Vitals: Temp Pulse Resp BP Pulse Ox 97.7 F 72 15 124/73 96 05/10/18 21:16 05/10/18 21:16 05/10/18 21:16 05/10/18 21:16 05/10/18 21:16 Internal Med - H&P Results - Labs CBC & Chem 7: 05/10/18 14:45 05/10/18 14:45 - Time Spent With Patient Total time spent is greater than 50% in coordination of care (as documented) at patient's floor/unit and/or counseling patient: <Tyrone Rucker - Last Filed: 05/12/18 08:35> Date of Encounter: 05/12/18 Time of Encounter: 21:00 Internal Medicine - H&P: HPI Chief complaint: Abdominal Pain/Chest Pain History of present illness: Ms. Price is a 57 year old female PMH w CAD sp CABG, diabetes, s/p colostomy, COPD, depression, 1ppd smoker presented to ED with chief complaint of abdominal and chest pain. She states that around 2 AM this morning she awoke with right- sided abdominal pain. She went to the bathroom at the time to drain her ostomy bag when she suddenly felt lightheaded and dizzy and noted that her heart was racing. She applied her pulse oximeter to her finger noted a heart rate in the 120 and 90% O2 saturation. She describes the pain as right-sided, stabbing pain , 10 out of 10 in intensity, nonradiating. Patient does endorse falling one week prior on that side of her abdomen. She also has been reporting foul- smelling stool from her ostomy for the past week that has gotten especially worse over the past 3 days. She does report that some of the fluid has soiled her vaginal region when she changes her ostomy bag and has had increased dysuria and frequency for the past 3 days. She also reports left-sided chest tightness radiating to the neck. She states that her chest pain was not similar to previous episodes in the past. Patient reports putting on her oxygen shortly thereafter. She is on 2 L at home as needed and to be worn at night. These constellation of symptoms concerned her and so she came to the ER for further evaluation. No fevers, chills or lower extremity edema. Past Med Surg Social Fam HX - Past Medical History Medical history: CHF, COPD, coronary artery disease, diabetes, GERD Additional medical history: neuropathy, CKD 3 Psychiatric history: anxiety, bipolar, depression - Past Surgical History Surgical History: angioplasty/stent, appendectomy, cholecystectomy, colectomy, colostomy, coronary bypass (CABG), hysterectomy, other Additional surgical history: 4 stents. sternum removed. 18 inch bowel removed. left elbow nerve relocated. kim. knee. kim. shoulder - Social History Smoking Status: Current every day smoker Smokeless Tobacco Status: No Alcohol use: none Drug use: none - Family History Father Hx Family Cardiac Disorders: Yes Mother Hx Family Cardiac Disorders: Yes All Systems PM: A 10-system review of systems was performed and is negative for pertinent findings except as documented above in the HPI. - Constitutional Constitutional: no chills, no fever(s), no night sweats - EENT Eyes: no change in vision, no discharge, no pain, no photophobia Ears: no ear discharge, no ear pain, no tinnitus Nose, mouth and throat: no dysphagia, no nasal discharge, no neck pain, no sore throat - Cardiovascular Cardiovascular ROS IM: no chest pain, no diaphoresis, no dyspnea, no lightheadedness, no palpitations, no syncope - Respiratory Respiratory: no cough, no dyspnea, no wheezing, no excessive phlegm production - Gastrointestinal Gastrointestinal: no abdominal pain, no diarrhea, no hematemesis, no hematochezia, no melena, no nausea, no vomiting - Genitourinary Genitourinary: no change in urinary stream, no dysuria, no flank pain, no hematuria - Musculoskeletal Musculoskeletal ROS IM: no numbness, no tingling - Integumentary Integumentary IM: no rash, no unusual bruising - Neurological Neurological ROS: no confusion, no convulsions, no focal weakness, no numbness, no tingling, no tremor(s) - Hematologic/Lymphatic Hematologic/Lymphatic: no easy bruising - Constitutional Vitals: Temp Pulse Resp BP Pulse Ox 98.2 F 78 20 122/67 99 05/10/18 15:13 05/10/18 16:40 05/10/18 16:40 05/10/18 16:00 05/10/18 16:40 Exam: General: Alert and oriented 3. Lying in bed in no acute distress Skin:Normal color, no rash, no lesions. HEENT:EOM, pupils equal, round and reactive. Cardiovascular:Normal S1 & S2, no rubs, murmurs or gallops. No JVD. Pulse regular. Lungs:Normal breath sounds, no wheezes or crackles. Abdomen:Soft, mildly distended, with tenderness to palpation in the right lower quadrant. No rebound or guarding. Normal active bowel sounds Extremities:No deformity, no edema or tenderness, no joint swelling or clubbing. Neurological:Normal cognition and motor skills. Pulses:Carotid and radial pulses normal +2. Rest of the physical exam is non contributory Internal Med - H&P Results - Labs CBC & Chem 7: 05/10/18 21:46 05/12/18 03:37 - Assessment and plan (1) Abdominal pain Current Visit: Yes Status: Acute Assessment and plan: Right-sided abdominal pain without rebound or guarding. Patient reports chronic abdominal pain at baseline. No evidence of an acute abdominal process. Lipase and lactic acid within normal limits. Patient has no fever or white count. CT of the abdomen showed small amount of gas in the nondependent urinary bladder, otherwise findings similar to prior study including large anterior abdominal wall defect containing multiple loops of small and large bowel as well as an ileostomy. Symptoms may be secondary to recent fall with trauma to the right side of her abdomen. UA suspicious for UTI. We will send for C. difficile. Follow-up blood cultures Qualifiers: Abdominal location: right upper quadrant Qualified Code(s): R10.11 - Right upper quadrant pain (2) Chest pain Current Visit: Yes Status: Acute Assessment and plan: Atypical chest pain. No new EKG changes noted when compared to previous. Negative troponins. We will trend troponins and monitor for now. Qualifiers: Chest pain type: unspecified Qualified Code(s): R07.9 - Chest pain, unspecified (3) UTI (urinary tract infection) Current Visit: Yes Status: Acute Assessment and plan: UA suspicious for UTI with positive nitrites and many urine bacteria. Though leukocyte esterase was found to be negative. We will treat for possible UTI. Urine cultures. Qualifiers: Urinary tract infection type: acute cystitis Hematuria presence: without hematuria Qualified Code(s): N30.00 - Acute cystitis without hematuria (4) Hyperglycemia Current Visit: Yes Status: Acute Assessment and plan: Hyperglycemia setting of diabetes. Glucose checks. Sliding scale insulin. (5) COPD (chronic obstructive pulmonary disease) Current Visit: No Status: Chronic Qualifiers: COPD type: chronic bronchitis Chronic bronchitis type: simple Qualified Code(s): J41.0 - Simple chronic bronchitis (6) DMII (diabetes mellitus, type 2) Current Visit: No Status: Chronic Assessment and plan: Blood glucose checks. Sliding scale insulin. Diabetic diet. 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 Qualifiers: Hypertension type: essential hypertension Qualified Code(s): I10 - Essential (primary) hypertension - Time Spent With Patient Total time spent is greater than 50% in coordination of care (as documented) at patient's floor/unit and/or counseling patient:
[2018-05-10 21:57] LABS: Basophils % 0.5 %; Eosinophils # 0.1 K/mcL (0.0-0.6); Eosinophils % 1.7 %; Hematocrit 40.7 % (35.3-44.9); Hemoglobin 14.1 g/dL (11.5-15.4); Immature Granulocytes % 3.8 % (0-4); Lymphocytes # 0.9 K/mcL (0.6-4.6); Lymphocytes % 11.9 %; Mean Corpuscular HGB Conc 34.6 g/dL (31.6-35.5); Mean Corpuscular Hemoglobin 32.6 pg (28.0-33.3); Mean Platelet Volume 12.2 fL (9.4-12.4); Monocytes # 0.6 K/mcL (0.0-1.3); Monocytes % 7.7 %; Neutrophils # 5.8 K/mcL (1.6-8.9); Platelet Count 129 K/mcL (140-400); Red Blood Count 4.33 M/mcL (3.82-4.97); Red Cell Distribution Width 13.3 % (11.5-14.5); Segmented Neutrophils % 74.4 %
[2018-05-10] MEDS: 0.9 % Sodium Chloride 1,000 ML IVC SCH (22:00)
[2018-05-10 22:16] LABS: Alanine Aminotransferase 28 Units/L (7-52); Albumin 3.6 g/dL (3.5-5.7); Albumin/Globulin Ratio 1.6 (1.1-2.2); Alkaline Phosphatase 116 Units/L (34-104); Aspartate Amino Transferase 15 Units/L (13-39); BUN/Creatinine Ratio 9 (6-26); Bilirubin,Total 0.5 mg/dL (0.3-1.0); Blood Urea Nitrogen 9 mg/dL (6-20); Calcium 8.8 mg/dL (8.6-10.3); Carbon Dioxide 27 mEq/L (23-29); Chloride 104 mEq/L (98-107); Globulin 2.2 g/dL (2.4-3.5); Glucose 243 mg/dL (70-105); Osmolality,Calculated 293 (280-300); Potassium 3.5 mEq/L (3.5-5.1); Sodium 138 mEq/L (136-145); Total Protein 5.8 g/dL (6.4-8.9); eGFR For Non-African Americans 57 (> 60)
[2018-05-10] MEDS ORDERED: Ipratropium/Albuterol Neb 3 ML IH PRN (22:30)
[2018-05-10] MEDS: Spironolactone 25 MG TABLET PO SCH (23:36)
[2018-05-10] MEDS: Metoprolol 100 MG TABLET PO SCH (23:36)
[2018-05-10] MEDS: Insulin LISPRO 300 UNITS/3 ML VIAL SQ SCH (23:37)
[2018-05-10] MEDS: *HR* HYDROcodone/Acet 5/325 mg TABLET PO PRN (23:37)
[2018-05-10] MEDS: MetroNIDAZOLE 500 MG/100 ML 500 MG/100 ML BAG IVPB SCH (23:37)
[2018-05-10] MEDS: Ipratropium/Albuterol Neb 3 ML IH SCH (23:50)
[2018-05-11] MEDS: Ipratropium/Albuterol Neb 3 ML IH SCH ×4 (04:05→22:24)
[2018-05-11 05:23] LABS: Alanine Aminotransferase 26 Units/L (7-52); Albumin 3.7 g/dL (3.5-5.7); Albumin/Globulin Ratio 1.6 (1.1-2.2); Alkaline Phosphatase 116 Units/L (34-104); Aspartate Amino Transferase 18 Units/L (13-39); BUN/Creatinine Ratio 9 (6-26); Bilirubin,Total 0.6 mg/dL (0.3-1.0); Blood Urea Nitrogen 9 mg/dL (6-20); Calcium 8.7 mg/dL (8.6-10.3); Carbon Dioxide 24 mEq/L (23-29); Chloride 108 mEq/L (98-107); Globulin 2.3 g/dL (2.4-3.5); Glucose 285 mg/dL (70-105); Osmolality,Calculated 289 (280-300); Potassium 3.7 mEq/L (3.5-5.1); Sodium 135 mEq/L (136-145); eGFR For Non-African Americans 55 (> 60)
[2018-05-11] MEDS: MetroNIDAZOLE 500 MG/100 ML 500 MG/100 ML BAG IVPB SCH ×3 (05:26→19:43)
[2018-05-11] MEDS: *HR* HYDROcodone/Acet 5/325 mg TABLET PO PRN ×3 (05:26→20:51)
[2018-05-11] MEDS: Insulin LISPRO 300 UNITS/3 ML VIAL SQ SCH ×3 (08:04→17:28)
[2018-05-11] MEDS: ISOSORBIDE MONONITRATE PO SCH ×2 (08:04→09:42)
[2018-05-11] MEDS ORDERED: Nicotine 21 MG PATCH.TD24 TD SCH (09:00)
[2018-05-11] MEDS: Loratadine 10 MG TABLET PO SCH (09:41)
[2018-05-11] MEDS: Spironolactone 25 MG TABLET PO SCH ×2 (09:41→20:48)
[2018-05-11] MEDS: Famotidine 20 MG TABLET PO SCH (09:41)
[2018-05-11] MEDS: Metoprolol 100 MG TABLET PO SCH ×2 (09:41→20:48)
[2018-05-11] MEDS: Nicotine 21 MG PATCH.TD24 TD SCH (09:42)
[2018-05-11] MEDS: cefTRIAXone 1,000 MG in Water for inj. (sterile) 20 ML 10 ML IVPB SCH (09:42)
[2018-05-11] MEDS ORDERED: diazePAM 10 MG TABLET PO PRN (11:02)
--- NOTE | 2018-05-11 12:04 | Internal Med Progress Note ---
Hospitalist Progress Note - Encounter Date of Encounter: 05/11/18 Time of Encounter: 09:00 - Subjective Interval History: Awake. Noting that abd pain is at her chronic baseline and that stool output via ostomy is also at baseline. Has watery high output of stool at home. Color prior to admission was black but now since admission is light brown. Continued left chest pressure intermittently. No current pain or pressure. No drainage from around ostomy. No fevers, chills, nausea or emesis. Denies palpitations, presyncope, syncope, orthopnea, pnd, le edema. No rash, itching, pallor. She is noting multiple falls at home in recent month which she attributes to neuropathy, knee joint pain and generalized weakness. - Exam Vitals: Temp Pulse Resp BP Pulse Ox 97.8 F 68 16 113/73 97 05/11/18 09:55 05/11/18 09:55 05/11/18 11:49 05/11/18 09:55 05/11/18 11:49 Exam: General: awake, alert, appears stated age HEENT:EOM, pupils equal, round, moist mucus membranes, clear oropharynx Neck: supple, trachea midline Cardiovascular:regular rate and rhythm, normal S1 & S2, no rubs, murmurs or gallops. No JVD. radial pulses 2+, no lower extremity edema Lungs:Normal breath sounds, no wheezes, or crackles. Normal respiratory effort Abdomen:Soft, tender to Right quadrants, no guarding, non-distended, no rigidity , + bowel sounds, ostomy bag with watery yellow/brown stool Extremities:No deformity, no edema or tenderness, no joint swelling or clubbing. Neurological: AAOx3, CN grossly intact, no focal deficits Skin:Normal color, no rash, no pallor, no jaundice - Assessment and Plan (1) Hyperglycemia Current Visit: Yes Status: Acute Assessment and Plan: Hyperglycemia setting of diabetes. Glucose checks. Sliding scale insulin. As d /w pharmacy her home insulin dosing is unclear and non formulary. Will begin Levemir BID and cont to monitor. When able to adjust diet will do ADA/cardiac diet (2) UTI (urinary tract infection) Current Visit: Yes Status: Acute Assessment and Plan: UA suspicious for UTI with positive nitrites and many urine bacteria. Though leukocyte esterase was found to be negative, CT scan showed signs of cystitis. Urine cultures pending. Cont rocephin (3) HTN (hypertension) Current Visit: No Status: Chronic Assessment and Plan: Continue home antihypertensives. (4) COPD (chronic obstructive pulmonary disease) Current Visit: No Status: Chronic Assessment and Plan: cont home medication regimen, nebs prn (5) Chest pain Current Visit: Yes Status: Acute Assessment and Plan: Atypical chest pain. Hx CAD Hx Diastolic CHF, stable, not in acute decompensation -No new EKG changes noted when compared to previous. Negative troponins. She had both stress test and cardiac cath this year. Cardiac cath 01/2018 showed severe 3v disease and small diffusely diseased mid distal LAD corresponding to abnormal stress findings. Patent bypass grafts x 3. Rec for med management. Will cont to monitor for improvement. -cont statin, plavix, imdur (dose adjusted for what is formulary as d/w pharmacy ), lopressor -not on asa at home -monitor i/os, currently lowering rate of ivfs, cont aldactone and will wean IVFs -most recent echo 01/2018 with EF 60-65% and diastolic dysfunction noted (6) DMII (diabetes mellitus, type 2) Current Visit: No Status: Chronic Assessment and Plan: accu checks, SSI and levemir as above, cont to monitor. (7) Abdominal pain Current Visit: Yes Status: Acute Assessment and Plan: Right-sided abdominal pain without rebound or guarding. Patient reports chronic abdominal pain at baseline. No evidence of an acute abdominal process. Lipase and lactic acid within normal limits. Patient has no fever or white count. CT of the abdomen showed small amount of gas in the nondependent urinary bladder, otherwise findings similar to prior study including large anterior abdominal wall defect containing multiple loops of small and large bowel as well as an ileostomy. Symptoms may be related to UTI. C. difficile pending. Empiric flagyl. Follow-up blood cultures, monitor stool output (8) Thrombocytopenia Current Visit: Yes Status: Acute Assessment and Plan: Platelets stabe at 129 -cont to monitor -no active bleeding -hold pharmacologic vte ppx, scds ordered DVT Prophylaxis: SCDS given plt count 129 - Time Spent with Patient Total time spent is greater than 50% in coordination of care (as documented) at patient's floor/unit and/or counseling patient: Greater than 35 minutes Plan of Care Discussed with: patient Internal Medicine: Result - Labs CBC & Chem 7: 05/10/18 21:46 05/11/18 04:13 Labs: Short CBC 05/10/18 Range/Units 21:46 WBC 7.8 (4.3-11.1) K/mcL Hgb 14.1 (11.5-15.4) g/dL Hct 40.7 (35.3-44.9) % Plt Count 129 L (140-400) K/mcL Neutrophils # 5.8 (1.6-8.9) K/mcL BMP 05/10/18 05/11/18 21:46 04:13 Sodium 138 135 L Potassium 3.5 3.7 Chloride 104 108 H Carbon Dioxide 27 24 BUN 9 9 Creatinine 0.99 1.03 Glucose 243 H 285 H Calcium 8.8 8.7 Cardiac Enzymes 05/10/18 05/11/18 05/11/18 Range/Units 21:46 04:13 09:44 Troponin I < 0.03 < 0.03 < 0.03 (< 0.04) ng/mL Liver Function 05/10/18 05/11/18 Range/Units 21:46 04:13 Total Bilirubin 0.5 0.6 (0.3-1.0) mg/dL AST 15 18 (13-39) Units/L ALT 28 26 (7-52) Units/L Alkaline Phosphatase 116 H 116 H (34-104) Units/L Albumin 3.6 3.7 (3.5-5.7) g/dL - ABG Interpretation ABG results: PT/INR, D-dimer PT 11.6 Seconds (9.4-12.1) 05/10/18 14:35 Consult Discharge Plan - Plan Referrals: NONE,PCP [Primary Care Provider] - (2) UTI (urinary tract infection) Qualifiers: Urinary tract infection type: acute cystitis Hematuria presence: without hematuria Qualified Code(s): N30.00 - Acute cystitis without hematuria (3) HTN (hypertension) Qualifiers: Hypertension type: essential hypertension Qualified Code(s): I10 - Essential (primary) hypertension (4) COPD (chronic obstructive pulmonary disease) Qualifiers: COPD type: chronic bronchitis Chronic bronchitis type: simple Qualified Code (s): J41.0 - Simple chronic bronchitis (5) Chest pain Qualifiers: Chest pain type: unspecified Qualified Code(s): R07.9 - Chest pain, unspecified (6) DMII (diabetes mellitus, type 2) Qualifiers: Diabetes mellitus skilled nursing insulin use: without cardiovascular invasive specialist use Diabetes mellitus complication status: with unspecified complications Qualified Code(s) : E11.8 - Type 2 diabetes mellitus with unspecified complications
[2018-05-11] MEDS: 0.9 % Sodium Chloride 1,000 ML IVC SCH (12:57)
[2018-05-11] MEDS: Insulin DETEMIR 100 UNIT/ML X5UNITS SQ SCH ×2 (12:57→20:51)
[2018-05-12] MEDS: MetroNIDAZOLE 500 MG/100 ML 500 MG/100 ML BAG IVPB SCH ×2 (00:36→06:58)
[2018-05-12] MEDS: Insulin LISPRO 300 UNITS/3 ML VIAL SQ SCH ×4 (00:37→16:25)
[2018-05-12] MEDS: Ipratropium/Albuterol Neb 3 ML IH SCH ×4 (04:14→23:00)
[2018-05-12 04:47] LABS: BUN/Creatinine Ratio 7 (6-26); Blood Urea Nitrogen 7 mg/dL (6-20); Calcium 8.6 mg/dL (8.6-10.3); Carbon Dioxide 30 mEq/L (23-29); Chloride 106 mEq/L (98-107); Glucose 180 mg/dL (70-105); Osmolality,Calculated 295 (280-300); Potassium 3.1 mEq/L (3.5-5.1); Sodium 141 mEq/L (136-145); eGFR For Non-African Americans 59 (> 60)
[2018-05-12] MEDS: *HR* HYDROcodone/Acet 5/325 mg TABLET PO PRN ×2 (06:57→16:29)
[2018-05-12] MEDS: Famotidine 20 MG TABLET PO SCH ×3 (07:15→21:59)
[2018-05-12] MEDS: 0.9 % Sodium Chloride 1,000 ML IVC SCH ×2 (07:19→08:30)
--- NOTE | 2018-05-12 07:20 | Internal Med Progress Note ---
Hospitalist Progress Note - Encounter Date of Encounter: 05/12/18 Time of Encounter: 09:00 - Subjective Interval History: Awake. abd pain at baseline. stool is dark brown and watery which is also baseline. diet advanced to regular and tolerating without difficulty. + dysuria and bladder pressure. no nausea, emesis, fevers or chills. No chest pain or pressure today. Overall feeling improved - Exam Vitals: Temp Pulse Resp BP Pulse Ox 97.7 F 69 18 108/67 95 05/12/18 05:11 05/12/18 05:11 05/12/18 05:11 05/12/18 05:11 05/12/18 05:11 Exam: General: awake, alert, appears stated age Cardiovascular:regular rate and rhythm, normal S1 & S2, no rubs, murmurs or gallops. No JVD. no lower extremity edema Lungs:Normal breath sounds, no wheezes, or crackles. Normal respiratory effort Abdomen:Soft, non tender, no guarding, non-distended, + bowel sounds, ostomy bag with watery dark brown stool Neurological: AAOx3, CN grossly intact Skin:Normal color, no rash, no pallor, no jaundice - Assessment and Plan (1) Hyperglycemia Current Visit: Yes Status: Acute Assessment and Plan: Hyperglycemia setting of diabetes. Improving -accu checks - Sliding scale insulin. -As d/w pharmacy her home insulin dosing is unclear and non formulary. started Levemir BID and cont to monitor. -uptitrate as needed inpt -upon dc she may resume home insulin and fu outpt for further management (2) UTI (urinary tract infection) Current Visit: Yes Status: Acute Assessment and Plan: UA suspicious for UTI with positive nitrites and many urine bacteria. Though leukocyte esterase was found to be negative, CT scan showed signs of cystitis. --Urine cultures remain pending. -bl cxs remain pending -Cont rocephin (3) HTN (hypertension) Current Visit: No Status: Chronic Assessment and Plan: stable Continue home antihypertensives. (4) COPD (chronic obstructive pulmonary disease) Current Visit: No Status: Chronic Assessment and Plan: stable -cont home medication regimen, nebs prn (5) Chest pain Current Visit: Yes Status: Acute Assessment and Plan: Atypical chest pain. Chronic in nature, resolved Hx CAD Hx Diastolic CHF, stable, not in acute decompensation -No new EKG changes noted when compared to previous. Negative troponins. She had both stress test and cardiac cath this year. Cardiac cath 01/2018 showed severe 3v disease and small diffusely diseased mid distal LAD corresponding to abnormal stress findings. Patent bypass grafts x 3. Rec for med management. Will cont to monitor for improvement. -cont statin, plavix, imdur (dose adjusted for what is formulary as d/w pharmacy ), lopressor -not on asa at home? 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 (7) Abdominal pain Current Visit: Yes Status: Acute Assessment and Plan: Right-sided abdominal pain without rebound or guarding. Patient reports chronic abdominal pain at baseline. -No evidence of an acute abdominal process. -Lipase and lactic acid within normal limits. -Patient has no fever or white count. -CT of the abdomen showed small amount of gas in the nondependent urinary bladder, otherwise findings similar to prior study including large anterior abdominal wall defect containing multiple loops of small and large bowel as well as an ileostomy. -C. difficile neg. -Empiric flagyl may be discontinued. Avoiding unecessary abx use -Follow-up blood cultures, monitor stool output (8) Thrombocytopenia Current Visit: Yes Status: Acute Assessment and Plan: Platelets stabe at 129 -cont to monitor -no active bleeding -hold pharmacologic vte ppx, scds ordered (9) Hypokalemia Current Visit: Yes Status: Acute Assessment and Plan: Oral repletion recheck level in am, check mag DVT Prophylaxis: SCDS, ambulation - Time Spent with Patient Total time spent is greater than 50% in coordination of care (as documented) at patient's floor/unit and/or counseling patient: Internal Medicine: Result - Labs CBC & Chem 7: 05/10/18 21:46 05/12/18 03:37 Labs: BMP 05/12/18 03:37 Sodium 141 Potassium 3.1 L Chloride 106 Carbon Dioxide 30 H BUN 7 Creatinine 0.97 Glucose 180 H Calcium 8.6 Cardiac Enzymes 05/11/18 Range/Units 09:44 Troponin I < 0.03 (< 0.04) ng/mL - ABG Interpretation ABG results: PT/INR, D-dimer PT 11.6 Seconds (9.4-12.1) 05/10/18 14:35 - VTE Documentation of Mechanical Device: Intermittent pneumatic compression device Consult Discharge Plan - Plan Referrals: Vanesa Monaco [Other] (2) UTI (urinary tract infection) Qualifiers: Urinary tract infection type: acute cystitis Hematuria presence: without hematuria Qualified Code(s): N30.00 - Acute cystitis without hematuria (3) HTN (hypertension) Qualifiers: Hypertension type: essential hypertension Qualified Code(s): I10 - Essential (primary) hypertension (4) COPD (chronic obstructive pulmonary disease) Qualifiers: COPD type: chronic bronchitis Chronic bronchitis type: simple Qualified Code (s): J41.0 - Simple chronic bronchitis (5) Chest pain Qualifiers: Chest pain type: unspecified Qualified Code(s): R07.9 - Chest pain, unspecified (6) DMII (diabetes mellitus, type 2) Qualifiers: 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
[2018-05-12] MEDS: Isosorbide MONOnitrate (24 HR) 30 MG TAB.ER.24H PO SCH (08:34)
[2018-05-12] MEDS: Insulin DETEMIR 100 UNIT/ML X5UNITS SQ SCH ×2 (08:35→21:51)
[2018-05-12] MEDS: Spironolactone 25 MG TABLET PO SCH ×2 (08:35→21:49)
[2018-05-12] MEDS: Metoprolol 100 MG TABLET PO SCH ×2 (08:35→21:50)
[2018-05-12] MEDS: Nicotine 21 MG PATCH.TD24 TD SCH (08:35)
[2018-05-12] MEDS: Loratadine 10 MG TABLET PO SCH (08:35)
[2018-05-12] MEDS: cefTRIAXone 1,000 MG in Water for inj. (sterile) 20 ML 10 ML IVPB SCH (08:36)
[2018-05-12] MEDS ORDERED: Insulin LISPRO 300 UNITS/3 ML VIAL SQ SCH (21:00)
[2018-05-13] MEDS: *HR* HYDROcodone/Acet 5/325 mg TABLET PO PRN (01:00)
[2018-05-13] MEDS: Ipratropium/Albuterol Neb 3 ML IH SCH ×2 (04:12→09:31)
[2018-05-13 07:32] VITALS: BP 160/81
[2018-05-13] MEDS: Insulin LISPRO 300 UNITS/3 ML VIAL SQ SCH ×3 (08:00→12:34)
[2018-05-13] MEDS: Spironolactone 25 MG TABLET PO SCH (09:03)
[2018-05-13] MEDS: Famotidine 20 MG TABLET PO SCH (09:03)
[2018-05-13] MEDS: Metoprolol 100 MG TABLET PO SCH (09:03)
[2018-05-13] MEDS: Isosorbide MONOnitrate (24 HR) 30 MG TAB.ER.24H PO SCH (09:03)
[2018-05-13] MEDS: Nicotine 21 MG PATCH.TD24 TD SCH (09:04)
[2018-05-13] MEDS: Loratadine 10 MG TABLET PO SCH (09:04)
[2018-05-13] MEDS: Insulin DETEMIR 100 UNIT/ML X5UNITS SQ SCH (09:10)
[2018-05-13 09:56] LABS: BUN/Creatinine Ratio 10 (6-26); Blood Urea Nitrogen 10 mg/dL (6-20); Calcium 8.6 mg/dL (8.6-10.3); Carbon Dioxide 30 mEq/L (23-29); Chloride 101 mEq/L (98-107); Glucose 462 mg/dL (70-105); Osmolality,Calculated 299 (280-300); Potassium 3.8 mEq/L (3.5-5.1); Sodium 135 mEq/L (136-145); eGFR For Non-African Americans 54 (> 60)
--- NOTE | 2018-05-13 12:03 | Discharge Summary ---
- NOTES TO OUTPATIENT PROVIDER Notes to Outpatient Provider: Being treated for UTI with cystitis evident on CT a/p despite neg ucx. To complete oral course of abx. Of note, she i shyperglycemic in settin gof infection and insulin changes made while she was here (pharmacy recommended levemir inpt but resume home insulin on dc). Pt is interested in discussing changes to home insulin upon dc. She was found to have low magnesium requiring IV repletion. Please check K/Mag levels at follow up. She had reports of her chronic chest pain this admission with negative work up. She should follow up with her established cadiologist Date of Encounter: 05/13/18 Time of Encounter: 08:30 - Discharge Diagnosis (1) Hyperglycemia Priority: Secondary Status: Acute Assessment and Plan: Hyperglycemia setting of diabetes and infection Improving -accu checks - Sliding scale insulin. -As d/w pharmacy her home insulin dosing is non formulary. started Levemir BID and monitored -uptitrated as needed inpt -upon dc she may resume home insulin and fu outpt for further management (2) UTI (urinary tract infection) Priority: Primary Status: Acute Assessment and Plan: UA suspicious for UTI with positive nitrites and many urine bacteria. Though leukocyte esterase was found to be negative, CT scan showed signs of cystitis. --Urine cultures no sig growth -bl cxs ngtd -rocephin -given ct findings, will complete course of treatmnt with oral abx outpt Qualifiers: Urinary tract infection type: acute cystitis Hematuria presence: without hematuria Qualified Code(s): N30.00 - Acute cystitis without hematuria (3) HTN (hypertension) Priority: Secondary Status: Chronic Assessment and Plan: stable Continue home antihypertensives. Qualifiers: Hypertension type: essential hypertension Qualified Code(s): I10 - Essential (primary) hypertension (4) COPD (chronic obstructive pulmonary disease) Priority: Secondary Status: Chronic Assessment and Plan: stable -cont home medication regimen Qualifiers: COPD type: chronic bronchitis Chronic bronchitis type: simple Qualified Code(s): J41.0 - Simple chronic bronchitis (5) Chest pain Priority: Primary Status: Resolved Assessment and Plan: Atypical chest pain. Chronic in nature, resolved Hx CAD Hx Diastolic CHF, stable, not in acute decompensation -No new EKG changes noted when compared to previous. Negative troponins. She had both stress test and cardiac cath this year. Cardiac cath 01/2018 showed severe 3v disease and small diffusely diseased mid distal LAD corresponding to abnormal stress findings. Patent bypass grafts x 3. Rec for med management. -cont statin, plavix, imdur (dose adjusted for what is formulary as d/w pharmacy ), lopressor -not on asa at home?, fu with established cards -most recent echo 01/2018 with EF 60-65% and diastolic dysfunction noted -she may fu outpt with her established waxing machine operator helper -pain she described as chest pain she clarifies to being MSK, chronic and from prior cabg Qualifiers: Chest pain type: unspecified Qualified Code(s): R07.9 - Chest pain, unspecified (6) DMII (diabetes mellitus, type 2) Priority: Secondary Status: Chronic Assessment and Plan: accu checks, SSI and levemir as above -resume home regimen upon dc. Qualifiers: Diabetes mellitus fpc insulin use: without laborer marine terminal use Diabetes mellitus complication status: with unspecified complications Qualified Code(s) : E11.8 - Type 2 diabetes mellitus with unspecified complications (7) Abdominal pain Priority: Primary Status: Resolved Assessment and Plan: Right-sided abdominal pain without rebound or guarding. Patient reports chronic abdominal pain at baseline. -No evidence of an acute abdominal process. -Lipase and lactic acid within normal limits. -Patient has no fever or white count. -CT of the abdomen showed small amount of gas in the nondependent urinary bladder, otherwise findings similar to prior study including large anterior abdominal wall defect containing multiple loops of small and large bowel as well as an ileostomy. -C. difficile neg. -Empiric flagyl discontinued. Avoiding unecessary abx use -bl cxs ngtd Qualifiers: Abdominal location: right upper quadrant Qualified Code(s): R10.11 - Right upper quadrant pain (8) Thrombocytopenia Priority: Secondary Status: Acute Assessment and Plan: Platelets stabe at 129 -no active bleeding -held pharmacologic vte ppx, scds ordered (9) Hypokalemia Priority: Secondary Status: Resolved Assessment and Plan: resolved with oral repletion (10) Hypomagnesemia Priority: Secondary Status: Acute Assessment and Plan: IV repletion prior to dc and fu outpt Hospital course: Ms. Price is a 57 year old female who presented with complaint of chest pain and abdominal pain. On further discussion it appears she has chronic chest pain with known cad hx s/p cabg and follows closely with cardiology. In recent months she had stress test and cardiac cath with patent grafts and plan for outpt medical management. She reports chronic right sided abd pain and at baseline. She denied any change in stool output. CT a/p showed no acute abdominal findings but did suggest cystitis, despite normal UA and no sig growth on culture. She remained stable and at baseline throughout admission. She will be dc with oral abx to complete cystitis treatment and close outpt fu with pcp and her established waxing machine operator helper. Pharmacy recommended levemir while inpt instead of her home U 500. Pt noted that she was resistent to levemir in past. She had no symptoms despite having hyperglycemia here. She will resume home insulin upon dc and fu with her pcp for further management. Discharge discussed with: patient - Time Spent with Patient Total time spent providing and/or coordinating discharge services: Greater than 30 minutes - Discharge Medications Prescriptions: Ciprofloxacin [Cipro] 500 mg PO BID 7 Days #14 tablet Home Medications: Atorvastatin [Lipitor] 40 mg PO HS 01/16/18 [History] Cholecalciferol (D-3) [Vitamin D] 5,000 unit PO MOFR 01/16/18 [History] Clopidogrel [Plavix] 75 mg PO DAILY 01/16/18 [History] Isosorbide MONOnitrate [Isosorbide Mononitrate] 20 mg PO BID 01/16/18 [History] Loratadine [Claritin] 10 mg PO DAILY 01/16/18 [History] Metoprolol Tartrate 100 mg PO BID 01/16/18 [History] Omeprazole [PriLOSEC] 20 mg PO DAILY 01/16/18 [History] Oxygen 2 l NS AD 01/16/18 [History] Ranitidine HCl [Acid Farm Tractor Operator] 150 mg PO BID 01/16/18 [History] Spironolactone [Aldactone] 50 mg PO BID 01/16/18 [History] Tramadol HCl [Ultram] 50 mg PO QID PRN 01/16/18 [History] Venlafaxine [Effexor] 37.5 mg PO BID 01/16/18 [History] diazePAM [Valium] 10 mg PO BID PRN 01/16/18 [History] GuaiFENesin ER [Mucinex] 600 mg PO BID PRN #30 tbbp.12hr 02/24/18 [Rx] Ipratropium/Albuterol Neb [Duoneb] 3 ml IH [id number] PRN inhsol 02/24/18 [Rx] Nicotine Patch [Nicoderm] 21 mg TD DAILY #30 patch.td24 02/24/18 [Rx] Insulin Regular U-500 [HumuLIN R U-500] 0 - 50 units SQ TID 05/10/18 [History] Albuterol Sulfate [Ventolin Hfa] 2 puff IH Q6H PRN 05/11/18 [History] Ciprofloxacin [Cipro] 500 mg PO BID 7 Days #14 tablet 05/13/18 [Rx] Allergies/Adverse Reactions: 3 Allergy/AdvReac Type Severity Reaction Status Date / Time Estrogens Allergy Hives Verified 01/16/18 17:28 gabapentin Allergy Swelling Verified 01/16/18 17:28 of Lip/Tongue/Throat Penicillins Allergy Itching Verified 01/16/18 17:28 aspirin [ASA] AdvReac See Verified 01/16/18 17:28 Comments lisinopril AdvReac Cough Verified 01/16/18 17:28 Date of admission: 05/12/18 14:18 Primary care physician: PCP NONE Discharging clinician: Ngozi Sorto - Constitutional Vitals: Temp Pulse Resp BP Pulse Ox 97.5 F L 70 15 160/81 96 05/13/18 07:20 05/13/18 07:20 05/13/18 09:33 05/13/18 07:20 05/13/18 09:33 Exam: General: awake, alert, appears stated age Cardiovascular:regular rate and rhythm, normal S1 & S2, no rubs, murmurs or gallops. No JVD. no lower extremity edema Lungs:Normal breath sounds, no wheezes, or crackles. Normal respiratory effort on home O2 Abdomen:Soft, non tender, no guarding, non-distended, + bowel sounds, ostomy bag with watery brown stool Neurological: AAOx3 Skin:Normal color, no rash, no pallor, no jaundice - Patient Status Disposition: Home, Self-Care Condition: Good Overall status at discharge: patient is back to baseline - Discharge Instructions Follow Up With: Vanesa Monaco [Other] (Office will call patient at home with the appointment date and time. Thank you) Darwin King DO [Partnered Physician] - 05/17/18 1:15 pm - VTE Documentation of Mechanical Device: Intermittent pneumatic compression device
--- NOTE | 2018-05-13 15:51 | Physician Discharge Referral ---
Home Health/Hosp Referral Info Transfer to: Home Health Provider in Charge Post Discharge: PCP - Diagnosis (1) Hyperglycemia Priority: Secondary Status: Acute (2) UTI (urinary tract infection) Priority: Primary Status: Acute (3) HTN (hypertension) Priority: Secondary Status: Chronic (4) COPD (chronic obstructive pulmonary disease) Priority: Secondary Status: Chronic (5) DMII (diabetes mellitus, type 2) Priority: Secondary Status: Chronic (6) Thrombocytopenia Priority: Secondary Status: Acute (7) Hypomagnesemia Priority: Secondary Status: Acute - Respiratory Orders Smoking Cessation: Smoking cessation has been advised. For more information, call the [place] Tobacco Quit Line at 8-176-WOZJ-NOW. - Diet/Nutrition Diet/Nutrition: List: cardiac, diabetic - Activity Activity Orders: Up ad fabian - Services Needed Following services are medically necessary services: Nursing, Home Health Aide, Physical Therapy, Occupational Therapy - Transfer Medications Prescriptions: Ciprofloxacin [Cipro] 500 mg PO BID 7 Days #14 tablet Home Medications: Atorvastatin [Lipitor] 40 mg PO HS 01/16/18 [History] Cholecalciferol (D-3) [Vitamin D] 5,000 unit PO MOFR 01/16/18 [History] Clopidogrel [Plavix] 75 mg PO DAILY 01/16/18 [History] Isosorbide MONOnitrate [Isosorbide Mononitrate] 20 mg PO BID 01/16/18 [History] Loratadine [Claritin] 10 mg PO DAILY 01/16/18 [History] Metoprolol Tartrate 100 mg PO BID 01/16/18 [History] Omeprazole [PriLOSEC] 20 mg PO DAILY 01/16/18 [History] Oxygen 2 l NS AD 01/16/18 [History] Ranitidine HCl [Acid Talent Acquisition Operations Manager] 150 mg PO BID 01/16/18 [History] Spironolactone [Aldactone] 50 mg PO BID 01/16/18 [History] Tramadol HCl [Ultram] 50 mg PO QID PRN 01/16/18 [History] Venlafaxine [Effexor] 37.5 mg PO BID 01/16/18 [History] diazePAM [Valium] 10 mg PO BID PRN 01/16/18 [History] GuaiFENesin ER [Mucinex] 600 mg PO BID PRN #30 tbbp.12hr 02/24/18 [Rx] Ipratropium/Albuterol Neb [Duoneb] 3 ml IH [id number] PRN inhsol 02/24/18 [Rx] Nicotine Patch [Nicoderm] 21 mg TD DAILY #30 patch.td24 02/24/18 [Rx] Insulin Regular U-500 [HumuLIN R U-500] 0 - 50 units SQ TID 05/10/18 [History] Albuterol Sulfate [Ventolin Hfa] 2 puff IH Q6H PRN 05/11/18 [History] Ciprofloxacin [Cipro] 500 mg PO BID 7 Days #14 tablet 05/13/18 [Rx] Allergies/Adverse Reactions: 3 Allergy/AdvReac Type Severity Reaction Status Date / Time Estrogens Allergy Hives Verified 01/16/18 17:28 gabapentin Allergy Swelling Verified 01/16/18 17:28 of Lip/Tongue/Throat Penicillins Allergy Itching Verified 01/16/18 17:28 aspirin [ASA] AdvReac See Verified 01/16/18 17:28 Comments lisinopril AdvReac Cough Verified 01/16/18 17:28 Certification: Further, I certify that my clinical findings support that this patient is homebound (i.e. absences from home require considerable and taxing effort and are for medical reasons or druze services or infrequently or short duration when for other reasons) because: cad, chf Homebound Reason: Severity of cardiac or pulmonary status limits activity tolerance Attestation: My signature below is to certify that this patient is under my care and that I, or nurse practitioner, or a physician's loan officer assistant working with me, has a face-to -face encounter with this patient.
--- NOTE | 2018-05-13 23:38 | Electrocardiograph Report ---
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
--- NOTE | 2018-05-15 13:14 | Electrocardiograph Report ---
[place] [address] Test Date: 2018-05-12 Pat Name: Odilia Price Department: 115 Room: 3A13 Gender: F Nutritional Health Coach: : 1960 Requested By: Ngozi Sorto Order Number: [id number] Reading MD: Cash Velasquez Measurements Intervals [place] Rate: 72 P: 57 MO: 180 QRS: 268 QRSD: 89 T: 57 QT: 396 QTc: 420 Interpretive Statements SINUS RHYTHM INFERIOR MYOCARDIAL INFARCTION, PROBABLY OLD Electronically Signed On 05-15-2018 13:12:49 EDT by Cash Velasquez
== END 2018-05-13 14:27 | disposition home health service (06) | DRG 690 ==
LOC: 2ANU 14:01 → EMEROOARM 14:01 → SUATTDRO 18:58 → 3ANU 19:04
PROVIDERS: ADMIT Student in an Organized Health Care Education/Training Program; ATTEND Internal Medicine

== ENCOUNTER 2018-05-27 13:42 | Inpatient (IN) ==
--- NOTE | 2018-05-27 13:48 | Emergency Department Note ---
Disposition Clinical Impression: Pneumonia Qualifiers: Pneumonia type: due to unspecified organism Laterality: bilateral Lung location : unspecified part of lung Qualified Code(s): J18.9 - Pneumonia, unspecified organism Disposition: Admitted As Inpatient Condition: Good Time of Disposition: 17:46 General Adult HPI - General Stated complaint: CP/Fever Time Seen by Provider: 05/27/18 13:46 Source: patient Mode of arrival: ambulatory Limitations: no limitations Nursing Notes Reviewed: Yes Vital Signs Reviewed: Yes - History of Present Illness HPI Narrative: Female Pt presenting to the ED with multiple complaints. Pt complaining of dizzyness and blurry vision for 1 week. Started getting a numbness sensation down her left side. Denies any trouble moving her left side. Pt states that the numbness did mostly resolve with movement of her extremitiy, however has not fully resolved. Pt also compalining of a blood drainage several days ago to her stomy site. Not at this time. Reports fevers at home of 101 this morning. States that it resolved after her normal daily meds. Pt also complaining of "swelling" all over, a dull pain on the left side of her chest and a sharp pain on the right side of her chest. - Related Data Home Medications Medication Instructions Recorded Confirmed Atorvastatin [Lipitor] 40 mg PO HS 01/16/18 05/27/18 Cholecalciferol (D-3) [Vitamin D] 5,000 unit PO MOFR 01/16/18 05/27/18 Clopidogrel [Plavix] 75 mg PO DAILY 01/16/18 05/27/18 Isosorbide MONOnitrate [Isosorbide 20 mg PO BID 01/16/18 05/27/18 Mononitrate] Loratadine [Claritin] 10 mg PO DAILY 01/16/18 05/27/18 Metoprolol Tartrate 100 mg PO BID 01/16/18 05/27/18 Omeprazole [PriLOSEC] 20 mg PO DAILY 01/16/18 05/27/18 Oxygen 2 l NS AD 01/16/18 05/27/18 Ranitidine HCl [Acid Certified Cytotechnologist] 150 mg PO BID 01/16/18 05/27/18 Spironolactone [Aldactone] 50 mg PO BID 01/16/18 05/27/18 Venlafaxine [Effexor] 37.5 mg PO BID 01/16/18 05/27/18 diazePAM [Valium] 10 mg PO BID PRN 01/16/18 05/27/18 Insulin Regular U-500 [HumuLIN R 0 - 50 units SQ TID 05/10/18 05/27/18 U-500] Albuterol Sulfate [Ventolin Hfa] 2 puff IH Q6H PRN 05/11/18 05/27/18 Magnesium Oxide [Magnesium] 400 mg PO DAILY 05/27/18 05/27/18 Previous Rx's Medication Instructions Recorded GuaiFENesin ER [Mucinex] 600 mg PO BID PRN #30 tbbp.12hr 02/24/18 Nicotine Patch [Nicoderm] 21 mg TD DAILY #30 patch.td24 02/24/18 Allergies Allergy/AdvReac Type Severity Reaction Status Date / Time Estrogens Allergy Hives Verified 01/16/18 17:28 gabapentin Allergy Swelling Verified 01/16/18 17:28 of Lip/Tongue/Throat Penicillins Allergy Itching Verified 01/16/18 17:28 aspirin [ASA] AdvReac See Verified 01/16/18 17:28 Comments lisinopril AdvReac Cough Verified 01/16/18 17:28 All systems ED: reviewed and negative except as stated. Review of Systems: As Per HPI Constitutional: Reports: fever Cardiovascular: Reports: chest pain. Denies: palpitations, syncope Respiratory: Reports: dyspnea Gastrointestinal: Reports: abdominal pain, nausea, hematochezia. Denies: vomiting, diarrhea, hematemesis, melena Genitourinary: Denies: urgency, dysuria, frequency, hematuria Neurological: Reports: weakness Past Medical History - Past Medical History Attestation: Yes The following information was validated with the patient. 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 Absent: tenderness - Respiratory Respiratory exam: Present: other (diminished in the bases). Absent: respiratory distress - Cardiovascular Cardiovascular exam: Present: regular rate, normal rhythm, normal heart sounds - Abdominal Exam Abdominal exam: Present: soft, tenderness (diffusley), distention (rounded abdomen), scar (extensive. midline), other (well appearing ostomy with bag. Secondary ostomy to the right of the ostomy with the bag that is covered with dry dressing. Also appears well, pink. Normal stool appearing in the ostomy bag. NOnbloody. ). Absent: guarding - Extremities Exam Extremities exam: Present: pedal edema (pitting to knees bilaterally. ) - Neurological Exam Neurological exam: Present: alert, oriented X3 - Psychiatric Psychiatric exam: Present: normal affect, normal mood - Skin Skin exam: Present: warm, dry, intact, normal color. Absent: rash, cyanosis, diaphoresis Course Course Narrative: Patient's lactic acid is elevated. She does have pneumonia suggestive of her chest x-ray plus a cough and fever at home. We will start patient on antibiotics at this time. We will also give her a liter of fluid. We are lightly hydrating the patient will reevaluate for further IV fluid as ordered. As the patient has a history of congestive heart failure. We will admit patient to the hospital for her pneumonia. Patient does have an elevated lactic acid at this time. The chest x-ray was concerning for a perihilar pneumonia. She is agreeable with this. - Consultations Consultation #1: Dr Lu accepted patient in stable condition. Time: 17:29 Vital Signs Temperature 98.6 F 05/27/18 13:50 Pulse Rate 86 05/27/18 13:50 Respiratory Rate 16 05/27/18 13:50 Blood Pressure 118/55 05/27/18 13:50 O2 Sat by Pulse Oximetry 95 05/27/18 13:50 Temperature 98.6 F 05/27/18 13:59 Pulse Rate 72 05/27/18 17:52 Respiratory Rate 18 05/27/18 17:52 Blood Pressure 129/69 05/27/18 17:52 O2 Sat by Pulse Oximetry 94 05/27/18 17:52 Oxygen Delivery Oxygen Delivery Nasal Cannula Medical Decision Making - Medical Records Medical records reviewed: Yes I reviewed the patient's medical records. - Lab Data Lab results reviewed: Yes I reviewed the patient's lab results. Result diagrams: 05/27/18 14:54 05/27/18 14:24 Lab Results 05/27/18 05/27/18 05/27/18 Range/Units 14:24 14:25 14:26 WBC (4.3-11.1) K/mcL RBC (3.82-4.97) M/mcL Hgb (11.5-15.4) g/dL Hct (35.3-44.9) % MCV (83.0-100.0) fL MCH (28.0-33.3) pg MCHC (31.6-35.5) g/dL RDW (11.5-14.5) % Plt Count (140-400) K/mcL MPV (9.4-12.4) fL Immature Gran % (0-4) % Seg Neutrophils % % Lymphocytes % % Monocytes % % Eosinophils % % Basophils % % Neutrophils # (1.6-8.9) K/mcL Lymphocytes # (0.6-4.6) K/mcL Monocytes # (0.0-1.3) K/mcL Eosinophils # (0.0-0.6) K/mcL Basophils # (0.0-0.2) K/mcL PT 11.0 (9.4-12.1) Seconds INR 1.0 APTT 26.7 (26.0-36.0) Seconds Sodium 136 (136-145) mEq/L Potassium 3.7 (3.5-5.1) mEq/L Chloride 103 (98-107) mEq/L Carbon Dioxide 27 (23-29) mEq/L BUN 6 (6-20) mg/dL Creatinine 1.00 (0.60-1.20) mg/dL Est GFR ( Amer) > 60 (> 60) Est GFR (Non-Af Amer) 57 L (> 60) BUN/Creatinine Ratio 6 (6-26) Glucose 310 H (70-105) mg/dL Calculated Osmolality 291 (280-300) Lactic Acid (0.5-2.2) mmol/L Calcium 9.0 (8.6-10.3) mg/dL Phosphorus 2.6 L (2.7-4.5) mg/dL Magnesium 1.2 L (1.6-2.6) mg/dL Total Bilirubin 0.5 (0.3-1.0) mg/dL AST 19 (13-39) Units/L ALT 20 (7-52) Units/L Alkaline Phosphatase 112 H (34-104) Units/L Troponin I < 0.03 (< 0.04) ng/mL B-Natriuretic Peptide 112 H (Less than 100) pg/mL Serum Total Protein 5.6 L (6.4-8.9) g/dL Albumin 3.5 (3.5-5.7) g/dL Globulin 2.1 L (2.4-3.5) g/dL Albumin/Globulin Ratio 1.7 (1.1-2.2) Urine Color (Yellow) Urine Clarity (Clear) Urine pH (5.0-8.0) pH Units Ur Specific [place] (1.010-1.025) Urine Protein (Neg-Trace) mg/dL Urine Glucose (UA) (Normal) mg/dL Urine Ketones (Negative) mg/dL Urine Blood (Negative) Urine Nitrite (Negative) Urine Bilirubin (Negative) Urine Urobilinogen (Normal) mg/dL Ur Leukocyte Esterase (Negative) Ur Culture Indicated? (NO) 05/27/18 05/27/18 05/27/18 Range/Units 14:54 14:54 17:34 WBC 8.2 (4.3-11.1) K/mcL RBC 4.23 (3.82-4.97) M/mcL Hgb 13.8 (11.5-15.4) g/dL Hct 40.4 (35.3-44.9) % MCV 95.5 (83.0-100.0) fL MCH 32.6 (28.0-33.3) pg MCHC 34.2 (31.6-35.5) g/dL RDW 13.7 (11.5-14.5) % Plt Count 145 (140-400) K/mcL MPV 12.9 H (9.4-12.4) fL Immature Gran % 1.0 (0-4) % Seg Neutrophils % 69.3 % Lymphocytes % 19.6 % Monocytes % 8.2 % Eosinophils % 1.3 % Basophils % 0.6 % Neutrophils # 5.7 (1.6-8.9) K/mcL Lymphocytes # 1.6 (0.6-4.6) K/mcL Monocytes # 0.7 (0.0-1.3) K/mcL Eosinophils # 0.1 (0.0-0.6) K/mcL Basophils # 0.1 (0.0-0.2) K/mcL PT (9.4-12.1) Seconds INR APTT (26.0-36.0) Seconds Sodium (136-145) mEq/L Potassium (3.5-5.1) mEq/L Chloride (98-107) mEq/L Carbon Dioxide (23-29) mEq/L BUN (6-20) mg/dL Creatinine (0.60-1.20) mg/dL Est GFR ( Amer) (> 60) Est GFR (Non-Af Amer) (> 60) BUN/Creatinine Ratio (6-26) Glucose (70-105) mg/dL Calculated Osmolality (280-300) Lactic Acid 2.6 H (0.5-2.2) mmol/L Calcium (8.6-10.3) mg/dL Phosphorus (2.7-4.5) mg/dL Magnesium (1.6-2.6) mg/dL Total Bilirubin (0.3-1.0) mg/dL AST (13-39) Units/L ALT (7-52) Units/L Alkaline Phosphatase (34-104) Units/L Troponin I (< 0.04) ng/mL B-Natriuretic Peptide (Less than 100) pg/mL Serum Total Protein (6.4-8.9) g/dL Albumin (3.5-5.7) g/dL Globulin (2.4-3.5) g/dL Albumin/Globulin Ratio (1.1-2.2) Urine Color Yellow (Yellow) Urine Clarity Clear (Clear) Urine pH 6.5 (5.0-8.0) pH Units Ur Specific [place] < 1.005 L (1.010-1.025) Urine Protein Negative (Neg-Trace) mg/dL Urine Glucose (UA) 250 H (Normal) mg/dL Urine Ketones Negative (Negative) mg/dL Urine Blood Negative (Negative) Urine Nitrite Negative (Negative) Urine Bilirubin Negative (Negative) Urine Urobilinogen Normal (Normal) mg/dL Ur Leukocyte Esterase Negative (Negative) Ur Culture Indicated? NO (NO) - Radiology Data Radiology results reviewed: Yes I reviewed the patient's radiology results. Chest X-Ray 05/27/18 14:24 IMPRESSION: Increased ill-defined bilateral infrahilar opacity concerning for developing pneumonia given history of fever. D/ / Isac Cedillo / Isac Cedillo Interpreting Provider: Isac Cedillo Stroke Scale - Level of Consciousness LOC: Alert - LOC Questions LOC Questions: Answers both correctly - LOC Commands LOC Commands: Performs both correctly - Best Gaze Best Gaze: Normal - Visual Visual: No visual loss - Facial Palsy Facial Palsy: Normal - Motor Arms Motor Arm-Left: No drift for 10 seconds Motor Arm-Right: No drift for 10 seconds - Motor Legs Motor Leg-Left: No drift for 5 seconds Motor Leg-Right: No drift for 5 seconds - Limb Ataxia Limb Ataxia: Normal, No Ataxia - Sensory Sensory: Mild to moderate loss, "not as sharp" - Best Language Best Language: No aphasia - Dysarthria Dysarthria: Normal - Extinction and Inattention Extinction and Inattention: Normal - NIHSS Total Score NIHSS Total Score: 1
--- NOTE | 2018-05-27 14:35 | Emergency Department Note ---
Disposition Clinical Impression: Pneumonia Qualifiers: Pneumonia type: due to unspecified organism Laterality: bilateral Lung location : unspecified part of lung Qualified Code(s): J18.9 - Pneumonia, unspecified organism Disposition: Admitted As Inpatient Condition: Good General Adult HPI - General Chief complaint: ED Fever Stated complaint: CP/Fever Time Seen by Provider: 05/27/18 13:46 Source: patient Limitations: no limitations - History of Present Illness Pain Scale: 8 - Related Data Home Medications Medication Instructions Recorded Confirmed Atorvastatin [Lipitor] 40 mg PO HS 01/16/18 05/27/18 Cholecalciferol (D-3) [Vitamin D] 5,000 unit PO MOFR 01/16/18 05/27/18 Clopidogrel [Plavix] 75 mg PO DAILY 01/16/18 05/27/18 Isosorbide MONOnitrate [Isosorbide 20 mg PO BID 01/16/18 05/27/18 Mononitrate] Loratadine [Claritin] 10 mg PO DAILY 01/16/18 05/27/18 Metoprolol Tartrate 100 mg PO BID 01/16/18 05/27/18 Omeprazole [PriLOSEC] 20 mg PO DAILY 01/16/18 05/27/18 Oxygen 2 l NS AD 01/16/18 05/27/18 Ranitidine HCl [Acid Rn Hyperbaric] 150 mg PO BID 01/16/18 05/27/18 Spironolactone [Aldactone] 50 mg PO BID 01/16/18 05/27/18 Venlafaxine [Effexor] 37.5 mg PO BID 01/16/18 05/27/18 diazePAM [Valium] 10 mg PO BID PRN 01/16/18 05/27/18 Insulin Regular U-500 [HumuLIN R 0 - 50 units SQ TID 05/10/18 05/27/18 U-500] Albuterol Sulfate [Ventolin Hfa] 2 puff IH Q6H PRN 05/11/18 05/27/18 Magnesium Oxide [Magnesium] 400 mg PO DAILY 05/27/18 05/27/18 Previous Rx's Medication Instructions Recorded GuaiFENesin ER [Mucinex] 600 mg PO BID PRN #30 tbbp.12hr 02/24/18 Nicotine Patch [Nicoderm] 21 mg TD DAILY #30 patch.td24 02/24/18 Allergies Allergy/AdvReac Type Severity Reaction Status Date / Time Estrogens Allergy Hives Verified 01/16/18 17:28 gabapentin Allergy Swelling Verified 01/16/18 17:28 of Lip/Tongue/Throat Penicillins Allergy Itching Verified 01/16/18 17:28 aspirin [ASA] AdvReac See Verified 01/16/18 17:28 Comments lisinopril AdvReac Cough Verified 01/16/18 17:28 Past Medical History - Past Medical History Medical history: Reports: CHF, COPD, coronary artery disease, diabetes, GERD Surgical history: Reports: angioplasty/stent, appendectomy, cholecystectomy, colectomy, colostomy, coronary bypass (CABG), hysterectomy, other Psychiatric history: Reports: anxiety, bipolar, depression [employer]IN[employer]ING [employer] history: Reports: other - Social History Smoking Status: Current every day smoker Smokeless Tobacco Status: No Alcohol use: Reports: none Drug use: Reports: none Physical Exam - General Limitations: no limitations General appearance: alert Course Vital Signs Temperature 98.6 F 05/27/18 13:50 Pulse Rate 86 05/27/18 13:50 Respiratory Rate 16 05/27/18 13:50 Blood Pressure 118/55 05/27/18 13:50 O2 Sat by Pulse Oximetry 95 05/27/18 13:50 Temperature 98.6 F 05/27/18 13:59 Pulse Rate 72 05/27/18 17:52 Respiratory Rate 18 05/27/18 17:52 Blood Pressure 129/69 05/27/18 17:52 O2 Sat by Pulse Oximetry 94 05/27/18 17:52 Oxygen Delivery Oxygen Delivery Nasal Cannula Medical Decision Making - Lab Data Result diagrams: 05/27/18 14:54 05/27/18 14:24 Lab Results 05/27/18 05/27/18 05/27/18 Range/Units 14:24 14:25 14:26 WBC (4.3-11.1) K/mcL RBC (3.82-4.97) M/mcL Hgb (11.5-15.4) g/dL Hct (35.3-44.9) % MCV (83.0-100.0) fL MCH (28.0-33.3) pg MCHC (31.6-35.5) g/dL RDW (11.5-14.5) % Plt Count (140-400) K/mcL MPV (9.4-12.4) fL Immature Gran % (0-4) % Seg Neutrophils % % Lymphocytes % % Monocytes % % Eosinophils % % Basophils % % Neutrophils # (1.6-8.9) K/mcL Lymphocytes # (0.6-4.6) K/mcL Monocytes # (0.0-1.3) K/mcL Eosinophils # (0.0-0.6) K/mcL Basophils # (0.0-0.2) K/mcL PT 11.0 (9.4-12.1) Seconds INR 1.0 APTT 26.7 (26.0-36.0) Seconds Sodium 136 (136-145) mEq/L Potassium 3.7 (3.5-5.1) mEq/L Chloride 103 (98-107) mEq/L Carbon Dioxide 27 (23-29) mEq/L BUN 6 (6-20) mg/dL Creatinine 1.00 (0.60-1.20) mg/dL Est GFR ( Amer) > 60 (> 60) Est GFR (Non-Af Amer) 57 L (> 60) BUN/Creatinine Ratio 6 (6-26) Glucose 310 H (70-105) mg/dL Calculated Osmolality 291 (280-300) Lactic Acid (0.5-2.2) mmol/L Calcium 9.0 (8.6-10.3) mg/dL Phosphorus 2.6 L (2.7-4.5) mg/dL Magnesium 1.2 L (1.6-2.6) mg/dL Total Bilirubin 0.5 (0.3-1.0) mg/dL AST 19 (13-39) Units/L ALT 20 (7-52) Units/L Alkaline Phosphatase 112 H (34-104) Units/L Troponin I < 0.03 (< 0.04) ng/mL B-Natriuretic Peptide 112 H (Less than 100) pg/mL Serum Total Protein 5.6 L (6.4-8.9) g/dL Albumin 3.5 (3.5-5.7) g/dL Globulin 2.1 L (2.4-3.5) g/dL Albumin/Globulin Ratio 1.7 (1.1-2.2) Urine Color (Yellow) Urine Clarity (Clear) Urine pH (5.0-8.0) pH Units Ur Specific [place] (1.010-1.025) Urine Protein (Neg-Trace) mg/dL Urine Glucose (UA) (Normal) mg/dL Urine Ketones (Negative) mg/dL Urine Blood (Negative) Urine Nitrite (Negative) Urine Bilirubin (Negative) Urine Urobilinogen (Normal) mg/dL Ur Leukocyte Esterase (Negative) Ur Culture Indicated? (NO) 05/27/18 05/27/18 05/27/18 Range/Units 14:54 14:54 17:34 WBC 8.2 (4.3-11.1) K/mcL RBC 4.23 (3.82-4.97) M/mcL Hgb 13.8 (11.5-15.4) g/dL Hct 40.4 (35.3-44.9) % MCV 95.5 (83.0-100.0) fL MCH 32.6 (28.0-33.3) pg MCHC 34.2 (31.6-35.5) g/dL RDW 13.7 (11.5-14.5) % Plt Count 145 (140-400) K/mcL MPV 12.9 H (9.4-12.4) fL Immature Gran % 1.0 (0-4) % Seg Neutrophils % 69.3 % Lymphocytes % 19.6 % Monocytes % 8.2 % Eosinophils % 1.3 % Basophils % 0.6 % Neutrophils # 5.7 (1.6-8.9) K/mcL Lymphocytes # 1.6 (0.6-4.6) K/mcL Monocytes # 0.7 (0.0-1.3) K/mcL Eosinophils # 0.1 (0.0-0.6) K/mcL Basophils # 0.1 (0.0-0.2) K/mcL PT (9.4-12.1) Seconds INR APTT (26.0-36.0) Seconds Sodium (136-145) mEq/L Potassium (3.5-5.1) mEq/L Chloride (98-107) mEq/L Carbon Dioxide (23-29) mEq/L BUN (6-20) mg/dL Creatinine (0.60-1.20) mg/dL Est GFR ( Amer) (> 60) Est GFR (Non-Af Amer) (> 60) BUN/Creatinine Ratio (6-26) Glucose (70-105) mg/dL Calculated Osmolality (280-300) Lactic Acid 2.6 H (0.5-2.2) mmol/L Calcium (8.6-10.3) mg/dL Phosphorus (2.7-4.5) mg/dL Magnesium (1.6-2.6) mg/dL Total Bilirubin (0.3-1.0) mg/dL AST (13-39) Units/L ALT (7-52) Units/L Alkaline Phosphatase (34-104) Units/L Troponin I (< 0.04) ng/mL B-Natriuretic Peptide (Less than 100) pg/mL Serum Total Protein (6.4-8.9) g/dL Albumin (3.5-5.7) g/dL Globulin (2.4-3.5) g/dL Albumin/Globulin Ratio (1.1-2.2) Urine Color Yellow (Yellow) Urine Clarity Clear (Clear) Urine pH 6.5 (5.0-8.0) pH Units Ur Specific [place] < 1.005 L (1.010-1.025) Urine Protein Negative (Neg-Trace) mg/dL Urine Glucose (UA) 250 H (Normal) mg/dL Urine Ketones Negative (Negative) mg/dL Urine Blood Negative (Negative) Urine Nitrite Negative (Negative) Urine Bilirubin Negative (Negative) Urine Urobilinogen Normal (Normal) mg/dL Ur Leukocyte Esterase Negative (Negative) Ur Culture Indicated? NO (NO) Attestation Statement - Attestation Attestation: I examined this patient and my medical decision-making was reviewed with the Resident Physician. I agree with the documented findings, disposition and treatment plan as described except to the extent set forth below. Patient presented to the ED with multiple complaints. Patient states she has pain in her abdomen and ribs. When I asked how long she had it she said about 5 years. Patient states the reason she came in today is that she is having some intermittent symptoms of numbness and tingling in the left arm and leg. She also states she is having watery output from her ostomy bag. Intermittent chest pains as well. Patient is not having any new symptoms actively at this time. On my examination she is laying in bed watching TV in no acute distress. Her abdomen is soft with multiple scars. She has brown, liquid output in her colostomy bag. Plan. CT head. CT abdomen pelvis. Cardiac workup. Patient with pneumonia on chest x-ray. CBC still pending. CT is pending as well. Starting IV antibiotic. Chest X-Ray 05/27/18 14:24 IMPRESSION: Increased ill-defined bilateral infrahilar opacity concerning for developing pneumonia given history of fever. D/ / Isac Cedillo / Isac Cedillo Interpreting Provider: Isac Cedilol Abdomen/Pelvis CT 05/27/18 14:23 IMPRESSION: No definite acute findings within the abdomen or pelvis. Stable large anterior abdominal wall hernia containing nonobstructed loops of small bowel and mid to distal large bowel. Mild diverticulosis of the distal colon without evidence for diverticulitis. D/ / Art Keller MD / Art Keller MD Interpreting Provider: Art Keller MD Head CT 05/27/18 14:23 IMPRESSION: No acute intracranial abnormality. D/ / Janes Sevilla MD / Janes Sevilla MD Interpreting Provider: Janes Sevilla MD Chest X-Ray 05/27/18 14:24 IMPRESSION: Increased ill-defined bilateral infrahilar opacity concerning for developing pneumonia given history of fever. D/ / Isac Cedillo / Isac Cedillo Interpreting Provider: Isac Cedillo
[2018-05-27 15:24] LABS: Activated Partial Thrombo Time 26.7 Seconds (26.0-36.0)
[2018-05-27 15:30] LABS: Alanine Aminotransferase 20 Units/L (7-52); Albumin 3.5 g/dL (3.5-5.7); Albumin/Globulin Ratio 1.7 (1.1-2.2); Alkaline Phosphatase 112 Units/L (34-104); Aspartate Amino Transferase 19 Units/L (13-39); BUN/Creatinine Ratio 6 (6-26); Bilirubin,Total 0.5 mg/dL (0.3-1.0); Blood Urea Nitrogen 6 mg/dL (6-20); Carbon Dioxide 27 mEq/L (23-29); Chloride 103 mEq/L (98-107); Globulin 2.1 g/dL (2.4-3.5); Glucose 310 mg/dL (70-105); Osmolality,Calculated 291 (280-300); Potassium 3.7 mEq/L (3.5-5.1); Sodium 136 mEq/L (136-145); Total Protein 5.6 g/dL (6.4-8.9); Troponin I < 0.03 ng/mL (< 0.04); eGFR For Non-African Americans 57 (> 60)
[2018-05-27] MEDS ORDERED: cefTRIAXone 1,000 MG in Water for inj. (sterile) 20 ML 10 ML IVP ONE (16:00)
[2018-05-27] MEDS ORDERED: Azithromycin 500 MG in D5% in Water 250 ML IVPB ONE (16:00)
[2018-05-27] MEDS ORDERED: 0.9 % Sodium Chloride 1,000 ML IVC ONE (16:00)
[2018-05-27 16:24] LABS: Basophils # 0.1 K/mcL (0.0-0.2); Basophils % 0.6 %; Eosinophils # 0.1 K/mcL (0.0-0.6); Eosinophils % 1.3 %; Hematocrit 40.4 % (35.3-44.9); Hemoglobin 13.8 g/dL (11.5-15.4); Lymphocytes # 1.6 K/mcL (0.6-4.6); Lymphocytes % 19.6 %; Mean Corpuscular HGB Conc 34.2 g/dL (31.6-35.5); Mean Corpuscular Hemoglobin 32.6 pg (28.0-33.3); Mean Corpuscular Volume 95.5 fL (83.0-100.0); Mean Platelet Volume 12.9 fL (9.4-12.4); Monocytes # 0.7 K/mcL (0.0-1.3); Monocytes % 8.2 %; Neutrophils # 5.7 K/mcL (1.6-8.9); Platelet Count 145 K/mcL (140-400); Red Blood Count 4.23 M/mcL (3.82-4.97); Red Cell Distribution Width 13.7 % (11.5-14.5); Segmented Neutrophils % 69.3 %
[2018-05-27 16:28] LABS: Magnesium 1.2 mg/dL (1.6-2.6); Phosphorous 2.6 mg/dL (2.7-4.5)
[2018-05-27 17:39] LABS: Bilirubin,Urine Negative (Negative); Blood,Urine Negative (Negative); Clarity,Urine Clear (Clear); Color,Urine Yellow (Yellow); Glucose,Urine (UA) 250 mg/dL (Normal); Ketones,Urine Negative (Negative); Leukocyte Esterase,Urine Negative (Negative); Nitrite,Urine Negative (Negative); PH,Urine 6.5 pH Units (5.0-8.0); Protein,Urine Negative (Neg-Trace); Specific Gravity,Urine < 1.005 (1.010-1.025); Urobilinogen,Urine Normal (Normal)
[2018-05-27] MEDS ORDERED: Ibuprofen 600 MG TABLET PO PRN (18:10)
[2018-05-27] MEDS ORDERED: *HR* Dextrose 50 % in Water (Syg) 50 ML SYRINGE IVP PRN (18:13)
[2018-05-27] MEDS ORDERED: Naloxone 0.4 MG/ML INJ IVP PRN (18:13)
[2018-05-27] MEDS ORDERED: Dextrose Gel 15 GM/37.5 ML TUBE PO PRN ×2 (18:13)
[2018-05-27] MEDS ORDERED: D5% in Water 1,000 ML IVC PRN (18:13)
--- NOTE | 2018-05-27 18:51 | Internal Med History&Physical ---
Date of Encounter: 05/27/18 Time of Encounter: 18:43 Internal Medicine - H&P: HPI Chief complaint: Left-sided numbness and tingling, chest pain, worse with inspiration, PNA Admitted From: Home Plans for Post Hospital Care: Home History of present illness: Ms. Price is a 57 year old female with a PMH of CHF, COPD, coronary artery disease, diabetes, GERD and a surgical history of angioplasty/stent, appendectomy, cholecystectomy, colectomy, colostomy, coronary bypass (CABG), hysterectomy. She presents to [facility] with complaints of blurred vision and numbness sensation on her left upper and lower extremity. She reports some blurred vision began 1 week ago and is intermittent. The numbness on her left upper and lower extremity began this morning and has almost completely resolved. She denies any slurred speech, facial droop, or other neurological complaints including disequilibrium, gait alteration, weakness in extremities. Per my assessment in the ED she does not have any focal neuro deficits. The CT of head negative for acute process. During this stay would be beneficial to obtain bilateral carotid Dopplers for further evaluation. She has additional complaints of possible bloody drainage at her ostomy site however at this time there is no identifiable blood in her ileostomy. H&H stable. Complaints are general and nondescript and it is very difficult to obtain an accurate history. The patient reports she has been having intermittent fevers throughout the last couple of weeks and her temperature was 101 this morning but resolved without further intervention. Additionally, she is complaining of both left and right-sided chest pain. The chest pain on the left side is described as dull and right-sided chest pain described as sharp and worse with inspiration. She denies any fever, chills, cough, abdominal pain, nausea, vomiting, diarrhea. It should be noted that she has had a history of sternotomy with complications following a CABG. Per my assessment the pain is worse to palpation and inspiration. While in the ED chest x-ray was obtained with findings concerning for developing pneumonia. EKG was without any changes concerning for ischemia and initial troponin was found to be negative. Patient has had a recent TTE which was grossly normal. Recent cardiac catheter 01/2018 showing severe triple vessel disease with patent bypass grafts. Given her presentation I highly doubt that the chest pain is of cardiac origin. Most likely caused by pneumonia. Admit and treat for community-acquired pneumonia. Additionally, monitor for further neurological symptoms, I have low suspicion for TIA or CVA. Past Med Surg Social Fam HX - Past Medical History Medical history: CHF, COPD, coronary artery disease, diabetes, GERD Additional medical history: neuropathy, CKD 3 Psychiatric history: anxiety, bipolar, depression - Past Surgical History Surgical History: angioplasty/stent, appendectomy, cholecystectomy, colectomy, colostomy, coronary bypass (CABG), hysterectomy, other Additional surgical history: 4 stents. sternum removed. 18 inch bowel removed. left elbow nerve relocated. kim. knee. kim. shoulder - Social History Smoking Status: Current every day smoker Smokeless Tobacco Status: No Alcohol use: none Drug use: none - Family History Father Hx Family Cardiac Disorders: Yes Mother Hx Family Cardiac Disorders: Yes Internal Medicine - H&P: Meds Atorvastatin [Lipitor] 40 mg PO HS 01/16/18 [History] Cholecalciferol (D-3) [Vitamin D] 5,000 unit PO MOFR 01/16/18 [History] Clopidogrel [Plavix] 75 mg PO DAILY 01/16/18 [History] Isosorbide MONOnitrate [Isosorbide Mononitrate] 20 mg PO BID 01/16/18 [History] Loratadine [Claritin] 10 mg PO DAILY 01/16/18 [History] Metoprolol Tartrate 100 mg PO BID 01/16/18 [History] Omeprazole [PriLOSEC] 20 mg PO DAILY 01/16/18 [History] Oxygen 2 l NS AD 01/16/18 [History] Ranitidine HCl [Acid Network Architect] 150 mg PO BID 01/16/18 [History] Spironolactone [Aldactone] 50 mg PO BID 01/16/18 [History] Venlafaxine [Effexor] 37.5 mg PO BID 01/16/18 [History] diazePAM [Valium] 10 mg PO BID PRN 01/16/18 [History] GuaiFENesin ER [Mucinex] 600 mg PO BID PRN #30 tbbp.12hr 02/24/18 [Rx] Nicotine Patch [Nicoderm] 21 mg TD DAILY #30 patch.td24 02/24/18 [Rx] Insulin Regular U-500 [HumuLIN R U-500] 0 - 50 units SQ TID 05/10/18 [History] Albuterol Sulfate [Ventolin Hfa] 2 puff IH Q6H PRN 05/11/18 [History] Magnesium Oxide [Magnesium] 400 mg PO DAILY 05/27/18 [History] 3 Allergy/AdvReac Type Severity Reaction Status Date / Time Estrogens Allergy Hives Verified 01/16/18 17:28 gabapentin Allergy Swelling Verified 01/16/18 17:28 of Lip/Tongue/Throat Penicillins Allergy Itching Verified 01/16/18 17:28 aspirin [ASA] AdvReac See Verified 01/16/18 17:28 Comments lisinopril AdvReac Cough Verified 01/16/18 17:28 All Systems PM: A 10-system review of systems was performed and is negative for pertinent findings except as documented above in the HPI. - Constitutional Constitutional: as per HPI - Cardiovascular Cardiovascular ROS IM: as per HPI - Respiratory Respiratory: as per HPI - Gastrointestinal Gastrointestinal: as per HPI - Genitourinary Genitourinary: as per HPI - Integumentary Integumentary IM: as per HPI - Neurological Neurological ROS: as per HPI - Constitutional Vitals: Temp Pulse Resp BP Pulse Ox 98.6 F 72 18 129/69 94 05/27/18 13:59 05/27/18 17:52 05/27/18 17:52 05/27/18 17:52 05/27/18 17:52 General appearance: Present: A&O X 3 Exam: . - Head Head exam: Present: atraumatic, normocephalic - Eye Eye exam: Present: PERRL, conjuntiva pink, sclera anicteric Pupils: Present: PERRL - Respiratory Respiratory exam: Present: decreased breath sounds, CTAB, rhonchi (Mild scattered rhonchi). Absent: accessory muscle use, rales, respiratory distress, wheezes, tachypnea - Cardiovascular Cardiovascular exam: Present: RRR, +S1, +S2. Absent: diastolic murmur, gallop, rubs, systolic murmur - GI/Abdominal GI/Abdominal exam: Present: hyperactive bowel sounds, soft, tenderness (Mild diffuse abdominal tenderness). Absent: firm, guarding, no peritoneal signs Additional comments: Scar tissue mid abdomen - Extremities Exam Extremities exam: Present: warm, radial pulses palpable and symmetrical. Absent : calf tenderness, cyanotic, pedal edema - Neurological Exam Neurological exam: Present: alert, CN II-XII intact, oriented X3, no focal deficits, strengths equal and symetr throughout. Absent: pronater drift, facial droop, speech deficit - Psychiatric Psychiatric exam: Present: normal affect, normal mood. Absent: homicidal ideation, suicidal ideation - Skin Skin exam: Present: dry, intact Internal Med - H&P Results - Labs CBC & Chem 7: 05/27/18 14:54 05/27/18 14:24 - Impressions Impressions Abdomen/Pelvis CT 05/27/18 14:23 IMPRESSION: No definite acute findings within the abdomen or pelvis. Stable large anterior abdominal wall hernia containing nonobstructed loops of small bowel and mid to distal large bowel. Mild diverticulosis of the distal colon without evidence for diverticulitis. D/ / Art Keller MD / Art Keller MD Interpreting Provider: Art Keller MD Head CT 05/27/18 14:23 IMPRESSION: No acute intracranial abnormality. D/ / Janes Sevilla MD / Janes Sevilla MD Interpreting Provider: Janes Sevilla MD Chest X-Ray 05/27/18 14:24 IMPRESSION: Increased ill-defined bilateral infrahilar opacity concerning for developing pneumonia given history of fever. D/ / Isac Cedillo / Isac Cedillo Interpreting Provider: Isac Cedillo - Assessment and plan (1) Community acquired pneumonia Current Visit: Yes Status: Acute Assessment and plan: Presents with mild shortness of breath Chest x-ray reveals an ill-defined bilateral infrahilar opacity concerning for developing pneumonia Patient also noting intermittent fevers off and on over the last week and a half , fever of 101 this morning Continue to treat as community-acquired pneumonia Allergies to penicillin, will treat with Levaquin at this time for a five-day course No Leukocytosis, patient does not appear toxic Repeat labs daily Lovenox for DVT prophylaxis Qualifiers: Laterality: unspecified laterality Qualified Code(s): J18.9 - Pneumonia, unspecified organism (2) Hypophosphatemia Current Visit: Yes Status: Acute Assessment and plan: Replete as necessary (3) HTN (hypertension) Current Visit: No Status: Chronic Assessment and plan: Per history, stable, continue anti-HTN medications this time, monitor and titrate BP meds accordingly Qualifiers: Hypertension type: essential hypertension Qualified Code(s): I10 - Essential (primary) hypertension (4) COPD (chronic obstructive pulmonary disease) Current Visit: No Status: Chronic Assessment and plan: [place], stable, continue with when necessary respiratory supportive measures, continue COPD medications Qualifiers: COPD type: chronic bronchitis Chronic bronchitis type: simple Qualified Code(s): J41.0 - Simple chronic bronchitis (5) Hyperlipemia Current Visit: No Status: Chronic Assessment and plan: Continue Lipitor Qualifiers: Hyperlipidemia type: unspecified Qualified Code(s): E78.5 - Hyperlipidemia , unspecified (6) CAD (coronary artery disease) of artery bypass graft Current Visit: No Status: Chronic Assessment and plan: History of CAD Presents with atypical chest pain Dull left sided chest pain and sharp right-sided chest pain Pain is worse with palpation and inspiration Suspicion for pneumonia per chest x-ray; likely the source Initial troponin negative, EKG without any ST-T wave changes concerning for ischemia However due to significant history of CAD we will continue to cycle troponins at this time. Recent cardiac catheter on 01/2018 showing triple-vessel disease as per her history, history of CABG 3 patent bypass grafts; optimize medical management Recent TTE grossly normal Low suspicion for coronary cause of chest pain Continue monitor on telemetry Continue serial troponins Continue all cardiac medications Qualifiers: [place] vs. transplanted heart: [place] heart Associated angina: without angina Qualified Code(s): I25.810 - Atherosclerosis of coronary artery bypass graft(s) without angina pectoris (7) Type 2 diabetes mellitus Current Visit: No Status: Chronic Assessment and plan: Type 2 diabetes. History, hyperglycemia upon admission Start medium sliding scale insulin coverage monitor and titrate as appropriate Qualifiers: Diabetes mellitus jail insulin use: without jail use Diabetes mellitus complication status: with neurologic complications Diabetes mellitus complication detail: with polyneuropathy Qualified Code(s): E11.42 - Type 2 diabetes mellitus with diabetic polyneuropathy (8) Colostomy and enterostomy malfunction Current Visit: No Status: Acute Assessment and plan: Ileostomy and colostomy Colostomy is without drainage this time, ileostomy with liquid drainage Continue home medications (9) Chest pain Current Visit: No Status: Resolved Assessment and plan: As above Qualifiers: Chest pain type: unspecified Qualified Code(s): R07.9 - Chest pain, unspecified (10) Lactic acidosis Current Visit: No Status: Acute Assessment and plan: Recheck lactate Patient hemodynamically stable and does not appear toxic Low suspicion for sepsis CT of head and abdomen and pelvis without acute process (11) Hypomagnesemia Current Visit: No Status: Acute Assessment and plan: Replete as necessary - Time Spent With Patient Total time spent is greater than 50% in coordination of care (as documented) at patient's floor/unit and/or counseling patient: less than 15 minutes
[2018-05-27 19:44] LABS: Basophils # 0.1 K/mcL (0.0-0.2); Basophils % 0.6 %; Eosinophils # 0.1 K/mcL (0.0-0.6); Eosinophils % 1.8 %; Hematocrit 40.2 % (35.3-44.9); Hemoglobin 13.6 g/dL (11.5-15.4); Immature Granulocytes % 0.8 % (0-4); Lymphocytes # 1.7 K/mcL (0.6-4.6); Lymphocytes % 21.4 %; Mean Corpuscular HGB Conc 33.8 g/dL (31.6-35.5); Mean Corpuscular Hemoglobin 32.1 pg (28.0-33.3); Mean Corpuscular Volume 94.8 fL (83.0-100.0); Mean Platelet Volume 12.2 fL (9.4-12.4); Monocytes # 0.6 K/mcL (0.0-1.3); Monocytes % 7.2 %; Neutrophils # 5.4 K/mcL (1.6-8.9); Platelet Count 139 K/mcL (140-400); Red Blood Count 4.24 M/mcL (3.82-4.97); Red Cell Distribution Width 13.7 % (11.5-14.5); Segmented Neutrophils % 68.2 %
[2018-05-27] MEDS ORDERED: ISOSORBIDE MONONITRATE 20 MG PO SCH (21:00)
[2018-05-27] MEDS ORDERED: Insulin LISPRO 300 UNITS/3 ML VIAL SQ SCH (21:00)
[2018-05-27] MEDS: Spironolactone 25 MG TABLET PO SCH (21:20)
[2018-05-27] MEDS: traMADol 50 MG TABLET PO PRN (21:20)
[2018-05-27] MEDS: Metoprolol 100 MG TABLET PO SCH (21:21)
[2018-05-27] MEDS: Famotidine 20 MG TABLET PO SCH (21:21)
[2018-05-27] MEDS ORDERED: Acetaminophen 325 MG TABLET PO ONE (23:30)
[2018-05-27] MEDS: 0.9 % Sodium Chloride 1,000 ML IVC SCH (23:34)
[2018-05-28] MEDS: Isosorbide MONOnitrate (24 HR) 30 MG TAB.ER.24H PO SCH ×3 (00:32→20:30)
[2018-05-28] MEDS: Levofloxacin 750 MG/150 ML 750 MG/150 ML BAG IVPB SCH ×2 (01:15→22:03)
[2018-05-28 02:06] LABS: Basophils % 0.5 %; Eosinophils # 0.2 K/mcL (0.0-0.6); Hematocrit 39.5 % (35.3-44.9); Hemoglobin 13.5 g/dL (11.5-15.4); Lymphocytes # 1.7 K/mcL (0.6-4.6); Lymphocytes % 21.4 %; Mean Corpuscular HGB Conc 34.2 g/dL (31.6-35.5); Mean Corpuscular Hemoglobin 32.7 pg (28.0-33.3); Mean Corpuscular Volume 95.6 fL (83.0-100.0); Monocytes # 0.6 K/mcL (0.0-1.3); Monocytes % 7.4 %; Neutrophils # 5.3 K/mcL (1.6-8.9); Platelet Count 135 K/mcL (140-400); Red Blood Count 4.13 M/mcL (3.82-4.97); Red Cell Distribution Width 13.5 % (11.5-14.5); Segmented Neutrophils % 67.7 %
[2018-05-28 02:11] LABS: Magnesium 1.7 mg/dL (1.6-2.6); Phosphorous 3.1 mg/dL (2.7-4.5)
[2018-05-28] MEDS: traMADol 50 MG TABLET PO PRN ×2 (04:16→18:45)
[2018-05-28] MEDS ORDERED: Insulin LISPRO 300 UNITS/3 ML VIAL SQ SCH (07:30)
[2018-05-28] MEDS: Cholecalciferol (D-3) 1,000 UNIT TABLET PO SCH (08:12)
[2018-05-28] MEDS: Magnesium Oxide 400 MG TABLET PO SCH (08:12)
[2018-05-28] MEDS: Spironolactone 25 MG TABLET PO SCH ×2 (08:12→20:30)
[2018-05-28] MEDS: Metoprolol 100 MG TABLET PO SCH ×2 (08:12→20:31)
[2018-05-28] MEDS: Famotidine 20 MG TABLET PO SCH ×2 (08:12→20:31)
[2018-05-28] MEDS: Loratadine 10 MG TABLET PO SCH (08:12)
[2018-05-28] MEDS: Nicotine 21 MG PATCH.TD24 TD SCH (08:13)
[2018-05-28 08:14] LABS: Basophils % 0.7 %; Eosinophils # 0.1 K/mcL (0.0-0.6); Eosinophils % 2.2 %; Hematocrit 39.7 % (35.3-44.9); Hemoglobin 13.4 g/dL (11.5-15.4); Immature Granulocytes % 0.5 % (0-4); Lymphocytes # 1.4 K/mcL (0.6-4.6); Lymphocytes % 22.7 %; Mean Corpuscular HGB Conc 33.8 g/dL (31.6-35.5); Mean Corpuscular Hemoglobin 32.6 pg (28.0-33.3); Mean Corpuscular Volume 96.6 fL (83.0-100.0); Mean Platelet Volume 12.2 fL (9.4-12.4); Monocytes # 0.5 K/mcL (0.0-1.3); Monocytes % 8.8 %; Neutrophils # 3.9 K/mcL (1.6-8.9); Platelet Count 134 K/mcL (140-400); Red Blood Count 4.11 M/mcL (3.82-4.97); Red Cell Distribution Width 13.7 % (11.5-14.5); Segmented Neutrophils % 65.1 %
--- NOTE | 2018-05-28 09:13 | Internal Med Progress Note ---
Hospitalist Progress Note - Encounter Date of Encounter: 05/28/18 Time of Encounter: 09:11 - Subjective Interval History: Patient seen and examined at bedside today, continues to have generalized complaints. She is complaining of nonproductive cough and mild shortness of breath as well as abdominal discomfort and anterior bilateral floating rib pain. She reports this is chronic and not any worse than normal. Denies any neurological signs or symptoms at this time. Additionally, she is continuing to have dull left-sided chest pain and sharp right chest pain which is intermittent. Not having any active chest pain at this time. She denies any nausea, vomiting. She does admit to worsening of her stools and her ileostomy but denies any additional output. Denies any fever, chills. Her main complaint is she just feels lousy. - Exam Vitals: Temp Pulse Resp BP Pulse Ox 97.7 F 66 14 106/67 95 05/28/18 06:42 05/28/18 06:42 05/28/18 06:42 05/28/18 06:42 05/28/18 06:42 Exam: PHYSICAL EXAMINATION: GENERAL: The patient is an ill-appearing morbidly obese female who appears weak and fatigued. She is alert and oriented 3 HEENT: Head is normocephalic and atraumatic. Extraocular muscles are intact. Pupils are equal, round, and reactive to light and accommodation. Nares appeared normal. Mouth is well hydrated and without lesions. Mucous membranes are moist. NECK: Supple. No carotid bruits. No lymphadenopathy or thyromegaly. LUNGS: Clear/diminished to auscultation throughout bilaterally AP and L. HEART: RRR, S1, S2 without murmur rubs or gallops. ABDOMEN: Round with mild distention, nontender, positive for diffuse abdominal tenderness and hyperactive bowel sounds. There is a colostomy present in the right lower quadrant covered with gauze dressing. Patient reports that this does not have any output and has never had any output. Colostomy is pink. Additionally, patient has ileostomy present with thin liquid brown stools. EXTREMITIES: Without any cyanosis, clubbing, rash, lesions. Positive for bilateral lower extremity generalized nonpitting edema. NEUROLOGIC: Cranial nerves II through XII are grossly intact. PSYCHIATRIC: Flat affect, but denies suicidal or homicidal ideations. SKIN: No ulceration or induration present. - Assessment and Plan (1) Community acquired pneumonia Current Visit: Yes Status: Acute Assessment and Plan: Presents with mild shortness of breath Chest x-ray reveals an ill-defined bilateral infrahilar opacity concerning for developing pneumonia Patient also noting intermittent fevers off and on over the last week and a half , fever of 101 this morning Continue to treat as community-acquired pneumonia Allergies to penicillin, will treat with Levaquin at this time for a five-day course No Leukocytosis, patient does not appear toxic Repeat labs daily Lovenox for DVT prophylaxis 05/28-- Clinically, the patient remains stable and is not in any respiratory distress. She is wearing 2LNC, but does not wear O2 at home. She will need qualified for home O2 d/t hypoxia prior to d/c. Continue treatment as outlined above including antibiotics and aerosols. She has been afebrile during admission and continues to be hemodynamically stable. Blood cultures pending (2) Hypophosphatemia Current Visit: Yes Status: Resolved (3) HTN (hypertension) Current Visit: No Status: Chronic Assessment and Plan: Per history, stable, continue heat HTN medications (4) COPD (chronic obstructive pulmonary disease) Current Visit: No Status: Chronic Assessment and Plan: Treat as above (5) Hyperlipemia Current Visit: No Status: Chronic Assessment and Plan: Continue Lipitor (6) CAD (coronary artery disease) of artery bypass graft Current Visit: No Status: Chronic Assessment and Plan: History of CAD Presents with atypical chest pain Dull left sided chest pain and sharp right-sided chest pain Pain is worse with palpation and inspiration Suspicion for pneumonia per chest x-ray; likely the source Initial troponin negative, EKG without any ST-T wave changes concerning for ischemia However due to significant history of CAD we will continue to cycle troponins at this time. Recent cardiac catheter on 01/2018 showing triple-vessel disease as per her history, history of CABG 3 patent bypass grafts; optimize medical management Recent TTE grossly normal Low suspicion for coronary cause of chest pain Continue monitor on telemetry Continue serial troponins Continue all cardiac medications 05/28--chest pain persists continues to have dull left-sided sharp right-sided. Atypical presentation. Low suspicion for ACS. Troponins negative 3 EKG without any acute changes compared to prior. Continue to closely monitor on telemetry continue all cardiac medications (7) Type 2 diabetes mellitus Current Visit: No Status: Chronic Assessment and Plan: Per history Continues to have hyperglycemia Increase Hytrin scale coverage (8) Colostomy and enterostomy malfunction Current Visit: No Status: Acute Assessment and Plan: Ileostomy and colostomy Colostomy is without drainage at this time (patient reports this as normal) ileostomy with liquid drainage Continue home medications (9) Chest pain Current Visit: No Status: Resolved Assessment and Plan: As above (10) Lactic acidosis Current Visit: No Status: Acute Assessment and Plan: Does not appear acutely ill CT head and abdomen and pelvis without acute findings Repeat lactic acid improving Recheck this afternoon (11) Hypomagnesemia Current Visit: No Status: Resolved - Time Spent with Patient Total time spent is greater than 50% in coordination of care (as documented) at patient's floor/unit and/or counseling patient: less than 15 minutes Plan of Care Discussed with: patient Internal Medicine: Result - Labs CBC & Chem 7: 05/28/18 07:30 05/27/18 14:24 Labs: Short CBC 05/27/18 05/28/18 05/28/18 Range/Units 19:28 01:38 07:30 WBC 7.9 7.8 6.0 (4.3-11.1) K/mcL Hgb 13.6 13.5 13.4 (11.5-15.4) g/dL Hct 40.2 39.5 39.7 (35.3-44.9) % Plt Count 139 L 135 L 134 L (140-400) K/mcL Neutrophils # 5.4 5.3 3.9 (1.6-8.9) K/mcL Cardiac Enzymes 05/27/18 05/28/18 Range/Units 19:28 01:38 Troponin I < 0.03 < 0.03 (< 0.04) ng/mL - ABG Interpretation ABG results: PT/INR, D-dimer PT 11.0 Seconds (9.4-12.1) 05/27/18 14:26 Consult Discharge Plan - Plan Referrals: NONE,PCP [Primary Care Provider] - (1) Community acquired pneumonia Qualifiers: Laterality: unspecified laterality Qualified Code(s): J18.9 - Pneumonia, unspecified organism (3) HTN (hypertension) Qualifiers: Hypertension type: essential hypertension Qualified Code(s): I10 - Essential (primary) hypertension (4) COPD (chronic obstructive pulmonary disease) Qualifiers: COPD type: chronic bronchitis Chronic bronchitis type: simple Qualified Code (s): J41.0 - Simple chronic bronchitis (5) Hyperlipemia Qualifiers: Hyperlipidemia type: unspecified Qualified Code(s): E78.5 - Hyperlipidemia, unspecified (6) CAD (coronary artery disease) of artery bypass graft Qualifiers: [place] vs. 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
[2018-05-28] MEDS: 0.9 % Sodium Chloride 1,000 ML IVC SCH (15:20)
[2018-05-28] MEDS: Acetaminophen/Aspirin/Caffeine TABLET PO PRN (15:20)
--- NOTE | 2018-05-28 17:09 | Electrocardiograph Report ---
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
[2018-05-28] MEDS: Insulin LISPRO 300 UNITS/3 ML VIAL SQ SCH ×2 (18:44→22:00)
[2018-05-29] MEDS: 0.9 % Sodium Chloride 1,000 ML IVC SCH ×2 (05:54→17:03)
[2018-05-29 07:32] LABS: Basophils % 0.6 %; Eosinophils # 0.1 K/mcL (0.0-0.6); Hemoglobin 13.6 g/dL (11.5-15.4); Immature Granulocytes % 0.8 % (0-4); Lymphocytes # 1.4 K/mcL (0.6-4.6); Lymphocytes % 20.6 %; Mean Corpuscular HGB Conc 34.9 g/dL (31.6-35.5); Mean Corpuscular Hemoglobin 32.9 pg (28.0-33.3); Mean Corpuscular Volume 94.2 fL (83.0-100.0); Mean Platelet Volume 11.8 fL (9.4-12.4); Monocytes # 0.6 K/mcL (0.0-1.3); Monocytes % 8.5 %; Neutrophils # 4.4 K/mcL (1.6-8.9); Platelet Count 144 K/mcL (140-400); Red Blood Count 4.14 M/mcL (3.82-4.97); Red Cell Distribution Width 13.3 % (11.5-14.5); Segmented Neutrophils % 67.5 %
[2018-05-29 07:44] LABS: BUN/Creatinine Ratio 12 (6-26); Blood Urea Nitrogen 12 mg/dL (6-20); Calcium 9.4 mg/dL (8.6-10.3); Carbon Dioxide 26 mEq/L (23-29); Chloride 100 mEq/L (98-107); Glucose 362 mg/dL (70-105); Magnesium 1.5 mg/dL (1.6-2.6); Osmolality,Calculated 292 (280-300); Phosphorous 3.1 mg/dL (2.7-4.5); Potassium 4.1 mEq/L (3.5-5.1); Sodium 134 mEq/L (136-145); eGFR For Non-African Americans 55 (> 60)
[2018-05-29] MEDS: Loratadine 10 MG TABLET PO SCH (08:41)
[2018-05-29] MEDS: Cholecalciferol (D-3) 1,000 UNIT TABLET PO SCH (08:41)
[2018-05-29] MEDS: Spironolactone 25 MG TABLET PO SCH ×2 (08:42→20:23)
[2018-05-29] MEDS: Insulin LISPRO 300 UNITS/3 ML VIAL SQ SCH ×5 (08:42→21:21)
[2018-05-29] MEDS: Nicotine 21 MG PATCH.TD24 TD SCH (08:42)
[2018-05-29] MEDS: Magnesium Oxide 400 MG TABLET PO SCH (08:42)
[2018-05-29] MEDS: Isosorbide MONOnitrate (24 HR) 30 MG TAB.ER.24H PO SCH ×2 (08:42→20:23)
[2018-05-29] MEDS: Famotidine 20 MG TABLET PO SCH ×2 (08:42→20:23)
[2018-05-29] MEDS: Metoprolol 100 MG TABLET PO SCH ×2 (08:43→20:16)
--- NOTE | 2018-05-29 10:07 | Internal Med Progress Note ---
Hospitalist Progress Note - Encounter Date of Encounter: 05/29/18 Time of Encounter: 10:03 - Subjective Interval History: Patient seen and examined at bedside today, no changes in condition overnight. Reports shortness of breath is improving - Exam Vitals: Temp Pulse Resp BP Pulse Ox 97.8 F 75 16 100/63 98 05/29/18 07:21 05/29/18 07:21 05/29/18 07:21 05/29/18 07:21 05/29/18 07:21 Exam: PHYSICAL EXAMINATION: GENERAL: The patient is an ill-appearing morbidly obese female who appears weak and fatigued. She is alert and oriented 3 HEENT: Head is normocephalic and atraumatic. Extraocular muscles are intact. Pupils are equal, round, and reactive to light and accommodation. Nares appeared normal. Mouth is well hydrated and without lesions. Mucous membranes are moist. NECK: Supple. No carotid bruits. No lymphadenopathy or thyromegaly. LUNGS: Clear/diminished to auscultation throughout bilaterally AP and L. HEART: RRR, S1, S2 without murmur rubs or gallops. ABDOMEN: Round abdomen with mild distention; positive for diffuse abdominal tenderness and hyperactive bowel sounds. There is a colostomy present in the right lower quadrant covered with gauze dressing. Patient reports that this does not have any output and has never had any output. Colostomy is pink. Additionally, patient has ileostomy present with thin liquid brown stools. EXTREMITIES: Without any cyanosis, clubbing, rash, lesions. Positive for bilateral lower extremity generalized nonpitting edema. NEUROLOGIC: Cranial nerves II through XII are grossly intact. PSYCHIATRIC: appropriate affect, but denies suicidal or homicidal ideations. SKIN: No ulceration or induration present. - Assessment and Plan (1) Community acquired pneumonia Current Visit: Yes Status: Acute Assessment and Plan: Presents with mild shortness of breath Chest x-ray reveals an ill-defined bilateral infrahilar opacity concerning for developing pneumonia Patient also noting intermittent fevers off and on over the last week and a half , fever of 101 this morning Continue to treat as community-acquired pneumonia Allergies to penicillin, will treat with Levaquin at this time for a five-day course No Leukocytosis, patient does not appear toxic Repeat labs daily Lovenox for DVT prophylaxis 05/28-- Clinically, the patient remains stable and is not in any respiratory distress. She is wearing 2LNC, but does not wear O2 at home. She will need qualified for home O2 d/t hypoxia prior to d/c. Continue treatment as outlined above including antibiotics and aerosols. She has been afebrile during admission and continues to be hemodynamically stable. Blood cultures pending 05/29--Continuing to require 2LNC; reports having chronic home O2 and 2LNC is baseline. Does not appear to be in respiratory distress and she reports that she is feeling better today, but she is continuing to have dyspnea with exertion. WBC 6.6 Afebrile since stay. Continue with ABX and aerosols. Blood cultures pending. If she continues to improve overnight consider d/c tomorrow ABX dose #3 of 5-day course (2) Hypophosphatemia Current Visit: Yes Status: Resolved (3) HTN (hypertension) Current Visit: No Status: Chronic Assessment and Plan: Per history, stable, continue anti-HTN medications (4) COPD (chronic obstructive pulmonary disease) Current Visit: No Status: Chronic Assessment and Plan: Treat as above (5) Hyperlipemia Current Visit: No Status: Chronic Assessment and Plan: Continue Lipitor (6) CAD (coronary artery disease) of artery bypass graft Current Visit: No Status: Chronic Assessment and Plan: History of CAD Presents with atypical chest pain Dull left sided chest pain and sharp right-sided chest pain Pain is worse with palpation and inspiration Suspicion for pneumonia per chest x-ray; likely the source Initial troponin negative, EKG without any ST-T wave changes concerning for ischemia However due to significant history of CAD we will continue to cycle troponins at this time. Recent cardiac catheter on 01/2018 showing triple-vessel disease as per her history, history of CABG 3 patent bypass grafts; optimize medical management Recent TTE grossly normal Low suspicion for coronary cause of chest pain Continue monitor on telemetry Continue serial troponins Continue all cardiac medications 05/29--chest pain persists; dull on left, sharp on right. Atypical presentation. Consider pleural pain with Dx of PNA. Low suspicion for ACS. Troponins negative 3 EKG without any acute changes compared to prior. Continue to closely monitor, continue telemetry, continue all cardiac medications (7) Type 2 diabetes mellitus Current Visit: No Status: Chronic Assessment and Plan: Per history Continues to have hyperglycemia Increase to high sliding scale coverage Add BID basal insulin 10units (8) Colostomy and enterostomy malfunction Current Visit: No Status: Acute Assessment and Plan: Ileostomy and colostomy Colostomy is without drainage at this time (patient reports this as normal) ileostomy with liquid drainage Continue home medications (9) Chest pain Current Visit: No Status: Resolved Assessment and Plan: As above (10) Lactic acidosis Current Visit: No Status: Resolved (11) Hypomagnesemia Current Visit: No Status: Acute Assessment and Plan: replete PRN - Time Spent with Patient Total time spent is greater than 50% in coordination of care (as documented) at patient's floor/unit and/or counseling patient: less than 15 minutes Plan of Care Discussed with: patient Internal Medicine: Result - Labs CBC & Chem 7: 05/29/18 07:13 05/29/18 07:13 Labs: Short CBC 05/29/18 Range/Units 07:13 WBC 6.6 (4.3-11.1) K/mcL Hgb 13.6 (11.5-15.4) g/dL Hct 39.0 (35.3-44.9) % Plt Count 144 (140-400) K/mcL Neutrophils # 4.4 (1.6-8.9) K/mcL BMP 05/29/18 07:13 Sodium 134 L Potassium 4.1 Chloride 100 Carbon Dioxide 26 BUN 12 Creatinine 1.02 Glucose 362 H Calcium 9.4 - ABG Interpretation ABG results: PT/INR, D-dimer PT 11.0 Seconds (9.4-12.1) 05/27/18 14:26 Consult Discharge Plan - Plan Referrals: NONE,PCP [Primary Care Provider] - (1) Community acquired pneumonia Qualifiers: Laterality: unspecified laterality Qualified Code(s): J18.9 - Pneumonia, unspecified organism (3) HTN (hypertension) Qualifiers: Hypertension type: essential hypertension Qualified Code(s): I10 - Essential (primary) hypertension (4) COPD (chronic obstructive pulmonary disease) Qualifiers: COPD type: chronic bronchitis Chronic bronchitis type: simple Qualified Code (s): J41.0 - Simple chronic bronchitis (5) Hyperlipemia Qualifiers: Hyperlipidemia type: unspecified Qualified Code(s): E78.5 - Hyperlipidemia, unspecified (6) CAD (coronary artery disease) of artery bypass graft Qualifiers: [place] vs. transplanted heart: [place] heart Associated angina: without angina Qualified Code(s): I25.810 - Atherosclerosis of coronary artery bypass graft(s) without angina pectoris (7) Type 2 diabetes mellitus Qualifiers: Diabetes mellitus snf insulin use: without snf use Diabetes mellitus complication status: with neurologic complications Diabetes mellitus complication detail: with polyneuropathy Qualified Code(s): E11.42 - Type 2 diabetes mellitus with diabetic polyneuropathy (9) Chest pain Qualifiers: Chest pain type: unspecified Qualified Code(s): R07.9 - Chest pain, unspecified
[2018-05-29] MEDS: traMADol 50 MG TABLET PO PRN (11:22)
[2018-05-29] MEDS: Insulin DETEMIR 100 UNIT/ML X5UNITS SQ SCH ×2 (11:22→21:21)
[2018-05-29] MEDS ORDERED: Ketorolac 30 MG/ML VIAL IVP ONE (16:01)
[2018-05-29] MEDS: Ondansetron 4 MG/2 ML VIAL IVP PRN (17:01)
[2018-05-29] MEDS: Acetaminophen/Aspirin/Caffeine TABLET PO PRN (20:23)
[2018-05-29] MEDS: Levofloxacin 750 MG/150 ML 750 MG/150 ML BAG IVPB SCH (21:20)
[2018-05-30] MEDS: traMADol 50 MG TABLET PO PRN (02:13)
[2018-05-30] MEDS: Ondansetron 4 MG/2 ML VIAL IVP PRN (02:16)
[2018-05-30] MEDS: 0.9 % Sodium Chloride 1,000 ML IVC SCH (02:17)
[2018-05-30 06:23] LABS: Basophils % 0.7 %; Eosinophils # 0.1 K/mcL (0.0-0.6); Eosinophils % 2.4 %; Hematocrit 36.8 % (35.3-44.9); Hemoglobin 12.5 g/dL (11.5-15.4); Immature Granulocytes % 0.7 % (0-4); Lymphocytes # 1.2 K/mcL (0.6-4.6); Lymphocytes % 20.2 %; Mean Corpuscular Hemoglobin 31.8 pg (28.0-33.3); Mean Corpuscular Volume 93.6 fL (83.0-100.0); Mean Platelet Volume 11.8 fL (9.4-12.4); Monocytes # 0.5 K/mcL (0.0-1.3); Monocytes % 8.4 %; Neutrophils # 3.9 K/mcL (1.6-8.9); Platelet Count 120 K/mcL (140-400); Red Blood Count 3.93 M/mcL (3.82-4.97); Red Cell Distribution Width 13.2 % (11.5-14.5); Segmented Neutrophils % 67.6 %
[2018-05-30 06:47] LABS: Potassium 4.5 mEq/L (3.5-5.1)
[2018-05-30] MEDS: Nicotine 21 MG PATCH.TD24 TD SCH (08:45)
[2018-05-30] MEDS: Isosorbide MONOnitrate (24 HR) 30 MG TAB.ER.24H PO SCH (08:45)
[2018-05-30] MEDS: Famotidine 20 MG TABLET PO SCH (08:46)
[2018-05-30] MEDS: Loratadine 10 MG TABLET PO SCH (08:46)
[2018-05-30] MEDS: Cholecalciferol (D-3) 1,000 UNIT TABLET PO SCH (08:46)
[2018-05-30] MEDS: Magnesium Oxide 400 MG TABLET PO SCH (08:46)
[2018-05-30] MEDS: Metoprolol 100 MG TABLET PO SCH (08:46)
[2018-05-30] MEDS: Spironolactone 25 MG TABLET PO SCH (08:46)
[2018-05-30] MEDS: Insulin LISPRO 300 UNITS/3 ML VIAL SQ SCH ×4 (09:41→13:01)
[2018-05-30] MEDS: Insulin DETEMIR 100 UNIT/ML X5UNITS SQ SCH (09:44)
[2018-05-30 10:26] VITALS: BP 127/71
--- NOTE | 2018-05-30 11:16 | Discharge Summary ---
- NOTES TO OUTPATIENT PROVIDER Notes to Outpatient Provider: basic d/c follow-up. CAP; treated with ABX d/c with levaquin. D/C with home O2 Date of Encounter: 05/30/18 Time of Encounter: 11:14 - Discharge Diagnosis (1) Community acquired pneumonia Priority: Primary Status: Acute Assessment and Plan: Presents with mild shortness of breath Chest x-ray reveals an ill-defined bilateral infrahilar opacity concerning for developing pneumonia Patient also noting intermittent fevers off and on over the last week and a half , fever of 101 this morning Continue to treat as community-acquired pneumonia Allergies to penicillin, will treat with Levaquin at this time for a five-day course No Leukocytosis, patient does not appear toxic Repeat labs daily Lovenox for DVT prophylaxis 05/28-- Clinically, the patient remains stable and is not in any respiratory distress. She is wearing 2LNC, but does not wear O2 at home. She will need qualified for home O2 d/t hypoxia prior to d/c. Continue treatment as outlined above including antibiotics and aerosols. She has been afebrile during admission and continues to be hemodynamically stable. Blood cultures pending 05/29--Continuing to require 2LNC; reports having chronic home O2 and 2LNC is baseline. Does not appear to be in respiratory distress and she reports that she is feeling better today, but she is continuing to have dyspnea with exertion. WBC 6.6 Afebrile since stay. Continue with ABX and aerosols. Blood cultures pending. If she continues to improve overnight consider d/c tomorrow ABX dose #3 of 5-day course 05/30--Clinically she is improving today. Lungs are clear/diminished; requiring O2 @ 2LNC. Qualified for continuous Home O2; already has nocturnal O2. Ow Rx signed and will receive through [facility]. Continue Levaquin for 4 days at d/c. Remains afebrile and WBC 5.8 today. Not in respiratory distress today. Blood cultures preliminary negative Qualifiers: Laterality: unspecified laterality Qualified Code(s): J18.9 - Pneumonia, unspecified organism (2) Hypophosphatemia Priority: Secondary Status: Resolved (3) HTN (hypertension) Priority: Secondary Status: Chronic Qualifiers: Hypertension type: essential hypertension Qualified Code(s): I10 - Essential (primary) hypertension (4) COPD (chronic obstructive pulmonary disease) Priority: Secondary Status: Chronic Qualifiers: COPD type: chronic bronchitis Chronic bronchitis type: simple Qualified Code(s): J41.0 - Simple chronic bronchitis (5) Hyperlipemia Priority: Secondary Status: Chronic Qualifiers: Hyperlipidemia type: unspecified Qualified Code(s): E78.5 - Hyperlipidemia , unspecified (6) CAD (coronary artery disease) of artery bypass graft Priority: Secondary Status: Chronic Qualifiers: [place] vs. transplanted heart: [place] heart Associated angina: without angina Qualified Code(s): I25.810 - Atherosclerosis of coronary artery bypass graft(s) without angina pectoris (7) Type 2 diabetes mellitus Priority: Secondary Status: Chronic Assessment and Plan: hyperglycemia persists likely caused by changing insulin regimen on d/c continue U500; I suspect that BG will improve after d/c Qualifiers: Diabetes mellitus half-way insulin use: without half-way use Diabetes mellitus complication status: with neurologic complications Diabetes mellitus complication detail: with polyneuropathy Qualified Code(s): E11.42 - Type 2 diabetes mellitus with diabetic polyneuropathy (8) Colostomy and enterostomy malfunction Priority: Secondary Status: Acute (9) Chest pain Priority: Secondary Status: Resolved Qualifiers: Chest pain type: unspecified Qualified Code(s): R07.9 - Chest pain, unspecified (10) Lactic acidosis Priority: Secondary Status: Resolved (11) Hypomagnesemia Priority: Secondary Status: Acute Hospital course: Ms. Price is a 57 year old female with a PMH of CHF, COPD, coronary artery disease, diabetes, GERD and a surgical history of angioplasty/stent, appendectomy, cholecystectomy, colectomy, colostomy, coronary bypass (CABG), hysterectomy. Found to have CAP. Treated with Levaquin, and continuous respiratory support with 2LNC. Improving at d/c. Continues to require 2LNC for support. Wears nocturnal oxygen 2L; will give RX for Continuous 2LNC at d/ c. D/C with Levaquin for 4 additional days. Continue home respiratory meds at d/c. F/u with PCP in 1-week of d/c. Ensure appropriate pulmonology f/u. She has been instructed to return to the ED should dyspnea persist or worsen or should she develop fevers, chills, malaise, fatigue or alter LOC. Discharge discussed with: patient, nurse - Time Spent with Patient Total time spent providing and/or coordinating discharge services: Less than 30 minutes - Discharge Medications Home Medications: Atorvastatin [Lipitor] 40 mg PO HS 01/16/18 [History] Cholecalciferol (D-3) [Vitamin D] 5,000 unit PO MOFR 01/16/18 [History] Clopidogrel [Plavix] 75 mg PO DAILY 01/16/18 [History] Isosorbide MONOnitrate [Isosorbide Mononitrate] 20 mg PO BID 01/16/18 [History] Loratadine [Claritin] 10 mg PO DAILY 01/16/18 [History] Metoprolol Tartrate 100 mg PO BID 01/16/18 [History] Omeprazole [PriLOSEC] 20 mg PO DAILY 01/16/18 [History] Ranitidine HCl [Acid Manager Contact] 150 mg PO BID 01/16/18 [History] Spironolactone [Aldactone] 50 mg PO BID 01/16/18 [History] Venlafaxine [Effexor] 37.5 mg PO BID 01/16/18 [History] diazePAM [Valium] 10 mg PO BID PRN 01/16/18 [History] GuaiFENesin ER [Mucinex] 600 mg PO BID PRN #30 tbbp.12hr 02/24/18 [Rx] Nicotine Patch [Nicoderm] 21 mg TD DAILY #30 patch.td24 02/24/18 [Rx] Insulin Regular U-500 [HumuLIN R U-500] 0 - 50 units SQ TID 05/10/18 [History] Albuterol Sulfate [Ventolin Hfa] 2 puff IH Q6H PRN 05/11/18 [History] Magnesium Oxide [Magnesium] 400 mg PO DAILY 05/27/18 [History] Tramadol HCl 50 mg PO QID PRN 05/27/18 [History] Oxygen 2 l NS CONT #0 05/30/18 [Rx] Allergies/Adverse Reactions: 3 Allergy/AdvReac Type Severity Reaction Status Date / Time Estrogens Allergy Hives Verified 01/16/18 17:28 gabapentin Allergy Swelling Verified 01/16/18 17:28 of Lip/Tongue/Throat Penicillins Allergy Itching Verified 01/16/18 17:28 aspartame AdvReac See Verified 05/27/18 21:28 Comments aspirin [ASA] AdvReac See Verified 01/16/18 17:28 Comments lisinopril AdvReac Cough Verified 01/16/18 17:28 Date of admission: 05/29/18 16:20 Primary care physician: PCP NONE Discharging clinician: Ricardo Blount Anticipated date of discharge: 05/30/18 - Constitutional Vitals: Temp Pulse Resp BP Pulse Ox 97.8 F 68 16 127/71 98 05/30/18 10:25 05/30/18 10:25 05/30/18 10:25 05/30/18 10:25 05/30/18 10:25 General appearance: Present: A&O X 3 Exam: . - Head Head exam: Present: atraumatic, normocephalic - Eye Eye exam: Present: PERRL, conjuntiva pink, sclera anicteric Pupils: Present: PERRL - Neck Neck exam general surgery: Present: supple, trachea midline. Absent: lymphadenopathy - Respiratory Respiratory exam: Present: chest wall tenderness (chronic; s/p sternectomy), decreased breath sounds, CTAB, prolonged expiratory phase. Absent: accessory muscle use, rales, respiratory distress, rhonchi, wheezes, tachypnea - Cardiovascular Cardiovascular exam: Present: RRR, +S1, +S2. Absent: diastolic murmur, gallop, rubs, systolic murmur - GI/Abdominal GI/Abdominal exam: Present: hyperactive bowel sounds, normal bowel sounds, soft , no peritoneal signs. Absent: distended, tenderness Additional comments: ileostomy with soft brown/weaver stools - Extremities Exam Extremities exam: Present: warm, radial pulses palpable and symmetrical. Absent : calf tenderness, cyanotic, pedal edema - Neurological Exam Neurological exam: Present: alert, CN II-XII intact, oriented X3, no focal deficits. Absent: pronater drift, facial droop, speech deficit - Skin Skin exam: Present: dry, intact - Patient Status Disposition: Home Health Service Condition: Good Overall status at discharge: patient is progressing back to baseline - Discharge Instructions Instructions: Pneumonia (DC), Chronic Obstructive Pulmonary Disease (DC), Diabetes Mellitus Type 2 in Adults (DC), Chronic Hypertension (DC) Follow Up With: NONE,PCP [Primary Care Provider] - - Diet and Activity Activity: increase activity as tolerated, resume usual activities as tolerated, wear oxygen at all times Diet: diabetic diet, low fat, low cholesterol, low salt diet
--- NOTE | 2018-05-30 11:32 | Physician Discharge Referral ---
Home Health/Hosp Referral Info Transfer to: Home Health Attending Provider: Alok [facility] Provider in Charge Post Discharge: PCP - Diagnosis (1) Community acquired pneumonia Priority: Primary Status: Acute (2) Hypophosphatemia Priority: Secondary Status: Resolved (3) HTN (hypertension) Priority: Secondary Status: Chronic (4) COPD (chronic obstructive pulmonary disease) Priority: Secondary Status: Chronic (5) Hyperlipemia Priority: Secondary Status: Chronic (6) CAD (coronary artery disease) of artery bypass graft Priority: Secondary Status: Chronic (7) Type 2 diabetes mellitus Priority: Secondary Status: Chronic (8) Colostomy and enterostomy malfunction Priority: Secondary Status: Acute (9) Chest pain Priority: Secondary Status: Resolved (10) Lactic acidosis Priority: Secondary Status: Resolved (11) Hypomagnesemia Priority: Secondary Status: Acute - Respiratory Orders Oxygen / L per min (2LNC continuous) Smoking Cessation: Smoking cessation has been advised. For more information, call the [place] Tobacco Quit Line at 1-785-VFJM-NOW. - Diet/Nutrition Diet/Nutrition Orders: Cardiac, No Concentrated Sweets - Activity Activity Orders: Up ad fabian, Ambulate, Walker - Services Needed Following services are medically necessary services: Nursing, Home Health Aide - Transfer Medications Home Medications: Atorvastatin [Lipitor] 40 mg PO HS 01/16/18 [History] Cholecalciferol (D-3) [Vitamin D] 5,000 unit PO MOFR 01/16/18 [History] Clopidogrel [Plavix] 75 mg PO DAILY 01/16/18 [History] Isosorbide MONOnitrate [Isosorbide Mononitrate] 20 mg PO BID 01/16/18 [History] Loratadine [Claritin] 10 mg PO DAILY 01/16/18 [History] Metoprolol Tartrate 100 mg PO BID 01/16/18 [History] Omeprazole [PriLOSEC] 20 mg PO DAILY 01/16/18 [History] Ranitidine HCl [Acid Rfid Specialist] 150 mg PO BID 01/16/18 [History] Spironolactone [Aldactone] 50 mg PO BID 01/16/18 [History] Venlafaxine [Effexor] 37.5 mg PO BID 01/16/18 [History] diazePAM [Valium] 10 mg PO BID PRN 01/16/18 [History] GuaiFENesin ER [Mucinex] 600 mg PO BID PRN #30 tbbp.12hr 02/24/18 [Rx] Nicotine Patch [Nicoderm] 21 mg TD DAILY #30 patch.td24 02/24/18 [Rx] Insulin Regular U-500 [HumuLIN R U-500] 0 - 50 units SQ TID 05/10/18 [History] Albuterol Sulfate [Ventolin Hfa] 2 puff IH Q6H PRN 05/11/18 [History] Magnesium Oxide [Magnesium] 400 mg PO DAILY 05/27/18 [History] Tramadol HCl 50 mg PO QID PRN 05/27/18 [History] Oxygen 2 l NS CONT #0 05/30/18 [Rx] Allergies/Adverse Reactions: 3 Allergy/AdvReac Type Severity Reaction Status Date / Time Estrogens Allergy Hives Verified 01/16/18 17:28 gabapentin Allergy Swelling Verified 01/16/18 17:28 of Lip/Tongue/Throat Penicillins Allergy Itching Verified 01/16/18 17:28 aspartame AdvReac See Verified 05/27/18 21:28 Comments aspirin [ASA] AdvReac See Verified 01/16/18 17:28 Comments lisinopril AdvReac Cough Verified 01/16/18 17:28 Certification: Further, I certify that my clinical findings support that this patient is homebound (i.e. absences from home require considerable and taxing effort and are for medical reasons or [facility] or infrequently or short duration when for other reasons) because: Homebound Reason: Patient requires assistance of a person or device to safely leave home Attestation: My signature below is to certify that this patient is under my care and that I, or nurse practitioner, or a physician's hospital aides and assistants teacher working with me, has a face-to -face encounter with this patient.
== END 2018-05-30 14:45 | disposition home health service (06) | DRG 194 ==
LOC: EMEROOARM 13:42 → 3ANU 13:42
PROVIDERS: ADMIT Internal Medicine; ATTEND Internal Medicine

== ENCOUNTER 2018-09-11 13:29 | Observation (INO) ==
[2018-09-11] MEDS ORDERED: methylPREDNISolone 125 MG/2 ML VIAL IVP ONE (14:33)
[2018-09-11] MEDS ORDERED: Ipratropium/Albuterol Neb 3 ML IH ONE (14:33)
--- NOTE | 2018-09-11 14:36 | Emergency Department Note ---
Disposition Clinical Impression: COPD exacerbation, Complication of ostomy Cellulitis Qualifiers: Site of cellulitis: trunk Site of cellulitis of trunk: abdominal wall Qualified Code(s): L03.311 - Cellulitis of abdominal wall Disposition: Admitted As Inpatient Condition: Undetermined Time of Disposition: 16:16 General Adult HPI - General Chief complaint: ED Upper Respiratory Infection Stated complaint: URI/CP Time Seen by Provider: 09/11/18 13:58 Source: patient Mode of arrival: ambulatory Limitations: no limitations Nursing Notes Reviewed: Yes Vital Signs Reviewed: Yes - History of Present Illness HPI Narrative: 57-year-old female smoker with history of abdominal surgeries with ileostomy arrives to the emergency department with complaint of cough, congestion, difficulty breathing over the course of the past few days. Her cough is productive, yellow mucus. Complaining of left-sided chest wall pain from coughing so hard as well as some abdominal discomfort on the left side. The patient states this is progressively worsened over the past few days as well. The patient denies any vomiting, blood in ostomy, or any other acute complaints. She wears oxygen 2 L nasal cannula [id number] as required. She is noted to be mildly hypoxic but not profoundly hypoxic. Patient has no other complaints at this time. Pain Scale: 10 - Related Data Home Medications Medication Instructions Recorded Confirmed RX: Atorvastatin [Lipitor] 40 mg PO HS 01/16/18 07/21/18 RX: Cholecalciferol (D-3) [Vitamin 5,000 unit PO MOFR 01/16/18 07/21/18 D] RX: Clopidogrel [Plavix] 75 mg PO DAILY 01/16/18 07/21/18 RX: Isosorbide MONOnitrate 20 mg PO BID 01/16/18 07/21/18 [Isosorbide Mononitrate] RX: Loratadine [Claritin] 10 mg PO DAILY 01/16/18 07/21/18 RX: Metoprolol Tartrate 100 mg PO BID 01/16/18 07/21/18 RX: Omeprazole [PriLOSEC] 20 mg PO DAILY 01/16/18 07/21/18 RX: Ranitidine HCl [Acid Hammer Shop Supervisor] 150 mg PO BID 01/16/18 07/21/18 RX: Spironolactone [Aldactone] 50 mg PO BID 01/16/18 07/21/18 RX: Venlafaxine [Effexor] 37.5 mg PO BID 01/16/18 07/21/18 RX: diazePAM [Valium] 10 mg PO BID PRN 01/16/18 07/21/18 RX: Insulin Regular U-500 [HumuLIN 0 - 50 units SQ TID 05/10/18 07/21/18 R U-500] RX: Albuterol Sulfate [Ventolin 2 puff IH Q6H PRN 05/11/18 07/21/18 Hfa] RX: Magnesium Oxide [Magnesium] 400 mg PO DAILY 05/27/18 07/21/18 Tramadol HCl 50 mg PO QID PRN 05/27/18 07/21/18 Previous Rx's Medication Instructions Recorded RX: GuaiFENesin ER [Mucinex] 600 mg PO BID PRN #30 tbbp.12hr 02/24/18 RX: Nicotine Patch [Nicoderm] 21 mg TD DAILY #30 patch.td24 02/24/18 RX: Oxygen 2 l NS CONT #0 05/30/18 levoFLOXacin [Levaquin] 750 mg PO DAILY 5 Days #5 tablet 05/31/18 Ciprofloxacin [Cipro] 500 mg PO BID #20 tablet 07/21/18 RX: Magnesium Oxide [Mag-Ox] 400 mg PO DAILY #5 tablet 07/21/18 Allergies Allergy/AdvReac Type Severity Reaction Status Date / Time Estrogens Allergy Hives Verified 07/21/18 14:12 gabapentin Allergy Swelling Verified 07/21/18 14:12 of Lip/Tongue/Throat Penicillins Allergy Itching Verified 07/21/18 14:12 aspartame AdvReac See Verified 07/21/18 14:12 Comments aspirin [ASA] AdvReac See Verified 07/21/18 14:12 Comments lisinopril AdvReac Cough Verified 07/21/18 14:12 All systems ED: reviewed and negative except as stated. Constitutional: Reports: chills, weakness. Denies: fever ENT ED: Denies: throat pain, dysphagia Cardiovascular: Reports: chest pain, dyspnea on exertion. Denies: orthopnea, edema, syncope Respiratory: Reports: cough, dyspnea, wheezes, sputum production Gastrointestinal: Reports: abdominal pain, nausea. Denies: vomiting, diarrhea, constipation, hematemesis, melena, hematochezia Genitourinary: Denies: urgency, dysuria Musculoskeletal: Denies: back pain, neck pain Integumentary: Denies: rash Neurological: Denies: headache, confusion Past Medical History - Past Medical History Attestation: Yes The following information was validated with the patient. 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 - Social History Smoking Status: Current every day smoker Smokeless Tobacco Status: No Alcohol use: Reports: none Drug use: Reports: none Physical Exam - General Limitations: no limitations General appearance: alert, in no apparent distress - Head Head exam: atraumatic, normocephalic, normal inspection - Eye Eye exam: Present: normal appearance, PERRL, EOMI - ENT ENT exam: normal exam, normal oropharynx, mucous membranes moist - Neck Neck exam: Present: normal inspection, full ROM, trachea midline - Chest Chest inspection: Present: normal inspection, symmetric chest wall rise - Respiratory Respiratory exam: Present: wheezes (mild diffuse), other (coarse breath sounds bilaterally). Absent: respiratory distress - Cardiovascular Cardiovascular exam: Present: normal rhythm, tachycardia, normal heart sounds - Abdominal Exam Abdominal exam: Present: soft, tenderness (left sided), other (ostomy in place). Absent: distention, guarding, rebound, rigidity, Delcid's sign, Rovsing's sign, tenderness at McBurney's Point - Extremities Exam Extremities exam: Present: normal inspection, full ROM. Absent: tenderness, pedal edema - Neurological Exam Neurological exam: Present: alert, oriented X3 - Skin Skin exam: Present: warm, dry, intact, normal color Course Vital Signs Temperature 99.0 F 09/11/18 13:35 Pulse Rate 114 09/11/18 13:35 Respiratory Rate 20 09/11/18 13:35 Blood Pressure 114/65 09/11/18 13:35 O2 Sat by Pulse Oximetry 93 09/11/18 13:35 Temperature 99.5 F 09/11/18 20:53 Pulse Rate 95 09/11/18 20:53 Respiratory Rate 16 09/11/18 20:53 Blood Pressure 127/72 09/11/18 20:53 O2 Sat by Pulse Oximetry 97 09/11/18 20:53 Oxygen Delivery Oxygen Delivery Nasal Cannula Medical Decision Making - MDM Narrative Medical decision making narrative: Patient's workup in the emergency department given demonstrates findings consistent with COPD exacerbation. Patient had a CT scan of her abdomen pelvis which demonstrates dilated bowel loops on the anterior abdominal wall just below ostomy site. This concerning for possible ileus versus a developing bowel stretcher per CT scan read. We consulted general surgery take a look at the patient's ostomy site as well as dilated bowel loops. Dr. Barron will see patient in consultation. Consultation placed by myself. Patient likely is a COPD exacerbation and improved her breathing after getting breathing treatments as well as steroids. We will admit the patient to the hospital for further workup in care at this time. Patient made aware and agrees to plan. No further questions or concerns noted. - Lab Data Lab results reviewed: Yes I reviewed the patient's lab results. Result diagrams: 09/11/18 14:00 09/11/18 14:00 Lab Results 09/11/18 09/11/18 09/11/18 Range/Units 14:00 14:00 14:40 WBC 13.5 H (4.3-11.1) K/mcL RBC 4.83 (3.82-4.97) M/mcL Hgb 14.7 (11.5-15.4) g/dL Hct 44.6 (35.3-44.9) % MCV 92.3 (83.0-100.0) fL MCH 30.4 (28.0-33.3) pg MCHC 33.0 (31.6-35.5) g/dL RDW 13.4 (11.5-14.5) % Plt Count 145 (140-400) K/mcL MPV 12.5 H (9.4-12.4) fL Immature Gran % 0.8 (0-4) % Seg Neutrophils % 89.2 % Lymphocytes % 5.0 % Monocytes % 4.7 % Eosinophils % 0.0 % Basophils % 0.3 % Neutrophils # 12.1 H (1.6-8.9) K/mcL Lymphocytes # 0.7 (0.6-4.6) K/mcL Monocytes # 0.6 (0.0-1.3) K/mcL Eosinophils # 0.0 (0.0-0.6) K/mcL Basophils # 0.0 (0.0-0.2) K/mcL Sodium 131 L (136-145) mEq/L Potassium 3.7 (3.5-5.1) mEq/L Chloride 94 L (98-107) mEq/L Carbon Dioxide 27 (23-29) mEq/L BUN 6 (6-20) mg/dL Creatinine 1.14 (0.60-1.20) mg/dL Est GFR ( Amer) 59 L (> 60) Est GFR (Non-Af Amer) 49 L (> 60) BUN/Creatinine Ratio 5 L (6-26) Glucose 227 H (70-105) mg/dL Calculated Osmolality 277 L (280-300) Lactic Acid 3.1 H (0.5-2.2) mmol/L Calcium 10.0 (8.6-10.3) mg/dL Total Bilirubin 0.6 (0.3-1.0) mg/dL Direct Bilirubin 0.1 (0.0-0.2) mg/dL Indirect Bilirubin 0.5 (0.0-1.2) mg/dL AST 23 (13-39) Units/L ALT 23 (7-52) Units/L Alkaline Phosphatase 145 H (34-104) Units/L Troponin I < 0.03 (< 0.04) ng/mL Serum Total Protein 7.3 (6.4-8.9) g/dL Albumin 4.3 (3.5-5.7) g/dL Globulin 3.0 (2.4-3.5) g/dL Albumin/Globulin Ratio 1.4 (1.1-2.2) - Radiology Data Radiology results reviewed: Yes I reviewed the patient's radiology results. Chest X-Ray 09/11/18 14:00 IMPRESSION: No acute process. D/ / Willis Garnica MD / Willis Garnica MD Interpreting Provider: Willis Garnica MD Abdomen/Pelvis CT 09/11/18 14:32 IMPRESSION: No evidence of obstructive uropathy. Several small bowel loops within the anterior abdominal wall deep to the ostomy are mildly dilated, which can reflect ileus or developing obstruction. If further evaluation is warranted, follow up study with oral contrast may be helpful for further assessment. D/ / Brian Chaudhari MD / Brian Chaudhari MD Interpreting Provider: Brian Chaudhari MD - EKG Data EKG #1 EKG attestation: Yes I reviewed and interpreted this EKG. EKG results narrative: Heart rate 110. Sinus tachycardia. No ST elevation or ST depression noted. EKG overall similar to EKG from 05/27/2018. He Attestation Statement - Attestation Attestation: Resident Attestation: I examined this patient and my medical decision making was reviewed with the Resident Physician. I agree with the documented findings, disposition and treatment plan as described except to the extent set forth below. We independently had [id number] contact with the patient. Patient with significant past medical history including quadruple bypass was complicated by a perforation in the abdomen. Patient has significant scarring throughout the chest which she states her ribs are not attached like they should be and move. Her abdomen has which she describes as ileostomy and colostomy. There is one bag placed over the lower midline incision. The lateral incision has been left open with bandage. Occasional drainage. Patient's symptoms started approximately a week ago with cough and URI symptoms. Coughing is been getting worse causing worsening chest pain when she coughs. The patient's abdomen is also become more sore. On exam it is erythematous which she states is worse than usual but has had some at baseline. No significant underlying peritoneal tenderness. At this point the patient given her significant past medical history will undergo further evaluation for pneumonia as well as ab dominal pain/cellulitis. Workup is pending. General: Well appearing, nontoxic, no acute distress Head: Normocephalic Atraumatic Eyes: PERRL, EOMI ENT: Airway patent, no stridor Neck: supple, no meningismus Chest: Decreased breath sounds bilaterally without significant wheezing, rhonchi, rales. Cardiac: Regular rhythm, tachycardia Abdomen: 2 ostomies within the abdomen most midline one covered by ostomy bag the lateral one covered with bandage. Cellulitis surrounding both of these areas describes as erythema that is approximately 10" x 8" in size with irregular borders. No distention. No significant underlying tenderness. Musculoskeletal: Calves symmetric, nontender Skin: No rash, normal skin tone Neuro: Alert and Oriented to person, place, and time; No focal deficit, CN 2-12 symmetric and intact
[2018-09-11] MEDS ORDERED: 0.9 % Sodium Chloride 500 ML IVC STA (14:50)
[2018-09-11 14:58] LABS: Basophils % 0.3 %; Hematocrit 44.6 % (35.3-44.9); Hemoglobin 14.7 g/dL (11.5-15.4); Immature Granulocytes % 0.8 % (0-4); Lymphocytes # 0.7 K/mcL (0.6-4.6); Mean Corpuscular Hemoglobin 30.4 pg (28.0-33.3); Mean Corpuscular Volume 92.3 fL (83.0-100.0); Mean Platelet Volume 12.5 fL (9.4-12.4); Monocytes # 0.6 K/mcL (0.0-1.3); Monocytes % 4.7 %; Neutrophils # 12.1 K/mcL (1.6-8.9); Platelet Count 145 K/mcL (140-400); Red Blood Count 4.83 M/mcL (3.82-4.97); Red Cell Distribution Width 13.4 % (11.5-14.5); Segmented Neutrophils % 89.2 %
[2018-09-11 15:19] LABS: Troponin I < 0.03 ng/mL (< 0.04)
[2018-09-11 15:28] LABS: Alanine Aminotransferase 23 Units/L (7-52); Albumin 4.3 g/dL (3.5-5.7); Albumin/Globulin Ratio 1.4 (1.1-2.2); Alkaline Phosphatase 145 Units/L (34-104); Aspartate Amino Transferase 23 Units/L (13-39); BUN/Creatinine Ratio 5 (6-26); Bilirubin,Direct 0.1 mg/dL (0.0-0.2); Bilirubin,Indirect 0.5 mg/dL (0.0-1.2); Bilirubin,Total 0.6 mg/dL (0.3-1.0); Blood Urea Nitrogen 6 mg/dL (6-20); Carbon Dioxide 27 mEq/L (23-29); Chloride 94 mEq/L (98-107); Glucose 227 mg/dL (70-105); Osmolality,Calculated 277 (280-300); Potassium 3.7 mEq/L (3.5-5.1); Sodium 131 mEq/L (136-145); Total Protein 7.3 g/dL (6.4-8.9); eGFR For Non-African Americans 49 (> 60)
[2018-09-11] MEDS ORDERED: Clindamycin 900 MG/50 ML 900 MG/50 ML IV.SOLN IVPB ONE (16:10)
--- NOTE | 2018-09-11 18:01 | Internal Med History&Physical ---
Date of Encounter: 09/11/18 Time of Encounter: 17:58 Internal Medicine - H&P: HPI History of present illness: Ms. Price is a 57 year old female with history of HFpEF, CAD with history of CABG, COPD on 2L at home, ileostomy and colostomy presented to ED for abdominal pain, migraine headache, chest wall pain with cough. She had fever at home of 101 . Left side of abdomen is tender and warm when she touches it and concerned because it is near her colostomy site. She states both ileostomy and colostomy are both functional. She has also had complaints of dyspnea over the past few days. She admits to frequent coughing fits causing right-sided chest wall pain and some nausea. She has also been experiencing palpitations. Denies any new numbness, she does have diabetic neuropathy at baseline. On arrival to ED patient was tachycardic with BP 114-117 bpm and RR from 20-32. She had WBC 13k, LA of 3.2, troponin negative. Chest x-ray was negative. A CT abdomen/pelvis done for abdominal pain showed several small bowel loops of anterior abdominal wall deep to ostomy are mild dilated. Past Med Surg Social Fam HX - Past Medical History Medical history: arthritis, asthma, CHF, COPD, coronary artery disease, diabetes, fibromyalgia, GERD, hyperlipidemia, hypertension, migraine, renal disease Additional medical history: neuropathy, CKD 3, tachycardia Psychiatric history: anxiety, bipolar, depression - Past Surgical History Surgical History: angioplasty/stent, appendectomy, cholecystectomy, colectomy, colostomy, coronary bypass (CABG), hysterectomy, DOROTHY/BSO, other Additional surgical history: 4 stents bilatreal carpal tunnel left shoulder x2. sternum removed colostomy and ileostomy. 18 inch bowel removed. left elbow nerve relocated. kim. knee. kim. shoulder - Social History Smoking Status: Current every day smoker Smokeless Tobacco Status: No Alcohol use: none Drug use: none - Family History Father Hx Family Cardiac Disorders: Yes Mother Hx Family Cardiac Disorders: Yes Internal Medicine - H&P: Meds Atorvastatin [Lipitor] 40 mg PO HS 01/16/18 [History] Cholecalciferol (D-3) [Vitamin D] 5,000 unit PO MOFR 01/16/18 [History] Clopidogrel [Plavix] 75 mg PO DAILY 01/16/18 [History] Isosorbide MONOnitrate [Isosorbide Mononitrate] 20 mg PO BID 01/16/18 [History] Loratadine [Claritin] 10 mg PO DAILY 01/16/18 [History] Metoprolol Tartrate 100 mg PO BID 01/16/18 [History] Omeprazole [PriLOSEC] 20 mg PO DAILY 01/16/18 [History] Ranitidine HCl [Acid Safety Professional] 150 mg PO BID 01/16/18 [History] Spironolactone [Aldactone] 50 mg PO BID 01/16/18 [History] Venlafaxine [Effexor] 37.5 mg PO BID 01/16/18 [History] diazePAM [Valium] 10 mg PO BID PRN 01/16/18 [History] GuaiFENesin ER [Mucinex] 600 mg PO BID PRN #30 tbbp.12hr 02/24/18 [Rx] Nicotine Patch [Nicoderm] 21 mg TD DAILY #30 patch.td24 02/24/18 [Rx] Insulin Regular U-500 [HumuLIN R U-500] 0 - 50 units SQ TID 05/10/18 [History] Albuterol Sulfate [Ventolin Hfa] 2 puff IH Q6H PRN 05/11/18 [History] Magnesium Oxide [Magnesium] 400 mg PO DAILY 05/27/18 [History] Tramadol HCl 50 mg PO QID PRN 05/27/18 [History] Oxygen 2 l NS CONT #0 05/30/18 [Rx] levoFLOXacin [Levaquin] 750 mg PO DAILY 5 Days #5 tablet 05/31/18 [Rx] Ciprofloxacin [Cipro] 500 mg PO BID #20 tablet 07/21/18 [Rx] Magnesium Oxide [Mag-Ox] 400 mg PO DAILY #5 tablet 07/21/18 [Rx] Allergy/AdvReac Type Severity Reaction Status Date / Time Estrogens Allergy Hives Verified 07/21/18 14:12 gabapentin Allergy Swelling Verified 07/21/18 14:12 of Lip/Tongue/Throat Penicillins Allergy Itching Verified 07/21/18 14:12 aspartame AdvReac See Verified 07/21/18 14:12 Comments aspirin [ASA] AdvReac See Verified 07/21/18 14:12 Comments lisinopril AdvReac Cough Verified 07/21/18 14:12 All Systems PM: A 10-system review of systems was performed and is negative for pertinent f indings except as documented above in the HPI. - Constitutional Vitals: Temp Pulse Resp BP Pulse Ox 99.0 F 125 16 158/70 91 09/11/18 14:07 09/11/18 16:50 09/11/18 16:50 09/11/18 16:50 09/11/18 16:50 General appearance: Present: A&O X 3, no acute distress, obese, answers questions appropriately Exam: . - Head Head exam: Present: atraumatic, normocephalic - Eye Eye exam: Present: PERRL, conjuntiva pink, sclera anicteric Pupils: Present: PERRL - Neck Neck exam general surgery: Present: supple, trachea midline. Absent: lymphadenopathy - Respiratory Respiratory exam: Present: chest wall tenderness (left sided), decreased breath sounds, wheezes. Absent: accessory muscle use, rales, rhonchi - Cardiovascular Cardiovascular exam: Present: +S1, +S2, tachycardia. Absent: diastolic murmur, gallop, rubs, systolic murmur - GI/Abdominal GI/Abdominal exam: Present: normal bowel sounds, soft, no peritoneal signs. Absent: distended, tenderness Additional comments: Cellulitic region of erythema, edema, tenderness in left lower quadrant. Colostomy in place, stool present in bag. Ileostomy site covered in dressing. No drainage expressed at this time. - Extremities Exam Extremities exam: Present: pedal edema (1+ equal bilaterally), warm, radial pulses palpable and symmetrical. Absent: calf tenderness, cyanotic - Neurological Exam Neurological exam: Present: CN II-XII intact, oriented X3, no focal deficits. Absent: pronater drift, facial droop, speech deficit - Skin Skin exam: Present: dry, intact Additional comments: tenderness, edema left of umbilicus extends to left lower quadrant. No focal areas of induration. This erythematous region is nearby colostomy site. Internal Med - H&P Results - Labs CBC & Chem 7: 09/11/18 14:00 09/11/18 14:00 Labs: Short CBC 09/11/18 Range/Units 14:00 WBC 13.5 H (4.3-11.1) K/mcL Hgb 14.7 (11.5-15.4) g/dL Hct 44.6 (35.3-44.9) % Plt Count 145 (140-400) K/mcL Neutrophils # 12.1 H (1.6-8.9) K/mcL BMP 09/11/18 14:00 Sodium 131 L Potassium 3.7 Chloride 94 L Carbon Dioxide 27 BUN 6 Creatinine 1.14 Glucose 227 H Calcium 10.0 Cardiac Enzymes 09/11/18 Range/Units 14:00 Troponin I < 0.03 (< 0.04) ng/mL Liver Function 09/11/18 Range/Units 14:00 Total Bilirubin 0.6 (0.3-1.0) mg/dL Direct Bilirubin 0.1 (0.0-0.2) mg/dL AST 23 (13-39) Units/L ALT 23 (7-52) Units/L Alkaline Phosphatase 145 H (34-104) Units/L Albumin 4.3 (3.5-5.7) g/dL - Impressions ITS Impressions Chest X-Ray 09/11/18 14:00 IMPRESSION: No acute process. D/ / Willis Garnica MD / Willis Garnica MD Interpreting Provider: Wlilis Garnica MD Abdomen/Pelvis CT 09/11/18 14:32 IMPRESSION: No evidence of obstructive uropathy. Several small bowel loops within the anterior abdominal wall deep to the ostomy are mildly dilated, which can reflect ileus or developing obstruction. If further evaluation is warranted, follow up study with oral contrast may be helpful for further assessment. D/ / Brian Chaudhari MD / Brian Chaudhari MD Interpreting Provider: Brian Chaudhari MD - Assessment and plan (1) Sepsis due to cellulitis Current Visit: Yes Status: Acute Assessment and plan: Likely source is cellulitis of abdomen Patient meets SIRS criteria on admission: tachcardia, tachypnea, leukocytosis. She did note that she had a fever of 101 F at home as well. LA was 3.1 on admission Blood cultures obtained in ED Received a dose of clindamycin. Listed allergies to penicillins (itching). - Cellulitis region is in close proximity to colostomy, will need broad spectrum antibiotics with adequate MRSA coverage. - Follow-up blood cultures - Recheck lactic acid. - start vancomycin and Cefepime (2) Abdominal pain Current Visit: No Status: Resolved Assessment and plan: Secondary to abdominal cellulitis as well as a possible ileus or partial SBO. Abdomen is soft on exam, tender around cellulitic region. Colostomy appears to have normal amount of output. - Cellulitis treatment as above. - NPO - Surgery consult Qualifiers: Abdominal location: generalized Qualified Code(s): R10.84 - Generalized abdominal pain (3) COPD exacerbation Current Visit: No Status: Acute Assessment and plan: Possibly due to respiratory infection or other COPD trigger. She is being treated with Vanc/Cefepime for abdominal cellulitis. Solu Medrol 40 mg Q8H Xopenex/Ipratroprium q4H and prn Supplemental O2 as tolerated. (4) GERD (gastroesophageal reflux disease) Current Visit: No Status: Acute Qualifiers: Esophagitis presence: esophagitis presence not specified Qualified Code(s): K21.9 - Gastro-esophageal reflux disease without esophagitis (5) CAD (coronary artery disease) Current Visit: No Status: Chronic Assessment and plan: Resume Plavix, Lipitor Qualifiers: Coronary Disease-Associated Artery/Lesion type: [place] artery [place] vs. transplanted heart: [place] heart Associated angina: without angina Qualified Code(s): I25.10 - Atherosclerotic heart disease of [place] coronary artery without angina pectoris (6) Ileostomy in place Current Visit: No Status: Acute (7) CKD (chronic kidney disease) stage 3, GFR 30-59 ml/min Current Visit: No Status: Chronic Assessment and plan: Currently renal function is at baseline. (8) Colostomy in place Current Visit: No Status: Chronic (9) HTN (hypertension) Current Visit: No Status: Chronic Assessment and plan: Spironolactone will be held for now as patient does have hyponatremia. Will re sume metoprolol tartrate BID. Currently normotensive. Qualifiers: Hypertension type: essential hypertension Qualified Code(s): I10 - Essential (primary) hypertension (10) Hyperlipemia Current Visit: No Status: Chronic Assessment and plan: Resume home medications when med rec is complete. Qualifiers: Hyperlipidemia type: pure hypercholesterolemia Qualified Code(s): E78.00 - Pure hypercholesterolemia, unspecified; E78.0 - Pure hypercholesterolemia (11) Iron deficiency Current Visit: No Status: Chronic Assessment and plan: No acute issues. (12) Type 2 diabetes mellitus Current Visit: No Status: Chronic Assessment and plan: Patient will be NPO for Surgery team evaluation. Patient listed as taking insulin U-500. Glucose checks q6h while NPO Start high dose sliding scale. Qualifiers: Diabetes mellitus group home insulin use: with group home use Diabetes mellitus complication status: with unspecified complications Qualified Code(s): E11.8 - Type 2 diabetes mellitus with unspecified complications; Z79.4 - FDC (current) use of insulin (13) Congestive heart failure (CHF) Current Visit: Yes Status: Acute Assessment and plan: Not in acute exacerbation. Resume home medication. Qualifiers: Heart failure type: diastolic Heart failure chronicity: chronic Qualified Code(s): I50.32 - Chronic diastolic (congestive) heart failure (14) Chronic respiratory failure Current Visit: Yes Status: Acute Assessment and plan: On 2 L Oxygen at home Qualifiers: Respiratory failure complication: hypoxia Qualified Code(s): J96.11 - Chronic respiratory failure with hypoxia (15) Hyponatremia Current Visit: Yes Status: Acute Assessment and plan: Hold diuretics, spironolactone received 500 ml normal saline in ED Recheck BMP in AM. (16) Costochondritis Current Visit: Yes Status: Acute Assessment and plan: secondary to frequent cough. Will add pain medication prn. Symptomatic care for likely respiratory tract infection. (17) Depression Current Visit: No Status: Acute Assessment and plan: Resume home medications. Qualifiers: Depression Type: major depressive disorder Major depression recurrence: recurrent Active/Remission status: remission status unspecified Qualified Code(s): F33.9 - Major depressive disorder, recurrent, unspecified (18) DVT prophylaxis Current Visit: No Status: Acute Assessment and plan: SQ heparin - Time Spent With Patient Total time spent is greater than 50% in coordination of care (as documented) at patient's floor/unit and/or counseling patient:
[2018-09-11] MEDS ORDERED: Naloxone 0.4 MG/ML INJ IVP PRN (18:08)
[2018-09-11] MEDS ORDERED: *HR* OxyCODONE Immed Rel 5 MG TABLET PO PRN (18:08)
[2018-09-11] MEDS ORDERED: Acetaminophen 325 MG TABLET PO PRN (18:08)
[2018-09-11] MEDS ORDERED: *HR* Labetalol 20 MG/4 ML SYRINGE IVP PRN (18:35)
[2018-09-11] MEDS ORDERED: Levofloxacin 750 MG/150 ML 750 MG/150 ML BAG IVPB SCH (19:00)
[2018-09-11] MEDS ORDERED: *HR* Metoprolol 5 MG/5 ML VIAL IVP PRN (19:21)
[2018-09-11] MEDS ORDERED: *HR* Metoprolol 5 MG/5 ML VIAL IVP ONE (19:21)
[2018-09-11] MEDS ORDERED: D5% in Water 1,000 ML IVC PRN (19:24)
[2018-09-11] MEDS ORDERED: *HR* Dextrose 50 % in Water (Syg) 50 ML SYRINGE IVP PRN (19:24)
[2018-09-11] MEDS ORDERED: Dextrose Gel 15 GM/37.5 ML TUBE PO PRN ×2 (19:24)
[2018-09-11] MEDS: Levalbuterol Neb 1.25 MG/3 ML IH SCH (20:00)
[2018-09-11] MEDS: Ipratropium Neb 0.5 MG NEBULIZER IH SCH (20:00)
[2018-09-11] MEDS ORDERED: Insulin LISPRO 300 UNITS/3 ML VIAL SQ SCH (21:00)
[2018-09-11] MEDS ORDERED: Metoprolol 100 MG TABLET PO SCH (21:00)
[2018-09-11] MEDS: Metoprolol 100 MG TABLET PO SCH ×2 (21:41→22:00)
[2018-09-12] MEDS: Levalbuterol Neb 1.25 MG/3 ML IH SCH ×7 (00:19→23:08)
[2018-09-12] MEDS: Ipratropium Neb 0.5 MG NEBULIZER IH SCH ×7 (00:19→23:08)
[2018-09-12] MEDS: MethylPREDNISolone 40 MG/ML VIAL IVP SCH ×3 (00:54→17:31)
[2018-09-12] MEDS ORDERED: Insulin DETEMIR 100 UNIT/ML X5UNITS SQ ONE ×2 (01:40→06:53)
[2018-09-12 01:48] LABS: ABG Base Excess 1 mEq/L (-2 to 3); ABG HCO3 27 mEq/L (21-27); ABG Oxygen Saturation 92 % (95-98); ABG PCO2 49 mmHg (35-45); ABG PH 7.36 pH Units (7.32-7.45); ABG PO2 68 mmHg (85-104); ABG TCO2 29 mEq/L (20-26)
[2018-09-12] MEDS: Insulin LISPRO 300 UNITS/3 ML VIAL SQ SCH ×4 (02:07→17:30)
[2018-09-12] MEDS: Ondansetron 4 MG/2 ML VIAL IVP PRN ×2 (03:46→11:19)
[2018-09-12 05:33] LABS: Basophils % 0.1 %; Hematocrit 39.8 % (35.3-44.9); Hemoglobin 13.2 g/dL (11.5-15.4); Immature Granulocytes % 1.3 % (0-4); Lymphocytes # 0.6 K/mcL (0.6-4.6); Lymphocytes % 5.2 %; Mean Corpuscular HGB Conc 33.2 g/dL (31.6-35.5); Mean Corpuscular Hemoglobin 30.4 pg (28.0-33.3); Mean Corpuscular Volume 91.7 fL (83.0-100.0); Mean Platelet Volume 12.4 fL (9.4-12.4); Monocytes # 0.2 K/mcL (0.0-1.3); Monocytes % 1.6 %; Neutrophils # 10.7 K/mcL (1.6-8.9); Platelet Count 133 K/mcL (140-400); Red Blood Count 4.34 M/mcL (3.82-4.97); Red Cell Distribution Width 13.4 % (11.5-14.5); Segmented Neutrophils % 91.8 %
[2018-09-12] MEDS: Cefepime HCl 2,000 MG in Water for inj. (sterile) 20 ML 20 ML IVP SCH ×2 (06:29→17:31)
[2018-09-12] MEDS: *HR* Heparin 5,000 UNIT/ML VIAL SQ SCH ×2 (06:29→17:31)
[2018-09-12] MEDS ORDERED: Insulin LISPRO 300 UNITS/3 ML VIAL SQ SCH ×2 (08:00→21:00)
[2018-09-12 08:03] LABS: BUN/Creatinine Ratio 13 (6-26); Blood Urea Nitrogen 14 mg/dL (6-20); Calcium 9.4 mg/dL (8.6-10.3); Carbon Dioxide 20 mEq/L (23-29); Chloride 99 mEq/L (98-107); Glucose 522 mg/dL (70-105); Osmolality,Calculated 302 (280-300); Potassium 4.6 mEq/L (3.5-5.1); Sodium 134 mEq/L (136-145); eGFR For Non-African Americans 50 (> 60)
[2018-09-12] MEDS: Metoprolol 100 MG TABLET PO SCH ×2 (08:07→21:38)
--- NOTE | 2018-09-12 09:17 | General Surgery Consult Note ---
Date of Encounter: 09/12/18 Time of Encounter: 09:10 Assessment and Plan (1) Enterocutaneous fistula Current Visit: Yes Status: Acute The patient has a functioning enterocutaneous fistula. This been present for 5 years. She has some mild bleeding from this area from local irritation. This is not uncommon for spontaneous enterocutaneous fistulas. Because of her prohibitive risk for any further surgery, any functioning fistula will be tolerated and managed including a spontaneous enterocutaneous fistula through an anterior abdominal wall devoid of fascia, muscle, or normal skin (2) Abdominal pain Current Visit: Yes Status: Resolved Mild abdominal discomfort that may be related to slightly abnormal CAT scan. Because of her high risk of surgical exploration conservative management is recommended. Qualifiers: Abdominal location: generalized Qualified Code(s): R10.84 - Generalized abdominal pain History of Present Illness Consult date: 09/12/18 Reason for consult: abdominal pain History of present illness: The patient presented to the emergency room with new onset chest pain. During evaluation she underwent CAT scan of the abdomen. The CAT scan the abdomen demonstrates a very complex multiple entry anterior abdominal wall. The patient has both a ileostomy and a cutaneous fistula area the small bowel was slightly dilated in the hernia sac extending into the pannus. I personally reviewed the CAT scan images and I see no evidence of intra-abdominal inflammation or transition point. The anterior abdominal wall is tremendously complex with small bowel next to skin healed by secondary intention and skin grafting. She has a stable enterocutaneous fistula that has been present for 5 years and is the primary function for her GI tract. She has a ileostomy in the right midline close to the fistula. This does not function. The patient states that she had coronary artery bypass grafting this institution 5 years ago and had postoperative complications including colon rupture. She was to survive this event with a 3 month stay in the intensive care unit. Any intra-abdominal problem would have to be life-threatening to warrant any type of surgical exploration. Next The patient has no nausea or vomiting. The enterocutaneous fistula is functioning normally. At this point I would not recommend any further action. I would recommend a clear liquid diet and advance as tolerated Past Med Surg Social Fam HX - Past Medical History Medical history: arthritis, asthma, CHF, COPD, coronary artery disease, diabetes, fibromyalgia, GERD, hyperlipidemia, hypertension, migraine, renal disease Additional medical history: neuropathy, CKD 3, tachycardia Psychiatric history: anxiety, bipolar, depression - Past Surgical History Surgical History: angioplasty/stent, appendectomy, cholecystectomy, colectomy, colostomy, coronary bypass (CABG), hysterectomy, DOROTHY/BSO, other Additional surgical history: 4 stents bilatreal carpal tunnel left shoulder x2. sternum removed colostomy and ileostomy. 18 inch bowel removed. left elbow nerve relocated. kim. knee. kim. shoulder - Social History Smoking Status: Current every day smoker Packs per day: 1 Smokeless Tobacco Status: No Alcohol use: none Drug use: none - Family History Father Hx Family Cardiac Disorders: Yes Mother Hx Family Cardiac Disorders: Yes Medications and Allergies Atorvastatin [Lipitor] 40 mg PO HS 01/16/18 [History] Cholecalciferol (D-3) [Vitamin D] 5,000 unit PO MOFR 01/16/18 [History] Clopidogrel [Plavix] 75 mg PO DAILY 01/16/18 [History] Isosorbide MONOnitrate [Isosorbide Mononitrate] 20 mg PO BID 01/16/18 [History] Loratadine [Claritin] 10 mg PO DAILY 01/16/18 [History] Metoprolol Tartrate 100 mg PO BID 01/16/18 [History] Omeprazole [PriLOSEC] 20 mg PO DAILY 01/16/18 [History] Ranitidine HCl [Acid Dna Sequencing Associate] 150 mg PO BID 01/16/18 [History] Spironolactone [Aldactone] 50 mg PO BID 01/16/18 [History] Venlafaxine [Effexor] 37.5 mg PO BID 01/16/18 [History] diazePAM [Valium] 10 mg PO BID PRN 01/16/18 [History] GuaiFENesin ER [Mucinex] 600 mg PO BID PRN #30 tbbp.12hr 02/24/18 [Rx] Nicotine Patch [Nicoderm] 21 mg TD DAILY #30 patch.td24 02/24/18 [Rx] Insulin Regular U-500 [HumuLIN R U-500] 0 - 50 units SQ TID 05/10/18 [History] Albuterol Sulfate [Ventolin Hfa] 2 puff IH Q6H PRN 05/11/18 [History] Magnesium Oxide [Magnesium] 400 mg PO DAILY 05/27/18 [History] Tramadol HCl 50 mg PO QID PRN 05/27/18 [History] Oxygen 2 l NS CONT #0 05/30/18 [Rx] levoFLOXacin [Levaquin] 750 mg PO DAILY 5 Days #5 tablet 05/31/18 [Rx] Ciprofloxacin [Cipro] 500 mg PO BID #20 tablet 07/21/18 [Rx] Magnesium Oxide [Mag-Ox] 400 mg PO DAILY #5 tablet 07/21/18 [Rx] Allergy/AdvReac Type Severity Reaction Status Date / Time Estrogens Allergy Hives Verified 07/21/18 14:12 gabapentin Allergy Swelling Verified 07/21/18 14:12 of Lip/Tongue/Throat Penicillins Allergy Itching Verified 07/21/18 14:12 aspartame AdvReac See Verified 07/21/18 14:12 Comments aspirin [ASA] AdvReac See Verified 07/21/18 14:12 Comments lisinopril AdvReac Cough Verified 07/21/18 14:12 Review of Systems All systems PM: The remainder of the systems were reviewed and are negative General Surgery Exam Initial Vital Signs Temp Pulse Resp BP Pulse Ox 99.0 F 114 20 114/65 93 09/11/18 13:35 09/11/18 13:35 09/11/18 13:35 09/11/18 13:35 09/11/18 13:35 - General physical appearance well developed, well nourished, chronically ill, obese, other (Profound morbid obesity) - Respiratory wheezing: bilateral (Decreased breath sounds bilaterally) - Cardiovascular Cardiovascular exam: Present: RRR, no murmurs/rubs/gallops - Abdomen Abdomen general surgery: Present: bowel sounds present, soft, non tender (Multiple entry midline healed by secondary intention. She has a matured ileostomy or colostomy in the right lower quadrant as well as a chronic enterocutaneous fistula that has matured into her primary outlet for gastrointestinal contents. There is no guarding or rebound. She really has no fascia or muscle covering the anterior portion of the abdomen) - Neurologic Present: CN 2-12 grossly intact, normal coordination, normal sensation - Psychiatric Psychiatric general surgery: Present: appropriate, oriented to person, oriented to place, oriented to time, speech is normal, memory intact Exam Initial Vital Signs Temp Pulse Resp BP Pulse Ox 99.0 F 114 20 114/65 93 09/11/18 13:35 09/11/18 13:35 09/11/18 13:35 09/11/18 13:35 09/11/18 13:35 Results - Labs 09/12/18 05:21 09/12/18 05:21 Abnormal lab results WBC 11.7 K/mcL (4.3-11.1) H 09/12/18 05:21 Plt Count 133 K/mcL (140-400) L 09/12/18 05:21 Neutrophils # 10.7 K/mcL (1.6-8.9) H 09/12/18 05:21 ABG pCO2 49 mmHg (35-45) H 09/12/18 01:45 ABG pO2 68 mmHg (85-104) L 09/12/18 01:45 ABG Total CO2 29 mEq/L (20-26) H 09/12/18 01:45 ABG O2 Saturation 92 % (95-98) L 09/12/18 01:45 Sodium 134 mEq/L (136-145) L 09/12/18 05:21 Carbon Dioxide 20 mEq/L (23-29) L 09/12/18 05:21 Est GFR (Non-Af Amer) 50 (> 60) L 09/12/18 05:21 Glucose 522 mg/dL (70-105) H* 09/12/18 05:21 POC Glucose 436 mg/dL (70-99) H* 09/12/18 06:23 Calculated Osmolality 302 (280-300) H 09/12/18 05:21 Alkaline Phosphatase 145 Units/L (34-104) H 09/11/18 14:00 Diabetes panel 09/11/18 09/12/18 Range/Units 14:00 05:21 Sodium 131 L 134 L (136-145) mEq/L Potassium 3.7 4.6 (3.5-5.1) mEq/L Chloride 94 L 99 (98-107) mEq/L Carbon Dioxide 27 20 L (23-29) mEq/L BUN 6 14 (6-20) mg/dL Creatinine 1.14 1.12 (0.60-1.20) mg/dL Glucose 227 H 522 H* (70-105) mg/dL Calcium 10.0 9.4 (8.6-10.3) mg/dL AST 23 (13-39) Units/L ALT 23 (7-52) Units/L Alkaline Phosphatase 145 H (34-104) Units/L Albumin 4.3 (3.5-5.7) g/dL Calcium panel 09/11/18 09/12/18 Range/Units 14:00 05:21 Calcium 10.0 9.4 (8.6-10.3) mg/dL Albumin 4.3 (3.5-5.7) g/dL Pituitary panel 09/11/18 09/12/18 Range/Units 14:00 05:21 Sodium 131 L 134 L (136-145) mEq/L Potassium 3.7 4.6 (3.5-5.1) mEq/L Chloride 94 L 99 (98-107) mEq/L Carbon Dioxide 27 20 L (23-29) mEq/L BUN 6 14 (6-20) mg/dL Creatinine 1.14 1.12 (0.60-1.20) mg/dL Glucose 227 H 522 H* (70-105) mg/dL Calcium 10.0 9.4 (8.6-10.3) mg/dL Adrenal panel 09/11/18 09/12/18 Range/Units 14:00 05:21 Sodium 131 L 134 L (136-145) mEq/L Potassium 3.7 4.6 (3.5-5.1) mEq/L Chloride 94 L 99 (98-107) mEq/L Carbon Dioxide 27 20 L (23-29) mEq/L BUN 6 14 (6-20) mg/dL Creatinine 1.14 1.12 (0.60-1.20) mg/dL Glucose 227 H 522 H* (70-105) mg/dL Calcium 10.0 9.4 (8.6-10.3) mg/dL Total Bilirubin 0.6 (0.3-1.0) mg/dL AST 23 (13-39) Units/L ALT 23 (7-52) Units/L Alkaline Phosphatase 145 H (34-104) Units/L Albumin 4.3 (3.5-5.7) g/dL All other labs normal. - Imaging CT scan - abdomen: image reviewed (The CAT scan was evaluated and the patient has essentially no anterior abdominal wall with muscle or fascia. She has skin and skin graft that is well-healed there is a enterocutaneous fistula that is chronic and matured in the central portion of this area on the anterior abdominal wall. There are some dilated bowel loops there are quite mild with no evidence of transition point. There does not appear to be high grade obstruction.) Consult Discharge Plan - Plan Referrals: Randa Monaco [Other]
[2018-09-12] MEDS: Nicotine 21 MG PATCH.TD24 TD SCH (11:18)
[2018-09-12] MEDS: traMADol 50 MG TABLET PO PRN ×2 (11:19→17:49)
[2018-09-12] MEDS ORDERED: Aminoglycoside Consult 1 EACH MC ONE (12:13)
--- NOTE | 2018-09-12 14:01 | Internal Med Progress Note ---
Hospitalist Progress Note - Encounter Date of Encounter: 09/12/18 Time of Encounter: 13:58 - Subjective Interval History: Patient seen and examined at bedside. Patient states that she generally feels better. She reports headache and mild nausea that are similar to her previous migraines. She reports mild pain in her abdomen and lower chest that is im proved from yesterday. She is tolerating diet well without vomiting. She feels mildly short of breath but feels like this is improving, she denies any cough or congestion. - Exam Vitals: Temp Pulse Resp BP Pulse Ox 97.6 F 88 18 147/69 95 09/12/18 11:47 09/12/18 11:47 09/12/18 11:47 09/12/18 11:47 09/12/18 11:47 Exam: GENERAL APPEARANCE: The patient is alert, oriented and in no acute distress. HEENT: Head is normocephalic. Oropharynx clear without lesions. Mucous membranes moist HEART: Regular rate and rhythm. LUNGS: Clear to auscultation bilaterally, no rales, rhonchi, wheezes ABDOMEN: Soft, nondistended with good bowel sounds heard. Abdominal wall tenderness with mild induration and erythema. Colostomy bag present with pink stoma and dark brown stool within the colostomy bag. EXTREMITIES: Without cyanosis, clubbing. Trace lower extremity edema SKIN: See abdominal exam - Assessment and Plan (1) Sepsis due to cellulitis Current Visit: Yes Status: Acute Assessment and Plan: Resolved at this time. White count decreased, tachycardia resolved, afebrile. Continue vancomycin and cefepime for cellulitis at this time, patient continues to show clinical improvement we will plan to de-escalate tomorrow. (2) Colostomy in place Current Visit: No Status: Chronic Assessment and Plan: Patient was noted to have dilated loops of bowel on CT. She continues to have good ostomy output. She was seen by the surgery team who did not recommend any surgical intervention. (3) COPD exacerbation Current Visit: No Status: Acute Assessment and Plan: Appears to be improving. Continue antibiotics for cellulitis as above, we will decrease steroids from Solu-Medrol 40 mg every 8 to every 12, likely transition to by mouth tomorrow. Continue bronchodilators and supplemental oxygen. (4) Type 2 diabetes mellitus Current Visit: No Status: Chronic Assessment and Plan: Blood sugars significantly elevated today, likely due to steroids. At home it appears she is only on sliding scale insulin. We will continue sliding scale insulin but will add on basal insulin, Levemir 20 units, to improve control. Continue diabetic diet. (5) Chronic respiratory failure Current Visit: Yes Status: Acute Assessment and Plan: Stable. Continue home O2. (6) CKD (chronic kidney disease) stage 3, GFR 30-59 ml/min Current Visit: No Status: Chronic Assessment and Plan: Renal function at baseline. Good urine output. Continue to monitor renal function to assist with dosing of medications. (7) Hyponatremia Current Visit: Yes Status: Acute Assessment and Plan: Likely hypovolemic hyponatremia in the setting of poor by mouth intake and nausea and vomiting at home. Asymptomatic. Sodium improved today. Continue to monitor daily. (8) Iron deficiency Current Visit: No Status: Chronic Assessment and Plan: Stable. Hold iron while admitted (9) HTN (hypertension) Current Visit: No Status: Chronic Assessment and Plan: Blood pressure stable. Continue home medication. (10) Costochondritis Current Visit: Yes Status: Acute Assessment and Plan: Improved. Continue Tylenol when necessary for pain. (11) Hyperlipemia Current Visit: No Status: Chronic (12) Depression Current Visit: No Status: Acute Assessment and Plan: Stable. (13) GERD (gastroesophageal reflux disease) Current Visit: No Status: Acute (14) CAD (coronary artery disease) Current Visit: No Status: Chronic Assessment and Plan: Stable. No active chest pain. (15) Ileostomy in place Current Visit: No Status: Acute (16) Congestive heart failure (CHF) Current Visit: Yes Status: Chronic Assessment and Plan: Not in acute exacerbation, Continue home medication. (17) DVT prophylaxis Current Visit: No Status: Acute Assessment and Plan: Heparin 5000 units subcutaneous twice a day - Time Spent with Patient Total time spent is greater than 50% in coordination of care (as documented) at patient's floor/unit and/or counseling patient: Internal Medicine: Result - Labs CBC & Chem 7: 09/12/18 05:21 09/12/18 05:21 Labs: Short CBC 09/11/18 09/12/18 Range/Units 14:00 05:21 WBC 13.5 H 11.7 H (4.3-11.1) K/mcL Hgb 14.7 13.2 D (11.5-15.4) g/dL Hct 44.6 39.8 (35.3-44.9) % Plt Count 145 133 L (140-400) K/mcL Neutrophils # 12.1 H 10.7 H (1.6-8.9) K/mcL BMP 09/11/18 09/12/18 14:00 05:21 Sodium 131 L 134 L Potassium 3.7 4.6 Chloride 94 L 99 Carbon Dioxide 27 20 L BUN 6 14 Creatinine 1.14 1.12 Glucose 227 H 522 H* Calcium 10.0 9.4 Cardiac Enzymes 09/11/18 Range/Units 14:00 Troponin I < 0.03 (< 0.04) ng/mL Liver Function 09/11/18 Range/Units 14:00 Total Bilirubin 0.6 (0.3-1.0) mg/dL Direct Bilirubin 0.1 (0.0-0.2) mg/dL AST 23 (13-39) Units/L ALT 23 (7-52) Units/L Alkaline Phosphatase 145 H (34-104) Units/L Albumin 4.3 (3.5-5.7) g/dL - ABG Interpretation ABG results: ABG ABG pH 7.36 pH Units (7.32-7.45) 09/12/18 01:45 ABG pCO2 49 mmHg (35-45) H 09/12/18 01:45 ABG pO2 68 mmHg (85-104) L 09/12/18 01:45 ABG O2 Saturation 92 % (95-98) L 09/12/18 01:45 - Impressions Impressions Chest X-Ray 09/11/18 14:00 IMPRESSION: No acute process. D/ / Willis Garnica MD / Willis Garnica MD Interpreting Provider: Willis Garnica MD Abdomen/Pelvis CT 09/11/18 14:32 IMPRESSION: No evidence of obstructive uropathy. Several small bowel loops within the anterior abdominal wall deep to the ostomy are mildly dilated, which can reflect ileus or developing obstruction. If further evaluation is warranted, follow up study with oral contrast may be helpful for further assessment. D/ / Brian Chaudhari MD / Brian Chaudhari MD Interpreting Provider: Brian Chaudhari MD Consult Discharge Plan - Plan Referrals: Randa Monaco [Other] (4) Type 2 diabetes mellitus Qualifiers: Diabetes mellitus nursing home insulin use: with terminal make up operator use Diabetes mellitus complication status: with unspecified complications Qualified Code(s): E11.8 - Type 2 diabetes mellitus with unspecified complications; Z79.4 - terminal make up operator (current) use of insulin (5) Chronic respiratory failure Qualifiers: Respiratory failure complication: hypoxia Qualified Code(s): J96.11 - Chronic respiratory failure with hypoxia (9) HTN (hypertension) Qualifiers: Hypertension type: essential hypertension Qualified Code(s): I10 - Essential (primary) hypertension (11) Hyperlipemia Qualifiers: Hyperlipidemia type: pure hypercholesterolemia Qualified Code(s): E78.00 - Pure hypercholesterolemia, unspecified; E78.0 - Pure hypercholesterolemia (12) Depression Qualifiers: Depression Type: major depressive disorder Major depression recurrence: recurrent Active/Remission status: remission status unspecified Qualified Code(s): F33.9 - Major depressive disorder, recurrent, unspecified (13) GERD (gastroesophageal reflux disease) Qualifiers: Esophagitis presence: esophagitis presence not specified Qualified Code(s): K21.9 - Gastro-esophageal reflux disease without esophagitis (14) CAD (coronary artery disease) Qualifiers: Coronary Disease-Associated Artery/Lesion type: [place] artery [place] vs. transplanted heart: [place] heart Associated angina: without angina Qualified Code(s): I25.10 - Atherosclerotic heart disease of [place] coronary artery without angina pectoris (16) Congestive heart failure (CHF) Qualifiers: Heart failure type: diastolic Heart failure chronicity: chronic Qualified Code(s): I50.32 - Chronic diastolic (congestive) heart failure
[2018-09-12] MEDS ORDERED: diazePAM 10 MG TABLET PO PRN (17:59)
[2018-09-12] MEDS ORDERED: Insulin DETEMIR 100 UNIT/ML X5UNITS SQ SCH (21:00)
[2018-09-13] MEDS: Ipratropium Neb 0.5 MG NEBULIZER IH SCH ×3 (04:01→11:16)
[2018-09-13] MEDS: Levalbuterol Neb 1.25 MG/3 ML IH SCH ×3 (04:01→11:16)
[2018-09-13] MEDS ORDERED: Acetaminophen IV 1,000 MG/100 ML INFUS..BTL IVPB ONE (05:03)
[2018-09-13] MEDS: Ondansetron 4 MG/2 ML VIAL IVP PRN (05:25)
[2018-09-13] MEDS: Cefepime HCl 2,000 MG in Water for inj. (sterile) 20 ML 20 ML IVP SCH (06:03)
[2018-09-13] MEDS: *HR* Heparin 5,000 UNIT/ML VIAL SQ SCH (06:04)
[2018-09-13] MEDS: MethylPREDNISolone 40 MG/ML VIAL IVP SCH (06:05)
[2018-09-13 07:10] LABS: Basophils % 0.1 %; Hematocrit 40.7 % (35.3-44.9); Hemoglobin 13.3 g/dL (11.5-15.4); Immature Granulocytes % 0.9 % (0-4); Lymphocytes # 0.9 K/mcL (0.6-4.6); Lymphocytes % 4.5 %; Mean Corpuscular HGB Conc 32.7 g/dL (31.6-35.5); Mean Corpuscular Hemoglobin 30.2 pg (28.0-33.3); Mean Corpuscular Volume 92.3 fL (83.0-100.0); Mean Platelet Volume 12.3 fL (9.4-12.4); Monocytes % 4.9 %; Neutrophils # 17.9 K/mcL (1.6-8.9); Platelet Count 172 K/mcL (140-400); Red Blood Count 4.41 M/mcL (3.82-4.97); Red Cell Distribution Width 13.4 % (11.5-14.5); Segmented Neutrophils % 89.6 %
[2018-09-13 07:23] VITALS: BP 105/65
[2018-09-13 07:28] LABS: BUN/Creatinine Ratio 17 (6-26); Blood Urea Nitrogen 18 mg/dL (6-20); Calcium 9.2 mg/dL (8.6-10.3); Carbon Dioxide 24 mEq/L (23-29); Chloride 98 mEq/L (98-107); Glucose 487 mg/dL (70-105); Magnesium 1.5 mg/dL (1.6-2.6); Osmolality,Calculated 295 (280-300); Potassium 4.3 mEq/L (3.5-5.1); Sodium 131 mEq/L (136-145); eGFR For Non-African Americans 54 (> 60)
[2018-09-13] MEDS ORDERED: Ketorolac 30 MG/ML VIAL IVP ONE (08:46)
[2018-09-13] MEDS ORDERED: Promethazine 25 MG in 0.9 % Sodium Chloride 50 ML IVPB ONE (08:46)
[2018-09-13] MEDS ORDERED: Doxycycline 100 MG in 0.9 % Sodium Chloride Mini Bag 100 ML IVPB SCH (08:47)
[2018-09-13] MEDS ORDERED: Insulin DETEMIR 100 UNIT/ML X5UNITS SQ SCH (09:00)
--- NOTE | 2018-09-13 09:06 | Discharge Summary ---
- NOTES TO OUTPATIENT PROVIDER Notes to Outpatient Provider: Patient being treated for abdominal wall cellulitis and also was treated for migraine while admitted. Surgery evaluated the patient who felt no surgical intervention was needed for cellulitis surrounding her ostomy site. Orders not resulted at time of discharge: Pending orders 09/11/18 14:40 Culture,Blood [BC] Stat 09/11/18 18:35 Legionella Antigen [RM] Routine Respiratory Infection Panel [MOLMIC] Routine Streptococcal pneumoniae urin antigen [S. Pneumoniae Antigen] [RM] Routine 09/11/18 19:16 Mycoplasma pneumoniae IgG IgM Routine 09/14/18 04:00 BMP [Basic Metabolic Panel] AM 0400 Complete Blood Count [HEME] AM 0400 09/15/18 04:00 BMP [Basic Metabolic Panel] AM 0400 Complete Blood Count [HEME] AM 0400 09/16/18 04:00 BMP [Basic Metabolic Panel] AM 0400 Complete Blood Count [HEME] AM 0400 Date of Encounter: 09/13/18 Time of Encounter: 09:03 - Discharge Diagnosis (1) Sepsis due to cellulitis Priority: Primary Status: Resolved (2) Colostomy in place Priority: Secondary Status: Chronic (3) COPD exacerbation Priority: Secondary Status: Ruled-out (4) Type 2 diabetes mellitus Priority: Secondary Status: Chronic Qualifiers: Diabetes mellitus superintendent marine oil terminal insulin use: with superintendent marine oil terminal use Diabetes mellitus complication status: with unspecified complications Qualified Code(s): E11.8 - Type 2 diabetes mellitus with unspecified complications; Z79.4 - termination clerk (current) use of insulin (5) Chronic respiratory failure Priority: Secondary Status: Chronic Qualifiers: Respiratory failure complication: hypoxia Qualified Code(s): J96.11 - Chronic respiratory failure with hypoxia (6) CKD (chronic kidney disease) stage 3, GFR 30-59 ml/min Priority: Secondary Status: Chronic (7) Hyponatremia Priority: Secondary Status: Chronic (8) Iron deficiency Priority: Secondary Status: Chronic (9) HTN (hypertension) Priority: Secondary Status: Chronic Qualifiers: Hypertension type: essential hypertension Qualified Code(s): I10 - Essential (primary) hypertension (10) Costochondritis Priority: Secondary Status: Resolved (11) Hyperlipemia Priority: Secondary Status: Chronic Qualifiers: Hyperlipidemia type: pure hypercholesterolemia Qualified Code(s): E78.00 - Pure hypercholesterolemia, unspecified; E78.0 - Pure hypercholesterolemia (12) Depression Priority: Secondary Status: Chronic Qualifiers: Depression Type: major depressive disorder Major depression recurrence: recurrent Active/Remission status: remission status unspecified Qualified Code(s): F33.9 - Major depressive disorder, recurrent, unspecified (13) GERD (gastroesophageal reflux disease) Priority: Secondary Status: Chronic Qualifiers: Esophagitis presence: esophagitis presence not specified Qualified Code(s): K21.9 - Gastro-esophageal reflux disease without esophagitis (14) CAD (coronary artery disease) Priority: Secondary Status: Chronic Qualifiers: Coronary Disease-Associated Artery/Lesion type: [place] artery [place] vs. transplanted heart: [place] heart Associated angina: without angina Qualified Code(s): I25.10 - Atherosclerotic heart disease of [place] coronary artery without angina pectoris (15) Ileostomy in place Priority: Secondary Status: Chronic (16) Congestive heart failure (CHF) Priority: Secondary Status: Chronic Qualifiers: Heart failure type: diastolic Heart failure chronicity: chronic Qualified Code(s): I50.32 - Chronic diastolic (congestive) heart failure (17) Migraine Priority: Primary Status: Acute Qualifiers: Migraine type: without aura Status migrainosus presence: without status migrainosus Intractability: not intractable Qualified Code(s): G43.009 - Migraine without aura, not intractable, without status migrainosus Hospital course: Ms. Price is a 57 year old female with history of type 2 diabetes, coronary disease presented with abdominal wall pain and redness. This was noted to be around her colostomy site and therefore there is concern for invasive infection. He was also noted on CT the patient had mildly dilated loops of bowel near the distal end of her ostomy site. She continued to have good output from her ostomy. She was started on broad-spectrum antibiotics and evaluated by surgery who felt there is no surgical intervention. There is also concern for mild COPD exacerbation on admission however upon my evaluation patient's breathing was at baseline without shortness of breath or wheezes. She was treated with a brief course of steroids which had the side effect of significant hyperglycemia. Given the improvement of stability of her respiratory status we will discontinue steroids. Will be treated with doxycycline for cellulitis for total of 7 days. Patient was also noted to have a migraine while admitted and was treated with a one-time dose of IV Toradol and Phenergan which improved her symptoms. Patient will be discharged home in stable condition. Discharge discussed with: patient - Time Spent with Patient Total time spent providing and/or coordinating discharge services: Greater than 30 minutes - Discharge Medications Prescriptions: Doxycycline Hyclate 100 mg PO BID #10 capsule Home Medications: Atorvastatin [Lipitor] 40 mg PO HS 01/16/18 [History] Cholecalciferol (D-3) [Vitamin D] 5,000 unit PO MOFR 01/16/18 [History] Clopidogrel [Plavix] 75 mg PO DAILY 01/16/18 [History] Isosorbide MONOnitrate [Isosorbide Mononitrate] 20 mg PO BID 01/16/18 [History] Loratadine [Claritin] 10 mg PO DAILY 01/16/18 [History] Metoprolol Tartrate 100 mg PO BID 01/16/18 [History] Omeprazole [PriLOSEC] 20 mg PO DAILY 01/16/18 [History] Ranitidine HCl [Acid Food Mixer Assembler] 150 mg PO BID 01/16/18 [History] Spironolactone [Aldactone] 50 mg PO BID 01/16/18 [History] Venlafaxine [Effexor] 37.5 mg PO BID 01/16/18 [History] diazePAM [Valium] 10 mg PO BID PRN 01/16/18 [History] Insulin Regular U-500 [HumuLIN R U-500] 0 - 50 units SQ TID 05/10/18 [History] Albuterol Sulfate [Ventolin Hfa] 2 puff IH Q6H PRN 05/11/18 [History] Oxygen 2 l NS CONT #0 05/30/18 [Rx] Magnesium Oxide [Mag-Ox] 400 mg PO DAILY #5 tablet 07/21/18 [Rx] Calcipotriene [Dovonex] 1 appl TP BID 09/12/18 [History] Ferrous Sulfate [Iron] 325 mg PO DAILY 09/12/18 [History] Tramadol HCl [Ultram] 50 mg PO QID PRN 09/12/18 [History] Doxycycline Hyclate 100 mg PO BID #10 capsule 09/13/18 [Rx] Allergies/Adverse Reactions: Allergy/AdvReac Type Severity Reaction Status Date / Time Estrogens Allergy Hives Verified 07/21/18 14:12 gabapentin Allergy Swelling Verified 07/21/18 14:12 of Lip/Tongue/Throat Penicillins Allergy Itching Verified 07/21/18 14:12 aspartame AdvReac See Verified 07/21/18 14:12 Comments aspirin [ASA] AdvReac See Verified 07/21/18 14:12 Comments lisinopril AdvReac Cough Verified 07/21/18 14:12 Date of admission: 09/11/18 18:24 Primary care physician: Randa Monaco Consults: 09/11/18 16:13 Consult to Surgery [CONS] Stat Consulting Provider: Surgery [facility] Reason for Consult: Ostomy, cellulitis, ? fistula, ? ileus Call Completed: Yes Discharging clinician: Freddy Collazo Anticipated date of discharge: 09/13/18 - Constitutional Vitals: Temp Pulse Resp BP Pulse Ox 97.8 F 78 18 105/65 97 09/13/18 07:14 09/13/18 07:14 09/13/18 07:23 09/13/18 07:14 09/13/18 07:23 General appearance: Present: A&O X 3, no acute distress, obese, answers quest ions appropriately Exam: . - ENT ENT exam: Present: mucous membranes moist - Respiratory Respiratory exam: Absent: rales, rhonchi, wheezes - Cardiovascular Cardiovascular exam: Present: RRR. Absent: gallop, rubs, systolic murmur - GI/Abdominal GI/Abdominal exam: Present: normal bowel sounds, soft, tenderness (Mild abdominal wall tenderness) Additional comments: Ostomy site and entertain interstitial site present with ostomy bag and dressing applied. Dark Brown stool present in ostomy bag. Ostomy noted to be pink - Extremities Exam Extremities exam: Present: pedal edema (Trace), warm. Absent: cyanotic, tenderness - Neurological Exam Neurological exam: Present: alert, CN II-XII intact, oriented X3, no focal deficits - Skin Additional comments: Erythema to the anterior abdominal wall which is improved from yesterday. - Patient Status Disposition: Home Health Service Condition: Fair Functional capacity at discharge: independent ambulation Overall status at discharge: patient is progressing back to baseline - Discharge Instructions Instructions: Doxycycline (By mouth), Diabetes Mellitus Type 2 in Adults (DC) Follow Up With: Jeannine ETIENNE [Other] - 10/04/18 (Office will call you Thursday with an appointment date and time. At this point in time they are looking at , However the office is trying to get you in sooner and did not have a time at this time. Thank you!) Additional Instructions: Please resume your home medications. Please take yopour antibiotics until completed. Please follow-up with your PCP within one week. Please return for any new or worsening symptoms. - Diet and Activity Activity: increase activity as tolerated Diet: diabetic diet
--- NOTE | 2018-09-13 09:26 | Physician Discharge Referral ---
Home Health/Hosp Referral Info Transfer to: Home Health Provider in Charge Post Discharge: PCP - Diagnosis (1) Sepsis due to cellulitis Priority: Primary Status: Resolved (2) Colostomy in place Priority: Secondary Status: Chronic (3) Type 2 diabetes mellitus Priority: Secondary Status: Chronic (4) Chronic respiratory failure Priority: Secondary Status: Chronic (5) CKD (chronic kidney disease) stage 3, GFR 30-59 ml/min Priority: Secondary Status: Chronic (6) Hyponatremia Priority: Secondary Status: Chronic (7) Iron deficiency Priority: Secondary Status: Chronic (8) HTN (hypertension) Priority: Secondary Status: Chronic (9) Costochondritis Status: Resolved (10) Hyperlipemia Priority: Secondary Status: Chronic (11) Depression Priority: Secondary Status: Chronic (12) GERD (gastroesophageal reflux disease) Priority: Secondary Status: Chronic (13) CAD (coronary artery disease) Priority: Secondary Status: Chronic (14) Ileostomy in place Priority: Secondary Status: Chronic (15) Congestive heart failure (CHF) Priority: Secondary Status: Chronic (16) Migraine Priority: Primary Status: Acute - Respiratory Orders Oxygen / L per min (2) Smoking Cessation: Smoking cessation has been advised. For more information, call the [place] Tobacco Quit Line at 3-776-MWECNOW. 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 Type of Dressing/Treatments w/Frequency: Wet to dry changed daily - Diet/Nutrition Diet/Nutrition Orders: Cardiac Diet/Nutrition: List: Diabetic - Activity Activity Orders: Up ad fabian (with assist) - Services Needed Following services are medically necessary services: Nursing, Home Health Aide - Transfer Medications Prescriptions: Doxycycline Hyclate 100 mg PO BID #10 capsule Home Medications: Atorvastatin [Lipitor] 40 mg PO HS 01/16/18 [History] Cholecalciferol (D-3) [Vitamin D] 5,000 unit PO MOFR 01/16/18 [History] Clopidogrel [Plavix] 75 mg PO DAILY 01/16/18 [History] Isosorbide MONOnitrate [Isosorbide Mononitrate] 20 mg PO BID 01/16/18 [History] Loratadine [Claritin] 10 mg PO DAILY 01/16/18 [History] Metoprolol Tartrate 100 mg PO BID 01/16/18 [History] Omeprazole [PriLOSEC] 20 mg PO DAILY 01/16/18 [History] Ranitidine HCl [Acid Music Executive] 150 mg PO BID 01/16/18 [History] Spironolactone [Aldactone] 50 mg PO BID 01/16/18 [History] Venlafaxine [Effexor] 37.5 mg PO BID 01/16/18 [History] diazePAM [Valium] 10 mg PO BID PRN 01/16/18 [History] Insulin Regular U-500 [HumuLIN R U-500] 0 - 50 units SQ TID 05/10/18 [History] Albuterol Sulfate [Ventolin Hfa] 2 puff IH Q6H PRN 05/11/18 [History] Oxygen 2 l NS CONT #0 05/30/18 [Rx] Magnesium Oxide [Mag-Ox] 400 mg PO DAILY #5 tablet 07/21/18 [Rx] Calcipotriene [Dovonex] 1 appl TP BID 09/12/18 [History] Ferrous Sulfate [Iron] 325 mg PO DAILY 09/12/18 [History] Tramadol HCl [Ultram] 50 mg PO QID PRN 09/12/18 [History] Doxycycline Hyclate 100 mg PO BID #10 capsule 09/13/18 [Rx] Allergies/Adverse Reactions: Allergy/AdvReac Type Severity Reaction Status Date / Time Estrogens Allergy Hives Verified 07/21/18 14:12 gabapentin Allergy Swelling Verified 07/21/18 14:12 of Lip/Tongue/Throat Penicillins Allergy Itching Verified 07/21/18 14:12 aspartame AdvReac See Verified 07/21/18 14:12 Comments aspirin [ASA] AdvReac See Verified 07/21/18 14:12 Comments lisinopril AdvReac Cough Verified 07/21/18 14:12 Certification: Further, I certify that my clinical findings support that this patient is homebound (i.e. absences from home require considerable and taxing effort and are for medical reasons or shinto services or infrequently or short duration when for other reasons) because: Homebound Reason: Patient requires assistance of a person or device to safely leave home, Leaving home requires considerable and taxing effort due to condition Attestation: My signature below is to certify that this patient is under my care and that I, or nurse practitioner, or a physician's dental ceramist assistant working with me, has a [id number] encounter with this patient.
[2018-09-13] MEDS: Insulin LISPRO 300 UNITS/3 ML VIAL SQ SCH ×2 (09:37→11:44)
[2018-09-13] MEDS: Metoprolol 100 MG TABLET PO SCH (09:38)
[2018-09-13] MEDS: Nicotine 21 MG PATCH.TD24 TD SCH (09:38)
[2018-09-13] MEDS ORDERED: Doxycycline 100 MG CAPSULE PO SCH (11:30)
--- NOTE | 2018-09-13 14:55 | Electrocardiograph Report ---
[place] [id number] Test Date: 2018-09-11 Pat Name: Odilia Price Department: [id number] Room: 2A13 Gender: F [employer]: : 1960 Requested By: Art Chan Order Number: [id number] Reading MD: Roosevelt Berman Measurements Intervals [place] Rate: 110 P: 54 NC: 159 QRS: 185 QRSD: 88 T: 56 QT: 319 QTc: 432 Interpretive Statements Sinus tachycardia Right axis deviation Low voltage, precordial leads Electronically Signed On 09-13-2018 14:53:55 EST by Roosevelt Berman
[2018-09-14 09:56] LABS: Mycoplasma pneumoniae IgG 0.13 U/L (<=0.09)
== END 2018-09-13 12:14 | disposition home health service (06) ==
LOC: EMEROOARM 13:29 → 2ANU 13:29 → SUATTDRO 18:24 → 2ANU 19:30
PROVIDERS: ADMIT Internal Medicine; ATTEND Internal Medicine

== ENCOUNTER 2019-10-16 23:35 | Observation (INO) ==
[2019-10-17] MEDS ORDERED: 0.9 % Sodium Chloride 1,000 ML IV ONE (00:43)
[2019-10-17 01:46] LABS: Basophils # 0.1 K/mcL (0.0-0.2); Basophils % 0.6 %; Eosinophils # 0.1 K/mcL (0.0-0.6); Eosinophils % 0.9 %; Hematocrit 37.8 % (35.3-44.9); Immature Granulocytes % 1.4 % (0-4); Lymphocytes # 2.4 K/mcL (0.6-4.6); Lymphocytes % 22.4 %; Mean Corpuscular Hemoglobin 31.6 pg (28.0-33.3); Mean Corpuscular Volume 85.3 fL (83.0-100.0); Mean Platelet Volume 12.7 fL (9.4-12.4); Monocytes # 0.9 K/mcL (0.0-1.3); Monocytes % 8.6 %; Neutrophils # 7.2 K/mcL (1.6-8.9); Platelet Count 202 K/mcL (140-400); Red Blood Count 4.43 M/mcL (3.82-4.97); Red Cell Distribution Width 12.6 % (11.5-14.5); Segmented Neutrophils % 66.1 %; White Blood Count 10.8 K/mcL (4.3-11.1)
[2019-10-17 01:58] LABS: Albumin/Globulin Ratio 1.6 (1.1-2.2); Bilirubin,Total 0.5 mg/dL (0.3-1.0); Calcium 7.8 mg/dL (8.6-10.3); Globulin 2.5 g/dL (2.4-3.5); Potassium 4.4 mEq/L (3.5-5.1); Total Protein 6.5 g/dL (6.4-8.9)
[2019-10-17] MEDS ORDERED: Cefepime HCl 2,000 MG in Water for inj. (sterile) 20 ML IVP ONE (02:09)
[2019-10-17] MEDS ORDERED: Ondansetron 4 MG/2 ML VIAL IVP PRN (06:42)
[2019-10-17] MEDS ORDERED: Naloxone 0.4 MG/ML INJ IVP PRN (06:42)
[2019-10-17] MEDS ORDERED: *HR* Dextrose 50 % in Water (Syg) 50 ML SYRINGE IVP PRN (06:44)
[2019-10-17] MEDS ORDERED: Dextrose Gel 15 GM/37.5 ML TUBE PO PRN ×2 (06:44)
[2019-10-17] MEDS ORDERED: D5% in Water 1,000 ML IVC PRN (06:44)
[2019-10-17] MEDS ORDERED: Cefepime HCl 2,000 MG in Water for inj. (sterile) 20 ML IVP SCH (08:00)
[2019-10-17] MEDS: Nicotine 21 MG PATCH.TD24 TD SCH (08:16)
[2019-10-17] MEDS ORDERED: Insulin LISPRO 300 UNITS/3 ML VIAL SQ SCH (12:00)
[2019-10-17] MEDS: Insulin DETEMIR 100 UNIT/ML X5UNITS SQ SCH ×2 (14:50→22:47)
[2019-10-17] MEDS: Cefepime HCl 2,000 MG in Water for inj. (sterile) 20 ML IVP SCH (17:46)
[2019-10-17] MEDS: Ranolazine 500 MG TAB.ER.12H PO SCH (22:45)
[2019-10-17] MEDS: Topiramate 25 MG TABLET PO SCH (22:46)
[2019-10-17] MEDS: Metoprolol 100 MG TABLET PO SCH (22:46)
[2019-10-17] MEDS: Insulin LISPRO 300 UNITS/3 ML VIAL SQ SCH (22:47)
[2019-10-18] MEDS ORDERED: Aminoglycoside Consult 1 EACH MC ONE (03:15)
[2019-10-18 04:43] LABS: Calcium 7.6 mg/dL (8.6-10.3)
[2019-10-18] MEDS: Cefepime HCl 2,000 MG in Water for inj. (sterile) 20 ML IVP SCH ×2 (05:50→07:34)
[2019-10-18] MEDS: Insulin DETEMIR 100 UNIT/ML X5UNITS SQ SCH (09:06)
[2019-10-18] MEDS: Nicotine 21 MG PATCH.TD24 TD SCH (09:06)
[2019-10-18] MEDS: Metoprolol 100 MG TABLET PO SCH ×2 (09:07→21:49)
[2019-10-18] MEDS: Topiramate 25 MG TABLET PO SCH ×2 (09:07→21:50)
[2019-10-18] MEDS: Ranolazine 500 MG TAB.ER.12H PO SCH ×2 (09:07→21:50)
[2019-10-18] MEDS: Aspirin Enteric Coated 81 MG Tablet PO SCH (09:07)
[2019-10-18] MEDS: Insulin LISPRO 300 UNITS/3 ML VIAL SQ SCH ×4 (09:09→21:55)
[2019-10-18] MEDS ORDERED: 0.9 % Sodium Chloride 1,000 ML IVC SCH (10:15)
[2019-10-18] MEDS: Doxycycline 100 MG CAPSULE PO SCH ×2 (13:29→21:48)
[2019-10-18] MEDS: Cefdinir 300 MG CAPSULE PO SCH ×2 (13:29→21:50)
[2019-10-18] MEDS ORDERED: Acetaminophen IV 1,000 MG/100 ML INFUS..BTL IVPB ONE (20:57)
[2019-10-18] MEDS ORDERED: Insulin DETEMIR 100 UNIT/ML X5UNITS SQ SCH (21:00)
[2019-10-18] MEDS: Magnesium Oxide 400 MG TABLET PO SCH (21:49)
[2019-10-19 06:54] VITALS: BP 125/72
[2019-10-19] MEDS ORDERED: Isosorbide MONOnitrate (24 HR) 30 MG TAB.ER.24H PO SCH (09:00)
[2019-10-19] MEDS ORDERED: Cholecalciferol (D-3) 1,000 UNIT (25MCG) TABLET PO SCH (09:00)
[2019-10-19] MEDS ORDERED: Insulin DETEMIR 100 UNIT/ML X5UNITS SQ SCH (09:00)
[2019-10-19] MEDS: Nicotine 21 MG PATCH.TD24 TD SCH (10:17)
[2019-10-19] MEDS: Magnesium Oxide 400 MG TABLET PO SCH (10:18)
[2019-10-19] MEDS: Topiramate 25 MG TABLET PO SCH (10:18)
[2019-10-19] MEDS: Metoprolol 100 MG TABLET PO SCH (10:18)
[2019-10-19] MEDS: Doxycycline 100 MG CAPSULE PO SCH (10:18)
[2019-10-19] MEDS: Aspirin Enteric Coated 81 MG Tablet PO SCH (10:19)
[2019-10-19] MEDS: Cefdinir 300 MG CAPSULE PO SCH (10:19)
[2019-10-19] MEDS: Insulin LISPRO 300 UNITS/3 ML VIAL SQ SCH (10:19)
[2019-10-19] MEDS: Ranolazine 500 MG TAB.ER.12H PO SCH (10:29)
== END 2019-10-19 13:27 | disposition home health service (06) ==
LOC: 3ANU 23:35 → EMEROOARM 23:35 → SUATTDRO 10-17 03:14 → 3ANU 10-17 04:15
PROVIDERS: ADMIT Family Medicine; ATTEND Internal Medicine

== ENCOUNTER 2019-10-25 11:48 | Observation (INO) ==
[2019-10-25 13:22] LABS: Basophils # 0.1 K/mcL (0.0-0.2); Basophils % 0.5 %; Eosinophils % 0.3 %; Hematocrit 39.6 % (35.3-44.9); Hemoglobin 14.2 g/dL (11.5-15.4); Immature Granulocytes % 0.8 % (0-4); Lymphocytes # 1.2 K/mcL (0.6-4.6); Lymphocytes % 11.2 %; Mean Corpuscular HGB Conc 35.9 g/dL (31.6-35.5); Mean Corpuscular Hemoglobin 31.5 pg (28.0-33.3); Mean Corpuscular Volume 87.8 fL (83.0-100.0); Monocytes # 0.6 K/mcL (0.0-1.3); Monocytes % 5.3 %; Neutrophils # 8.7 K/mcL (1.6-8.9); Platelet Count 216 K/mcL (140-400); Red Blood Count 4.51 M/mcL (3.82-4.97); Red Cell Distribution Width 13.2 % (11.5-14.5); Segmented Neutrophils % 81.9 %; White Blood Count 10.7 K/mcL (4.3-11.1)
[2019-10-25 13:48] LABS: BUN/Creatinine Ratio 15 (6-26); Blood Urea Nitrogen 15 mg/dL (8-23); Calcium 8.6 mg/dL (8.6-10.3); Carbon Dioxide 26 mEq/L (23-29); Chloride 102 mEq/L (98-107); Glucose 327 mg/dL (70-105); Osmolality,Calculated 310 (280-300); Potassium 4.3 mEq/L (3.5-5.1); Sodium 143 mEq/L (136-145); eGFR For African Americans > 60 (> 60); eGFR For Non-African Americans 57 (> 60)
[2019-10-25] MEDS ORDERED: Ondansetron 4 MG/2 ML VIAL IVP ONE (14:02)
[2019-10-25] MEDS ORDERED: 0.9 % Sodium Chloride 1,000 ML IVC ONE (14:02)
[2019-10-25] MEDS ORDERED: *HR* Promethazine 25 MG/ML VIAL IVP ONE (14:45)
[2019-10-25] MEDS ORDERED: *HR* FentaNYL (PF) 100 MCG/2 ML VIAL IVP ONE (14:45)
[2019-10-25] MEDS ORDERED: Isovue-370 500 ML BOTTLE IVP ONE (15:08)
[2019-10-25] MEDS ORDERED: *HR* LORazepam 0.5 MG TABLET PO ONE (15:30)
[2019-10-25] MEDS ORDERED: 0.9 % Sodium Chloride 500 ML IVC ONE (15:34)
[2019-10-25 15:57] LABS: Alanine Aminotransferase 16 Units/L (7-52); Albumin 4.1 g/dL (3.5-5.7); Albumin/Globulin Ratio 1.6 (1.1-2.2); Alkaline Phosphatase 87 Units/L (34-104); Aspartate Amino Transferase 16 Units/L (13-39); Bilirubin,Direct 0.2 mg/dL (0.0-0.2); Bilirubin,Indirect 0.5 mg/dL (0.0-1.0); Bilirubin,Total 0.7 mg/dL (0.3-1.0); Globulin 2.6 g/dL (2.4-3.5); Lipase 32 Units/L (11-82); Total Protein 6.7 g/dL (6.4-8.9)
[2019-10-25] MEDS ORDERED: Mag Hydrox/Al Hydrox/Simeth 30 ML UDC PO PRN (18:17)
[2019-10-25] MEDS ORDERED: Naloxone 0.4 MG/ML INJ IVP PRN (18:17)
[2019-10-25] MEDS ORDERED: *HR* OxyCODONE Immed Rel 5 MG TABLET PO PRN ×2 (18:17)
[2019-10-25] MEDS ORDERED: Acetaminophen 325 MG TABLET PO PRN (18:17)
[2019-10-25] MEDS ORDERED: *HR* Promethazine 25 MG/ML VIAL IVP PRN (18:17)
[2019-10-25] MEDS ORDERED: Dextrose Gel 15 GM/37.5 ML TUBE PO PRN ×2 (18:23)
[2019-10-25] MEDS ORDERED: *HR* Dextrose 50 % in Water (Syg) 50 ML SYRINGE IVP PRN (18:23)
[2019-10-25] MEDS ORDERED: D5% in Water 1,000 ML IVC PRN (18:23)
[2019-10-25] MEDS ORDERED: 0.9 % Sodium Chloride 1,000 ML IVC SCH (18:30)
[2019-10-25 19:50] LABS: Bilirubin,Urine Negative (Negative); Blood,Urine Trace (Negative); Clarity,Urine Turbid (Clear); Color,Urine Red (Yellow); Glucose,Urine (UA) 250 mg/dL (Normal); Ketones,Urine Negative (Negative); Leukocyte Esterase,Urine Negative (Negative); Nitrite,Urine Negative (Negative); Protein,Urine 30 mg/dL (Neg-Trace); Specific Gravity,Urine > 1.030 (1.010-1.025); Urobilinogen,Urine Normal (Normal)
[2019-10-25 19:52] LABS: Bacteria,Urine Few per hpf (None-Few); Hyaline Casts,Urine Few per lpf (None-Few); Squamous Epithelial Cell,Urine Many per lpf (None-Few); WBC,Urine 50-100 per hpf (0-3)
[2019-10-25] MEDS: Cefdinir 300 MG CAPSULE PO SCH (20:57)
[2019-10-25] MEDS ORDERED: Insulin LISPRO 300 UNITS/3 ML VIAL SQ SCH (21:00)
[2019-10-25] MEDS: Ondansetron 4 MG/2 ML VIAL IVP PRN (22:17)
[2019-10-26] MEDS ORDERED: Pantoprazole 40 MG VIAL IVP SCH (06:00)
[2019-10-26 06:05] LABS: Hematocrit 36.6 % (35.3-44.9); Mean Corpuscular HGB Conc 34.2 g/dL (31.6-35.5); Mean Corpuscular Hemoglobin 30.9 pg (28.0-33.3); Mean Corpuscular Volume 90.6 fL (83.0-100.0); Mean Platelet Volume 12.2 fL (9.4-12.4); Platelet Count 166 K/mcL (140-400); Red Blood Count 4.04 M/mcL (3.82-4.97); Red Cell Distribution Width 13.5 % (11.5-14.5); White Blood Count 7.4 K/mcL (4.3-11.1)
[2019-10-26 06:13] LABS: Hemoglobin 12.5 g/dL (11.5-15.4)
[2019-10-26] MEDS: Cefdinir 300 MG CAPSULE PO SCH (07:59)
[2019-10-26] MEDS: Ondansetron 4 MG/2 ML VIAL IVP PRN (07:59)
[2019-10-26] MEDS: Insulin LISPRO 300 UNITS/3 ML VIAL SQ SCH ×2 (08:25→12:05)
[2019-10-26 10:14] LABS: BUN/Creatinine Ratio 15 (6-26); Blood Urea Nitrogen 14 mg/dL (8-23); Calcium 7.5 mg/dL (8.6-10.3); Carbon Dioxide 24 mEq/L (23-29); Chloride 106 mEq/L (98-107); Glucose 181 mg/dL (70-105); Magnesium < 0.5 mg/dL (1.6-2.6); Osmolality,Calculated 301 (280-300); Potassium 3.2 mEq/L (3.5-5.1); Sodium 143 mEq/L (136-145); eGFR For African Americans > 60 (> 60); eGFR For Non-African Americans > 60 (> 60)
[2019-10-26] MEDS ORDERED: Potassium Chloride Elixir 20 MEQ/15 ML UDC PO ONE (11:00)
[2019-10-26] MEDS ORDERED: Sucralfate 1 GM TABLET PO SCH (11:30)
[2019-10-26 11:52] VITALS: BP 126/79
== END 2019-10-26 17:15 | disposition home health service (06) ==
LOC: 3ANU 11:48 → EMEROOARM 11:48 → SUATTDRO 18:01 → 3ANU 18:36
PROVIDERS: ADMIT Pharmacist; ATTEND Internal Medicine

== ENCOUNTER 2021-04-18 11:07 | Inpatient (IN) ==
[2021-04-18] MEDS ORDERED: Ondansetron 4 MG/2 ML VIAL IVP ONE ×2 (12:23→15:53)
[2021-04-18] MEDS ORDERED: 0.9 % Sodium Chloride 500 ML IV ONE (12:24)
[2021-04-18] MEDS ORDERED: *HR* HYDROmorphone (PF) 1 MG/ML SYRINGE IVP ONE ×2 (12:24→15:53)
[2021-04-18 12:38] LABS: Hemoglobin 13.3 g/dL (11.5-15.4); Red Cell Distribution Width 14.1 % (11.5-14.5)
[2021-04-18 12:41] LABS: Basophils # 0.1 K/mcL (0.0-0.2); Basophils % 0.7 %; Eosinophils # 0.1 K/mcL (0.0-0.6); Eosinophils % 1.2 %; Immature Granulocytes % 0.8 % (0-4); Lymphocytes # 1.2 K/mcL (0.6-4.6); Lymphocytes % 15.2 %; Mean Corpuscular HGB Conc 31.7 g/dL (31.6-35.5); Mean Corpuscular Hemoglobin 26.8 pg (28.0-33.3); Mean Corpuscular Volume 84.5 fL (83.0-100.0); Monocytes # 0.6 K/mcL (0.0-1.3); Monocytes % 7.7 %; Neutrophils # 5.7 K/mcL (1.6-8.9); Platelet Count 162 K/mcL (140-400); Red Blood Count 4.97 M/mcL (3.82-4.97); Segmented Neutrophils % 74.4 %; White Blood Count 7.6 K/mcL (4.3-11.1)
[2021-04-18 13:15] LABS: Alanine Aminotransferase 17 Units/L (7-52); Albumin 3.6 g/dL (3.5-5.7); Albumin/Globulin Ratio 1.6 (1.1-2.2); Alkaline Phosphatase 123 Units/L (34-104); Aspartate Amino Transferase 24 Units/L (13-39); BUN/Creatinine Ratio 7 (6-26); Bilirubin,Total 0.5 mg/dL (0.3-1.0); Blood Urea Nitrogen 7 mg/dL (8-23); Calcium 8.6 mg/dL (8.6-10.3); Carbon Dioxide 28 mEq/L (23-29); Chloride 97 mEq/L (98-107); Globulin 2.3 g/dL (2.4-3.5); Glucose 293 mg/dL (70-105); Osmolality,Calculated 287 (280-300); Potassium 3.8 mEq/L (3.5-5.1); Sodium 134 mEq/L (136-145); Total Protein 5.9 g/dL (6.4-8.9); Troponin I < 0.03 ng/mL (< 0.04); eGFR For African Americans > 60 (> 60); eGFR For Non-African Americans 54 (> 60)
[2021-04-18 14:54] LABS: Bacteria,Urine Many per hpf (None-Few); Bilirubin,Urine Negative (Negative); Blood,Urine Negative (Negative); Clarity,Urine Ex.Turbid (Clear); Color,Urine Yellow (Yellow); Glucose,Urine (UA) 500 mg/dL (Normal); Ketones,Urine Negative (Negative); Leukocyte Esterase,Urine Trace (Negative); Nitrite,Urine Negative (Negative); Protein,Urine Negative (Neg-Trace); Specific Gravity,Urine 1.007 (1.010-1.025); Urobilinogen,Urine Normal (Normal)
[2021-04-18] MEDS ORDERED: Mag Hydrox/Al Hydrox/Simeth 30 ML UDC PO PRN (16:34)
[2021-04-18] MEDS ORDERED: Melatonin 3 MG TABLET PO PRN (16:34)
[2021-04-18] MEDS ORDERED: Ondansetron 4 MG/2 ML VIAL IVP PRN (16:34)
[2021-04-18] MEDS ORDERED: Acetaminophen 325 MG TABLET PO PRN (16:34)
[2021-04-18] MEDS ORDERED: Naloxone 0.4 MG/ML INJ IVP PRN (16:34)
[2021-04-18 17:52] LABS: Adenovirus Not Detected (Not Detect); Bordetella Pertussis Not Detected (Not Detect); Chlamydophila pneumoniae Not Detected (Not Detect); Coronavirus 229E Not Detected (Not Detect); Coronavirus HKU1 Not Detected (Not Detect); Coronavirus NL63 Not Detected (Not Detect); Coronavirus OC43 Not Detected (Not Detect); Human Metapneumovirus Not Detected (Not Detect); Human Rhinovirus/Enterovirus Not Detected (Not Detect); Influenza A Subtype 2009 H1 Not Detected (Not Detect); Influenza B Not Detected (Not Detect); Mycoplasma pneumoniae Not Detected (Not Detect); Parainfluenza Virus 1 Not Detected (Not Detect); Parainfluenza Virus 2 Not Detected (Not Detect); Parainfluenza Virus 3 Not Detected (Not Detect); Parainfluenza Virus 4 Not Detected (Not Detect); Respiratory Syncytial Virus Not Detected (Not Detect); SARS-CoV-2 Not Detected (Not Detect)
[2021-04-18] MEDS ORDERED: Albuterol 2.5 MG/3 ML NEBULIZER IH PRN (19:02)
[2021-04-18] MEDS: *HR* HYDROcodone/Acet 5/325 mg TABLET PO PRN (23:28)
[2021-04-19 07:57] LABS: Basophils % 0.2 %; Eosinophils % 0.3 %; Hematocrit 39.5 % (35.3-44.9); Hemoglobin 12.5 g/dL (11.5-15.4); Immature Granulocytes % 0.7 % (0-4); Lymphocytes # 0.9 K/mcL (0.6-4.6); Lymphocytes % 9.8 %; Mean Corpuscular HGB Conc 31.6 g/dL (31.6-35.5); Mean Corpuscular Hemoglobin 26.7 pg (28.0-33.3); Mean Corpuscular Volume 84.2 fL (83.0-100.0); Monocytes # 0.8 K/mcL (0.0-1.3); Monocytes % 9.4 %; Platelet Count 148 K/mcL (140-400); Red Blood Count 4.69 M/mcL (3.82-4.97); Red Cell Distribution Width 14.2 % (11.5-14.5); Segmented Neutrophils % 79.6 %; White Blood Count 8.8 K/mcL (4.3-11.1)
[2021-04-19] MEDS: *HR* HYDROcodone/Acet 5/325 mg TABLET PO PRN (07:57)
[2021-04-19 08:06] LABS: BUN/Creatinine Ratio 7 (6-26); Blood Urea Nitrogen 6 mg/dL (8-23); Calcium 8.4 mg/dL (8.6-10.3); Carbon Dioxide 27 mEq/L (23-29); Chloride 102 mEq/L (98-107); Glucose 325 mg/dL (70-105); Osmolality,Calculated 290 (280-300); Potassium 3.8 mEq/L (3.5-5.1); Sodium 135 mEq/L (136-145); eGFR For African Americans > 60 (> 60); eGFR For Non-African Americans > 60 (> 60)
[2021-04-19] MEDS: *HR* HYDROmorphone 2 MG/ML SYRINGE IVP PRN (09:25)
[2021-04-19] MEDS ORDERED: Nitroglycerin 0.4 MG TAB.SUBL SL PRN (11:37)
[2021-04-19] MEDS ORDERED: D5% in Water 1,000 ML IVC PRN (11:38)
[2021-04-19] MEDS ORDERED: *HR* Dextrose 50 % in Water (Vial) 50 ML VIAL IVP PRN (11:38)
[2021-04-19] MEDS ORDERED: Dextrose Gel 15 GM/37.5 ML TUBE PO PRN ×2 (11:38)
[2021-04-19] MEDS: *HR* OxyCODONE/APAP 7.5/325 TABLET PO PRN (12:48)
[2021-04-19] MEDS: Insulin LISPRO 300 UNITS/3 ML VIAL SUBQ SCH ×2 (12:49→17:48)
[2021-04-19] MEDS ORDERED: Lidocaine -MPF 2% 2 ML VIAL ONE (13:54)
[2021-04-19] MEDS ORDERED: Lidocaine HCL 4 ML Topical Solution (Laryng-O-Jet Kit Sterile Pak) TP ONE (13:54)
[2021-04-19] MEDS ORDERED: *HR* Rocuronium Bromide 50 MG/5 ML VIAL ONE ×2 (13:54→17:25)
[2021-04-19] MEDS ORDERED: Ondansetron 4 MG/2 ML VIAL ONE (13:54)
[2021-04-19] MEDS ORDERED: *HR* FentaNYL (PF) 100 MCG/2 ML VIAL ONE ×2 (13:57→16:16)
[2021-04-19] MEDS ORDERED: *HR* Midazolam HCl 2 MG/2 ML VIAL ONE (13:57)
[2021-04-19] MEDS ORDERED: *HR* Propofol 200 MG/20 ML VIAL IVP ONE ×2 (13:58→18:23)
[2021-04-19] MEDS ORDERED: Bupivacaine-MPF 0.25% 10 ML VIAL ONE (15:15)
[2021-04-19] MEDS: Nystatin POWDER 30 GM BOTTLE TP SCH ×2 (15:33→21:09)
[2021-04-19] MEDS ORDERED: *HR* HYDROmorphone PF 0.5 MG/0.5 ML SYRINGE IVP PRN (15:52)
[2021-04-19] MEDS ORDERED: *HR* OxyCODONE Immed Rel 5 MG TABLET PO PRN (15:52)
[2021-04-19] MEDS ORDERED: Clindamycin 900 MG/50 ML 900 MG/50 ML IV.SOLN IVPB ONE ×2 (16:35→16:39)
[2021-04-19] MEDS ORDERED: *HR* HYDROMORPHONE 2 MG/ML VIAL ONE (17:10)
[2021-04-19] MEDS ORDERED: Ipratropium/Albuterol Neb 3 ML IH PRN (18:23)
[2021-04-19] MEDS ORDERED: Sugammadex Sodium 200 MG/2 ML VIAL IV ONE (18:27)
[2021-04-19] MEDS ORDERED: Vancomycin 1,000 MG VIAL ONE (18:28)
[2021-04-19] MEDS ORDERED: Insulin Regular, Human 100 UNIT/ML SUBQ ONE (19:59)
[2021-04-19] MEDS ORDERED: Insulin Regular, Human 100 UNIT/ML ONE (20:11)
[2021-04-19] MEDS ORDERED: NON-FORMULARY MEDICATION 1 EACH EACH (Isosorbide Mononitrate [Isosorbide Mononitrate] 20 M PO SCH (21:00)
[2021-04-19] MEDS ORDERED: Insulin DETEMIR 100 UNIT/ML X5UNITS SUBQ SCH (21:00)
[2021-04-19] MEDS: Pregabalin 50 MG CAPSULE PO SCH (21:09)
[2021-04-19] MEDS: Ranolazine 500 MG TAB.ER.12H PO SCH (21:09)
[2021-04-20] MEDS: Clindamycin 900 MG/50 ML 900 MG/50 ML IV.SOLN IVPB SCH ×2 (00:32→08:30)
[2021-04-20 01:46] LABS: ABG Base Excess 3 mEq/L (-2 to 3); ABG HCO3 30 mEq/L (21-27); ABG Oxygen Saturation 88 % (95-98); ABG PCO2 58 mmHg (35-45); ABG PH 7.32 pH Units (7.32-7.45); ABG PO2 60 mmHg (85-104); ABG TCO2 32 mEq/L (20-26)
[2021-04-20 02:40] LABS: Basophils % 0.1 %; Hematocrit 37.5 % (35.3-44.9); Immature Granulocytes % 0.9 % (0-4); Lymphocytes # 0.7 K/mcL (0.6-4.6); Lymphocytes % 5.2 %; Mean Corpuscular Hemoglobin 27.6 pg (28.0-33.3); Mean Corpuscular Volume 86.4 fL (83.0-100.0); Mean Platelet Volume 12.2 fL (9.4-12.4); Monocytes # 1.4 K/mcL (0.0-1.3); Monocytes % 9.7 %; Neutrophils # 11.9 K/mcL (1.6-8.9); Platelet Count 151 K/mcL (140-400); Red Blood Count 4.34 M/mcL (3.82-4.97); Red Cell Distribution Width 14.4 % (11.5-14.5); Segmented Neutrophils % 84.1 %; White Blood Count 14.1 K/mcL (4.3-11.1)
[2021-04-20 02:55] LABS: BUN/Creatinine Ratio 8 (6-26); Blood Urea Nitrogen 7 mg/dL (8-23); Calcium 8.2 mg/dL (8.6-10.3); Carbon Dioxide 25 mEq/L (23-29); Chloride 104 mEq/L (98-107); Glucose 329 mg/dL (70-105); Magnesium 1.1 mg/dL (1.6-2.6); Osmolality,Calculated 295 (280-300); Sodium 137 mEq/L (136-145); eGFR For African Americans > 60 (> 60); eGFR For Non-African Americans > 60 (> 60)
[2021-04-20 02:57] LABS: Estimated Average Glucose 332 mg/dl; Hemoglobin A1C 13.2 %
[2021-04-20] MEDS ORDERED: Calcium Gluconate 1gm/50mL 1 GM/50 ML BAG IVPB ONE (04:07)
[2021-04-20] MEDS ORDERED: Insulin LISPRO 300 UNITS/3 ML VIAL SUBQ SCH (04:15)
[2021-04-20] MEDS ORDERED: *HR* LORazepam 2 MG/ML VIAL IVP ONE ×2 (04:33→06:36)
[2021-04-20] MEDS ORDERED: Isovue-370 500 ML BOTTLE IVP ONE (07:58)
[2021-04-20] MEDS: Insulin LISPRO 300 UNITS/3 ML VIAL SUBQ SCH ×3 (08:28→19:52)
[2021-04-20 09:14] LABS: INR 1.1; Prothrombin Time 13.2 Seconds (9.4-12.1)
[2021-04-20] MEDS: Insulin DETEMIR 100 UNIT/ML X5UNITS SUBQ SCH ×2 (10:52→20:48)
[2021-04-20] MEDS: *HR* HYDROmorphone 2 MG/ML SYRINGE IVP PRN (13:14)
[2021-04-20 15:13] LABS: ABG Base Excess 5 mEq/L (-2 to 3); ABG HCO3 29 mEq/L (21-27); ABG Oxygen Saturation 79 % (95-98); ABG PCO2 43 mmHg (35-45); ABG PH 7.45 pH Units (7.32-7.45); ABG PO2 42 mmHg (85-104); ABG TCO2 31 mEq/L (20-26)
[2021-04-20 16:35] LABS: ABG Base Excess 4 mEq/L (-2 to 3); ABG HCO3 31 mEq/L (21-27); ABG Oxygen Saturation 93 % (95-98); ABG PCO2 52 mmHg (35-45); ABG PH 7.38 pH Units (7.32-7.45); ABG PO2 71 mmHg (85-104); ABG TCO2 32 mEq/L (20-26)
[2021-04-20] MEDS: Pregabalin 50 MG CAPSULE PO SCH ×2 (16:36→20:51)
[2021-04-20] MEDS: Isosorbide MONOnitrate (24 HR) 30 MG TAB.ER.24H PO SCH (16:36)
[2021-04-20] MEDS: Loratadine 10 MG TABLET PO SCH (16:36)
[2021-04-20] MEDS: Magnesium Oxide 400 MG TABLET PO SCH (16:37)
[2021-04-20] MEDS: Topiramate 25 MG TABLET PO SCH (16:37)
[2021-04-20] MEDS: Nystatin POWDER 30 GM BOTTLE TP SCH ×2 (16:37→20:51)
[2021-04-20] MEDS: Ranolazine 500 MG TAB.ER.12H PO SCH ×2 (16:37→20:51)
[2021-04-20] MEDS: Cholecalciferol (D-3) 1,000 UNIT (25MCG) TABLET PO SCH (16:38)
[2021-04-20] MEDS: Doxycycline 100 MG in 0.9 % Sodium Chloride Mini Bag 100 ML IVPB SCH ×2 (16:44→20:17)
[2021-04-20] MEDS: cefTRIAXone 1,000 MG in 0.9 % Sodium Chloride Mini Bag 100 ML IVPB SCH (16:50)
[2021-04-20] MEDS: Dexmedetomidine HCl 400 MCG/100 ML MLS IVC SCH (20:00)
[2021-04-21] MEDS: Dexmedetomidine HCl 400 MCG/100 ML MLS IVC SCH ×4 (01:24→19:01)
[2021-04-21 02:03] LABS: Basophils % 0.3 %; Eosinophils % 0.1 %; Immature Granulocytes % 0.6 % (0-4); Lymphocytes # 0.8 K/mcL (0.6-4.6); Lymphocytes % 9.4 %; Mean Corpuscular HGB Conc 32.4 g/dL (31.6-35.5); Mean Corpuscular Hemoglobin 27.8 pg (28.0-33.3); Mean Corpuscular Volume 86.1 fL (83.0-100.0); Mean Platelet Volume 11.8 fL (9.4-12.4); Monocytes # 0.8 K/mcL (0.0-1.3); Monocytes % 9.7 %; Neutrophils # 6.4 K/mcL (1.6-8.9); Platelet Count 132 K/mcL (140-400); Red Blood Count 3.95 M/mcL (3.82-4.97); Red Cell Distribution Width 14.3 % (11.5-14.5); Segmented Neutrophils % 79.9 %
[2021-04-21 02:06] LABS: VBG Ionized Calcium 1.17 mmol/L (1.15-1.35)
[2021-04-21 02:22] LABS: BUN/Creatinine Ratio 9 (6-26); Blood Urea Nitrogen 7 mg/dL (8-23); Calcium 8.8 mg/dL (8.6-10.3); Carbon Dioxide 31 mEq/L (23-29); Chloride 106 mEq/L (98-107); Glucose 271 mg/dL (70-105); Magnesium 1.6 mg/dL (1.6-2.6); Osmolality,Calculated 304 (280-300); Phosphorous 1.2 mg/dL (2.7-4.5); Potassium 3.2 mEq/L (3.5-5.1); Sodium 143 mEq/L (136-145); eGFR For African Americans > 60 (> 60); eGFR For Non-African Americans > 60 (> 60)
[2021-04-21] MEDS ORDERED: Potassium Phosphate 44 MEQ in 0.9 % Sodium Chloride 250 ML IVPB PRN (03:38)
[2021-04-21] MEDS ORDERED: Calcium Gluconate 1gm/50mL 1 GM/50 ML BAG IVPB PRN (03:38)
[2021-04-21] MEDS: *HR* OxyCODONE/APAP 7.5/325 TABLET PO PRN (04:56)
[2021-04-21] MEDS: Doxycycline 100 MG in 0.9 % Sodium Chloride Mini Bag 100 ML IVPB SCH ×2 (05:15→17:09)
[2021-04-21 08:04] LABS: ABG Base Excess 5 mEq/L (-2 to 3); ABG HCO3 30 mEq/L (21-27); ABG Oxygen Saturation 92 % (95-98); ABG PCO2 44 mmHg (35-45); ABG PH 7.44 pH Units (7.32-7.45); ABG PO2 62 mmHg (85-104); ABG TCO2 32 mEq/L (20-26)
[2021-04-21] MEDS: cefTRIAXone 1,000 MG in 0.9 % Sodium Chloride Mini Bag 100 ML IVPB SCH (08:55)
[2021-04-21] MEDS: Isosorbide MONOnitrate (24 HR) 30 MG TAB.ER.24H PO SCH (08:59)
[2021-04-21] MEDS: Loratadine 10 MG TABLET PO SCH (09:00)
[2021-04-21] MEDS: Topiramate 25 MG TABLET PO SCH (09:00)
[2021-04-21] MEDS: Magnesium Oxide 400 MG TABLET PO SCH (09:00)
[2021-04-21] MEDS: Cholecalciferol (D-3) 1,000 UNIT (25MCG) TABLET PO SCH (09:01)
[2021-04-21] MEDS: Ranolazine 500 MG TAB.ER.12H PO SCH ×2 (09:01→20:58)
[2021-04-21] MEDS: Pregabalin 50 MG CAPSULE PO SCH ×2 (09:03→20:59)
[2021-04-21] MEDS: Nystatin POWDER 30 GM BOTTLE TP SCH ×3 (09:03→20:59)
[2021-04-21] MEDS: Insulin DETEMIR 100 UNIT/ML X5UNITS SUBQ SCH (09:52)
[2021-04-21] MEDS: Insulin LISPRO 300 UNITS/3 ML VIAL SUBQ SCH ×3 (10:49→17:02)
[2021-04-21] MEDS ORDERED: Perflutren Lipid Microsphere 1.3 ML in 0.9 % Sodium Chloride 8.7 ML IVP PRN ×2 (13:36→15:22)
[2021-04-21] MEDS ORDERED: *HR* Dextrose 50 % in Water (Vial) 50 ML VIAL IVP PRN (15:22)
[2021-04-21] MEDS ORDERED: Dextrose Gel 15 GM/37.5 ML TUBE PO PRN ×2 (15:22)
[2021-04-21] MEDS ORDERED: Nitroglycerin 0.4 MG TAB.SUBL SL PRN (15:22)
[2021-04-21] MEDS ORDERED: Naloxone 0.4 MG/ML INJ IVP PRN (15:22)
[2021-04-21] MEDS ORDERED: Melatonin 3 MG TABLET PO PRN (15:22)
[2021-04-21] MEDS ORDERED: Mag Hydrox/Al Hydrox/Simeth 30 ML UDC PO PRN (15:22)
[2021-04-21] MEDS ORDERED: D5% in Water 1,000 ML IVC PRN (15:22)
[2021-04-21] MEDS ORDERED: Acetaminophen 325 MG TABLET PO PRN (15:22)
[2021-04-21] MEDS ORDERED: Ipratropium/Albuterol Neb 3 ML IH PRN (15:22)
[2021-04-21] MEDS ORDERED: Ondansetron 4 MG/2 ML VIAL IVP PRN (15:22)
[2021-04-21] MEDS: *HR* HYDROmorphone 2 MG/ML SYRINGE IVP PRN (21:07)
[2021-04-22] MEDS: Dexmedetomidine HCl 400 MCG/100 ML MLS IVC SCH (03:21)
[2021-04-22] MEDS: *HR* HYDROmorphone 2 MG/ML SYRINGE IVP PRN ×3 (05:04→22:15)
[2021-04-22] MEDS: Doxycycline 100 MG in 0.9 % Sodium Chloride Mini Bag 100 ML IVPB SCH ×2 (05:05→16:17)
[2021-04-22 05:31] LABS: Basophils % 0.5 %; Eosinophils # 0.2 K/mcL (0.0-0.6); Eosinophils % 2.2 %; Hematocrit 33.1 % (35.3-44.9); Hemoglobin 10.6 g/dL (11.5-15.4); Immature Granulocytes % 0.6 % (0-4); Lymphocytes # 1.3 K/mcL (0.6-4.6); Lymphocytes % 16.8 %; Mean Corpuscular Hemoglobin 27.6 pg (28.0-33.3); Mean Corpuscular Volume 86.2 fL (83.0-100.0); Mean Platelet Volume 12.5 fL (9.4-12.4); Monocytes # 0.6 K/mcL (0.0-1.3); Monocytes % 7.9 %; Neutrophils # 5.6 K/mcL (1.6-8.9); Platelet Count 146 K/mcL (140-400); Red Blood Count 3.84 M/mcL (3.82-4.97); Red Cell Distribution Width 14.4 % (11.5-14.5); White Blood Count 7.8 K/mcL (4.3-11.1)
[2021-04-22 05:48] LABS: BUN/Creatinine Ratio 16 (6-26); Blood Urea Nitrogen 14 mg/dL (8-23); Calcium 8.8 mg/dL (8.6-10.3); Carbon Dioxide 29 mEq/L (23-29); Chloride 106 mEq/L (98-107); Glucose 194 mg/dL (70-105); Magnesium 1.8 mg/dL (1.6-2.6); Osmolality,Calculated 298 (280-300); Potassium 3.3 mEq/L (3.5-5.1); Sodium 141 mEq/L (136-145); eGFR For African Americans > 60 (> 60); eGFR For Non-African Americans > 60 (> 60)
[2021-04-22] MEDS ORDERED: Potassium Phosphate 44 MEQ in 0.9 % Sodium Chloride 250 ML IVPB ONE (07:18)
[2021-04-22] MEDS: Isosorbide MONOnitrate (24 HR) 30 MG TAB.ER.24H PO SCH (07:51)
[2021-04-22] MEDS: Pregabalin 50 MG CAPSULE PO SCH ×2 (07:52→20:22)
[2021-04-22] MEDS: Loratadine 10 MG TABLET PO SCH (07:52)
[2021-04-22] MEDS: Cholecalciferol (D-3) 1,000 UNIT (25MCG) TABLET PO SCH (07:52)
[2021-04-22] MEDS: Ranolazine 500 MG TAB.ER.12H PO SCH ×2 (07:53→20:22)
[2021-04-22] MEDS: Magnesium Oxide 400 MG TABLET PO SCH (07:55)
[2021-04-22] MEDS: cefTRIAXone 1,000 MG in 0.9 % Sodium Chloride Mini Bag 100 ML IVPB SCH (07:55)
[2021-04-22] MEDS: Topiramate 25 MG TABLET PO SCH (07:55)
[2021-04-22] MEDS: Insulin LISPRO 300 UNITS/3 ML VIAL SUBQ SCH ×3 (07:58→16:31)
[2021-04-22] MEDS: Nystatin POWDER 30 GM BOTTLE TP SCH ×3 (07:59→20:23)
[2021-04-22] MEDS: *HR* OxyCODONE/APAP 7.5/325 TABLET PO PRN ×3 (08:03→20:22)
[2021-04-22] MEDS ORDERED: Perflutren Lipid Microsphere 1.3 ML in 0.9 % Sodium Chloride 8.7 ML IVP PRN (12:34)
[2021-04-23] MEDS: Doxycycline 100 MG in 0.9 % Sodium Chloride Mini Bag 100 ML IVPB SCH ×2 (05:45→17:21)
[2021-04-23 05:48] LABS: Basophils # 0.1 K/mcL (0.0-0.2); Basophils % 0.7 %; Eosinophils # 0.2 K/mcL (0.0-0.6); Eosinophils % 2.6 %; Hemoglobin 10.8 g/dL (11.5-15.4); Immature Granulocytes % 0.4 % (0-4); Lymphocytes # 1.3 K/mcL (0.6-4.6); Lymphocytes % 19.1 %; Mean Corpuscular HGB Conc 31.8 g/dL (31.6-35.5); Mean Corpuscular Hemoglobin 27.8 pg (28.0-33.3); Mean Corpuscular Volume 87.6 fL (83.0-100.0); Mean Platelet Volume 11.8 fL (9.4-12.4); Monocytes # 0.8 K/mcL (0.0-1.3); Neutrophils # 4.6 K/mcL (1.6-8.9); Platelet Count 166 K/mcL (140-400); Red Blood Count 3.88 M/mcL (3.82-4.97); Red Cell Distribution Width 14.4 % (11.5-14.5); Segmented Neutrophils % 66.2 %
[2021-04-23 06:12] LABS: BUN/Creatinine Ratio 16 (6-26); Blood Urea Nitrogen 16 mg/dL (8-23); Calcium 8.6 mg/dL (8.6-10.3); Carbon Dioxide 27 mEq/L (23-29); Chloride 104 mEq/L (98-107); Glucose 269 mg/dL (70-105); Magnesium 1.7 mg/dL (1.6-2.6); Osmolality,Calculated 297 (280-300); Potassium 3.8 mEq/L (3.5-5.1); Sodium 138 mEq/L (136-145); eGFR For African Americans > 60 (> 60); eGFR For Non-African Americans 56 (> 60)
[2021-04-23] MEDS: Dexmedetomidine HCl 400 MCG/100 ML MLS IVC SCH ×2 (06:47→23:25)
[2021-04-23] MEDS: Cholecalciferol (D-3) 1,000 UNIT (25MCG) TABLET PO SCH (07:31)
[2021-04-23] MEDS: Loratadine 10 MG TABLET PO SCH (07:32)
[2021-04-23] MEDS: *HR* OxyCODONE/APAP 7.5/325 TABLET PO PRN ×3 (07:32→21:27)
[2021-04-23] MEDS: Pregabalin 50 MG CAPSULE PO SCH ×2 (07:33→21:28)
[2021-04-23] MEDS: Ranolazine 500 MG TAB.ER.12H PO SCH ×2 (07:33→21:26)
[2021-04-23] MEDS: amLODIPine 5 MG TABLET PO SCH (07:33)
[2021-04-23] MEDS: Topiramate 25 MG TABLET PO SCH (07:34)
[2021-04-23] MEDS: Magnesium Oxide 400 MG TABLET PO SCH (07:34)
[2021-04-23] MEDS: Isosorbide MONOnitrate (24 HR) 30 MG TAB.ER.24H PO SCH (07:34)
[2021-04-23] MEDS: Insulin LISPRO 300 UNITS/3 ML VIAL SUBQ SCH ×4 (07:35→22:43)
[2021-04-23] MEDS: cefTRIAXone 1,000 MG in 0.9 % Sodium Chloride Mini Bag 100 ML IVPB SCH (07:38)
[2021-04-23] MEDS: Nystatin POWDER 30 GM BOTTLE TP SCH ×3 (08:32→22:44)
[2021-04-23] MEDS: Insulin DETEMIR 100 UNIT/ML X5UNITS SUBQ SCH (21:25)
[2021-04-23] MEDS ORDERED: Dextrose Gel 15 GM/37.5 ML TUBE PO PRN (21:55)
[2021-04-24 03:33] LABS: Basophils % 0.6 %; Eosinophils # 0.2 K/mcL (0.0-0.6); Eosinophils % 2.2 %; Hematocrit 33.9 % (35.3-44.9); Hemoglobin 10.9 g/dL (11.5-15.4); Immature Granulocytes % 1.3 % (0-4); Lymphocytes # 1.2 K/mcL (0.6-4.6); Lymphocytes % 17.2 %; Mean Corpuscular HGB Conc 32.2 g/dL (31.6-35.5); Mean Corpuscular Hemoglobin 27.9 pg (28.0-33.3); Mean Corpuscular Volume 86.9 fL (83.0-100.0); Monocytes # 0.7 K/mcL (0.0-1.3); Neutrophils # 4.9 K/mcL (1.6-8.9); Platelet Count 176 K/mcL (140-400); Red Cell Distribution Width 14.2 % (11.5-14.5); Segmented Neutrophils % 68.7 %; White Blood Count 7.2 K/mcL (4.3-11.1)
[2021-04-24 03:45] LABS: BUN/Creatinine Ratio 17 (6-26); Blood Urea Nitrogen 14 mg/dL (8-23); Calcium 8.6 mg/dL (8.6-10.3); Carbon Dioxide 26 mEq/L (23-29); Chloride 103 mEq/L (98-107); Glucose 322 mg/dL (70-105); Magnesium 1.3 mg/dL (1.6-2.6); Osmolality,Calculated 293 (280-300); Sodium 135 mEq/L (136-145); eGFR For African Americans > 60 (> 60); eGFR For Non-African Americans > 60 (> 60)
[2021-04-24] MEDS: Doxycycline 100 MG in 0.9 % Sodium Chloride Mini Bag 100 ML IVPB SCH (05:25)
[2021-04-24] MEDS: Cholecalciferol (D-3) 1,000 UNIT (25MCG) TABLET PO SCH (07:43)
[2021-04-24] MEDS: Topiramate 25 MG TABLET PO SCH (07:44)
[2021-04-24] MEDS: Pregabalin 50 MG CAPSULE PO SCH ×2 (07:44→21:59)
[2021-04-24] MEDS: Magnesium Oxide 400 MG TABLET PO SCH (07:45)
[2021-04-24] MEDS: Ranolazine 500 MG TAB.ER.12H PO SCH ×2 (07:45→21:59)
[2021-04-24] MEDS: amLODIPine 5 MG TABLET PO SCH (07:45)
[2021-04-24] MEDS: Isosorbide MONOnitrate (24 HR) 30 MG TAB.ER.24H PO SCH (07:45)
[2021-04-24] MEDS: Loratadine 10 MG TABLET PO SCH (07:46)
[2021-04-24] MEDS: cefTRIAXone 1,000 MG in 0.9 % Sodium Chloride Mini Bag 100 ML IVPB SCH (07:46)
[2021-04-24] MEDS: Insulin LISPRO 300 UNITS/3 ML VIAL SUBQ SCH ×4 (07:47→22:00)
[2021-04-24] MEDS: Insulin DETEMIR 100 UNIT/ML X5UNITS SUBQ SCH ×2 (07:48→22:00)
[2021-04-24] MEDS: Nystatin POWDER 30 GM BOTTLE TP SCH ×3 (07:49→22:05)
[2021-04-24] MEDS: *HR* OxyCODONE/APAP 7.5/325 TABLET PO PRN ×2 (07:58→15:59)
[2021-04-24] MEDS: Dexmedetomidine HCl 400 MCG/100 ML MLS IVC SCH (12:16)
[2021-04-24] MEDS: *HR* Heparin 5,000 UNIT/ML VIAL SQ SCH (17:36)
[2021-04-24] MEDS: *HR* HYDROmorphone 2 MG/ML SYRINGE IVP PRN (20:02)
[2021-04-25 01:12] LABS: Basophils # 0.1 K/mcL (0.0-0.2); Basophils % 0.9 %; Eosinophils # 0.2 K/mcL (0.0-0.6); Eosinophils % 2.6 %; Hematocrit 33.4 % (35.3-44.9); Hemoglobin 10.8 g/dL (11.5-15.4); Lymphocytes # 1.6 K/mcL (0.6-4.6); Lymphocytes % 18.6 %; Mean Corpuscular HGB Conc 32.3 g/dL (31.6-35.5); Mean Corpuscular Hemoglobin 27.8 pg (28.0-33.3); Mean Corpuscular Volume 86.1 fL (83.0-100.0); Mean Platelet Volume 11.9 fL (9.4-12.4); Monocytes # 0.8 K/mcL (0.0-1.3); Monocytes % 9.7 %; Neutrophils # 5.6 K/mcL (1.6-8.9); Platelet Count 196 K/mcL (140-400); Red Blood Count 3.88 M/mcL (3.82-4.97); Segmented Neutrophils % 66.2 %; White Blood Count 8.5 K/mcL (4.3-11.1)
[2021-04-25 01:31] LABS: BUN/Creatinine Ratio 19 (6-26); Blood Urea Nitrogen 14 mg/dL (8-23); Calcium 8.7 mg/dL (8.6-10.3); Carbon Dioxide 26 mEq/L (23-29); Chloride 104 mEq/L (98-107); Glucose 245 mg/dL (70-105); Osmolality,Calculated 289 (280-300); Potassium 3.8 mEq/L (3.5-5.1); Sodium 135 mEq/L (136-145); eGFR For African Americans > 60 (> 60); eGFR For Non-African Americans > 60 (> 60)
[2021-04-25] MEDS: Dexmedetomidine HCl 400 MCG/100 ML MLS IVC SCH (02:22)
[2021-04-25] MEDS: *HR* OxyCODONE/APAP 7.5/325 TABLET PO PRN ×2 (02:26→09:16)
[2021-04-25] MEDS: *HR* Heparin 5,000 UNIT/ML VIAL SQ SCH ×2 (06:40→17:23)
[2021-04-25] MEDS: Loratadine 10 MG TABLET PO SCH (09:14)
[2021-04-25] MEDS: amLODIPine 5 MG TABLET PO SCH (09:15)
[2021-04-25] MEDS: Cholecalciferol (D-3) 1,000 UNIT (25MCG) TABLET PO SCH (09:15)
[2021-04-25] MEDS: Pregabalin 50 MG CAPSULE PO SCH (09:16)
[2021-04-25] MEDS: Magnesium Oxide 400 MG TABLET PO SCH (09:16)
[2021-04-25] MEDS: Topiramate 25 MG TABLET PO SCH (09:16)
[2021-04-25] MEDS: Ranolazine 500 MG TAB.ER.12H PO SCH (09:17)
[2021-04-25] MEDS: Isosorbide MONOnitrate (24 HR) 30 MG TAB.ER.24H PO SCH (09:17)
[2021-04-25] MEDS: Insulin LISPRO 300 UNITS/3 ML VIAL SUBQ SCH ×3 (09:23→17:22)
[2021-04-25] MEDS: Insulin DETEMIR 100 UNIT/ML X5UNITS SUBQ SCH (09:23)
[2021-04-25] MEDS: Nystatin POWDER 30 GM BOTTLE TP SCH ×2 (09:27→17:26)
[2021-04-25] MEDS: *HR* HYDROmorphone 2 MG/ML SYRINGE IVP PRN (13:20)
[2021-04-25 15:14] VITALS: BP 135/68; PULSE 89; TEMP 98.1; O2SAT 92
== END 2021-04-25 19:15 | DRG 956 ==
LOC: 3NENU 11:07 → EMEROOARM 11:07 → SUATTDRO 16:50 → 3NENU 17:54 → SUATTDRO 04-20 15:33 → 2NNU 04-20 18:29 → 3NENU 04-23 22:27
PROVIDERS: ADMIT Internal Medicine; ATTEND Internal Medicine

== ENCOUNTER 2021-05-17 14:53 | Observation (INO) ==
[2021-05-17] MEDS ORDERED: Ondansetron 4 MG/2 ML VIAL IVP ONE (16:15)
[2021-05-17] MEDS ORDERED: 0.9 % Sodium Chloride 1,000 ML IVC ONE (16:15)
[2021-05-17 16:37] LABS: Hematocrit 36.2 % (35.3-44.9); Hemoglobin 11.5 g/dL (11.5-15.4); Mean Corpuscular HGB Conc 31.8 g/dL (31.6-35.5); Mean Corpuscular Volume 88.1 fL (83.0-100.0); Mean Platelet Volume 11.8 fL (9.4-12.4); Platelet Count 314 K/mcL (140-400); Red Blood Count 4.11 M/mcL (3.82-4.97); Red Cell Distribution Width 16.1 % (11.5-14.5); White Blood Count 12.8 K/mcL (4.3-11.1)
[2021-05-17 16:57] LABS: Albumin 3.8 g/dL (3.5-5.7); Albumin/Globulin Ratio 1.3 (1.1-2.2); Bilirubin,Direct 0.1 mg/dL (0.0-0.2); Bilirubin,Indirect 0.3 mg/dL (0.0-1.0); Bilirubin,Total 0.4 mg/dL (0.3-1.0); Calcium 7.2 mg/dL (8.6-10.3); Globulin 2.9 g/dL (2.4-3.5); Potassium 3.7 mEq/L (3.5-5.1); Total Protein 6.7 g/dL (6.4-8.9)
[2021-05-17] MEDS ORDERED: Naloxone 0.4 MG/ML INJ IVP PRN (19:53)
[2021-05-17] MEDS ORDERED: 0.9 % Sodium Chloride 1,000 ML IVC SCH (20:00)
[2021-05-17] MEDS ORDERED: D5% in Water 1,000 ML IVC PRN (20:01)
[2021-05-17] MEDS ORDERED: Dextrose Gel 15 GM/37.5 ML TUBE PO PRN ×2 (20:01)
[2021-05-17] MEDS ORDERED: *HR* Dextrose 50 % in Water (Vial) 50 ML VIAL IVP PRN (20:01)
[2021-05-17] MEDS ORDERED: *HR* Promethazine 25 MG/ML VIAL IM ONE (22:23)
[2021-05-18] MEDS: Insulin LISPRO 300 UNITS/3 ML VIAL SUBQ SCH ×4 (00:31→20:17)
[2021-05-18] MEDS: Ondansetron 4 MG/2 ML VIAL IVP PRN (05:46)
[2021-05-18 06:45] LABS: Hematocrit 31.2 % (35.3-44.9); Mean Corpuscular HGB Conc 31.7 g/dL (31.6-35.5); Mean Corpuscular Hemoglobin 28.4 pg (28.0-33.3); Mean Corpuscular Volume 89.4 fL (83.0-100.0); Mean Platelet Volume 11.7 fL (9.4-12.4); Platelet Count 208 K/mcL (140-400); Red Blood Count 3.49 M/mcL (3.82-4.97); Red Cell Distribution Width 16.3 % (11.5-14.5); White Blood Count 8.6 K/mcL (4.3-11.1)
[2021-05-18 06:53] LABS: Hemoglobin 9.9 g/dL (11.5-15.4)
[2021-05-18 07:49] LABS: Alanine Aminotransferase 9 Units/L (7-52); Albumin 3.4 g/dL (3.5-5.7); Albumin/Globulin Ratio 1.5 (1.1-2.2); Alkaline Phosphatase 139 Units/L (34-104); Aspartate Amino Transferase 25 Units/L (13-39); BUN/Creatinine Ratio 18 (6-26); Bilirubin,Total 0.4 mg/dL (0.3-1.0); Blood Urea Nitrogen 28 mg/dL (8-23); Calcium 6.4 mg/dL (8.6-10.3); Carbon Dioxide 23 mEq/L (23-29); Chloride 107 mEq/L (98-107); Globulin 2.3 g/dL (2.4-3.5); Glucose 100 mg/dL (70-105); Magnesium < 0.5 mg/dL (1.6-2.6); Osmolality,Calculated 298 (280-300); Phosphorous 4.8 mg/dL (2.7-4.5); Potassium 4.2 mEq/L (3.5-5.1); Sodium 141 mEq/L (136-145); Total Protein 5.7 g/dL (6.4-8.9); eGFR For African Americans 40 (> 60); eGFR For Non-African Americans 33 (> 60)
[2021-05-18] MEDS ORDERED: *HR* Promethazine 25 MG/ML VIAL IM PRN (08:35)
[2021-05-18] MEDS: Ranolazine 500 MG TAB.ER.12H PO SCH ×2 (11:16→20:27)
[2021-05-18] MEDS: Pregabalin 50 MG CAPSULE PO SCH ×2 (11:16→20:27)
[2021-05-18] MEDS: Topiramate 25 MG TABLET PO SCH (11:16)
[2021-05-18] MEDS: Cholecalciferol (D-3) 1,000 UNIT (25MCG) TABLET PO SCH (11:17)
[2021-05-18] MEDS: Isosorbide MONOnitrate (24 HR) 30 MG TAB.ER.24H PO SCH (11:18)
[2021-05-18] MEDS: Nicotine 14 MG PATCH.TD24 TD SCH (11:21)
[2021-05-18] MEDS ORDERED: Albuterol 2.5 MG/3 ML NEBULIZER IH PRN (12:06)
[2021-05-18] MEDS ORDERED: Nitroglycerin 0.4 MG TAB.SUBL SL PRN (12:06)
[2021-05-18] MEDS ORDERED: Acetaminophen 325 MG TABLET PO PRN (12:06)
[2021-05-18 15:43] LABS: Bacteria,Urine Many per hpf (None-Few); Bilirubin,Urine Negative (Negative); Blood,Urine Moderate (Negative); Clarity,Urine Turbid (Clear); Color,Urine Yellow (Yellow); Glucose,Urine (UA) Normal (Normal); Ketones,Urine Trace mg/dL (Negative); Leukocyte Esterase,Urine Large (Negative); Mucus,Urine Many per lpf (None-Few); Nitrite,Urine Negative (Negative); Protein,Urine 50 mg/dL (Neg-Trace); RBC,Urine 30-50 per hpf (0-3); Specific Gravity,Urine 1.023 (1.010-1.025); Urobilinogen,Urine Normal (Normal); WBC,Urine TNTC per hpf (0-3)
[2021-05-18 16:15] LABS: Adenovirus F 40/41 PCR Not detected (Not detect); Astrovirus PCR Not detected (Not detect); C.difficile Toxin A/B Gene PCR Not detected (Not detect); Campylobacter by PCR Not detected (Not detect); Cryptosporidium by PCR Not detected (Not detect); Cyclospora cayetanensis PCR Not detected (Not detect); E. coli O157 by PCR Not detected (Not detect); Entamoeba histolytica PCR Not detected (Not detect); Enteroaggregative E.coli(EAEC) Not detected (Not detect); Enteropathogenic E.coli(EPEC) Not detected (Not detect); Enterotoxigenic E.coli (ETEC) Not detected (Not detect); Giardia lamblia PCR Not detected (Not detect); Norovirus GI/GII PCR Not detected (Not detect); Plesiomonas shigelloides PCR Not detected (Not detect); Rotavirus A PCR Not detected (Not detect); Salmonella PCR Not detected (Not detect); Sapovirus PCR Not detected (Not detect); Shig/EnteroinvasiveE coli EIEC Not detected (Not detect); Shigalike tox-prod E coli STEC Not detected (Not detect); Vibrio PCR Not detected (Not detect); Vibrio cholerae PCR Not detected (Not detect); Yersinia enterocolitica PCR Not detected (Not detect)
[2021-05-18] MEDS: cefTRIAXone 1,000 MG in Water for inj. (sterile) 10 ML IVP SCH (16:57)
[2021-05-18] MEDS: *HR* Heparin 5,000 UNIT/ML VIAL SQ SCH (16:57)
[2021-05-18] MEDS: Melatonin 3 MG TABLET PO SCH (20:27)
[2021-05-18] MEDS: hydrOXYzine pamoate 25 MG CAPSULE PO SCH (20:27)
[2021-05-19] MEDS: Insulin LISPRO 300 UNITS/3 ML VIAL SUBQ SCH ×4 (00:49→17:17)
[2021-05-19] MEDS: Ondansetron 4 MG/2 ML VIAL IVP PRN (02:12)
[2021-05-19] MEDS: *HR* Heparin 5,000 UNIT/ML VIAL SQ SCH ×2 (06:15→17:16)
[2021-05-19] MEDS: cefTRIAXone 1,000 MG in Water for inj. (sterile) 10 ML IVP SCH (08:14)
[2021-05-19] MEDS: Loratadine 10 MG TABLET PO SCH (08:15)
[2021-05-19] MEDS: Cholecalciferol (D-3) 1,000 UNIT (25MCG) TABLET PO SCH (08:15)
[2021-05-19] MEDS: Topiramate 25 MG TABLET PO SCH (08:15)
[2021-05-19] MEDS: Isosorbide MONOnitrate (24 HR) 30 MG TAB.ER.24H PO SCH (08:15)
[2021-05-19] MEDS: Pregabalin 50 MG CAPSULE PO SCH ×2 (08:15→21:18)
[2021-05-19] MEDS: Ranolazine 500 MG TAB.ER.12H PO SCH ×2 (08:15→21:18)
[2021-05-19] MEDS: Nicotine 14 MG PATCH.TD24 TD SCH (08:16)
[2021-05-19] MEDS: *HR* Insulin Regular U-500 500 UNIT/ML SUBQ SCH (08:17)
[2021-05-19 12:06] LABS: Hematocrit 31.8 % (35.3-44.9); Mean Corpuscular HGB Conc 31.4 g/dL (31.6-35.5); Mean Corpuscular Hemoglobin 28.4 pg (28.0-33.3); Mean Corpuscular Volume 90.3 fL (83.0-100.0); Platelet Count 236 K/mcL (140-400); Red Blood Count 3.52 M/mcL (3.82-4.97); Red Cell Distribution Width 15.9 % (11.5-14.5); White Blood Count 6.9 K/mcL (4.3-11.1)
[2021-05-19 12:26] LABS: BUN/Creatinine Ratio 13 (6-26); Blood Urea Nitrogen 14 mg/dL (8-23); Calcium 7.5 mg/dL (8.6-10.3); Carbon Dioxide 25 mEq/L (23-29); Chloride 103 mEq/L (98-107); Glucose 241 mg/dL (70-105); Magnesium 1.7 mg/dL (1.6-2.6); Osmolality,Calculated 288 (280-300); Phosphorous 2.6 mg/dL (2.7-4.5); Potassium 3.4 mEq/L (3.5-5.1); Sodium 135 mEq/L (136-145); eGFR For African Americans > 60 (> 60); eGFR For Non-African Americans 52 (> 60)
[2021-05-19] MEDS: hydrOXYzine pamoate 25 MG CAPSULE PO SCH (21:18)
[2021-05-19] MEDS: Melatonin 3 MG TABLET PO SCH (21:18)
[2021-05-19] MEDS ORDERED: Insulin LISPRO 300 UNITS/3 ML VIAL SUBQ SCH (21:30)
[2021-05-20] MEDS: *HR* Heparin 5,000 UNIT/ML VIAL SQ SCH ×2 (06:02→21:48)
[2021-05-20 06:03] LABS: Hematocrit 31.6 % (35.3-44.9); Hemoglobin 10.1 g/dL (11.5-15.4); Mean Corpuscular Hemoglobin 28.5 pg (28.0-33.3); Mean Platelet Volume 11.6 fL (9.4-12.4); Platelet Count 192 K/mcL (140-400); Red Blood Count 3.55 M/mcL (3.82-4.97); Red Cell Distribution Width 15.4 % (11.5-14.5); White Blood Count 6.4 K/mcL (4.3-11.1)
[2021-05-20 06:18] LABS: BUN/Creatinine Ratio 13 (6-26); Blood Urea Nitrogen 14 mg/dL (8-23); Calcium 8.5 mg/dL (8.6-10.3); Carbon Dioxide 24 mEq/L (23-29); Chloride 106 mEq/L (98-107); Glucose 230 mg/dL (70-105); Magnesium 1.4 mg/dL (1.6-2.6); Osmolality,Calculated 294 (280-300); Phosphorous 3.6 mg/dL (2.7-4.5); Sodium 138 mEq/L (136-145); eGFR For African Americans > 60 (> 60); eGFR For Non-African Americans 50 (> 60)
[2021-05-20] MEDS ORDERED: Insulin LISPRO 300 UNITS/3 ML VIAL SUBQ SCH (07:30)
[2021-05-20] MEDS: cefTRIAXone 1,000 MG in Water for inj. (sterile) 10 ML IVP SCH (07:49)
[2021-05-20] MEDS: Cholecalciferol (D-3) 1,000 UNIT (25MCG) TABLET PO SCH (07:50)
[2021-05-20] MEDS: Loratadine 10 MG TABLET PO SCH (07:50)
[2021-05-20] MEDS: Ranolazine 500 MG TAB.ER.12H PO SCH ×2 (07:50→21:49)
[2021-05-20] MEDS: Pregabalin 50 MG CAPSULE PO SCH ×2 (07:51→21:49)
[2021-05-20] MEDS: Isosorbide MONOnitrate (24 HR) 30 MG TAB.ER.24H PO SCH (07:52)
[2021-05-20] MEDS: *HR* Insulin Regular U-500 500 UNIT/ML SUBQ SCH (08:02)
[2021-05-20] MEDS: Nicotine 14 MG PATCH.TD24 TD SCH (08:13)
[2021-05-20 09:17] LABS: Estimated Average Glucose 212 mg/dl
[2021-05-20] MEDS: Topiramate 25 MG TABLET PO SCH (11:59)
[2021-05-20] MEDS: Insulin LISPRO 300 UNITS/3 ML VIAL SUBQ SCH ×3 (12:02→21:49)
[2021-05-20] MEDS ORDERED: Insulin DETEMIR 100 UNIT/ML X5UNITS SUBQ SCH (21:00)
[2021-05-20] MEDS: Melatonin 3 MG TABLET PO SCH (21:49)
[2021-05-20] MEDS: hydrOXYzine pamoate 25 MG CAPSULE PO SCH (21:49)
[2021-05-21] MEDS: *HR* Heparin 5,000 UNIT/ML VIAL SQ SCH ×2 (05:56→16:34)
[2021-05-21 06:42] LABS: Hematocrit 31.4 % (35.3-44.9); Hemoglobin 9.8 g/dL (11.5-15.4); Mean Corpuscular HGB Conc 31.2 g/dL (31.6-35.5); Mean Corpuscular Hemoglobin 27.9 pg (28.0-33.3); Mean Corpuscular Volume 89.5 fL (83.0-100.0); Mean Platelet Volume 12.1 fL (9.4-12.4); Platelet Count 178 K/mcL (140-400); Red Blood Count 3.51 M/mcL (3.82-4.97); Red Cell Distribution Width 15.5 % (11.5-14.5); White Blood Count 6.4 K/mcL (4.3-11.1)
[2021-05-21 07:07] LABS: BUN/Creatinine Ratio 14 (6-26); Blood Urea Nitrogen 14 mg/dL (8-23); Calcium 9.2 mg/dL (8.6-10.3); Carbon Dioxide 23 mEq/L (23-29); Chloride 105 mEq/L (98-107); Glucose 328 mg/dL (70-105); Magnesium 1.1 mg/dL (1.6-2.6); Osmolality,Calculated 295 (280-300); Phosphorous 2.9 mg/dL (2.7-4.5); Potassium 4.8 mEq/L (3.5-5.1); Sodium 136 mEq/L (136-145); eGFR For African Americans > 60 (> 60); eGFR For Non-African Americans 56 (> 60)
[2021-05-21] MEDS: *HR* Insulin Regular U-500 500 UNIT/ML SUBQ SCH (09:30)
[2021-05-21] MEDS: Pregabalin 50 MG CAPSULE PO SCH ×2 (09:54→20:13)
[2021-05-21] MEDS: Cholecalciferol (D-3) 1,000 UNIT (25MCG) TABLET PO SCH (09:55)
[2021-05-21] MEDS: Ranolazine 500 MG TAB.ER.12H PO SCH ×2 (09:55→20:14)
[2021-05-21] MEDS: Loratadine 10 MG TABLET PO SCH (09:56)
[2021-05-21] MEDS: Isosorbide MONOnitrate (24 HR) 30 MG TAB.ER.24H PO SCH (09:56)
[2021-05-21] MEDS: Topiramate 25 MG TABLET PO SCH (09:56)
[2021-05-21] MEDS: cefTRIAXone 1,000 MG in Water for inj. (sterile) 10 ML IVP SCH (09:58)
[2021-05-21] MEDS: Insulin LISPRO 300 UNITS/3 ML VIAL SUBQ SCH ×7 (10:05→21:27)
[2021-05-21] MEDS: Insulin DETEMIR 100 UNIT/ML X5UNITS SUBQ SCH ×2 (10:58→20:09)
[2021-05-21] MEDS: Nicotine 14 MG PATCH.TD24 TD SCH (12:22)
[2021-05-21] MEDS: Ondansetron 4 MG/2 ML VIAL IVP PRN (20:09)
[2021-05-21] MEDS: hydrOXYzine pamoate 25 MG CAPSULE PO SCH (20:14)
[2021-05-21] MEDS: Melatonin 3 MG TABLET PO SCH (20:15)
[2021-05-22] MEDS: *HR* Heparin 5,000 UNIT/ML VIAL SQ SCH ×2 (05:09→18:20)
[2021-05-22 07:59] LABS: Hematocrit 32.2 % (35.3-44.9); Hemoglobin 10.2 g/dL (11.5-15.4); Mean Corpuscular HGB Conc 31.7 g/dL (31.6-35.5); Mean Corpuscular Hemoglobin 28.4 pg (28.0-33.3); Mean Corpuscular Volume 89.7 fL (83.0-100.0); Mean Platelet Volume 11.5 fL (9.4-12.4); Platelet Count 177 K/mcL (140-400); Red Blood Count 3.59 M/mcL (3.82-4.97); Red Cell Distribution Width 15.8 % (11.5-14.5); White Blood Count 7.2 K/mcL (4.3-11.1)
[2021-05-22 08:34] LABS: BUN/Creatinine Ratio 18 (6-26); Blood Urea Nitrogen 17 mg/dL (8-23); Calcium 9.7 mg/dL (8.6-10.3); Carbon Dioxide 23 mEq/L (23-29); Chloride 106 mEq/L (98-107); Glucose 117 mg/dL (70-105); Magnesium 1.2 mg/dL (1.6-2.6); Osmolality,Calculated 285 (280-300); Phosphorous 3.6 mg/dL (2.7-4.5); Potassium 4.6 mEq/L (3.5-5.1); Sodium 136 mEq/L (136-145); eGFR For African Americans > 60 (> 60); eGFR For Non-African Americans 60 (> 60)
[2021-05-22] MEDS: Cholecalciferol (D-3) 1,000 UNIT (25MCG) TABLET PO SCH (09:04)
[2021-05-22] MEDS: Pregabalin 50 MG CAPSULE PO SCH ×2 (09:05→21:08)
[2021-05-22] MEDS: Ranolazine 500 MG TAB.ER.12H PO SCH ×2 (09:06→21:05)
[2021-05-22] MEDS: Topiramate 25 MG TABLET PO SCH (09:06)
[2021-05-22] MEDS: Loratadine 10 MG TABLET PO SCH (09:06)
[2021-05-22] MEDS: Isosorbide MONOnitrate (24 HR) 30 MG TAB.ER.24H PO SCH (09:06)
[2021-05-22] MEDS: Nicotine 14 MG PATCH.TD24 TD SCH (09:07)
[2021-05-22] MEDS: cefTRIAXone 1,000 MG in Water for inj. (sterile) 10 ML IVP SCH (09:07)
[2021-05-22] MEDS: Insulin DETEMIR 100 UNIT/ML X5UNITS SUBQ SCH ×2 (09:07→21:25)
[2021-05-22] MEDS: Insulin LISPRO 300 UNITS/3 ML VIAL SUBQ SCH ×7 (09:08→21:19)
[2021-05-22] MEDS: *HR* Insulin Regular U-500 500 UNIT/ML SUBQ SCH (09:08)
[2021-05-22 15:09] VITALS: BP 133/55; PULSE 77; TEMP 97.6; O2SAT 96
[2021-05-22] MEDS: hydrOXYzine pamoate 25 MG CAPSULE PO SCH (21:06)
[2021-05-22] MEDS: Melatonin 3 MG TABLET PO SCH (21:06)
== END 2021-05-22 22:37 ==
LOC: 3ANU 14:53 → EMEROOARM 14:53 → SUATTDRO 19:41 → 3ANU 19:59
PROVIDERS: ADMIT Student in an Organized Health Care Education/Training Program; ATTEND Internal Medicine

== ENCOUNTER 2021-06-17 12:13 | Inpatient (IN) ==
[2021-06-17 13:13] LABS: VBG HCO3 29 mEq/L (21-27); VBG PCO2 66 mmHg (41-51); VBG PH 7.25 pH Units (7.32-7.42); VBG PO2 67 mmHg (25-50)
[2021-06-17 13:15] LABS: Basophils % 0.3 %; Eosinophils % 0.2 %; Hematocrit 26.9 % (35.3-44.9); Hemoglobin 7.8 g/dL (11.5-15.4); Immature Granulocytes % 0.6 % (0-4); Mean Corpuscular Hemoglobin 24.5 pg (28.0-33.3); Mean Corpuscular Volume 84.6 fL (83.0-100.0); Mean Platelet Volume 12.3 fL (9.4-12.4); Monocytes # 0.9 K/mcL (0.0-1.3); Monocytes % 7.7 %; Neutrophils # 9.5 K/mcL (1.6-8.9); Nucleated Red Blood Cells 0.3 /100 WBC (0); Platelet Count 230 K/mcL (140-400); Red Blood Count 3.18 M/mcL (3.82-4.97); Red Cell Distribution Width 17.7 % (11.5-14.5); Segmented Neutrophils % 82.2 %; White Blood Count 11.6 K/mcL (4.3-11.1)
[2021-06-17 14:03] LABS: Troponin I < 0.03 ng/mL (< 0.04)
[2021-06-17 14:04] LABS: Alanine Aminotransferase 11 Units/L (7-52); Albumin 3.3 g/dL (3.5-5.7); Albumin/Globulin Ratio 1.2 (1.1-2.2); Alkaline Phosphatase 240 Units/L (34-104); Aspartate Amino Transferase 15 Units/L (13-39); BUN/Creatinine Ratio 10 (6-26); Bilirubin,Direct 0.1 mg/dL (0.0-0.2); Bilirubin,Indirect 0.3 mg/dL (0.0-1.0); Bilirubin,Total 0.4 mg/dL (0.3-1.0); Blood Urea Nitrogen 11 mg/dL (8-23); Calcium 8.6 mg/dL (8.6-10.3); Carbon Dioxide 27 mEq/L (23-29); Chloride 92 mEq/L (98-107); Globulin 2.7 g/dL (2.4-3.5); Glucose 533 mg/dL (70-105); Magnesium 1.1 mg/dL (1.6-2.6); Osmolality,Calculated 292 (280-300); Potassium 4.5 mEq/L (3.5-5.1); Sodium 129 mEq/L (136-145); eGFR For African Americans 58 (> 60); eGFR For Non-African Americans 48 (> 60)
[2021-06-17] MEDS ORDERED: cefTRIAXone 1,000 MG in Water for inj. (sterile) 10 ML IVP ONE (14:23)
[2021-06-17] MEDS ORDERED: Azithromycin 250 MG TABLET PO ONE (14:23)
[2021-06-17] MEDS ORDERED: Ipratropium/Albuterol Neb 3 ML IH ONE (14:23)
[2021-06-17] MEDS ORDERED: *HR* Dextrose 50 % in Water (Syg) 50 ML SYRINGE IVP PRN ×2 (14:41→15:18)
[2021-06-17 14:54] LABS: Bilirubin,Urine Negative (Negative); Blood,Urine Negative (Negative); Clarity,Urine Clear (Clear); Color,Urine Yellow (Yellow); Glucose,Urine (UA) >=1000 mg/dL (Normal); Hyaline Casts,Urine Few per lpf (None Seen); Ketones,Urine Negative (Negative); Leukocyte Esterase,Urine Negative (Negative); Mucus,Urine Few per lpf (None-Few); Nitrite,Urine Negative (Negative); Protein,Urine Trace mg/dL (Neg-Trace); RBC,Urine 0-3 per hpf (0-3); Specific Gravity,Urine 1.025 (1.010-1.025); Squamous Epithelial Cell,Urine Few per hpf (None-Few); Urobilinogen,Urine Normal (Normal); WBC,Urine 0-3 per hpf (0-3)
[2021-06-17] MEDS ORDERED: Naloxone 0.4 MG/ML INJ IVP PRN (15:15)
[2021-06-17] MEDS ORDERED: Ondansetron 4 MG/2 ML VIAL IVP PRN (15:15)
[2021-06-17] MEDS ORDERED: D5% in 0.45% NACL 1,000 ML IVC PRN (15:18)
[2021-06-17] MEDS ORDERED: Insulin Regular, Human 100 UNIT/ML IV PRN (15:18)
[2021-06-17 15:41] LABS: Influenza A PCR Negative (Negative); Influenza B PCR Negative (Negative); Resp. Syncytial Virus PCR Negative (Negative)
[2021-06-17] MEDS ORDERED: Ipratropium/Albuterol Neb 3 ML IH PRN (16:00)
[2021-06-17 16:27] LABS: SARS-CoV-2 by PCR (In House) Negative (Negative)
[2021-06-17] MEDS: 0.9 % Sodium Chloride 1,000 ML IVC SCH (16:40)
[2021-06-17 17:37] LABS: Calcium 8.7 mg/dL (8.6-10.3); Potassium 3.8 mEq/L (3.5-5.1)
[2021-06-17 18:30] LABS: ABG Base Excess 7 mEq/L (-2 to 3); ABG HCO3 33 mEq/L (21-27); ABG Oxygen Saturation 92 % (95-98); ABG PCO2 62 mmHg (35-45); ABG PH 7.34 pH Units (7.32-7.45); ABG PO2 69 mmHg (85-104); ABG TCO2 35 mEq/L (20-26)
[2021-06-17] MEDS: D5% in 0.45% NACL w KCl 20 MEQ/1,000 ML MLS IVC PRN (20:47)
[2021-06-17] MEDS ORDERED: Melatonin 3 MG TABLET PO SCH (21:00)
[2021-06-17] MEDS ORDERED: MAGNESIUM OXIDE 400 MG PO SCH (21:00)
[2021-06-17] MEDS: Magnesium Oxide 400 MG TABLET PO SCH (21:48)
[2021-06-17] MEDS ORDERED: D5% in Water 1,000 ML IVC PRN (23:24)
[2021-06-17] MEDS ORDERED: Dextrose Gel 15 GM/37.5 ML TUBE PO PRN ×2 (23:24)
[2021-06-17] MEDS ORDERED: Insulin DETEMIR 100 UNIT/ML X5UNITS SUBQ SCH (23:30)
[2021-06-17 23:52] LABS: Hematocrit 26.3 % (35.3-44.9)
[2021-06-17 23:53] LABS: Hemoglobin 7.8 g/dL (11.5-15.4)
[2021-06-18 00:09] LABS: BUN/Creatinine Ratio 8 (6-26); Blood Urea Nitrogen 9 mg/dL (8-23); Calcium 8.9 mg/dL (8.6-10.3); Carbon Dioxide 32 mEq/L (23-29); Chloride 99 mEq/L (98-107); Glucose 106 mg/dL (70-105); Osmolality,Calculated 283 (280-300); Potassium 3.6 mEq/L (3.5-5.1); Sodium 137 mEq/L (136-145); eGFR For African Americans > 60 (> 60); eGFR For Non-African Americans 53 (> 60)
[2021-06-18] MEDS: D5% in 0.45% NACL w KCl 20 MEQ/1,000 ML MLS IVC PRN (01:44)
[2021-06-18] MEDS: 0.9 % Sodium Chloride 1,000 ML IVC SCH (01:45)
[2021-06-18 03:04] LABS: Basophils # 0.1 K/mcL (0.0-0.2); Basophils % 0.5 %; Eosinophils # 0.2 K/mcL (0.0-0.6); Eosinophils % 1.1 %; Hematocrit 27.4 % (35.3-44.9); Immature Granulocytes % 0.8 % (0-4); Lymphocytes # 1.2 K/mcL (0.6-4.6); Lymphocytes % 8.2 %; Mean Corpuscular HGB Conc 29.2 g/dL (31.6-35.5); Mean Corpuscular Hemoglobin 24.6 pg (28.0-33.3); Mean Corpuscular Volume 84.3 fL (83.0-100.0); Mean Platelet Volume 12.9 fL (9.4-12.4); Monocytes # 1.2 K/mcL (0.0-1.3); Monocytes % 8.2 %; Neutrophils # 12.1 K/mcL (1.6-8.9); Nucleated Red Blood Cells 0.4 /100 WBC (0); Platelet Count 244 K/mcL (140-400); Red Blood Count 3.25 M/mcL (3.82-4.97); Red Cell Distribution Width 17.6 % (11.5-14.5); Segmented Neutrophils % 81.2 %; White Blood Count 14.9 K/mcL (4.3-11.1)
[2021-06-18 03:24] LABS: Chol/HDL Ratio 2.1 (0-4.9); Magnesium 1.5 mg/dL (1.6-2.6)
[2021-06-18 03:45] LABS: Estimated Average Glucose 206 mg/dl; Hemoglobin A1C 8.8 %
[2021-06-18] MEDS: Insulin LISPRO 300 UNITS/3 ML VIAL SUBQ SCH ×3 (07:48→16:58)
[2021-06-18] MEDS ORDERED: Isosorbide MONOnitrate (24 HR) 30 MG TAB.ER.24H PO SCH (09:00)
[2021-06-18] MEDS ORDERED: Topiramate 25 MG TABLET PO SCH (09:00)
[2021-06-18] MEDS ORDERED: Cholecalciferol (D-3) 1,000 UNIT (25MCG) TABLET PO SCH (09:00)
[2021-06-18] MEDS ORDERED: Magnesium Oxide 400 MG TABLET PO ONE (09:00)
[2021-06-18] MEDS ORDERED: levoFLOXacin 750 MG/150 ML 750 MG/150 ML BAG IVPB SCH (09:00)
[2021-06-18] MEDS: Magnesium Oxide 400 MG TABLET PO SCH ×2 (10:24→20:56)
[2021-06-18 14:33] LABS: BUN/Creatinine Ratio 8 (6-26); Blood Urea Nitrogen 7 mg/dL (8-23); Calcium 8.7 mg/dL (8.6-10.3); Carbon Dioxide 35 mEq/L (23-29); Chloride 98 mEq/L (98-107); Glucose 284 mg/dL (70-105); Osmolality,Calculated 290 (280-300); Potassium 4.1 mEq/L (3.5-5.1); Sodium 136 mEq/L (136-145); eGFR For African Americans > 60 (> 60); eGFR For Non-African Americans > 60 (> 60)
[2021-06-18] MEDS ORDERED: 0.9 % Sodium Chloride 1,000 ML IVC SCH (15:45)
[2021-06-18 16:04] LABS: Magnesium 1.9 mg/dL (1.6-2.6)
[2021-06-18] MEDS ORDERED: Naloxone 0.4 MG/ML INJ IVP PRN ×2 (18:41→19:15)
[2021-06-18] MEDS ORDERED: *HR* OxyCODONE Immed Rel 5 MG TABLET PO PRN (18:41)
[2021-06-18] MEDS ORDERED: Dextrose Gel 15 GM/37.5 ML TUBE PO PRN ×2 (19:15)
[2021-06-18] MEDS ORDERED: *HR* Dextrose 50 % in Water (Syg) 50 ML SYRINGE IVP PRN (19:15)
[2021-06-18] MEDS ORDERED: Ipratropium/Albuterol Neb 3 ML IH PRN (19:15)
[2021-06-18] MEDS ORDERED: D5% in Water 1,000 ML IVC PRN (19:15)
[2021-06-18] MEDS: Insulin DETEMIR 100 UNIT/ML X5UNITS SUBQ SCH (20:54)
[2021-06-18] MEDS: Melatonin 3 MG TABLET PO SCH (20:56)
[2021-06-18] MEDS: Ondansetron 4 MG/2 ML VIAL IVP PRN (21:05)
[2021-06-19 01:08] LABS: Basophils % 0.3 %; Eosinophils # 0.1 K/mcL (0.0-0.6); Eosinophils % 0.7 %; Hematocrit 25.5 % (35.3-44.9); Hemoglobin 7.6 g/dL (11.5-15.4); Immature Granulocytes % 1.2 % (0-4); Lymphocytes # 0.6 K/mcL (0.6-4.6); Lymphocytes % 5.3 %; Mean Corpuscular HGB Conc 29.8 g/dL (31.6-35.5); Mean Corpuscular Hemoglobin 24.2 pg (28.0-33.3); Mean Corpuscular Volume 81.2 fL (83.0-100.0); Mean Platelet Volume 12.2 fL (9.4-12.4); Monocytes # 1.2 K/mcL (0.0-1.3); Monocytes % 10.4 %; Neutrophils # 9.6 K/mcL (1.6-8.9); Nucleated Red Blood Cells 0.6 /100 WBC (0); Platelet Count 205 K/mcL (140-400); Red Blood Count 3.14 M/mcL (3.82-4.97); Red Cell Distribution Width 17.6 % (11.5-14.5); Segmented Neutrophils % 82.1 %; White Blood Count 11.7 K/mcL (4.3-11.1)
[2021-06-19 02:31] LABS: BUN/Creatinine Ratio 8 (6-26); Blood Urea Nitrogen 8 mg/dL (8-23); Calcium 8.9 mg/dL (8.6-10.3); Carbon Dioxide 33 mEq/L (23-29); Chloride 98 mEq/L (98-107); Glucose 287 mg/dL (70-105); Osmolality,Calculated 293 (280-300); Potassium 4.1 mEq/L (3.5-5.1); Sodium 137 mEq/L (136-145); eGFR For African Americans > 60 (> 60); eGFR For Non-African Americans 59 (> 60)
[2021-06-19] MEDS: Insulin LISPRO 300 UNITS/3 ML VIAL SUBQ SCH ×3 (08:28→18:30)
[2021-06-19] MEDS: levoFLOXacin 750 MG/150 ML 750 MG/150 ML BAG IVPB SCH (08:29)
[2021-06-19] MEDS: Magnesium Oxide 400 MG TABLET PO SCH ×2 (08:29→20:27)
[2021-06-19] MEDS: Cholecalciferol (D-3) 1,000 UNIT (25MCG) TABLET PO SCH (08:30)
[2021-06-19] MEDS: Isosorbide MONOnitrate (24 HR) 30 MG TAB.ER.24H PO SCH (08:30)
[2021-06-19] MEDS: Topiramate 25 MG TABLET PO SCH (08:30)
[2021-06-19] MEDS ORDERED: Albuterol 2.5 MG/3 ML NEBULIZER IH PRN (09:05)
[2021-06-19] MEDS: Acetaminophen 325 MG TABLET PO PRN (14:24)
[2021-06-19] MEDS: Ondansetron 4 MG/2 ML VIAL IVP PRN (14:30)
[2021-06-19] MEDS: Melatonin 3 MG TABLET PO SCH (20:21)
[2021-06-19] MEDS: Insulin DETEMIR 100 UNIT/ML X5UNITS SUBQ SCH (20:43)
[2021-06-19] MEDS: Benzonatate 100 MG CAPSULE PO PRN (21:23)
[2021-06-20 00:40] LABS: Eosinophils % 0.1 %; Red Cell Distribution Width 17.9 % (11.5-14.5)
[2021-06-20 00:42] LABS: Basophils % 0.4 %; Immature Granulocytes % 0.5 % (0-4); Lymphocytes # 0.8 K/mcL (0.6-4.6); Lymphocytes % 9.8 %; Mean Corpuscular HGB Conc 29.2 g/dL (31.6-35.5); Mean Corpuscular Hemoglobin 24.3 pg (28.0-33.3); Mean Corpuscular Volume 83.3 fL (83.0-100.0); Mean Platelet Volume 12.4 fL (9.4-12.4); Monocytes # 0.8 K/mcL (0.0-1.3); Monocytes % 9.7 %; Neutrophils # 6.6 K/mcL (1.6-8.9); Nucleated Red Blood Cells 0.4 /100 WBC (0); Platelet Count 190 K/mcL (140-400); Red Blood Count 2.88 M/mcL (3.82-4.97); Segmented Neutrophils % 79.5 %; White Blood Count 8.3 K/mcL (4.3-11.1)
[2021-06-20 00:56] LABS: BUN/Creatinine Ratio 12 (6-26); Blood Urea Nitrogen 11 mg/dL (8-23); Calcium 8.8 mg/dL (8.6-10.3); Carbon Dioxide 36 mEq/L (23-29); Chloride 98 mEq/L (98-107); Glucose 239 mg/dL (70-105); Osmolality,Calculated 291 (280-300); Potassium 3.5 mEq/L (3.5-5.1); Sodium 137 mEq/L (136-145); eGFR For African Americans > 60 (> 60); eGFR For Non-African Americans > 60 (> 60)
[2021-06-20 01:03] LABS: Anisocytosis 1+ (Not Present); Hypochromasia Present (Not Present); Platelet Estimate Normal (Normal); Polychromasia 1+ (Not Present)
[2021-06-20 01:04] LABS: Large Platelets Present (Not Present); Poikilocytosis 1+ (Not Present); Reactive Lymphocytes Present (Not Present)
[2021-06-20] MEDS ORDERED: 0.9 % Sodium Chloride 250 ML ONE (03:16)
[2021-06-20] MEDS: Insulin LISPRO 300 UNITS/3 ML VIAL SUBQ SCH ×3 (09:47→16:37)
[2021-06-20] MEDS: Cholecalciferol (D-3) 1,000 UNIT (25MCG) TABLET PO SCH (09:48)
[2021-06-20] MEDS: Isosorbide MONOnitrate (24 HR) 30 MG TAB.ER.24H PO SCH (09:49)
[2021-06-20] MEDS: Topiramate 25 MG TABLET PO SCH (09:49)
[2021-06-20] MEDS: levoFLOXacin 750 MG/150 ML 750 MG/150 ML BAG IVPB SCH (09:50)
[2021-06-20] MEDS: Magnesium Oxide 400 MG TABLET PO SCH ×2 (09:54→20:23)
[2021-06-20 10:57] LABS: Hematocrit 28.3 % (35.3-44.9); Hemoglobin 8.4 g/dL (11.5-15.4)
[2021-06-20] MEDS: Insulin DETEMIR 100 UNIT/ML X5UNITS SUBQ SCH (20:23)
[2021-06-20] MEDS: Melatonin 3 MG TABLET PO SCH (20:23)
[2021-06-21 07:25] LABS: Basophils % 0.4 %; Eosinophils % 0.3 %; Hematocrit 28.6 % (35.3-44.9); Hemoglobin 8.3 g/dL (11.5-15.4); Immature Granulocytes % 0.7 % (0-4); Lymphocytes # 0.7 K/mcL (0.6-4.6); Lymphocytes % 10.3 %; Mean Corpuscular Hemoglobin 24.1 pg (28.0-33.3); Mean Corpuscular Volume 82.9 fL (83.0-100.0); Mean Platelet Volume 11.2 fL (9.4-12.4); Monocytes # 0.7 K/mcL (0.0-1.3); Monocytes % 10.3 %; Neutrophils # 5.3 K/mcL (1.6-8.9); Nucleated Red Blood Cells 0.4 /100 WBC (0); Platelet Count 177 K/mcL (140-400); Red Blood Count 3.45 M/mcL (3.82-4.97); Red Cell Distribution Width 17.9 % (11.5-14.5); White Blood Count 6.8 K/mcL (4.3-11.1)
[2021-06-21 07:33] LABS: BUN/Creatinine Ratio 12 (6-26); Blood Urea Nitrogen 10 mg/dL (8-23); Calcium 8.9 mg/dL (8.6-10.3); Carbon Dioxide 35 mEq/L (23-29); Chloride 99 mEq/L (98-107); Glucose 228 mg/dL (70-105); Osmolality,Calculated 294 (280-300); Potassium 3.3 mEq/L (3.5-5.1); Sodium 139 mEq/L (136-145); eGFR For African Americans > 60 (> 60); eGFR For Non-African Americans > 60 (> 60)
[2021-06-21] MEDS: Insulin LISPRO 300 UNITS/3 ML VIAL SUBQ SCH ×3 (08:35→16:41)
[2021-06-21] MEDS: Acetaminophen 325 MG TABLET PO PRN ×2 (08:36→21:10)
[2021-06-21] MEDS ORDERED: Potassium Chloride 40 MEQ, Lidocaine 1% 2 ML in 0.9 % Sodium Chloride 500 ML IVPB ONE (09:24)
[2021-06-21] MEDS: Ondansetron 4 MG/2 ML VIAL IVP PRN (09:49)
[2021-06-21] MEDS: Benzonatate 100 MG CAPSULE PO PRN (10:11)
[2021-06-21] MEDS: Isosorbide MONOnitrate (24 HR) 30 MG TAB.ER.24H PO SCH (10:15)
[2021-06-21] MEDS: Topiramate 25 MG TABLET PO SCH (10:16)
[2021-06-21] MEDS: levoFLOXacin 750 MG/150 ML 750 MG/150 ML BAG IVPB SCH (10:17)
[2021-06-21] MEDS: Cholecalciferol (D-3) 1,000 UNIT (25MCG) TABLET PO SCH (10:17)
[2021-06-21] MEDS: Magnesium Oxide 400 MG TABLET PO SCH ×2 (10:19→21:11)
[2021-06-21] MEDS ORDERED: Haloperidol Lactate 5 MG/ML VIAL IVP ONE (13:38)
[2021-06-21] MEDS: Melatonin 3 MG TABLET PO SCH (21:10)
[2021-06-21] MEDS: Insulin DETEMIR 100 UNIT/ML X5UNITS SUBQ SCH (21:11)
[2021-06-22] MEDS: Insulin LISPRO 300 UNITS/3 ML VIAL SUBQ SCH ×3 (09:12→17:34)
[2021-06-22] MEDS: Topiramate 25 MG TABLET PO SCH (09:13)
[2021-06-22] MEDS: Isosorbide MONOnitrate (24 HR) 30 MG TAB.ER.24H PO SCH (09:13)
[2021-06-22] MEDS: Magnesium Oxide 400 MG TABLET PO SCH ×2 (09:13→20:38)
[2021-06-22] MEDS: levoFLOXacin 750 MG TABLET PO SCH (09:13)
[2021-06-22] MEDS: Cholecalciferol (D-3) 1,000 UNIT (25MCG) TABLET PO SCH (09:13)
[2021-06-22] MEDS: Furosemide 20 MG/2 ML VIAL IVP SCH (10:36)
[2021-06-22] MEDS ORDERED: Haloperidol Lactate 5 MG/ML VIAL IVP ONE (15:57)
[2021-06-22] MEDS: Insulin DETEMIR 100 UNIT/ML X5UNITS SUBQ SCH (20:38)
[2021-06-22] MEDS: Melatonin 3 MG TABLET PO SCH (20:38)
[2021-06-22] MEDS: Acetaminophen 325 MG TABLET PO PRN (20:45)
[2021-06-23] MEDS: Acetaminophen 325 MG TABLET PO PRN (06:08)
[2021-06-23] MEDS: Cholecalciferol (D-3) 1,000 UNIT (25MCG) TABLET PO SCH (07:14)
[2021-06-23] MEDS: Isosorbide MONOnitrate (24 HR) 30 MG TAB.ER.24H PO SCH (07:14)
[2021-06-23] MEDS: levoFLOXacin 750 MG TABLET PO SCH (07:14)
[2021-06-23] MEDS: Topiramate 25 MG TABLET PO SCH (07:14)
[2021-06-23] MEDS: Furosemide 20 MG/2 ML VIAL IVP SCH (07:14)
[2021-06-23] MEDS: Magnesium Oxide 400 MG TABLET PO SCH ×2 (07:15→20:31)
[2021-06-23] MEDS: Insulin LISPRO 300 UNITS/3 ML VIAL SUBQ SCH ×3 (07:51→18:02)
[2021-06-23 19:42] LABS: Basophils # 0.1 K/mcL (0.0-0.2); Basophils % 0.5 %; Eosinophils # 0.2 K/mcL (0.0-0.6); Eosinophils % 1.8 %; Hematocrit 31.5 % (35.3-44.9); Hemoglobin 9.4 g/dL (11.5-15.4); Immature Granulocytes % 0.5 % (0-4); Lymphocytes # 1.5 K/mcL (0.6-4.6); Lymphocytes % 15.4 %; Mean Corpuscular HGB Conc 29.8 g/dL (31.6-35.5); Mean Corpuscular Hemoglobin 23.6 pg (28.0-33.3); Mean Corpuscular Volume 79.1 fL (83.0-100.0); Mean Platelet Volume 10.4 fL (9.4-12.4); Monocytes # 0.9 K/mcL (0.0-1.3); Monocytes % 8.6 %; Neutrophils # 7.3 K/mcL (1.6-8.9); Nucleated Red Blood Cells 0.2 /100 WBC (0); Platelet Count 225 K/mcL (140-400); Red Blood Count 3.98 M/mcL (3.82-4.97); Red Cell Distribution Width 18.2 % (11.5-14.5); Segmented Neutrophils % 73.2 %
[2021-06-23 20:04] LABS: BUN/Creatinine Ratio 14 (6-26); Blood Urea Nitrogen 13 mg/dL (8-23); Calcium 8.8 mg/dL (8.6-10.3); Carbon Dioxide 34 mEq/L (23-29); Chloride 96 mEq/L (98-107); Glucose 285 mg/dL (70-105); Magnesium 1.2 mg/dL (1.6-2.6); Osmolality,Calculated 292 (280-300); Potassium 3.3 mEq/L (3.5-5.1); Sodium 136 mEq/L (136-145); eGFR For African Americans > 60 (> 60); eGFR For Non-African Americans > 60 (> 60)
[2021-06-23] MEDS: *HR* OxyCODONE Immed Rel 5 MG TABLET PO PRN (20:30)
[2021-06-23] MEDS: Melatonin 3 MG TABLET PO SCH (20:31)
[2021-06-23] MEDS: Insulin DETEMIR 100 UNIT/ML X5UNITS SUBQ SCH (21:06)
[2021-06-24] MEDS: *HR* OxyCODONE Immed Rel 5 MG TABLET PO PRN ×2 (03:00→11:11)
[2021-06-24 05:24] LABS: Eosinophils % 2.5 %; Hemoglobin 9.4 g/dL (11.5-15.4); Monocytes % 9.5 %; Red Cell Distribution Width 18.4 % (11.5-14.5)
[2021-06-24 05:26] LABS: Basophils # 0.1 K/mcL (0.0-0.2); Basophils % 0.7 %; Eosinophils # 0.3 K/mcL (0.0-0.6); Hematocrit 31.1 % (35.3-44.9); Immature Granulocytes % 0.5 % (0-4); Immature Platelets 9.3 % (1.1-6.1); Lymphocytes # 1.9 K/mcL (0.6-4.6); Lymphocytes % 18.9 %; Mean Corpuscular HGB Conc 30.2 g/dL (31.6-35.5); Mean Corpuscular Hemoglobin 23.6 pg (28.0-33.3); Mean Corpuscular Volume 78.1 fL (83.0-100.0); Mean Platelet Volume 11.3 fL (9.4-12.4); Platelet Count 218 K/mcL (140-400); Red Blood Count 3.98 M/mcL (3.82-4.97); Segmented Neutrophils % 67.9 %; White Blood Count 10.1 K/mcL (4.3-11.1)
[2021-06-24 05:27] LABS: Neutrophils # 6.9 K/mcL (1.6-8.9)
[2021-06-24 05:48] LABS: BUN/Creatinine Ratio 12 (6-26); Blood Urea Nitrogen 12 mg/dL (8-23); Calcium 8.7 mg/dL (8.6-10.3); Carbon Dioxide 31 mEq/L (23-29); Chloride 94 mEq/L (98-107); Glucose 275 mg/dL (70-105); Osmolality,Calculated 288 (280-300); Sodium 134 mEq/L (136-145); eGFR For African Americans > 60 (> 60); eGFR For Non-African Americans 56 (> 60)
[2021-06-24] MEDS: Insulin LISPRO 300 UNITS/3 ML VIAL SUBQ SCH ×2 (08:17→12:18)
[2021-06-24] MEDS: Isosorbide MONOnitrate (24 HR) 30 MG TAB.ER.24H PO SCH (08:18)
[2021-06-24] MEDS: Magnesium Oxide 400 MG TABLET PO SCH (08:18)
[2021-06-24] MEDS: Cholecalciferol (D-3) 1,000 UNIT (25MCG) TABLET PO SCH (08:18)
[2021-06-24] MEDS: Topiramate 25 MG TABLET PO SCH (08:18)
[2021-06-24] MEDS: Furosemide 20 MG/2 ML VIAL IVP SCH (08:18)
[2021-06-24] MEDS ORDERED: Loratadine 10 MG TABLET PO ONE (11:18)
[2021-06-24 12:06] VITALS: BP 112/70; PULSE 83; TEMP 98.2; O2SAT 95
[2021-07-03] MEDS ORDERED: Cyanocobalamin (B-12) 1,000 MCG/ML VIAL IM SCH ×2 (09:00)
== END 2021-06-24 15:08 | disposition home health service (06) | DRG 871 ==
LOC: 2NNU 12:13 → EMEROOARM 12:13 → SUATTDRO 17:47 → 2NNU 19:37 → 2ANU 06-18 11:25 → SUATTDRO 06-18 14:02 → 2ANU 06-20 08:26
PROVIDERS: ADMIT Family Medicine; ATTEND Internal Medicine

== ENCOUNTER 2021-08-02 06:32 | Inpatient (IN) ==
[2021-08-02] MEDS ORDERED: 0.9 % Sodium Chloride 1,000 ML IVC ONE ×2 (06:40→09:39)
[2021-08-02] MEDS ORDERED: Acetaminophen 650 MG RECTAL SUPP RC ONE (06:56)
[2021-08-02] MEDS ORDERED: levoFLOXacin 750 MG/150 ML 750 MG/150 ML BAG IVPB ONE (06:57)
[2021-08-02 07:09] LABS: INR 1.3; Prothrombin Time 14.1 Seconds (9.4-12.1)
[2021-08-02 07:12] LABS: Activated Partial Thrombo Time 26.8 Seconds (26.0-36.0)
[2021-08-02 07:47] LABS: Alanine Aminotransferase 16 Units/L (7-52); Albumin 3.5 g/dL (3.5-5.7); Albumin/Globulin Ratio 1.3 (1.1-2.2); Alkaline Phosphatase 227 Units/L (34-104); Aspartate Amino Transferase 22 Units/L (13-39); BUN/Creatinine Ratio 6 (6-26); Bilirubin,Direct 0.2 mg/dL (0.0-0.2); Bilirubin,Indirect 0.3 mg/dL (0.0-1.0); Bilirubin,Total 0.5 mg/dL (0.3-1.0); Blood Urea Nitrogen 11 mg/dL (8-23); Calcium 8.9 mg/dL (8.6-10.3); Carbon Dioxide 26 mEq/L (23-29); Chloride 100 mEq/L (98-107); Globulin 2.8 g/dL (2.4-3.5); Glucose 223 mg/dL (70-105); Lipase 16 Units/L (11-82); Magnesium < 0.5 mg/dL (1.6-2.6); Osmolality,Calculated 292 (280-300); Phosphorous < 1.0 mg/dL (2.7-4.5); Potassium 2.8 mEq/L (3.5-5.1); Sodium 138 mEq/L (136-145); Total Protein 6.3 g/dL (6.4-8.9); Troponin I 0.07 ng/mL (< 0.04); eGFR For African Americans 36 (> 60); eGFR For Non-African Americans 30 (> 60)
[2021-08-02] MEDS ORDERED: Isovue-370 500 ML BOTTLE IVP ONE ×2 (07:49)
[2021-08-02] MEDS ORDERED: Potassium Phosphate 44 MEQ in 0.9 % Sodium Chloride 250 ML IVPB ONE (07:58)
[2021-08-02] MEDS ORDERED: 0.9 % Sodium Chloride 1,000 ML IV ONE (07:59)
[2021-08-02 08:16] LABS: Hemoglobin 8.3 g/dL (11.5-15.4); Nucleated Red Blood Cells 0.3 /100 WBC (0)
[2021-08-02 08:18] LABS: Immature Platelets 12.9 % (1.1-6.1); Lymphocytes # 0.5 K/mcL (0.6-4.6); Mean Corpuscular HGB Conc 27.7 g/dL (31.6-35.5); Mean Corpuscular Volume 72.3 fL (83.0-100.0); Platelet Count 191 K/mcL (140-400); Red Blood Count 4.15 M/mcL (3.82-4.97); Red Cell Distribution Width 20.8 % (11.5-14.5); White Blood Count 23.8 K/mcL (4.3-11.1)
[2021-08-02 08:37] LABS: Bacteria,Urine Many per hpf (None-Few); Bilirubin,Urine Negative (Negative); Blood,Urine Negative (Negative); Clarity,Urine Turbid (Clear); Color,Urine Yellow (Yellow); Glucose,Urine (UA) >=1000 mg/dL (Normal); Ketones,Urine Negative (Negative); Leukocyte Esterase,Urine Negative (Negative); Nitrite,Urine Negative (Negative); Protein,Urine Negative (Neg-Trace); Squamous Epithelial Cell,Urine Few per hpf (None-Few); Urobilinogen,Urine Normal (Normal); WBC,Urine 0-3 per hpf (0-3)
[2021-08-02 08:41] LABS: Anisocytosis 2+ (Not Present); Hypochromasia Present (Not Present); Microcytosis Present (Not Present); Neutrophils # 22.6 K/mcL (1.6-8.9); Platelet Estimate Normal (Normal)
[2021-08-02] MEDS ORDERED: Ondansetron ODT 4 MG TAB.RAPDIS SL PRN (10:51)
[2021-08-02] MEDS ORDERED: Naloxone 0.4 MG/ML INJ IVP PRN (10:51)
[2021-08-02] MEDS ORDERED: Melatonin 3 MG TABLET PO PRN (10:51)
[2021-08-02 11:39] LABS: C-Reactive Protein 21 mg/L (Less than 10)
[2021-08-02] MEDS ORDERED: Lidocaine -MPF 1% 5 ML AMPUL INFILT ONE (11:54)
[2021-08-02] MEDS ORDERED: *HR* Dextrose 50 % in Water (Syg) 50 ML SYRINGE IVP PRN (12:33)
[2021-08-02] MEDS ORDERED: Dextrose Gel 15 GM/37.5 ML TUBE PO PRN ×2 (12:33)
[2021-08-02] MEDS ORDERED: D5% in Water 1,000 ML IVC PRN (12:33)
[2021-08-02] MEDS: Nicotine 21 MG PATCH.TD24 TD SCH (14:20)
[2021-08-02] MEDS: *HR* Heparin 5,000 UNIT/ML VIAL SQ SCH ×2 (14:21→20:31)
[2021-08-02] MEDS: Ipratropium/Albuterol Neb 3 ML IH SCH ×2 (15:11→20:23)
[2021-08-02] MEDS: Insulin LISPRO 300 UNITS/3 ML VIAL SUBQ SCH (16:57)
[2021-08-02 16:59] LABS: Hemoglobin 7.1 g/dL (11.5-15.4); Red Cell Distribution Width 20.7 % (11.5-14.5)
[2021-08-02] MEDS: Cefepime HCl 2,000 MG in Water for inj. (sterile) 20 ML IVP SCH (16:59)
[2021-08-02 17:01] LABS: Hematocrit 25.4 % (35.3-44.9); Immature Platelets 13.8 % (1.1-6.1); Mean Corpuscular Hemoglobin 20.4 pg (28.0-33.3); Nucleated Red Blood Cells 0.1 /100 WBC (0); Platelet Count 138 K/mcL (140-400); Red Blood Count 3.48 M/mcL (3.82-4.97)
[2021-08-02] MEDS: Benzonatate 100 MG CAPSULE PO PRN (17:07)
[2021-08-02 17:08] LABS: White Blood Count 30.7 K/mcL (4.3-11.1)
[2021-08-02 17:15] LABS: BUN/Creatinine Ratio 10 (6-26); Blood Urea Nitrogen 11 mg/dL (8-23); Calcium 6.6 mg/dL (8.6-10.3); Carbon Dioxide 20 mEq/L (23-29); Chloride 109 mEq/L (98-107); Glucose 101 mg/dL (70-105); Osmolality,Calculated 286 (280-300); Potassium 3.4 mEq/L (3.5-5.1); Sodium 138 mEq/L (136-145); eGFR For African Americans > 60 (> 60); eGFR For Non-African Americans 50 (> 60)
[2021-08-02 17:43] LABS: Anisocytosis 1+ (Not Present); Hypochromasia Present (Not Present); Lymphocytes # 0.9 K/mcL (0.6-4.6); Macrocytosis Present (Not Present); Monocytes # 0.9 K/mcL (0.0-1.3); Neutrophils # 27.6 K/mcL (1.6-8.9); Polychromasia 1+ (Not Present)
[2021-08-02 17:44] LABS: Large Platelets Present (Not Present); Platelet Estimate Slight Decrease (Normal)
[2021-08-02] MEDS: Calcium Gluconate 1gm/50mL 1 GM/50 ML BAG IVPB SCH ×2 (18:23→20:31)
[2021-08-02] MEDS ORDERED: Metoclopramide 10 MG/2 ML VIAL IVP PRN (19:31)
[2021-08-02] MEDS: Budesonide/Formoterol 160/4.5 1 PUFF INH IH SCH (20:23)
[2021-08-02 23:30] LABS: VBG Ionized Calcium 1.12 mmol/L (1.15-1.35)
[2021-08-02] MEDS ORDERED: *HR* LORazepam 2 MG/ML VIAL IVP ONE (23:37)
[2021-08-02] MEDS ORDERED: *HR* Metoprolol 5 MG/5 ML VIAL IVP ONE (23:38)
[2021-08-02] MEDS ORDERED: *HR* Promethazine 25 MG/ML VIAL IM ONE (23:39)
[2021-08-02 23:46] LABS: Phosphorous 3.6 mg/dL (2.7-4.5); Potassium 3.3 mEq/L (3.5-5.1)
[2021-08-03] MEDS: Calcium Gluconate 1gm/50mL 1 GM/50 ML BAG IVPB SCH ×2 (00:58→02:28)
[2021-08-03] MEDS ORDERED: Potassium Chloride 40 MEQ, Lidocaine 1% 2 ML in 0.9 % Sodium Chloride 500 ML IVPB ONE (01:00)
[2021-08-03] MEDS: Nystatin POWDER 30 GM BOTTLE TP SCH ×4 (04:12→21:08)
[2021-08-03] MEDS: Cefepime HCl 2,000 MG in Water for inj. (sterile) 20 ML IVP SCH ×2 (04:12→17:59)
[2021-08-03] MEDS: Dexmedetomidine HCl 400 MCG/100 ML MLS IVC SCH ×2 (04:13→11:15)
[2021-08-03] MEDS: Ipratropium/Albuterol Neb 3 ML IH SCH ×4 (04:28→20:53)
[2021-08-03 04:47] LABS: Hematocrit 27.6 % (35.3-44.9); Hemoglobin 7.9 g/dL (11.5-15.4); Immature Platelets 14.2 % (1.1-6.1); Mean Corpuscular HGB Conc 28.6 g/dL (31.6-35.5); Mean Corpuscular Hemoglobin 20.5 pg (28.0-33.3); Mean Corpuscular Volume 71.5 fL (83.0-100.0); Platelet Count 187 K/mcL (140-400); Red Blood Count 3.86 M/mcL (3.82-4.97); Red Cell Distribution Width 21.2 % (11.5-14.5)
[2021-08-03] MEDS: Nicotine 21 MG PATCH.TD24 TD SCH (05:01)
[2021-08-03] MEDS: *HR* Heparin 5,000 UNIT/ML VIAL SQ SCH ×3 (05:02→20:52)
[2021-08-03 05:04] LABS: Phosphorous 3.3 mg/dL (2.7-4.5)
[2021-08-03] MEDS ORDERED: *HR* Promethazine 25 MG/ML VIAL IM PRN (07:52)
[2021-08-03] MEDS: QUEtiapine Fumarate 25 MG TABLET PO SCH ×3 (08:18→11:26)
[2021-08-03] MEDS: Insulin LISPRO 300 UNITS/3 ML VIAL SUBQ SCH ×3 (08:18→17:59)
[2021-08-03] MEDS ORDERED: Vancomycin 500 MG in 0.9 % Sodium Chloride Mini Bag 100 ML IVPB ONE (09:00)
[2021-08-03 11:01] LABS: Hemoglobin 7.8 g/dL (11.5-15.4); Mean Corpuscular Volume 71.8 fL (83.0-100.0)
[2021-08-03] MEDS: Budesonide/Formoterol 160/4.5 1 PUFF INH IH SCH ×2 (11:01→20:54)
[2021-08-03 11:03] LABS: Hematocrit 27.5 % (35.3-44.9); Immature Platelets 13.5 % (1.1-6.1); Mean Corpuscular HGB Conc 28.4 g/dL (31.6-35.5); Mean Corpuscular Hemoglobin 20.4 pg (28.0-33.3); Platelet Count 180 K/mcL (140-400); Red Blood Count 3.83 M/mcL (3.82-4.97); Red Cell Distribution Width 21.2 % (11.5-14.5)
[2021-08-03 11:08] LABS: VBG Ionized Calcium 1.27 mmol/L (1.15-1.35)
[2021-08-03] MEDS: Vancomycin 1,500 MG/265 ML IV.SOLN IVPB SCH (11:14)
[2021-08-03 11:16] LABS: BUN/Creatinine Ratio 15 (6-26); Blood Urea Nitrogen 15 mg/dL (8-23); Carbon Dioxide 26 mEq/L (23-29); Chloride 106 mEq/L (98-107); Glucose 254 mg/dL (70-105); Magnesium 1.7 mg/dL (1.6-2.6); Osmolality,Calculated 297 (280-300); Phosphorous 2.9 mg/dL (2.7-4.5); Potassium 3.9 mEq/L (3.5-5.1); Sodium 139 mEq/L (136-145); eGFR For African Americans > 60 (> 60); eGFR For Non-African Americans 57 (> 60)
[2021-08-03 11:20] LABS: White Blood Count 32.6 K/mcL (4.3-11.1)
[2021-08-03] MEDS: Benzonatate 100 MG CAPSULE PO PRN (11:20)
[2021-08-03 11:32] LABS: Lymphocytes # 1.3 K/mcL (0.6-4.6); Neutrophils # 28.4 K/mcL (1.6-8.9)
[2021-08-03 11:33] LABS: Platelet Estimate Normal (Normal); Toxic Granulation Present (Not Present)
[2021-08-03] MEDS: 0.9 % Sodium Chloride w KCl 20 MEQ/1,000 ML MLS IVC SCH ×2 (12:13→23:57)
[2021-08-03] MEDS: Azithromycin 500 MG in 0.9 % Sodium Chloride 250 ML IVPB SCH (15:00)
[2021-08-03] MEDS: *HR* OxyCODONE Immed Rel 5 MG TABLET PO PRN (15:17)
[2021-08-03] MEDS: *HR* Metoprolol 5 MG/5 ML VIAL IVP SCH ×2 (17:30→23:27)
[2021-08-03 17:33] LABS: Adenovirus Not Detected (Not Detect); Bordetella Pertussis Not Detected (Not Detect); Chlamydophila pneumoniae Not Detected (Not Detect); Coronavirus 229E Not Detected (Not Detect); Coronavirus HKU1 Not Detected (Not Detect); Coronavirus NL63 Not Detected (Not Detect); Coronavirus OC43 Not Detected (Not Detect); Human Metapneumovirus Not Detected (Not Detect); Human Rhinovirus/Enterovirus Not Detected (Not Detect); Influenza A Subtype 2009 H1 Not Detected (Not Detect); Influenza B Not Detected (Not Detect); Mycoplasma pneumoniae Not Detected (Not Detect); Parainfluenza Virus 1 Not Detected (Not Detect); Parainfluenza Virus 2 Not Detected (Not Detect); Parainfluenza Virus 3 Not Detected (Not Detect); Parainfluenza Virus 4 Not Detected (Not Detect); Respiratory Syncytial Virus Not Detected (Not Detect); SARS-CoV-2 Not Detected (Not Detect)
[2021-08-03] MEDS ORDERED: OLANZapine 5 MG TAB.RAPDIS PO SCH (18:00)
[2021-08-03] MEDS: Magnesium Oxide 400 MG TABLET PO SCH (20:50)
[2021-08-03] MEDS: Ranolazine 500 MG TAB.ER.12H PO SCH (20:50)
[2021-08-03] MEDS: Pregabalin 50 MG CAPSULE PO SCH (20:51)
[2021-08-03] MEDS: OLANZapine 5 MG TAB.RAPDIS PO SCH (20:52)
[2021-08-04] MEDS: Ipratropium/Albuterol Neb 3 ML IH SCH ×2 (03:59→09:48)
[2021-08-04] MEDS: Benzonatate 100 MG CAPSULE PO PRN (04:26)
[2021-08-04] MEDS: *HR* Heparin 5,000 UNIT/ML VIAL SQ SCH ×3 (04:26→20:25)
[2021-08-04] MEDS: Cefepime HCl 2,000 MG in Water for inj. (sterile) 20 ML IVP SCH ×2 (04:26→17:42)
[2021-08-04 05:02] LABS: Hemoglobin 7.6 g/dL (11.5-15.4); Immature Platelets 12.8 % (1.1-6.1); Mean Corpuscular HGB Conc 27.1 g/dL (31.6-35.5); Mean Corpuscular Hemoglobin 19.9 pg (28.0-33.3); Mean Corpuscular Volume 73.5 fL (83.0-100.0); Platelet Count 197 K/mcL (140-400); Red Blood Count 3.81 M/mcL (3.82-4.97); Red Cell Distribution Width 21.2 % (11.5-14.5); White Blood Count 26.6 K/mcL (4.3-11.1)
[2021-08-04] MEDS: *HR* Metoprolol 5 MG/5 ML VIAL IVP SCH ×5 (05:13→23:51)
[2021-08-04 05:19] LABS: BUN/Creatinine Ratio 18 (6-26); Blood Urea Nitrogen 15 mg/dL (8-23); Calcium 9.1 mg/dL (8.6-10.3); Carbon Dioxide 28 mEq/L (23-29); Chloride 107 mEq/L (98-107); Glucose 165 mg/dL (70-105); Osmolality,Calculated 297 (280-300); Sodium 141 mEq/L (136-145); eGFR For African Americans > 60 (> 60); eGFR For Non-African Americans > 60 (> 60)
[2021-08-04 05:20] LABS: Magnesium 2.3 mg/dL (1.6-2.6)
[2021-08-04] MEDS: Acetaminophen 325 MG TABLET PO PRN (07:42)
[2021-08-04] MEDS: Ranolazine 500 MG TAB.ER.12H PO SCH ×3 (07:42→20:24)
[2021-08-04] MEDS: Magnesium Oxide 400 MG TABLET PO SCH ×3 (07:42→20:24)
[2021-08-04] MEDS: Insulin LISPRO 300 UNITS/3 ML VIAL SUBQ SCH ×3 (07:43→17:43)
[2021-08-04] MEDS: Nicotine 21 MG PATCH.TD24 TD SCH (07:43)
[2021-08-04] MEDS: Pregabalin 50 MG CAPSULE PO SCH ×3 (07:43→20:24)
[2021-08-04] MEDS: Aspirin Enteric Coated 81 MG Tablet PO SCH (07:47)
[2021-08-04] MEDS: Isosorbide MONOnitrate (24 HR) 30 MG TAB.ER.24H PO SCH (07:47)
[2021-08-04] MEDS: Loratadine 10 MG TABLET PO SCH (07:48)
[2021-08-04] MEDS: Topiramate 25 MG TABLET PO SCH (07:48)
[2021-08-04] MEDS: Cholecalciferol (D-3) 1,000 UNIT (25MCG) TABLET PO SCH (07:48)
[2021-08-04] MEDS: Nystatin POWDER 30 GM BOTTLE TP SCH ×3 (07:48→20:25)
[2021-08-04] MEDS: Vancomycin 1,500 MG/265 ML IV.SOLN IVPB SCH (07:55)
[2021-08-04] MEDS: Dexmedetomidine HCl 400 MCG/100 ML MLS IVC SCH (07:55)
[2021-08-04] MEDS: Potassium Phosphate 44 MEQ in 0.9 % Sodium Chloride 250 ML IVPB PRN ×2 (07:56→22:42)
[2021-08-04] MEDS: Budesonide/Formoterol 160/4.5 1 PUFF INH IH SCH ×2 (09:48→20:24)
[2021-08-04] MEDS ORDERED: 0.9 % Sodium Chloride 500 ML IVC ONE (13:25)
[2021-08-04] MEDS ORDERED: 0.9 % Sodium Chloride 1,000 ML ONE (13:29)
[2021-08-04] MEDS: 0.9 % Sodium Chloride w KCl 20 MEQ/1,000 ML MLS IVC SCH ×2 (13:36→23:50)
[2021-08-04] MEDS: Azithromycin 500 MG in 0.9 % Sodium Chloride 250 ML IVPB SCH (15:32)
[2021-08-04] MEDS: Levalbuterol Neb 1.25 MG/3 ML IH SCH ×2 (16:29→20:24)
[2021-08-04] MEDS: OLANZapine 5 MG TAB.RAPDIS PO SCH ×2 (20:03→20:25)
[2021-08-05] MEDS: GuaiFENesin Liq 200 MG/10 ML UDC PO PRN ×2 (01:06→07:51)
[2021-08-05] MEDS: Levalbuterol Neb 1.25 MG/3 ML IH SCH ×4 (04:21→22:34)
[2021-08-05] MEDS: *HR* Heparin 5,000 UNIT/ML VIAL SQ SCH ×3 (05:40→20:08)
[2021-08-05] MEDS: *HR* Metoprolol 5 MG/5 ML VIAL IVP SCH ×3 (05:40→23:49)
[2021-08-05] MEDS: Cefepime HCl 2,000 MG in Water for inj. (sterile) 20 ML IVP SCH ×2 (05:41→17:34)
[2021-08-05 06:19] LABS: Hemoglobin 7.6 g/dL (11.5-15.4)
[2021-08-05 06:21] LABS: Hematocrit 28.3 % (35.3-44.9); Immature Platelets 10.3 % (1.1-6.1); Mean Corpuscular HGB Conc 26.9 g/dL (31.6-35.5); Mean Corpuscular Hemoglobin 19.9 pg (28.0-33.3); Mean Corpuscular Volume 74.3 fL (83.0-100.0); Platelet Count 216 K/mcL (140-400); Red Blood Count 3.81 M/mcL (3.82-4.97); Red Cell Distribution Width 21.3 % (11.5-14.5); White Blood Count 22.1 K/mcL (4.3-11.1)
[2021-08-05 06:23] LABS: Magnesium 1.7 mg/dL (1.6-2.6); Phosphorous 3.4 mg/dL (2.7-4.5)
[2021-08-05 06:24] LABS: BUN/Creatinine Ratio 15 (6-26); Blood Urea Nitrogen 13 mg/dL (8-23); Calcium 9.2 mg/dL (8.6-10.3); Carbon Dioxide 26 mEq/L (23-29); Chloride 109 mEq/L (98-107); Glucose 244 mg/dL (70-105); Osmolality,Calculated 304 (280-300); Potassium 4.7 mEq/L (3.5-5.1); Sodium 143 mEq/L (136-145); eGFR For African Americans > 60 (> 60); eGFR For Non-African Americans > 60 (> 60)
[2021-08-05] MEDS: Isosorbide MONOnitrate (24 HR) 30 MG TAB.ER.24H PO SCH (07:42)
[2021-08-05] MEDS: Cholecalciferol (D-3) 1,000 UNIT (25MCG) TABLET PO SCH (07:42)
[2021-08-05] MEDS: Pregabalin 50 MG CAPSULE PO SCH ×2 (07:43→19:36)
[2021-08-05] MEDS: *HR* OxyCODONE Immed Rel 5 MG TABLET PO PRN (07:43)
[2021-08-05] MEDS: Nystatin POWDER 30 GM BOTTLE TP SCH ×3 (07:44→20:08)
[2021-08-05] MEDS: Aspirin Enteric Coated 81 MG Tablet PO SCH (07:44)
[2021-08-05] MEDS: Loratadine 10 MG TABLET PO SCH (07:44)
[2021-08-05] MEDS: Magnesium Oxide 400 MG TABLET PO SCH ×2 (07:44→19:36)
[2021-08-05] MEDS: Ranolazine 500 MG TAB.ER.12H PO SCH ×2 (07:44→19:37)
[2021-08-05] MEDS: Topiramate 25 MG TABLET PO SCH (07:45)
[2021-08-05] MEDS: Insulin LISPRO 300 UNITS/3 ML VIAL SUBQ SCH ×3 (07:51→17:34)
[2021-08-05] MEDS: Nicotine 21 MG PATCH.TD24 TD SCH (08:04)
[2021-08-05] MEDS: Budesonide/Formoterol 160/4.5 1 PUFF INH IH SCH ×2 (09:42→22:33)
[2021-08-05] MEDS: Pantoprazole 40 MG VIAL IVP SCH (10:06)
[2021-08-05] MEDS: Vancomycin 1,250 MG/262.5 ML IV.SOLN IVPB SCH ×2 (10:39→23:50)
[2021-08-05 13:13] LABS: Phosphorous 2.5 mg/dL (2.7-4.5)
[2021-08-05] MEDS: Azithromycin 500 MG in 0.9 % Sodium Chloride 250 ML IVPB SCH (14:05)
[2021-08-05] MEDS: Potassium Phosphate 44 MEQ in 0.9 % Sodium Chloride 250 ML IVPB PRN (17:34)
[2021-08-05] MEDS ORDERED: Haloperidol Lactate 5 MG/ML VIAL IVP PRN (17:38)
[2021-08-05] MEDS: OLANZapine 5 MG TAB.RAPDIS PO SCH (19:37)
[2021-08-06] MEDS: *HR* LORazepam 2 MG/ML VIAL IVP PRN ×2 (01:29→09:40)
[2021-08-06] MEDS ORDERED: *HR* Metoprolol 5 MG/5 ML VIAL IVP ONE ×2 (03:16→05:04)
[2021-08-06] MEDS: Levalbuterol Neb 1.25 MG/3 ML IH SCH ×4 (03:39→22:14)
[2021-08-06 04:38] LABS: Hematocrit 29.6 % (35.3-44.9); Mean Corpuscular Volume 74.4 fL (83.0-100.0); Red Blood Count 3.98 M/mcL (3.82-4.97)
[2021-08-06 04:40] LABS: Immature Platelets 9.6 % (1.1-6.1); Mean Corpuscular Hemoglobin 20.1 pg (28.0-33.3); Platelet Count 236 K/mcL (140-400); Red Cell Distribution Width 21.1 % (11.5-14.5); White Blood Count 17.8 K/mcL (4.3-11.1)
[2021-08-06 04:49] LABS: BUN/Creatinine Ratio 18 (6-26); Blood Urea Nitrogen 13 mg/dL (8-23); Calcium 9.1 mg/dL (8.6-10.3); Carbon Dioxide 27 mEq/L (23-29); Chloride 108 mEq/L (98-107); Glucose 242 mg/dL (70-105); Osmolality,Calculated 302 (280-300); Phosphorous 3.6 mg/dL (2.7-4.5); Potassium 4.8 mEq/L (3.5-5.1); Sodium 142 mEq/L (136-145); eGFR For African Americans > 60 (> 60); eGFR For Non-African Americans > 60 (> 60)
[2021-08-06] MEDS ORDERED: Furosemide 80 MG in 0.9 % Sodium Chloride 50 ML IVPB ONE (05:30)
[2021-08-06] MEDS: Cefepime HCl 2,000 MG in Water for inj. (sterile) 20 ML IVP SCH ×2 (05:33→17:33)
[2021-08-06] MEDS: *HR* Heparin 5,000 UNIT/ML VIAL SQ SCH ×3 (05:38→20:45)
[2021-08-06] MEDS: *HR* Metoprolol 5 MG/5 ML VIAL IVP SCH ×3 (06:23→17:34)
[2021-08-06] MEDS ORDERED: Lidocaine -MPF 1% 5 ML AMPUL INFILT ONE (07:38)
[2021-08-06] MEDS: Haloperidol Lactate 5 MG/ML VIAL IVP SCH ×2 (08:44→20:45)
[2021-08-06] MEDS: Insulin LISPRO 300 UNITS/3 ML VIAL SUBQ SCH ×3 (08:52→16:45)
[2021-08-06] MEDS: Budesonide/Formoterol 160/4.5 1 PUFF INH IH SCH ×2 (10:59→22:14)
[2021-08-06] MEDS: Pantoprazole 40 MG VIAL IVP SCH (11:08)
[2021-08-06] MEDS: Nicotine 21 MG PATCH.TD24 TD SCH (11:08)
[2021-08-06] MEDS: Aspirin Enteric Coated 81 MG Tablet PO SCH (11:20)
[2021-08-06] MEDS: Loratadine 10 MG TABLET PO SCH (11:20)
[2021-08-06] MEDS: Pregabalin 50 MG CAPSULE PO SCH ×2 (11:21→20:44)
[2021-08-06] MEDS: Magnesium Oxide 400 MG TABLET PO SCH ×2 (11:21→20:44)
[2021-08-06] MEDS: Ranolazine 500 MG TAB.ER.12H PO SCH ×2 (11:21→20:45)
[2021-08-06] MEDS: Cholecalciferol (D-3) 1,000 UNIT (25MCG) TABLET PO SCH (11:21)
[2021-08-06] MEDS: Topiramate 25 MG TABLET PO SCH (11:21)
[2021-08-06] MEDS: Isosorbide MONOnitrate (24 HR) 30 MG TAB.ER.24H PO SCH (11:21)
[2021-08-06] MEDS: Nystatin POWDER 30 GM BOTTLE TP SCH ×3 (11:22→21:04)
[2021-08-06 14:07] LABS: Magnesium 1.4 mg/dL (1.6-2.6)
[2021-08-06] MEDS: Vancomycin 1,250 MG/262.5 ML IV.SOLN IVPB SCH (14:40)
[2021-08-06] MEDS ORDERED: *HR* Labetalol 20 MG/4 ML SYRINGE IVP PRN (16:30)
[2021-08-06] MEDS: Azithromycin 500 MG in 0.9 % Sodium Chloride 250 ML IVPB SCH (16:44)
[2021-08-07] MEDS: *HR* Metoprolol 5 MG/5 ML VIAL IVP SCH ×4 (00:51→18:01)
[2021-08-07 02:34] LABS: Hematocrit 26.5 % (35.3-44.9); Hemoglobin 7.4 g/dL (11.5-15.4); Immature Platelets 9.8 % (1.1-6.1); Mean Corpuscular HGB Conc 27.9 g/dL (31.6-35.5); Mean Corpuscular Hemoglobin 19.9 pg (28.0-33.3); Mean Corpuscular Volume 71.2 fL (83.0-100.0); Platelet Count 215 K/mcL (140-400); Red Blood Count 3.72 M/mcL (3.82-4.97); Red Cell Distribution Width 22.1 % (11.5-14.5); White Blood Count 10.6 K/mcL (4.3-11.1)
[2021-08-07 03:33] LABS: BUN/Creatinine Ratio 17 (6-26); Blood Urea Nitrogen 13 mg/dL (8-23); Calcium 8.8 mg/dL (8.6-10.3); Carbon Dioxide 32 mEq/L (23-29); Chloride 105 mEq/L (98-107); Glucose 282 mg/dL (70-105); Osmolality,Calculated 304 (280-300); Potassium 3.6 mEq/L (3.5-5.1); Sodium 142 mEq/L (136-145); eGFR For African Americans > 60 (> 60); eGFR For Non-African Americans > 60 (> 60)
[2021-08-07] MEDS: Levalbuterol Neb 1.25 MG/3 ML IH SCH ×4 (03:37→22:13)
[2021-08-07] MEDS: *HR* Heparin 5,000 UNIT/ML VIAL SQ SCH ×3 (06:11→21:18)
[2021-08-07] MEDS: Cefepime HCl 2,000 MG in Water for inj. (sterile) 20 ML IVP SCH ×2 (06:11→18:01)
[2021-08-07] MEDS: Furosemide 40 MG/4 ML VIAL IVP SCH (09:39)
[2021-08-07] MEDS: Haloperidol Lactate 5 MG/ML VIAL IVP SCH ×2 (09:39→21:18)
[2021-08-07] MEDS: Pantoprazole 40 MG VIAL IVP SCH (09:39)
[2021-08-07] MEDS: Nicotine 21 MG PATCH.TD24 TD SCH (09:40)
[2021-08-07] MEDS: Insulin LISPRO 300 UNITS/3 ML VIAL SUBQ SCH ×3 (09:42→18:01)
[2021-08-07] MEDS: Loratadine 10 MG TABLET PO SCH (09:50)
[2021-08-07] MEDS: Aspirin Enteric Coated 81 MG Tablet PO SCH (09:50)
[2021-08-07] MEDS: Pregabalin 50 MG CAPSULE PO SCH ×2 (09:51→21:17)
[2021-08-07] MEDS: Magnesium Oxide 400 MG TABLET PO SCH ×2 (09:51→21:18)
[2021-08-07] MEDS: Isosorbide MONOnitrate (24 HR) 30 MG TAB.ER.24H PO SCH (09:51)
[2021-08-07] MEDS: Cholecalciferol (D-3) 1,000 UNIT (25MCG) TABLET PO SCH (09:53)
[2021-08-07] MEDS: Topiramate 25 MG TABLET PO SCH (09:53)
[2021-08-07] MEDS: Ranolazine 500 MG TAB.ER.12H PO SCH ×2 (09:53→21:18)
[2021-08-07] MEDS: Budesonide/Formoterol 160/4.5 1 PUFF INH IH SCH ×2 (10:00→22:13)
[2021-08-07 10:33] LABS: Magnesium 1.6 mg/dL (1.6-2.6); Phosphorous 2.9 mg/dL (2.7-4.5)
[2021-08-07] MEDS: Nystatin POWDER 30 GM BOTTLE TP SCH ×3 (12:44→22:15)
[2021-08-07] MEDS: Azithromycin 500 MG in 0.9 % Sodium Chloride 250 ML IVPB SCH (15:08)
[2021-08-08] MEDS: *HR* Metoprolol 5 MG/5 ML VIAL IVP SCH ×4 (00:41→17:14)
[2021-08-08] MEDS: Levalbuterol Neb 1.25 MG/3 ML IH SCH ×4 (03:18→20:28)
[2021-08-08 04:58] LABS: Hemoglobin 7.5 g/dL (11.5-15.4); Monocytes % 10.5 %
[2021-08-08 05:01] LABS: Basophils % 0.5 %; Eosinophils # 0.1 K/mcL (0.0-0.6); Eosinophils % 2.1 %; Hematocrit 26.6 % (35.3-44.9); Immature Platelets 9.5 % (1.1-6.1); Lymphocytes # 1.3 K/mcL (0.6-4.6); Lymphocytes % 19.9 %; Mean Corpuscular HGB Conc 28.2 g/dL (31.6-35.5); Mean Corpuscular Hemoglobin 20.3 pg (28.0-33.3); Mean Corpuscular Volume 72.1 fL (83.0-100.0); Monocytes # 0.7 K/mcL (0.0-1.3); Neutrophils # 4.3 K/mcL (1.6-8.9); Platelet Count 214 K/mcL (140-400); Red Blood Count 3.69 M/mcL (3.82-4.97); White Blood Count 6.6 K/mcL (4.3-11.1)
[2021-08-08 05:22] LABS: BUN/Creatinine Ratio 16 (6-26); Blood Urea Nitrogen 12 mg/dL (8-23); Calcium 8.7 mg/dL (8.6-10.3); Carbon Dioxide 37 mEq/L (23-29); Chloride 103 mEq/L (98-107); Glucose 205 mg/dL (70-105); Magnesium 1.6 mg/dL (1.6-2.6); Osmolality,Calculated 302 (280-300); Phosphorous 2.8 mg/dL (2.7-4.5); Potassium 3.2 mEq/L (3.5-5.1); Sodium 143 mEq/L (136-145); eGFR For African Americans > 60 (> 60); eGFR For Non-African Americans > 60 (> 60)
[2021-08-08] MEDS: Cefepime HCl 2,000 MG in Water for inj. (sterile) 20 ML IVP SCH ×2 (06:25→17:15)
[2021-08-08] MEDS: *HR* Heparin 5,000 UNIT/ML VIAL SQ SCH ×3 (06:25→20:43)
[2021-08-08] MEDS: Insulin LISPRO 300 UNITS/3 ML VIAL SUBQ SCH ×3 (07:47→17:16)
[2021-08-08] MEDS: Magnesium Oxide 400 MG TABLET PO SCH ×2 (07:48→20:42)
[2021-08-08] MEDS: Cholecalciferol (D-3) 1,000 UNIT (25MCG) TABLET PO SCH (07:48)
[2021-08-08] MEDS: Isosorbide MONOnitrate (24 HR) 30 MG TAB.ER.24H PO SCH (07:48)
[2021-08-08] MEDS: Aspirin Enteric Coated 81 MG Tablet PO SCH (07:48)
[2021-08-08] MEDS: Pregabalin 50 MG CAPSULE PO SCH ×2 (07:48→20:43)
[2021-08-08] MEDS: Ranolazine 500 MG TAB.ER.12H PO SCH ×2 (07:48→20:42)
[2021-08-08] MEDS: Haloperidol Lactate 5 MG/ML VIAL IVP SCH ×2 (07:49→20:43)
[2021-08-08] MEDS: Pantoprazole 40 MG VIAL IVP SCH (07:49)
[2021-08-08] MEDS: Furosemide 40 MG/4 ML VIAL IVP SCH (07:49)
[2021-08-08] MEDS: Nystatin POWDER 30 GM BOTTLE TP SCH ×3 (07:50→21:03)
[2021-08-08] MEDS: Topiramate 25 MG TABLET PO SCH (07:50)
[2021-08-08] MEDS: Loratadine 10 MG TABLET PO SCH (07:50)
[2021-08-08] MEDS: Nicotine 21 MG PATCH.TD24 TD SCH (07:50)
[2021-08-08] MEDS: Budesonide/Formoterol 160/4.5 1 PUFF INH IH SCH ×2 (10:39→20:28)
[2021-08-08] MEDS: Azithromycin 500 MG in 0.9 % Sodium Chloride 250 ML IVPB SCH (13:43)
[2021-08-08] MEDS: Vancomycin 1,500 MG/265 ML IV.SOLN IVPB SCH (15:33)
[2021-08-08] MEDS: Dexmedetomidine HCl 400 MCG/100 ML MLS IVC SCH (15:33)
[2021-08-09] MEDS: *HR* Metoprolol 5 MG/5 ML VIAL IVP SCH ×4 (01:02→17:58)
[2021-08-09] MEDS: Levalbuterol Neb 1.25 MG/3 ML IH SCH ×4 (03:27→20:12)
[2021-08-09] MEDS: *HR* Heparin 5,000 UNIT/ML VIAL SQ SCH ×3 (05:04→21:31)
[2021-08-09] MEDS: Cefepime HCl 2,000 MG in Water for inj. (sterile) 20 ML IVP SCH ×2 (05:04→17:58)
[2021-08-09 05:37] LABS: Basophils % 0.5 %; Eosinophils # 0.2 K/mcL (0.0-0.6); Eosinophils % 3.5 %; Hematocrit 26.6 % (35.3-44.9); Hemoglobin 7.2 g/dL (11.5-15.4); Immature Granulocytes % 2.3 % (0-4); Lymphocytes # 1.4 K/mcL (0.6-4.6); Lymphocytes % 21.3 %; Mean Corpuscular HGB Conc 27.1 g/dL (31.6-35.5); Mean Corpuscular Hemoglobin 19.6 pg (28.0-33.3); Mean Corpuscular Volume 72.5 fL (83.0-100.0); Monocytes # 0.7 K/mcL (0.0-1.3); Monocytes % 11.4 %; Platelet Count 194 K/mcL (140-400); Red Blood Count 3.67 M/mcL (3.82-4.97); Red Cell Distribution Width 22.1 % (11.5-14.5); White Blood Count 6.5 K/mcL (4.3-11.1)
[2021-08-09 05:54] LABS: BUN/Creatinine Ratio 16 (6-26); Blood Urea Nitrogen 14 mg/dL (8-23); Calcium 8.6 mg/dL (8.6-10.3); Carbon Dioxide 38 mEq/L (23-29); Chloride 97 mEq/L (98-107); Glucose 312 mg/dL (70-105); Osmolality,Calculated 296 (280-300); Potassium 3.2 mEq/L (3.5-5.1); Sodium 137 mEq/L (136-145); eGFR For African Americans > 60 (> 60); eGFR For Non-African Americans > 60 (> 60)
[2021-08-09] MEDS: Haloperidol Lactate 5 MG/ML VIAL IVP SCH ×2 (07:42→21:32)
[2021-08-09] MEDS: Furosemide 40 MG/4 ML VIAL IVP SCH (07:42)
[2021-08-09] MEDS: Pantoprazole 40 MG VIAL IVP SCH (07:42)
[2021-08-09] MEDS: Pregabalin 50 MG CAPSULE PO SCH ×2 (07:43→21:26)
[2021-08-09] MEDS: Magnesium Oxide 400 MG TABLET PO SCH ×2 (07:43→21:28)
[2021-08-09] MEDS: Nicotine 21 MG PATCH.TD24 TD SCH (07:43)
[2021-08-09] MEDS: Isosorbide MONOnitrate (24 HR) 30 MG TAB.ER.24H PO SCH (07:44)
[2021-08-09] MEDS: Aspirin Enteric Coated 81 MG Tablet PO SCH (07:44)
[2021-08-09] MEDS: Cholecalciferol (D-3) 1,000 UNIT (25MCG) TABLET PO SCH (07:46)
[2021-08-09] MEDS: Loratadine 10 MG TABLET PO SCH (07:46)
[2021-08-09] MEDS: Topiramate 25 MG TABLET PO SCH (07:46)
[2021-08-09] MEDS: Ranolazine 500 MG TAB.ER.12H PO SCH ×2 (07:46→21:29)
[2021-08-09] MEDS: Insulin LISPRO 300 UNITS/3 ML VIAL SUBQ SCH ×3 (07:46→17:30)
[2021-08-09] MEDS: Nystatin POWDER 30 GM BOTTLE TP SCH ×3 (07:47→21:29)
[2021-08-09 08:02] LABS: Hypochromasia Present (Not Present); Platelet Estimate Normal (Normal); Stomatocytes 2+ (Not Present)
[2021-08-09 08:23] LABS: Magnesium 1.4 mg/dL (1.6-2.6); Phosphorous 3.1 mg/dL (2.7-4.5)
[2021-08-09] MEDS: Insulin Regular, Human 100 UNIT/ML SUBQ SCH ×3 (10:24→18:46)
[2021-08-09] MEDS: Budesonide/Formoterol 160/4.5 1 PUFF INH IH SCH ×2 (10:25→20:12)
[2021-08-09] MEDS: Acetaminophen 325 MG TABLET PO PRN (21:24)
[2021-08-10] MEDS: Levalbuterol Neb 1.25 MG/3 ML IH SCH ×4 (03:48→22:17)
[2021-08-10] MEDS: Cefepime HCl 2,000 MG in Water for inj. (sterile) 20 ML IVP SCH ×2 (04:37→17:42)
[2021-08-10] MEDS: Ranolazine 500 MG TAB.ER.12H PO SCH ×2 (10:29→21:03)
[2021-08-10] MEDS: Magnesium Oxide 400 MG TABLET PO SCH ×2 (10:29→21:01)
[2021-08-10] MEDS: Isosorbide MONOnitrate (24 HR) 30 MG TAB.ER.24H PO SCH (10:29)
[2021-08-10] MEDS: Aspirin Enteric Coated 81 MG Tablet PO SCH (10:29)
[2021-08-10] MEDS: Topiramate 25 MG TABLET PO SCH (10:29)
[2021-08-10] MEDS: Pregabalin 50 MG CAPSULE PO SCH ×2 (10:29→21:01)
[2021-08-10] MEDS: Loratadine 10 MG TABLET PO SCH (10:29)
[2021-08-10] MEDS: Cholecalciferol (D-3) 1,000 UNIT (25MCG) TABLET PO SCH (10:30)
[2021-08-10] MEDS: *HR* Metoprolol 5 MG/5 ML VIAL IVP SCH ×4 (10:31→17:42)
[2021-08-10] MEDS: *HR* Heparin 5,000 UNIT/ML VIAL SQ SCH ×3 (10:31→22:00)
[2021-08-10] MEDS: Nicotine 21 MG PATCH.TD24 TD SCH (10:35)
[2021-08-10] MEDS: Furosemide 40 MG/4 ML VIAL IVP SCH (10:37)
[2021-08-10] MEDS: Haloperidol Lactate 5 MG/ML VIAL IVP SCH ×2 (10:37→20:58)
[2021-08-10] MEDS: Pantoprazole 40 MG VIAL IVP SCH (10:37)
[2021-08-10] MEDS: Nystatin POWDER 30 GM BOTTLE TP SCH ×3 (10:38→21:03)
[2021-08-10] MEDS: Insulin LISPRO 300 UNITS/3 ML VIAL SUBQ SCH ×5 (10:50→17:44)
[2021-08-10] MEDS: Budesonide/Formoterol 160/4.5 1 PUFF INH IH SCH ×2 (19:12→22:17)
[2021-08-10 19:18] LABS: Basophils % 0.7 %; Eosinophils % 3.2 %; Hematocrit 29.9 % (35.3-44.9); Hemoglobin 8.5 g/dL (11.5-15.4); Immature Granulocytes % 1.9 % (0-4); Mean Corpuscular HGB Conc 28.4 g/dL (31.6-35.5)
[2021-08-10 19:20] LABS: Basophils # 0.1 K/mcL (0.0-0.2); Eosinophils # 0.3 K/mcL (0.0-0.6); Immature Platelets 13.9 % (1.1-6.1); Lymphocytes # 1.7 K/mcL (0.6-4.6); Lymphocytes % 16.8 %; Mean Corpuscular Hemoglobin 20.1 pg (28.0-33.3); Mean Corpuscular Volume 70.9 fL (83.0-100.0); Monocytes # 0.6 K/mcL (0.0-1.3); Monocytes % 5.7 %; Neutrophils # 7.2 K/mcL (1.6-8.9); Platelet Count 223 K/mcL (140-400); Red Blood Count 4.22 M/mcL (3.82-4.97); Red Cell Distribution Width 22.5 % (11.5-14.5); Segmented Neutrophils % 71.7 %
[2021-08-10 19:48] LABS: BUN/Creatinine Ratio 15 (6-26); Blood Urea Nitrogen 14 mg/dL (8-23); Calcium 9.2 mg/dL (8.6-10.3); Carbon Dioxide 31 mEq/L (23-29); Chloride 94 mEq/L (98-107); Glucose 324 mg/dL (70-105); Magnesium 1.3 mg/dL (1.6-2.6); Osmolality,Calculated 289 (280-300); Potassium 4.1 mEq/L (3.5-5.1); Sodium 133 mEq/L (136-145); eGFR For African Americans > 60 (> 60); eGFR For Non-African Americans > 60 (> 60)
[2021-08-10 19:54] LABS: Hypochromasia Present (Not Present); Microcytosis Present (Not Present); Platelet Estimate Normal (Normal)
[2021-08-10 19:55] LABS: Stomatocytes 1+ (Not Present)
[2021-08-11] MEDS: *HR* Metoprolol 5 MG/5 ML VIAL IVP SCH ×3 (01:57→12:08)
[2021-08-11] MEDS: Levalbuterol Neb 1.25 MG/3 ML IH SCH ×4 (04:24→22:44)
[2021-08-11] MEDS: *HR* Heparin 5,000 UNIT/ML VIAL SQ SCH ×3 (07:10→20:21)
[2021-08-11] MEDS: Cefepime HCl 2,000 MG in Water for inj. (sterile) 20 ML IVP SCH ×2 (07:13→18:00)
[2021-08-11] MEDS: Budesonide/Formoterol 160/4.5 1 PUFF INH IH SCH ×2 (07:57→22:44)
[2021-08-11] MEDS: Magnesium Oxide 400 MG TABLET PO SCH ×2 (08:19→20:22)
[2021-08-11] MEDS: Isosorbide MONOnitrate (24 HR) 30 MG TAB.ER.24H PO SCH (08:19)
[2021-08-11] MEDS: Pregabalin 50 MG CAPSULE PO SCH ×2 (08:20→20:19)
[2021-08-11] MEDS: Loratadine 10 MG TABLET PO SCH (08:20)
[2021-08-11] MEDS: Ranolazine 500 MG TAB.ER.12H PO SCH ×2 (08:20→20:18)
[2021-08-11] MEDS: Cholecalciferol (D-3) 1,000 UNIT (25MCG) TABLET PO SCH (08:21)
[2021-08-11] MEDS: Topiramate 25 MG TABLET PO SCH (08:21)
[2021-08-11] MEDS: Aspirin Enteric Coated 81 MG Tablet PO SCH (08:21)
[2021-08-11] MEDS: Pantoprazole 40 MG VIAL IVP SCH (08:22)
[2021-08-11] MEDS: Nicotine 21 MG PATCH.TD24 TD SCH (08:22)
[2021-08-11] MEDS: Haloperidol Lactate 5 MG/ML VIAL IVP SCH ×2 (08:23→20:23)
[2021-08-11] MEDS: Furosemide 40 MG/4 ML VIAL IVP SCH (08:23)
[2021-08-11] MEDS: Insulin LISPRO 300 UNITS/3 ML VIAL SUBQ SCH ×6 (08:27→17:33)
[2021-08-11] MEDS: Nystatin POWDER 30 GM BOTTLE TP SCH ×3 (09:00→20:19)
[2021-08-11] MEDS: Acetaminophen 325 MG TABLET PO PRN (20:19)
[2021-08-12] MEDS: Levalbuterol Neb 1.25 MG/3 ML IH SCH ×4 (03:58→20:35)
[2021-08-12] MEDS: *HR* Heparin 5,000 UNIT/ML VIAL SQ SCH ×3 (06:02→21:22)
[2021-08-12] MEDS: Budesonide/Formoterol 160/4.5 1 PUFF INH IH SCH ×2 (07:53→20:34)
[2021-08-12] MEDS: Nicotine 21 MG PATCH.TD24 TD SCH (08:24)
[2021-08-12] MEDS: Furosemide 40 MG/4 ML VIAL IVP SCH (08:30)
[2021-08-12] MEDS: Haloperidol Lactate 5 MG/ML VIAL IVP SCH ×2 (08:30→21:21)
[2021-08-12] MEDS: Pantoprazole 40 MG VIAL IVP SCH (08:31)
[2021-08-12] MEDS: Insulin LISPRO 300 UNITS/3 ML VIAL SUBQ SCH ×6 (08:33→17:10)
[2021-08-12] MEDS: Isosorbide MONOnitrate (24 HR) 30 MG TAB.ER.24H PO SCH (08:39)
[2021-08-12] MEDS: Pregabalin 50 MG CAPSULE PO SCH ×2 (08:39→21:21)
[2021-08-12] MEDS: Ranolazine 500 MG TAB.ER.12H PO SCH ×2 (08:39→21:21)
[2021-08-12] MEDS: Magnesium Oxide 400 MG TABLET PO SCH ×2 (08:39→21:19)
[2021-08-12] MEDS: Aspirin Enteric Coated 81 MG Tablet PO SCH (08:39)
[2021-08-12] MEDS: Loratadine 10 MG TABLET PO SCH (08:39)
[2021-08-12] MEDS: Nystatin POWDER 30 GM BOTTLE TP SCH ×3 (08:39→21:22)
[2021-08-12] MEDS: Cholecalciferol (D-3) 1,000 UNIT (25MCG) TABLET PO SCH (08:40)
[2021-08-12] MEDS: Topiramate 25 MG TABLET PO SCH (08:40)
[2021-08-12] MEDS ORDERED: Heparin 1,000 UNITS/500 mL 500 ML ONE (14:00)
[2021-08-12] MEDS ORDERED: Lidocaine/EPI 1:100k 1% 50 ML VIAL ONE (14:00)
[2021-08-12] MEDS ORDERED: *HR* FentaNYL (PF) 100 MCG/2 ML VIAL IVP ONE (14:49)
[2021-08-12] MEDS ORDERED: *HR* Midazolam HCl 2 MG/2 ML VIAL IVP ONE (14:49)
[2021-08-12 14:51] LABS: Hemoglobin 9.5 g/dL (11.5-15.4); Mean Corpuscular Volume 72.2 fL (83.0-100.0)
[2021-08-12 14:53] LABS: Hematocrit 33.7 % (35.3-44.9); Immature Platelets 17.3 % (1.1-6.1); Mean Corpuscular HGB Conc 28.2 g/dL (31.6-35.5); Mean Corpuscular Hemoglobin 20.3 pg (28.0-33.3); Platelet Count 226 K/mcL (140-400); Red Blood Count 4.67 M/mcL (3.82-4.97); White Blood Count 10.1 K/mcL (4.3-11.1)
[2021-08-12] MEDS ORDERED: Clindamycin 600 MG/50 ML 600 MG/50 ML IV.SOLN IVPB ONE (15:06)
[2021-08-12] MEDS ORDERED: 0.9 % Sodium Chloride 500 ML ONE (15:14)
[2021-08-12 15:31] LABS: Alanine Aminotransferase 10 Units/L (7-52); Albumin 3.7 g/dL (3.5-5.7); Albumin/Globulin Ratio 1.2 (1.1-2.2); Alkaline Phosphatase 264 Units/L (34-104); Aspartate Amino Transferase 16 Units/L (13-39); BUN/Creatinine Ratio 19 (6-26); Bilirubin,Total 0.5 mg/dL (0.3-1.0); Blood Urea Nitrogen 19 mg/dL (8-23); Calcium 9.8 mg/dL (8.6-10.3); Carbon Dioxide 37 mEq/L (23-29); Chloride 96 mEq/L (98-107); Globulin 3.1 g/dL (2.4-3.5); Glucose 137 mg/dL (70-105); Magnesium 1.3 mg/dL (1.6-2.6); Osmolality,Calculated 288 (280-300); Phosphorous 2.7 mg/dL (2.7-4.5); Potassium 3.5 mEq/L (3.5-5.1); Sodium 137 mEq/L (136-145); Total Protein 6.8 g/dL (6.4-8.9); eGFR For African Americans > 60 (> 60); eGFR For Non-African Americans 56 (> 60)
[2021-08-12] MEDS: Acetaminophen 325 MG TABLET PO PRN (23:59)
[2021-08-13] MEDS: Levalbuterol Neb 1.25 MG/3 ML IH SCH ×4 (03:19→20:47)
[2021-08-13] MEDS: Insulin Regular, Human 100 UNIT/ML SUBQ SCH (04:37)
[2021-08-13] MEDS: *HR* Heparin 5,000 UNIT/ML VIAL SQ SCH ×3 (05:45→20:51)
[2021-08-13] MEDS: Nicotine 21 MG PATCH.TD24 TD SCH (07:36)
[2021-08-13] MEDS: Pregabalin 50 MG CAPSULE PO SCH ×2 (07:37→20:50)
[2021-08-13] MEDS: Loratadine 10 MG TABLET PO SCH (07:37)
[2021-08-13] MEDS: Ranolazine 500 MG TAB.ER.12H PO SCH ×2 (07:38→20:49)
[2021-08-13] MEDS: Aspirin Enteric Coated 81 MG Tablet PO SCH (07:38)
[2021-08-13] MEDS: Magnesium Oxide 400 MG TABLET PO SCH ×2 (07:38→20:49)
[2021-08-13] MEDS: Cholecalciferol (D-3) 1,000 UNIT (25MCG) TABLET PO SCH (07:38)
[2021-08-13] MEDS: Isosorbide MONOnitrate (24 HR) 30 MG TAB.ER.24H PO SCH (07:38)
[2021-08-13] MEDS: Nystatin POWDER 30 GM BOTTLE TP SCH ×3 (07:39→20:51)
[2021-08-13] MEDS: Haloperidol Lactate 5 MG/ML VIAL IVP SCH ×2 (07:39→20:50)
[2021-08-13] MEDS: Furosemide 40 MG/4 ML VIAL IVP SCH (07:39)
[2021-08-13] MEDS: Insulin LISPRO 300 UNITS/3 ML VIAL SUBQ SCH ×6 (07:40→17:45)
[2021-08-13] MEDS: Pantoprazole 40 MG VIAL IVP SCH (07:49)
[2021-08-13] MEDS: Topiramate 25 MG TABLET PO SCH (07:49)
[2021-08-13] MEDS: Budesonide/Formoterol 160/4.5 1 PUFF INH IH SCH ×2 (11:00→20:47)
[2021-08-13 11:25] LABS: Hematocrit 30.1 % (35.3-44.9); Hemoglobin 8.5 g/dL (11.5-15.4); Mean Corpuscular HGB Conc 28.2 g/dL (31.6-35.5); Mean Corpuscular Hemoglobin 20.4 pg (28.0-33.3); Mean Corpuscular Volume 72.2 fL (83.0-100.0); Platelet Count 179 K/mcL (140-400); Red Blood Count 4.17 M/mcL (3.82-4.97); Red Cell Distribution Width 22.8 % (11.5-14.5); White Blood Count 7.2 K/mcL (4.3-11.1)
[2021-08-13 11:40] LABS: BUN/Creatinine Ratio 15 (6-26); Blood Urea Nitrogen 15 mg/dL (8-23); Calcium 9.2 mg/dL (8.6-10.3); Carbon Dioxide 31 mEq/L (23-29); Chloride 92 mEq/L (98-107); Glucose 307 mg/dL (70-105); Osmolality,Calculated 284 (280-300); Potassium 3.8 mEq/L (3.5-5.1); Sodium 131 mEq/L (136-145); eGFR For African Americans > 60 (> 60); eGFR For Non-African Americans 56 (> 60)
[2021-08-14] MEDS: Levalbuterol Neb 1.25 MG/3 ML IH SCH ×3 (03:58→16:03)
[2021-08-14] MEDS: *HR* Heparin 5,000 UNIT/ML VIAL SQ SCH ×2 (05:16→15:23)
[2021-08-14 06:53] LABS: Hematocrit 26.9 % (35.3-44.9); Hemoglobin 7.6 g/dL (11.5-15.4); Immature Platelets 16.2 % (1.1-6.1); Mean Corpuscular HGB Conc 28.3 g/dL (31.6-35.5); Mean Corpuscular Hemoglobin 20.1 pg (28.0-33.3); Platelet Count 170 K/mcL (140-400); Red Blood Count 3.79 M/mcL (3.82-4.97); Red Cell Distribution Width 23.1 % (11.5-14.5); White Blood Count 5.7 K/mcL (4.3-11.1)
[2021-08-14 07:09] LABS: BUN/Creatinine Ratio 23 (6-26); Blood Urea Nitrogen 20 mg/dL (8-23); Calcium 9.2 mg/dL (8.6-10.3); Carbon Dioxide 32 mEq/L (23-29); Chloride 93 mEq/L (98-107); Glucose 323 mg/dL (70-105); Osmolality,Calculated 287 (280-300); Sodium 131 mEq/L (136-145); eGFR For African Americans > 60 (> 60); eGFR For Non-African Americans > 60 (> 60)
[2021-08-14] MEDS: Pantoprazole 40 MG VIAL IVP SCH (08:07)
[2021-08-14] MEDS: Haloperidol Lactate 5 MG/ML VIAL IVP SCH (08:07)
[2021-08-14] MEDS: Isosorbide MONOnitrate (24 HR) 30 MG TAB.ER.24H PO SCH (08:08)
[2021-08-14] MEDS: Loratadine 10 MG TABLET PO SCH (08:08)
[2021-08-14] MEDS: Cholecalciferol (D-3) 1,000 UNIT (25MCG) TABLET PO SCH (08:08)
[2021-08-14] MEDS: Aspirin Enteric Coated 81 MG Tablet PO SCH (08:08)
[2021-08-14] MEDS: Topiramate 25 MG TABLET PO SCH (08:09)
[2021-08-14] MEDS: Ranolazine 500 MG TAB.ER.12H PO SCH (08:09)
[2021-08-14] MEDS: Pregabalin 50 MG CAPSULE PO SCH (08:10)
[2021-08-14] MEDS: Magnesium Oxide 400 MG TABLET PO SCH (08:10)
[2021-08-14] MEDS: Nicotine 21 MG PATCH.TD24 TD SCH (08:11)
[2021-08-14] MEDS: Furosemide 40 MG/4 ML VIAL IVP SCH (08:11)
[2021-08-14] MEDS: Insulin LISPRO 300 UNITS/3 ML VIAL SUBQ SCH ×6 (08:12→17:06)
[2021-08-14] MEDS: Nystatin POWDER 30 GM BOTTLE TP SCH ×2 (08:13→15:24)
[2021-08-14] MEDS: Budesonide/Formoterol 160/4.5 1 PUFF INH IH SCH (10:39)
[2021-08-14 11:25] VITALS: PULSE 85
[2021-08-14 16:05] VITALS: BP 149/79; TEMP 98.2; O2SAT 97
[2021-08-14] MEDS: Acetaminophen 325 MG TABLET PO PRN (16:17)
[2021-08-14] MEDS ORDERED: Insulin DETEMIR 100 UNIT/ML X5UNITS SUBQ SCH (21:00)
== END 2021-08-14 18:51 | disposition home health service (06) | DRG 871 ==
LOC: EMEROOARM 06:32 → 2NNU 06:32 → SUATTDRO 12:34 → 2NNU 12:45 → 3ANU 08-09 18:27
PROVIDERS: ADMIT Internal Medicine; ATTEND Internal Medicine

== ENCOUNTER 2021-09-03 09:53 | Inpatient (IN) ==
[2021-09-03 10:52] LABS: ABG Base Excess 4 mEq/L (-2 to 3); ABG HCO3 32 mEq/L (21-27); ABG Oxygen Saturation 90 % (95-98); ABG PCO2 65 mmHg (35-45); ABG PO2 66 mmHg (85-104); ABG TCO2 34 mEq/L (20-26)
[2021-09-03 10:56] LABS: Eosinophils % 0.3 %; Hemoglobin 9.4 g/dL (11.5-15.4); Immature Granulocytes % 0.7 % (0-4); Nucleated Red Blood Cells 0.2 /100 WBC (0)
[2021-09-03 10:58] LABS: Basophils % 0.4 %; Hematocrit 34.7 % (35.3-44.9); Immature Platelets 10.9 % (1.1-6.1); Mean Corpuscular HGB Conc 27.1 g/dL (31.6-35.5); Mean Corpuscular Hemoglobin 19.2 pg (28.0-33.3); Monocytes # 0.7 K/mcL (0.0-1.3); Monocytes % 7.3 %; Neutrophils # 7.8 K/mcL (1.6-8.9); Platelet Count 162 K/mcL (140-400); Red Blood Count 4.89 M/mcL (3.82-4.97); Red Cell Distribution Width 22.3 % (11.5-14.5); Segmented Neutrophils % 81.3 %; White Blood Count 9.6 K/mcL (4.3-11.1)
[2021-09-03 11:03] LABS: INR 1.1; Prothrombin Time 12.8 Seconds (9.4-12.1)
[2021-09-03 11:06] LABS: Activated Partial Thrombo Time 30.3 Seconds (26.0-36.0)
[2021-09-03 11:09] LABS: Alanine Aminotransferase 8 Units/L (7-52); Albumin 3.8 g/dL (3.5-5.7); Albumin/Globulin Ratio 1.3 (1.1-2.2); Alkaline Phosphatase 247 Units/L (34-104); Aspartate Amino Transferase 11 Units/L (13-39); BUN/Creatinine Ratio 11 (6-26); Bilirubin,Total 0.5 mg/dL (0.3-1.0); Blood Urea Nitrogen 15 mg/dL (8-23); Calcium 9.2 mg/dL (8.6-10.3); Carbon Dioxide 31 mEq/L (23-29); Chloride 96 mEq/L (98-107); Globulin 2.9 g/dL (2.4-3.5); Glucose 285 mg/dL (70-105); Osmolality,Calculated 289 (280-300); Potassium 5.1 mEq/L (3.5-5.1); Sodium 134 mEq/L (136-145); Total Protein 6.7 g/dL (6.4-8.9); Troponin I < 0.03 ng/mL (< 0.04); eGFR For African Americans 46 (> 60); eGFR For Non-African Americans 38 (> 60)
[2021-09-03 11:14] LABS: Anisocytosis 1+ (Not Present); Platelet Estimate Normal (Normal)
[2021-09-03 11:15] LABS: Hypochromasia Present (Not Present)
[2021-09-03 12:30] LABS: Bacteria,Urine Few per hpf (None-Few); Bilirubin,Urine Negative (Negative); Blood,Urine Negative (Negative); Clarity,Urine Clear (Clear); Color,Urine Yellow (Yellow); Glucose,Urine (UA) Normal (Normal); Hyaline Casts,Urine Many per lpf (None Seen); Ketones,Urine Negative (Negative); Leukocyte Esterase,Urine Negative (Negative); Mucus,Urine Few per lpf (None-Few); Nitrite,Urine Negative (Negative); PH,Urine 5.5 pH Units (5.0-8.0); Protein,Urine 50 mg/dL (Neg-Trace); RBC,Urine 0-3 per hpf (0-3); Specific Gravity,Urine 1.022 (1.010-1.025); Squamous Epithelial Cell,Urine Few per hpf (None-Few); Urobilinogen,Urine Normal (Normal)
[2021-09-03 13:12] LABS: Influenza A PCR Negative (Negative); Influenza B PCR Negative (Negative); Resp. Syncytial Virus PCR Negative (Negative)
[2021-09-03 13:23] LABS: SARS-CoV-2 by PCR (In House) Negative (Negative)
[2021-09-03] MEDS ORDERED: 0.9 % Sodium Chloride 1,000 ML IVC ONE (13:31)
[2021-09-03] MEDS ORDERED: Naloxone 0.4 MG/ML INJ IVP PRN (14:59)
[2021-09-03] MEDS ORDERED: Albuterol 2.5 MG/3 ML NEBULIZER IH PRN (15:03)
[2021-09-03 15:07] LABS: Magnesium 1.1 mg/dL (1.6-2.6)
[2021-09-03 15:20] LABS: Thyroid Stimulating Hormone 4.035 mcIU/mL (0.340-5.600)
[2021-09-03] MEDS: Ipratropium/Albuterol Neb 3 ML IH SCH ×2 (15:41→19:42)
[2021-09-03] MEDS ORDERED: MethylPREDNISolone 40 MG/ML VIAL IVP SCH (16:00)
[2021-09-03] MEDS ORDERED: Azithromycin 500 MG in 0.9 % Sodium Chloride 250 ML IVPB SCH (16:00)
[2021-09-03] MEDS: Famotidine 20 MG/2 ML VIAL IVP SCH (17:25)
[2021-09-03] MEDS: 0.9 % Sodium Chloride 1,000 ML IVC SCH (17:51)
[2021-09-03] MEDS ORDERED: Cefepime HCl 1,000 MG in Water for inj. (sterile) 10 ML IVP SCH (18:00)
[2021-09-03] MEDS: Insulin LISPRO 300 UNITS/3 ML VIAL SUBQ SCH (19:19)
[2021-09-03] MEDS: Magnesium Oxide 400 MG TABLET PO SCH (22:19)
[2021-09-03] MEDS: Ranolazine 500 MG TAB.ER.12H PO SCH (22:19)
[2021-09-04] MEDS: Ipratropium/Albuterol Neb 3 ML IH SCH ×7 (00:04→23:23)
[2021-09-04] MEDS: 0.9 % Sodium Chloride 1,000 ML IVC SCH (04:07)
[2021-09-04 04:39] LABS: ABG Base Excess 4 mEq/L (-2 to 3); ABG HCO3 31 mEq/L (21-27); ABG Oxygen Saturation 96 % (95-98); ABG PCO2 57 mmHg (35-45); ABG PH 7.34 pH Units (7.32-7.45); ABG PO2 92 mmHg (85-104); ABG TCO2 33 mEq/L (20-26)
[2021-09-04] MEDS: Famotidine 20 MG/2 ML VIAL IVP SCH ×2 (04:46→16:44)
[2021-09-04] MEDS: Ondansetron 4 MG/2 ML VIAL IVP PRN ×2 (04:46→13:33)
[2021-09-04] MEDS: Isosorbide MONOnitrate (24 HR) 30 MG TAB.ER.24H PO SCH (08:04)
[2021-09-04] MEDS: Aspirin Enteric Coated 81 MG Tablet PO SCH (08:04)
[2021-09-04] MEDS: Patient Taking Own Medication 1 EACH PO SCH (08:04)
[2021-09-04] MEDS: Insulin LISPRO 300 UNITS/3 ML VIAL SUBQ SCH ×3 (08:05→16:43)
[2021-09-04] MEDS: predniSONE 20 MG TABLET PO SCH ×2 (08:05→16:42)
[2021-09-04] MEDS: Ranolazine 500 MG TAB.ER.12H PO SCH ×2 (08:06→19:51)
[2021-09-04] MEDS: Magnesium Oxide 400 MG TABLET PO SCH ×2 (08:06→19:51)
[2021-09-04] MEDS: cefTRIAXone 1,000 MG in Water for inj. (sterile) 10 ML IVP SCH (08:06)
[2021-09-04] MEDS ORDERED: D5% in Water 1,000 ML IVC PRN (09:34)
[2021-09-04] MEDS ORDERED: Dextrose Gel 15 GM/37.5 ML TUBE PO PRN ×2 (09:34)
[2021-09-04] MEDS ORDERED: *HR* Dextrose 50 % in Water (Syg) 50 ML SYRINGE IVP PRN (09:34)
[2021-09-04] MEDS: Furosemide 20 MG/2 ML VIAL IVP SCH ×2 (11:51→19:52)
[2021-09-04 12:00] LABS: Hematocrit 29.3 % (35.3-44.9); Hemoglobin 7.9 g/dL (11.5-15.4); Immature Platelets 10.9 % (1.1-6.1); Mean Corpuscular Hemoglobin 19.1 pg (28.0-33.3); Mean Corpuscular Volume 70.8 fL (83.0-100.0); Platelet Count 147 K/mcL (140-400); Red Blood Count 4.14 M/mcL (3.82-4.97); Red Cell Distribution Width 22.1 % (11.5-14.5)
[2021-09-04 12:17] LABS: BUN/Creatinine Ratio 15 (6-26); Blood Urea Nitrogen 13 mg/dL (8-23); Calcium 9.1 mg/dL (8.6-10.3); Carbon Dioxide 31 mEq/L (23-29); Chloride 101 mEq/L (98-107); Glucose 247 mg/dL (70-105); Magnesium 1.6 mg/dL (1.6-2.6); Osmolality,Calculated 292 (280-300); Phosphorous 2.5 mg/dL (2.7-4.5); Potassium 4.2 mEq/L (3.5-5.1); Sodium 137 mEq/L (136-145); eGFR For African Americans > 60 (> 60); eGFR For Non-African Americans > 60 (> 60)
[2021-09-04] MEDS: Azithromycin 250 MG TABLET PO SCH (16:42)
[2021-09-04] MEDS: *HR* Heparin 5,000 UNIT/ML VIAL SQ SCH (16:43)
[2021-09-04] MEDS ORDERED: Ipratropium/Albuterol Neb 3 ML IH PRN (23:34)
[2021-09-05 04:57] LABS: Basophils % 0.1 %; Hematocrit 26.4 % (35.3-44.9); Hemoglobin 7.2 g/dL (11.5-15.4); Immature Granulocytes % 0.7 % (0-4); Mean Corpuscular HGB Conc 27.3 g/dL (31.6-35.5); Mean Corpuscular Hemoglobin 18.8 pg (28.0-33.3); Mean Corpuscular Volume 69.1 fL (83.0-100.0); Red Blood Count 3.82 M/mcL (3.82-4.97)
[2021-09-05 04:59] LABS: Eosinophils % 0.1 %; Immature Platelets 9.5 % (1.1-6.1); Lymphocytes # 0.9 K/mcL (0.6-4.6); Lymphocytes % 9.1 %; Monocytes # 0.9 K/mcL (0.0-1.3); Monocytes % 9.2 %; Neutrophils # 7.7 K/mcL (1.6-8.9); Nucleated Red Blood Cells 0.2 /100 WBC (0); Platelet Count 140 K/mcL (140-400); Segmented Neutrophils % 80.8 %; White Blood Count 9.5 K/mcL (4.3-11.1)
[2021-09-05 05:10] LABS: BUN/Creatinine Ratio 16 (6-26); Blood Urea Nitrogen 14 mg/dL (8-23); Calcium 9.1 mg/dL (8.6-10.3); Carbon Dioxide 34 mEq/L (23-29); Chloride 99 mEq/L (98-107); Glucose 289 mg/dL (70-105); Magnesium 1.3 mg/dL (1.6-2.6); Osmolality,Calculated 299 (280-300); Phosphorous 2.3 mg/dL (2.7-4.5); Potassium 3.3 mEq/L (3.5-5.1); Sodium 139 mEq/L (136-145); eGFR For African Americans > 60 (> 60); eGFR For Non-African Americans > 60 (> 60)
[2021-09-05 05:16] LABS: Anisocytosis 1+ (Not Present); Hypochromasia Present (Not Present); Microcytosis Present (Not Present); Platelet Estimate Normal (Normal)
[2021-09-05] MEDS: *HR* Heparin 5,000 UNIT/ML VIAL SQ SCH ×2 (05:51→17:46)
[2021-09-05] MEDS: Famotidine 20 MG/2 ML VIAL IVP SCH ×2 (05:51→17:46)
[2021-09-05] MEDS: Insulin LISPRO 300 UNITS/3 ML VIAL SUBQ SCH ×3 (08:35→17:45)
[2021-09-05] MEDS: predniSONE 20 MG TABLET PO SCH ×2 (08:35→17:45)
[2021-09-05] MEDS: Aspirin Enteric Coated 81 MG Tablet PO SCH (08:36)
[2021-09-05] MEDS: Isosorbide MONOnitrate (24 HR) 30 MG TAB.ER.24H PO SCH (08:36)
[2021-09-05] MEDS: Patient Taking Own Medication 1 EACH PO SCH (08:36)
[2021-09-05] MEDS: cefTRIAXone 1,000 MG in Water for inj. (sterile) 10 ML IVP SCH (08:36)
[2021-09-05] MEDS: Magnesium Oxide 400 MG TABLET PO SCH ×2 (08:36→21:16)
[2021-09-05] MEDS: Ranolazine 500 MG TAB.ER.12H PO SCH ×2 (08:36→21:16)
[2021-09-05] MEDS: Furosemide 20 MG/2 ML VIAL IVP SCH ×2 (08:36→21:17)
[2021-09-05 14:24] LABS: Amphetamine Screen,Urine Negative ng/mL (Cutoff=1000); Barbiturate Screen,Urine Negative ng/mL (Cutoff=200); Benzodiazepines Screen,Urine Negative ng/mL (Cutoff=200); Cannabinoid Screen,Urine Negative ng/mL (Cutoff = 50); Cocaine Screen,Urine Negative ng/mL (Cutoff= 300); Opiate Screen,Urine Negative ng/mL (Cutoff=300); Phencyclidine Screen,Urine Negative ng/mL (Cutoff=25)
[2021-09-05] MEDS ORDERED: Fosfomycin Tromethamine 3 GM Packet PO ONE (17:30)
[2021-09-05] MEDS: Azithromycin 250 MG TABLET PO SCH (17:45)
[2021-09-05] MEDS ORDERED: GuaiFENesin Liq 200 MG/10 ML UDC PO PRN (20:50)
[2021-09-06] MEDS: Famotidine 20 MG/2 ML VIAL IVP SCH ×2 (06:09→17:08)
[2021-09-06] MEDS: *HR* Heparin 5,000 UNIT/ML VIAL SQ SCH ×2 (06:22→17:08)
[2021-09-06 08:00] LABS: BUN/Creatinine Ratio 18 (6-26); Blood Urea Nitrogen 14 mg/dL (8-23); Calcium 9.1 mg/dL (8.6-10.3); Carbon Dioxide 33 mEq/L (23-29); Chloride 98 mEq/L (98-107); Glucose 240 mg/dL (70-105); Magnesium 1.7 mg/dL (1.6-2.6); Osmolality,Calculated 296 (280-300); Phosphorous 2.3 mg/dL (2.7-4.5); Potassium 3.7 mEq/L (3.5-5.1); Sodium 139 mEq/L (136-145); eGFR For African Americans > 60 (> 60); eGFR For Non-African Americans > 60 (> 60)
[2021-09-06 08:04] LABS: Basophils % 0.1 %
[2021-09-06 08:06] LABS: Hemoglobin 8.1 g/dL (11.5-15.4); Immature Granulocytes % 0.6 % (0-4); Immature Platelets 10.1 % (1.1-6.1); Lymphocytes # 1.1 K/mcL (0.6-4.6); Lymphocytes % 11.5 %; Mean Corpuscular HGB Conc 27.9 g/dL (31.6-35.5); Mean Corpuscular Hemoglobin 18.7 pg (28.0-33.3); Monocytes # 0.9 K/mcL (0.0-1.3); Monocytes % 9.6 %; Neutrophils # 7.7 K/mcL (1.6-8.9); Platelet Count 150 K/mcL (140-400); Red Blood Count 4.33 M/mcL (3.82-4.97); Red Cell Distribution Width 22.2 % (11.5-14.5); Segmented Neutrophils % 78.2 %; White Blood Count 9.8 K/mcL (4.3-11.1)
[2021-09-06] MEDS ORDERED: Aspirin Enteric Coated 81 MG Tablet PO SCH (09:00)
[2021-09-06] MEDS: Aspirin 81 MG TAB.CHEW PO SCH (09:18)
[2021-09-06] MEDS: predniSONE 20 MG TABLET PO SCH ×2 (09:18→17:03)
[2021-09-06] MEDS: Isosorbide MONOnitrate (24 HR) 30 MG TAB.ER.24H PO SCH (09:25)
[2021-09-06] MEDS: Ranolazine 500 MG TAB.ER.12H PO SCH ×2 (09:25→21:03)
[2021-09-06] MEDS: Magnesium Oxide 400 MG TABLET PO SCH ×2 (09:25→21:01)
[2021-09-06] MEDS: Insulin LISPRO 300 UNITS/3 ML VIAL SUBQ SCH ×3 (09:26→17:09)
[2021-09-06] MEDS: Furosemide 20 MG/2 ML VIAL IVP SCH (09:30)
[2021-09-06] MEDS ORDERED: CefTRIAXone 1,000 MG VIAL ONE (09:31)
[2021-09-06] MEDS: cefTRIAXone 1,000 MG in Water for inj. (sterile) 10 ML IVP SCH (09:31)
[2021-09-06] MEDS: Patient Taking Own Medication 1 EACH PO SCH (09:32)
[2021-09-06 12:10] LABS: Hypochromasia Present (Not Present); Microcytosis Present (Not Present); Platelet Estimate Normal (Normal)
[2021-09-06 12:11] LABS: Anisocytosis 1+ (Not Present)
[2021-09-06] MEDS ORDERED: Haloperidol Lactate 5 MG/ML VIAL IVP ONE (14:29)
[2021-09-06] MEDS ORDERED: Haloperidol Lactate 5 MG/ML VIAL IVP PRN (14:40)
[2021-09-06 14:51] LABS: ABG Base Excess 9 mEq/L (-2 to 3); ABG HCO3 35 mEq/L (21-27); ABG Oxygen Saturation 99 % (95-98); ABG PCO2 48 mmHg (35-45); ABG PH 7.46 pH Units (7.32-7.45); ABG PO2 135 mmHg (85-104); ABG TCO2 36 mEq/L (20-26); Blood Gas Modality BiLevel; Blood Gas VT 450 cc
[2021-09-06] MEDS: Azithromycin 250 MG TABLET PO SCH (17:04)
[2021-09-06] MEDS: levoFLOXacin 750 MG/150 ML 750 MG/150 ML BAG IVPB SCH (18:35)
[2021-09-06] MEDS: Furosemide 40 MG/4 ML VIAL IVP SCH ×2 (18:35→21:06)
[2021-09-06] MEDS ORDERED: *HR* Metoprolol 5 MG/5 ML VIAL IVP ONE (20:54)
[2021-09-07] MEDS: Famotidine 20 MG/2 ML VIAL IVP SCH ×2 (05:53→17:55)
[2021-09-07] MEDS: *HR* Heparin 5,000 UNIT/ML VIAL SQ SCH ×2 (05:55→17:56)
[2021-09-07] MEDS: levoFLOXacin 750 MG/150 ML 750 MG/150 ML BAG IVPB SCH (08:05)
[2021-09-07] MEDS: Insulin LISPRO 300 UNITS/3 ML VIAL SUBQ SCH ×3 (08:05→17:10)
[2021-09-07] MEDS: Aspirin 81 MG TAB.CHEW PO SCH (08:06)
[2021-09-07] MEDS: predniSONE 20 MG TABLET PO SCH ×2 (08:06→17:10)
[2021-09-07] MEDS: Isosorbide MONOnitrate (24 HR) 30 MG TAB.ER.24H PO SCH (08:06)
[2021-09-07] MEDS: Furosemide 40 MG/4 ML VIAL IVP SCH ×2 (08:06→22:58)
[2021-09-07] MEDS: Magnesium Oxide 400 MG TABLET PO SCH ×2 (08:07→22:57)
[2021-09-07] MEDS: Ranolazine 500 MG TAB.ER.12H PO SCH ×2 (08:07→22:57)
[2021-09-07 14:09] LABS: Basophils % 0.1 %
[2021-09-07 14:11] LABS: Hematocrit 33.9 % (35.3-44.9); Hemoglobin 9.3 g/dL (11.5-15.4); Immature Granulocytes % 0.3 % (0-4); Immature Platelets 9.4 % (1.1-6.1); Lymphocytes % 10.6 %; Mean Corpuscular HGB Conc 27.4 g/dL (31.6-35.5); Mean Corpuscular Hemoglobin 18.6 pg (28.0-33.3); Mean Corpuscular Volume 67.7 fL (83.0-100.0); Monocytes # 1.4 K/mcL (0.0-1.3); Monocytes % 14.8 %; Neutrophils # 7.2 K/mcL (1.6-8.9); Platelet Count 172 K/mcL (140-400); Red Blood Count 5.01 M/mcL (3.82-4.97); Red Cell Distribution Width 22.1 % (11.5-14.5); Segmented Neutrophils % 74.2 %; White Blood Count 9.7 K/mcL (4.3-11.1)
[2021-09-07 14:34] LABS: BUN/Creatinine Ratio 16 (6-26); Blood Urea Nitrogen 14 mg/dL (8-23); Calcium 9.4 mg/dL (8.6-10.3); Carbon Dioxide 36 mEq/L (23-29); Chloride 95 mEq/L (98-107); Glucose 182 mg/dL (70-105); Magnesium 1.4 mg/dL (1.6-2.6); Osmolality,Calculated 297 (280-300); Phosphorous 2.5 mg/dL (2.7-4.5); Potassium 2.8 mEq/L (3.5-5.1); Sodium 141 mEq/L (136-145); eGFR For African Americans > 60 (> 60); eGFR For Non-African Americans > 60 (> 60)
[2021-09-07 15:24] LABS: Hypochromasia Present (Not Present); Microcytosis Present (Not Present); Platelet Estimate Normal (Normal)
[2021-09-07 15:25] LABS: Anisocytosis 1+ (Not Present)
[2021-09-07] MEDS ORDERED: *HR* Metoprolol 5 MG/5 ML VIAL IVP ONE (23:14)
[2021-09-08] MEDS: Ondansetron 4 MG/2 ML VIAL IVP PRN (00:38)
[2021-09-08] MEDS: *HR* Heparin 5,000 UNIT/ML VIAL SQ SCH ×2 (08:33→18:55)
[2021-09-08] MEDS: Famotidine 20 MG/2 ML VIAL IVP SCH ×2 (08:34→18:56)
[2021-09-08] MEDS: Furosemide 40 MG/4 ML VIAL IVP SCH ×2 (08:36→20:55)
[2021-09-08] MEDS: Ranolazine 500 MG TAB.ER.12H PO SCH ×2 (08:37→20:55)
[2021-09-08] MEDS: Magnesium Oxide 400 MG TABLET PO SCH ×2 (08:37→20:55)
[2021-09-08] MEDS: Aspirin 81 MG TAB.CHEW PO SCH (08:37)
[2021-09-08] MEDS: Isosorbide MONOnitrate (24 HR) 30 MG TAB.ER.24H PO SCH (08:37)
[2021-09-08] MEDS: predniSONE 20 MG TABLET PO SCH ×2 (08:38→18:55)
[2021-09-08] MEDS: Insulin LISPRO 300 UNITS/3 ML VIAL SUBQ SCH ×3 (08:59→17:29)
[2021-09-08 09:24] LABS: Eosinophils % 0.1 %; Immature Granulocytes % 0.4 % (0-4)
[2021-09-08 09:26] LABS: Basophils % 0.3 %; Hemoglobin 9.7 g/dL (11.5-15.4); Immature Platelets 8.9 % (1.1-6.1); Lymphocytes # 1.2 K/mcL (0.6-4.6); Lymphocytes % 11.9 %; Mean Corpuscular HGB Conc 27.7 g/dL (31.6-35.5); Mean Corpuscular Hemoglobin 18.7 pg (28.0-33.3); Mean Corpuscular Volume 67.6 fL (83.0-100.0); Monocytes # 1.2 K/mcL (0.0-1.3); Monocytes % 11.4 %; Platelet Count 166 K/mcL (140-400); Red Blood Count 5.18 M/mcL (3.82-4.97); Red Cell Distribution Width 22.6 % (11.5-14.5); Segmented Neutrophils % 75.9 %; White Blood Count 10.2 K/mcL (4.3-11.1)
[2021-09-08 09:31] LABS: Neutrophils # 7.7 K/mcL (1.6-8.9)
[2021-09-08 09:41] LABS: Blood Urea Nitrogen 17 mg/dL (8-23); Calcium 9.4 mg/dL (8.6-10.3); Carbon Dioxide 35 mEq/L (23-29); Chloride 99 mEq/L (98-107); Glucose 196 mg/dL (70-105); Magnesium 1.5 mg/dL (1.6-2.6); Osmolality,Calculated 293 (280-300); Phosphorous 3.1 mg/dL (2.7-4.5); Potassium 2.7 mEq/L (3.5-5.1); Sodium 138 mEq/L (136-145)
[2021-09-08 09:52] LABS: Anisocytosis 2+ (Not Present); Hypochromasia Present (Not Present); Platelet Estimate Normal (Normal)
[2021-09-08 09:53] LABS: Microcytosis Present (Not Present)
[2021-09-08 10:05] LABS: BUN/Creatinine Ratio 20 (6-26); eGFR For African Americans > 60 (> 60); eGFR For Non-African Americans > 60 (> 60)
[2021-09-08] MEDS: levoFLOXacin 750 MG/150 ML 750 MG/150 ML BAG IVPB SCH (12:05)
[2021-09-09 05:06] LABS: Lymphocytes % 6.2 %; Mean Corpuscular Volume 68.1 fL (83.0-100.0)
[2021-09-09 05:08] LABS: Hematocrit 36.8 % (35.3-44.9); Immature Granulocytes % 0.5 % (0-4); Immature Platelets 11.1 % (1.1-6.1); Lymphocytes # 0.6 K/mcL (0.6-4.6); Mean Corpuscular HGB Conc 27.2 g/dL (31.6-35.5); Mean Corpuscular Hemoglobin 18.5 pg (28.0-33.3); Monocytes # 0.6 K/mcL (0.0-1.3); Monocytes % 6.3 %; Platelet Count 181 K/mcL (140-400); Red Cell Distribution Width 22.8 % (11.5-14.5); White Blood Count 9.7 K/mcL (4.3-11.1)
[2021-09-09 05:25] LABS: BUN/Creatinine Ratio 25 (6-26); Blood Urea Nitrogen 23 mg/dL (8-23); Calcium 9.7 mg/dL (8.6-10.3); Carbon Dioxide 33 mEq/L (23-29); Chloride 97 mEq/L (98-107); Glucose 420 mg/dL (70-105); Magnesium 1.8 mg/dL (1.6-2.6); Osmolality,Calculated 308 (280-300); Phosphorous 3.2 mg/dL (2.7-4.5); Potassium 3.7 mEq/L (3.5-5.1); Sodium 138 mEq/L (136-145); eGFR For African Americans > 60 (> 60); eGFR For Non-African Americans > 60 (> 60)
[2021-09-09 05:38] LABS: Neutrophils # 8.4 K/mcL (1.6-8.9)
[2021-09-09 06:00] LABS: Hypochromasia Present (Not Present)
[2021-09-09 06:01] LABS: Anisocytosis 1+ (Not Present); Microcytosis Present (Not Present); Platelet Estimate Normal (Normal)
[2021-09-09] MEDS: *HR* Heparin 5,000 UNIT/ML VIAL SQ SCH (06:13)
[2021-09-09] MEDS: Famotidine 20 MG/2 ML VIAL IVP SCH (06:14)
[2021-09-09] MEDS: levoFLOXacin 750 MG/150 ML 750 MG/150 ML BAG IVPB SCH (08:16)
[2021-09-09] MEDS: Insulin LISPRO 300 UNITS/3 ML VIAL SUBQ SCH ×2 (08:21→12:46)
[2021-09-09] MEDS: Ranolazine 500 MG TAB.ER.12H PO SCH (08:21)
[2021-09-09] MEDS: Magnesium Oxide 400 MG TABLET PO SCH (08:26)
[2021-09-09] MEDS: Isosorbide MONOnitrate (24 HR) 30 MG TAB.ER.24H PO SCH (08:26)
[2021-09-09] MEDS: predniSONE 20 MG TABLET PO SCH (08:26)
[2021-09-09] MEDS: Aspirin 81 MG TAB.CHEW PO SCH (08:26)
[2021-09-09] MEDS: Furosemide 40 MG/4 ML VIAL IVP SCH (08:26)
[2021-09-09 12:48] VITALS: BP 135/74; PULSE 101; TEMP 97.5; O2SAT 96
== END 2021-09-09 13:48 | disposition home or self-care (01) | DRG 193 ==
LOC: 2ANU 09:53 → EMEROOARM 09:53 → 2ANU 16:28
PROVIDERS: ADMIT Internal Medicine; ATTEND Internal Medicine

== ENCOUNTER 2022-01-25 18:43 | Inpatient (IN) ==
[2022-01-25] MEDS ORDERED: 0.9 % Sodium Chloride 1,000 ML IVC ONE (18:57)
[2022-01-25 19:09] LABS: Basophils # 0.1 K/mcL (0.0-0.2); Basophils % 0.6 %; Eosinophils # 0.1 K/mcL (0.0-0.6); Hematocrit 30.4 % (35.3-44.9); Immature Platelets 14.8 % (1.1-6.1); Lymphocytes # 0.8 K/mcL (0.6-4.6); Mean Corpuscular HGB Conc 26.3 g/dL (31.6-35.5); Mean Corpuscular Hemoglobin 17.4 pg (28.0-33.3); Mean Corpuscular Volume 66.2 fL (83.0-100.0); Monocytes # 0.8 K/mcL (0.0-1.3); Monocytes % 9.7 %; Neutrophils # 6.5 K/mcL (1.6-8.9); Nucleated Red Blood Cells 0.6 /100 WBC (0); Platelet Count 145 K/mcL (140-400); Red Blood Count 4.59 M/mcL (3.82-4.97); Segmented Neutrophils % 78.7 %; White Blood Count 8.3 K/mcL (4.3-11.1)
[2022-01-25 19:32] LABS: BUN/Creatinine Ratio 12 (6-26); Blood Urea Nitrogen 12 mg/dL (8-23); Calcium 8.9 mg/dL (8.6-10.3); Carbon Dioxide 27 mEq/L (23-29); Chloride 97 mEq/L (98-107); Glucose 308 mg/dL (70-105); Magnesium 1.3 mg/dL (1.6-2.6); Osmolality,Calculated 281 (280-300); Potassium 4.8 mEq/L (3.5-5.1); Sodium 130 mEq/L (136-145); eGFR For African Americans > 60 (> 60); eGFR For Non-African Americans 57 (> 60)
[2022-01-25 19:33] LABS: Troponin I < 0.03 ng/mL (< 0.04)
[2022-01-25 19:49] LABS: Platelet Estimate Normal (Normal)
[2022-01-25 20:14] LABS: Hypochromasia Present (Not Present); Microcytosis Present (Not Present)
[2022-01-25 20:49] LABS: Influenza A PCR Negative (Negative); Influenza B PCR Negative (Negative); Resp. Syncytial Virus PCR Negative (Negative)
[2022-01-25 20:52] LABS: Bacteria,Urine Moderate per hpf (None-Few); Bilirubin,Urine Negative (Negative); Blood,Urine Negative (Negative); Budding Yeast,Urine Many per hpf (None Seen); Calcium Oxalate Crystals,Urine Present per hpf; Clarity,Urine Ex.Turbid (Clear); Color,Urine Yellow (Yellow); Glucose,Urine (UA) Normal (Normal); Ketones,Urine Negative (Negative); Leukocyte Esterase,Urine Large (Negative); Mucus,Urine Moderate per lpf (None-Few); Nitrite,Urine Positive (Negative); PH,Urine 5.5 pH Units (5.0-8.0); Protein,Urine 30 mg/dL (Neg-Trace); Specific Gravity,Urine 1.017 (1.010-1.025); Squamous Epithelial Cell,Urine Few per hpf (None-Few); Urobilinogen,Urine Normal (Normal); WBC,Urine TNTC per hpf (0-3)
[2022-01-25 21:15] LABS: SARS-CoV-2 by PCR (In House) Negative (Negative)
[2022-01-25] MEDS ORDERED: Magnesium Sulfate 1 GM/102 ML PIGGYBACK IVPB ONE (21:17)
[2022-01-25 23:47] LABS: Alanine Aminotransferase 14 Units/L (7-52); Albumin 3.5 g/dL (3.5-5.7); Albumin/Globulin Ratio 1.3 (1.1-2.2); Alkaline Phosphatase 122 Units/L (34-104); Aspartate Amino Transferase 35 Units/L (13-39); Bilirubin,Direct 0.1 mg/dL (0.0-0.2); Bilirubin,Indirect 0.4 mg/dL (0.0-1.0); Bilirubin,Total 0.5 mg/dL (0.3-1.0); Globulin 2.6 g/dL (2.4-3.5); Lipase 19 Units/L (11-82); Phosphorous 2.6 mg/dL (2.7-4.5); Total Protein 6.1 g/dL (6.4-8.9)
[2022-01-26] MEDS ORDERED: Melatonin 3 MG TABLET PO PRN (01:37)
[2022-01-26] MEDS ORDERED: Naloxone 0.4 MG/ML INJ IVP PRN (01:37)
[2022-01-26] MEDS ORDERED: Ondansetron ODT 4 MG TAB.RAPDIS SL PRN (01:37)
[2022-01-26] MEDS ORDERED: 0.9 % Sodium Chloride 1,000 ML IVC SCH (01:45)
[2022-01-26] MEDS ORDERED: Dextrose 4 GM Chewable Tablets PO PRN ×2 (01:55)
[2022-01-26] MEDS ORDERED: D5% in Water 1,000 ML IVC PRN (01:55)
[2022-01-26] MEDS ORDERED: *HR* Dextrose 50 % in Water (Syg) 50 ML SYRINGE IVP PRN (01:55)
[2022-01-26] MEDS ORDERED: Benzonatate 100 MG CAPSULE PO PRN (02:51)
[2022-01-26 04:01] LABS: Bacteria,Urine Few per hpf (None-Few); Bilirubin,Urine Negative (Negative); Blood,Urine Negative (Negative); Budding Yeast,Urine Few per hpf (None Seen); Clarity,Urine Clear (Clear); Color,Urine Light-Yellow (Yellow); Glucose,Urine (UA) Normal (Normal); Ketones,Urine Negative (Negative); Leukocyte Esterase,Urine Large (Negative); Mucus,Urine Few per lpf (None-Few); Nitrite,Urine Positive (Negative); Protein,Urine Negative (Neg-Trace); RBC,Urine 0-3 per hpf (0-3); Urobilinogen,Urine Normal (Normal)
[2022-01-26] MEDS: Ipratropium/Albuterol Neb 3 ML IH SCH ×4 (04:12→21:46)
[2022-01-26] MEDS: MethylPREDNISolone 40 MG/ML VIAL IVP SCH ×3 (04:22→17:41)
[2022-01-26 05:20] LABS: Basophils % 0.8 %; Hemoglobin 7.5 g/dL (11.5-15.4)
[2022-01-26 05:22] LABS: Eosinophils # 0.1 K/mcL (0.0-0.6); Hematocrit 28.3 % (35.3-44.9); Immature Granulocytes % 1.2 % (0-4); Immature Platelets 14.5 % (1.1-6.1); Lymphocytes # 0.8 K/mcL (0.6-4.6); Lymphocytes % 15.9 %; Mean Corpuscular HGB Conc 26.5 g/dL (31.6-35.5); Mean Corpuscular Hemoglobin 17.7 pg (28.0-33.3); Mean Corpuscular Volume 66.7 fL (83.0-100.0); Monocytes # 0.8 K/mcL (0.0-1.3); Monocytes % 16.1 %; Neutrophils # 3.4 K/mcL (1.6-8.9); Nucleated Red Blood Cells 0.6 /100 WBC (0); Platelet Count 118 K/mcL (140-400); Red Blood Count 4.24 M/mcL (3.82-4.97); White Blood Count 5.2 K/mcL (4.3-11.1)
[2022-01-26 05:38] LABS: Alanine Aminotransferase 12 Units/L (7-52); Albumin 3.3 g/dL (3.5-5.7); Albumin/Globulin Ratio 1.5 (1.1-2.2); Alkaline Phosphatase 113 Units/L (34-104); Aspartate Amino Transferase 31 Units/L (13-39); BUN/Creatinine Ratio 12 (6-26); Bilirubin,Total 0.4 mg/dL (0.3-1.0); Blood Urea Nitrogen 10 mg/dL (8-23); Calcium 8.7 mg/dL (8.6-10.3); Carbon Dioxide 30 mEq/L (23-29); Chloride 102 mEq/L (98-107); Globulin 2.2 g/dL (2.4-3.5); Glucose 252 mg/dL (70-105); Magnesium 1.5 mg/dL (1.6-2.6); Osmolality,Calculated 290 (280-300); Phosphorous 2.6 mg/dL (2.7-4.5); Potassium 3.9 mEq/L (3.5-5.1); Sodium 136 mEq/L (136-145); Total Protein 5.5 g/dL (6.4-8.9); eGFR For African Americans > 60 (> 60); eGFR For Non-African Americans > 60 (> 60)
[2022-01-26 06:02] LABS: Anisocytosis 2+ (Not Present); Hypochromasia Present (Not Present); Large Platelets Present (Not Present); Microcytosis Present (Not Present); Platelet Estimate Slight Decrease (Normal); Polychromasia 1+ (Not Present)
[2022-01-26] MEDS: Insulin LISPRO 300 UNITS/3 ML VIAL SUBQ SCH ×4 (08:54→19:41)
[2022-01-26] MEDS: Nicotine 21 MG PATCH.TD24 TD SCH (08:55)
[2022-01-26] MEDS: Pregabalin 50 MG CAPSULE PO SCH ×2 (08:55→19:41)
[2022-01-26] MEDS: Topiramate 25 MG TABLET PO SCH (08:55)
[2022-01-26] MEDS ORDERED: Insulin DETEMIR 100 UNIT/ML X5UNITS SUBQ SCH ×3 (09:00→21:00)
[2022-01-26] MEDS ORDERED: Insulin LISPRO 300 UNITS/3 ML VIAL SUBQ ONE (12:34)
[2022-01-26] MEDS ORDERED: Insulin DETEMIR 100 UNIT/ML X5UNITS SUBQ ONE (12:34)
[2022-01-26] MEDS ORDERED: MethylPREDNISolone 40 MG/ML VIAL IVP SCH (12:45)
[2022-01-26] MEDS ORDERED: Sennosides 8.6 MG TABLET PO PRN (17:27)
[2022-01-26] MEDS ORDERED: *HR* FentaNYL PATCH 12 MCG PATCH TD SCH (19:00)
[2022-01-26] MEDS: Furosemide 20 MG TABLET PO SCH (19:09)
[2022-01-26] MEDS: Ranolazine 500 MG TAB.ER.12H PO SCH (19:40)
[2022-01-27 03:24] LABS: Basophils % 0.3 %; Red Cell Distribution Width 21.2 % (11.5-14.5)
[2022-01-27 03:26] LABS: Hemoglobin 8.1 g/dL (11.5-15.4); Immature Granulocytes % 1.4 % (0-4); Immature Platelets 10.8 % (1.1-6.1); Lymphocytes # 0.6 K/mcL (0.6-4.6); Lymphocytes % 7.9 %; Mean Corpuscular HGB Conc 25.3 g/dL (31.6-35.5); Mean Corpuscular Volume 67.1 fL (83.0-100.0); Monocytes # 0.8 K/mcL (0.0-1.3); Monocytes % 10.8 %; Nucleated Red Blood Cells 0.7 /100 WBC (0); Platelet Count 154 K/mcL (140-400); Red Blood Count 4.77 M/mcL (3.82-4.97); Segmented Neutrophils % 79.6 %; White Blood Count 7.1 K/mcL (4.3-11.1)
[2022-01-27] MEDS: Ipratropium/Albuterol Neb 3 ML IH SCH ×4 (03:32→22:22)
[2022-01-27 03:34] LABS: Neutrophils # 5.7 K/mcL (1.6-8.9)
[2022-01-27 03:40] LABS: BUN/Creatinine Ratio 15 (6-26); Blood Urea Nitrogen 11 mg/dL (8-23); Carbon Dioxide 27 mEq/L (23-29); Chloride 101 mEq/L (98-107); Glucose 356 mg/dL (70-105); Magnesium 1.7 mg/dL (1.6-2.6); Osmolality,Calculated 294 (280-300); Phosphorous 2.8 mg/dL (2.7-4.5); Potassium 3.7 mEq/L (3.5-5.1); Sodium 135 mEq/L (136-145); eGFR For African Americans > 60 (> 60); eGFR For Non-African Americans > 60 (> 60)
[2022-01-27 04:11] LABS: Anisocytosis 1+ (Not Present); Hypochromasia Present (Not Present); Microcytosis Present (Not Present); Platelet Estimate Normal (Normal)
[2022-01-27] MEDS: MethylPREDNISolone 40 MG/ML VIAL IVP SCH ×2 (06:19→16:42)
[2022-01-27] MEDS: Isosorbide MONOnitrate (24 HR) 30 MG TAB.ER.24H PO SCH (08:05)
[2022-01-27] MEDS: Furosemide 20 MG TABLET PO SCH ×2 (08:05→15:45)
[2022-01-27] MEDS: Cholecalciferol (D-3) 1,000 UNIT (25MCG) TABLET PO SCH (08:06)
[2022-01-27] MEDS: Pregabalin 50 MG CAPSULE PO SCH ×2 (08:06→20:55)
[2022-01-27] MEDS: Ranolazine 500 MG TAB.ER.12H PO SCH ×2 (08:06→20:55)
[2022-01-27] MEDS: Topiramate 25 MG TABLET PO SCH (08:07)
[2022-01-27] MEDS: Nicotine 21 MG PATCH.TD24 TD SCH (08:07)
[2022-01-27] MEDS: Insulin LISPRO 300 UNITS/3 ML VIAL SUBQ SCH ×4 (08:07→20:56)
[2022-01-27] MEDS: Insulin DETEMIR 100 UNIT/ML X5UNITS SUBQ SCH ×2 (08:46→20:56)
[2022-01-27] MEDS: cefTRIAXone 1,000 MG in 0.9 % Sodium Chloride 10 ML IVP SCH (12:48)
[2022-01-27] MEDS: *HR* OxyCODONE Immed Rel 5 MG TABLET PO PRN (15:45)
[2022-01-28 00:58] LABS: Basophils % 0.1 %; Nucleated Red Blood Cells 0.4 /100 WBC (0); Red Cell Distribution Width 21.2 % (11.5-14.5)
[2022-01-28 01:00] LABS: Hematocrit 30.6 % (35.3-44.9); Immature Granulocytes % 0.6 % (0-4); Immature Platelets 10.6 % (1.1-6.1); Lymphocytes # 0.9 K/mcL (0.6-4.6); Lymphocytes % 10.2 %; Mean Corpuscular HGB Conc 26.1 g/dL (31.6-35.5); Mean Corpuscular Hemoglobin 17.2 pg (28.0-33.3); Mean Corpuscular Volume 65.7 fL (83.0-100.0); Monocytes # 0.6 K/mcL (0.0-1.3); Monocytes % 7.1 %; Platelet Count 198 K/mcL (140-400); Red Blood Count 4.66 M/mcL (3.82-4.97); White Blood Count 8.6 K/mcL (4.3-11.1)
[2022-01-28 01:04] LABS: Neutrophils # 7.1 K/mcL (1.6-8.9)
[2022-01-28 01:16] LABS: BUN/Creatinine Ratio 19 (6-26); Blood Urea Nitrogen 14 mg/dL (8-23); Calcium 8.8 mg/dL (8.6-10.3); Carbon Dioxide 31 mEq/L (23-29); Chloride 102 mEq/L (98-107); Glucose 173 mg/dL (70-105); Osmolality,Calculated 293 (280-300); Potassium 3.6 mEq/L (3.5-5.1); Sodium 139 mEq/L (136-145); eGFR For African Americans > 60 (> 60); eGFR For Non-African Americans > 60 (> 60)
[2022-01-28 01:26] LABS: Anisocytosis 1+ (Not Present); Hypochromasia Present (Not Present); Microcytosis Present (Not Present); Platelet Estimate Normal (Normal); Polychromasia 1+ (Not Present)
[2022-01-28] MEDS: Ipratropium/Albuterol Neb 3 ML IH SCH ×4 (04:13→22:47)
[2022-01-28] MEDS: MethylPREDNISolone 40 MG/ML VIAL IVP SCH ×2 (06:41→18:18)
[2022-01-28] MEDS: Insulin LISPRO 300 UNITS/3 ML VIAL SUBQ SCH ×4 (08:38→21:16)
[2022-01-28] MEDS: Isosorbide MONOnitrate (24 HR) 30 MG TAB.ER.24H PO SCH (08:44)
[2022-01-28] MEDS: Cholecalciferol (D-3) 1,000 UNIT (25MCG) TABLET PO SCH (08:45)
[2022-01-28] MEDS: Topiramate 25 MG TABLET PO SCH (08:45)
[2022-01-28] MEDS: Pregabalin 50 MG CAPSULE PO SCH ×2 (08:45→20:52)
[2022-01-28] MEDS: Ranolazine 500 MG TAB.ER.12H PO SCH ×2 (08:45→20:52)
[2022-01-28] MEDS: Furosemide 20 MG TABLET PO SCH ×2 (08:45→16:40)
[2022-01-28] MEDS: Nicotine 21 MG PATCH.TD24 TD SCH (08:45)
[2022-01-28] MEDS: Insulin DETEMIR 100 UNIT/ML X5UNITS SUBQ SCH ×2 (08:48→21:16)
[2022-01-28] MEDS: cefTRIAXone 1,000 MG in 0.9 % Sodium Chloride 10 ML IVP SCH (11:42)
[2022-01-29] MEDS: *HR* OxyCODONE Immed Rel 5 MG TABLET PO PRN (03:37)
[2022-01-29] MEDS: Ipratropium/Albuterol Neb 3 ML IH SCH ×2 (03:49→10:03)
[2022-01-29 05:50] LABS: Basophils % 0.2 %; Hematocrit 28.7 % (35.3-44.9); Nucleated Red Blood Cells 0.2 /100 WBC (0)
[2022-01-29 05:52] LABS: Hemoglobin 7.7 g/dL (11.5-15.4); Immature Granulocytes % 0.6 % (0-4); Immature Platelets 10.8 % (1.1-6.1); Lymphocytes # 1.6 K/mcL (0.6-4.6); Lymphocytes % 19.5 %; Mean Corpuscular HGB Conc 26.8 g/dL (31.6-35.5); Mean Corpuscular Hemoglobin 17.4 pg (28.0-33.3); Mean Corpuscular Volume 64.8 fL (83.0-100.0); Monocytes # 1.1 K/mcL (0.0-1.3); Monocytes % 12.7 %; Neutrophils # 5.6 K/mcL (1.6-8.9); Platelet Count 181 K/mcL (140-400); Red Blood Count 4.43 M/mcL (3.82-4.97); Red Cell Distribution Width 20.4 % (11.5-14.5); White Blood Count 8.3 K/mcL (4.3-11.1)
[2022-01-29 06:09] LABS: BUN/Creatinine Ratio 22 (6-26); Blood Urea Nitrogen 17 mg/dL (8-23); Calcium 8.6 mg/dL (8.6-10.3); Carbon Dioxide 27 mEq/L (23-29); Chloride 98 mEq/L (98-107); Glucose 343 mg/dL (70-105); Osmolality,Calculated 291 (280-300); Potassium 3.3 mEq/L (3.5-5.1); Sodium 133 mEq/L (136-145); eGFR For African Americans > 60 (> 60); eGFR For Non-African Americans > 60 (> 60)
[2022-01-29 06:22] LABS: Anisocytosis 2+ (Not Present); Microcytosis Present (Not Present); Platelet Estimate Normal (Normal)
[2022-01-29 07:22] VITALS: BP 122/71; PULSE 91; TEMP 98.3
[2022-01-29] MEDS: Cholecalciferol (D-3) 1,000 UNIT (25MCG) TABLET PO SCH (07:59)
[2022-01-29] MEDS: Ranolazine 500 MG TAB.ER.12H PO SCH (08:00)
[2022-01-29] MEDS: Furosemide 20 MG TABLET PO SCH (08:00)
[2022-01-29] MEDS: Pregabalin 50 MG CAPSULE PO SCH (08:01)
[2022-01-29] MEDS: Topiramate 25 MG TABLET PO SCH (08:01)
[2022-01-29] MEDS: Insulin LISPRO 300 UNITS/3 ML VIAL SUBQ SCH ×2 (08:01→11:59)
[2022-01-29] MEDS: Isosorbide MONOnitrate (24 HR) 30 MG TAB.ER.24H PO SCH (08:01)
[2022-01-29] MEDS: Nicotine 21 MG PATCH.TD24 TD SCH (08:02)
[2022-01-29] MEDS ORDERED: predniSONE 20 MG TABLET PO SCH (09:00)
[2022-01-29] MEDS: Insulin DETEMIR 100 UNIT/ML X5UNITS SUBQ SCH (10:50)
[2022-01-29] MEDS: cefTRIAXone 1,000 MG in 0.9 % Sodium Chloride 10 ML IVP SCH (10:58)
[2022-01-29 11:25] VITALS: O2SAT 98
== END 2022-01-29 13:08 | disposition hospice, home (50) | DRG 872 ==
LOC: EMEROOARM 18:43 → 3ANU 18:43 → SUATTDRO 01-26 01:04 → 3ANU 01-26 01:28 → SUATTDRO 01-27 18:05
PROVIDERS: ADMIT Student in an Organized Health Care Education/Training Program; ATTEND Hospitalist

== ENCOUNTER 2022-05-01 13:03 | Inpatient (IN) ==
[2022-05-01] MEDS ORDERED: 0.9 % Sodium Chloride 1,000 ML IVC ONE (13:06)
[2022-05-01 13:55] LABS: Basophils % 0.5 %; Hemoglobin 6.8 g/dL (11.5-15.4); Red Cell Distribution Width 22.9 % (11.5-14.5)
[2022-05-01 13:57] LABS: Eosinophils % 0.3 %; Hematocrit 27.4 % (35.3-44.9); Immature Granulocytes % 0.4 % (0-4); Immature Platelets 11.4 % (1.1-6.1); Lymphocytes # 0.7 K/mcL (0.6-4.6); Lymphocytes % 9.4 %; Mean Corpuscular HGB Conc 24.8 g/dL (31.6-35.5); Mean Corpuscular Hemoglobin 16.4 pg (28.0-33.3); Monocytes # 0.7 K/mcL (0.0-1.3); Monocytes % 8.6 %; Neutrophils # 6.1 K/mcL (1.6-8.9); Nucleated Red Blood Cells 0.3 /100 WBC (0); Platelet Count 160 K/mcL (140-400); Red Blood Count 4.15 M/mcL (3.82-4.97); Segmented Neutrophils % 80.8 %; White Blood Count 7.5 K/mcL (4.3-11.1)
[2022-05-01 14:16] LABS: Hypochromasia Present (Not Present); Platelet Estimate Normal (Normal)
[2022-05-01 14:17] LABS: Alanine Aminotransferase 7 Units/L (7-52); Albumin 3.1 g/dL (3.5-5.7); Albumin/Globulin Ratio 1.3 (1.1-2.2); Alkaline Phosphatase 102 Units/L (34-104); Anisocytosis 1+ (Not Present); Aspartate Amino Transferase 10 Units/L (13-39); BUN/Creatinine Ratio 6 (6-26); Bilirubin,Direct 0.3 mg/dL (0.0-0.2); Bilirubin,Indirect 0.4 mg/dL (0.0-1.0); Bilirubin,Total 0.7 mg/dL (0.3-1.0); Blood Urea Nitrogen 4 mg/dL (8-23); Calcium 8.7 mg/dL (8.6-10.3); Carbon Dioxide 32 mEq/L (23-29); Chloride 99 mEq/L (98-107); Globulin 2.4 g/dL (2.4-3.5); Glucose 309 mg/dL (70-105); Microcytosis Present (Not Present); Osmolality,Calculated 291 (280-300); Potassium 3.3 mEq/L (3.5-5.1); Sodium 136 mEq/L (136-145); Total Protein 5.5 g/dL (6.4-8.9); Troponin I < 0.03 ng/mL (< 0.04)
[2022-05-01] MEDS ORDERED: Potassium Effervescent 25 MEQ TABLET.EFF PO ONE (14:27)
[2022-05-01 14:40] LABS: Bilirubin,Urine Negative (Negative); Blood,Urine Trace (Negative); Clarity,Urine Ex.Turbid (Clear); Color,Urine Yellow (Yellow); Glucose,Urine (UA) Normal (Normal); Ketones,Urine Negative (Negative); Leukocyte Esterase,Urine Moderate (Negative); Nitrite,Urine Positive (Negative); Protein,Urine 100 mg/dL (Neg-Trace); Specific Gravity,Urine 1.013 (1.010-1.025); Urobilinogen,Urine Normal (Normal)
[2022-05-01 14:42] LABS: Amorphous Sediment,Urine Many per hpf (None-Few); Bacteria,Urine Many per hpf (None-Few)
[2022-05-01 14:44] LABS: Amphetamine Screen,Urine Negative ng/mL (Cutoff=1000); Barbiturate Screen,Urine Negative ng/mL (Cutoff=200); Benzodiazepines Screen,Urine Negative ng/mL (Cutoff=200); Cannabinoid Screen,Urine Negative ng/mL (Cutoff = 50); Cocaine Screen,Urine Negative ng/mL (Cutoff= 300); Opiate Screen,Urine Negative ng/mL (Cutoff=300); Phencyclidine Screen,Urine Negative ng/mL (Cutoff=25)
[2022-05-01 15:17] LABS: Influenza A PCR Negative (Negative); Influenza B PCR Negative (Negative); Resp. Syncytial Virus PCR Negative (Negative)
[2022-05-01 15:27] LABS: SARS-CoV-2 by PCR (In House) Negative (Negative)
[2022-05-01] MEDS ORDERED: Naloxone 0.4 MG/ML INJ IVP PRN (15:39)
[2022-05-01] MEDS ORDERED: Melatonin 3 MG TABLET PO PRN (15:39)
[2022-05-01] MEDS ORDERED: Dextrose Gel 15 GM/37.5 ML TUBE PO PRN ×2 (16:53)
[2022-05-01] MEDS ORDERED: *HR* Dextrose 50 % in Water (Syg) 50 ML SYRINGE IVP PRN (16:53)
[2022-05-01] MEDS ORDERED: D5% in Water 1,000 ML IVC PRN (16:53)
[2022-05-01] MEDS ORDERED: Acetaminophen 325 MG TABLET PO PRN (16:56)
[2022-05-01] MEDS ORDERED: *HR* HYDROcodone/Acet 5/325 mg TABLET PO PRN (16:56)
[2022-05-01] MEDS: Ondansetron 4 MG/2 ML VIAL IVP PRN (18:26)
[2022-05-01] MEDS: Insulin LISPRO 300 UNITS/3 ML VIAL SUBQ SCH ×2 (18:33→20:30)
[2022-05-01] MEDS: Insulin DETEMIR 100 UNIT/ML X5UNITS SUBQ SCH (20:27)
[2022-05-01] MEDS ORDERED: Prochlorperazine 10 MG/2 ML VIAL IVP ONE (21:43)
[2022-05-02] MEDS: *HR* OxyCODONE Immed Rel 5 MG TABLET PO PRN (02:19)
[2022-05-02] MEDS: Ondansetron 4 MG/2 ML VIAL IVP PRN (02:20)
[2022-05-02] MEDS ORDERED: Prochlorperazine 10 MG/2 ML VIAL IVP ONE (04:38)
[2022-05-02] MEDS ORDERED: Hyoscyamine SL 0.125 MG TAB.SUBL SL PRN (07:58)
[2022-05-02] MEDS ORDERED: Bisacodyl 10 MG RECTAL SUPPOSITORY RC PRN (07:58)
[2022-05-02] MEDS ORDERED: *HR* LORazepam 0.5 MG TABLET PO PRN (07:58)
[2022-05-02] MEDS ORDERED: Cyanocobalamin (B-12) 1,000 MCG/ML VIAL IM SCH (08:00)
[2022-05-02] MEDS ORDERED: Ergocalciferol (VIT D2) 50,000 UNIT (1.25MG) CAP PO SCH (08:00)
[2022-05-02] MEDS ORDERED: haloperidoL 1 MG TABLET PO PRN (08:42)
[2022-05-02] MEDS ORDERED: Ondansetron ODT 4 MG TAB.RAPDIS PO PRN (08:43)
[2022-05-02] MEDS: Ranolazine 500 MG TAB.ER.12H PO SCH ×2 (09:01→20:34)
[2022-05-02] MEDS: Cholecalciferol (D-3) 1,000 UNIT (25MCG) TABLET PO SCH (09:01)
[2022-05-02] MEDS: Simethicone 80 MG TAB.CHEW PO SCH ×4 (09:02→20:35)
[2022-05-02] MEDS: Sennosides 8.6 MG TABLET PO SCH ×2 (09:02→20:35)
[2022-05-02] MEDS: Pregabalin 50 MG CAPSULE PO SCH ×3 (09:02→20:36)
[2022-05-02] MEDS: Topiramate 25 MG TABLET PO SCH (09:02)
[2022-05-02] MEDS: Furosemide 20 MG TABLET PO SCH ×2 (09:02→17:16)
[2022-05-02] MEDS: Isosorbide MONOnitrate (24 HR) 30 MG TAB.ER.24H PO SCH (09:02)
[2022-05-02] MEDS: Insulin DETEMIR 100 UNIT/ML X5UNITS SUBQ SCH ×2 (09:21→20:37)
[2022-05-02] MEDS: Insulin LISPRO 300 UNITS/3 ML VIAL SUBQ SCH ×4 (09:22→20:37)
[2022-05-02] MEDS: *HR* FentaNYL PATCH 12 MCG PATCH TD SCH (09:27)
[2022-05-02 11:15] LABS: Eosinophils % 0.4 %; Immature Granulocytes % 0.4 % (0-4); Red Cell Distribution Width 25.1 % (11.5-14.5)
[2022-05-02 11:16] LABS: Basophils % 0.6 %; Hematocrit 31.8 % (35.3-44.9); Hemoglobin 8.3 g/dL (11.5-15.4); Immature Platelets 11.7 % (1.1-6.1); Lymphocytes # 0.9 K/mcL (0.6-4.6); Lymphocytes % 12.8 %; Mean Corpuscular HGB Conc 26.1 g/dL (31.6-35.5); Mean Corpuscular Hemoglobin 17.8 pg (28.0-33.3); Mean Corpuscular Volume 68.1 fL (83.0-100.0); Monocytes # 0.7 K/mcL (0.0-1.3); Monocytes % 9.7 %; Neutrophils # 5.3 K/mcL (1.6-8.9); Platelet Count 180 K/mcL (140-400); Red Blood Count 4.67 M/mcL (3.82-4.97); Segmented Neutrophils % 76.1 %
[2022-05-02 11:32] LABS: BUN/Creatinine Ratio 5 (6-26); Blood Urea Nitrogen 3 mg/dL (8-23); Calcium 9.2 mg/dL (8.6-10.3); Carbon Dioxide 32 mEq/L (23-29); Chloride 103 mEq/L (98-107); Glucose 168 mg/dL (70-105); Osmolality,Calculated 288 (280-300); Potassium 3.1 mEq/L (3.5-5.1); Sodium 139 mEq/L (136-145)
[2022-05-02 11:34] LABS: % Iron Saturation 2 % (15-50); Iron 12 mcg/dL (50-170); Transferrin 357 mg/dL (203-362)
[2022-05-02 12:01] LABS: Anisocytosis 2+ (Not Present); Hypochromasia Present (Not Present); Microcytosis Present (Not Present); Poikilocytosis 2+ (Not Present); Polychromasia 1+ (Not Present)
[2022-05-02 12:02] LABS: Large Platelets Present (Not Present); Platelet Estimate Normal (Normal)
[2022-05-02 12:04] LABS: Ferritin < 8 ng/mL (10-120)
[2022-05-02] MEDS: MAGNESIUM GLUCONATE 27.5 MG PO SCH ×3 (12:17→20:37)
[2022-05-02 14:27] LABS: Folate > 22.3 ng/mL (3.0-16.0); Vitamin B12 > 1500 pg/mL (250-1100)
[2022-05-02 15:48] LABS: ABG Base Excess 5 mEq/L (-2 to 3); ABG HCO3 30 mEq/L (21-27); ABG Oxygen Saturation 94 % (95-98); ABG PCO2 47 mmHg (35-45); ABG PH 7.41 pH Units (7.32-7.45); ABG PO2 71 mmHg (85-104); ABG TCO2 31 mEq/L (20-26)
[2022-05-03] MEDS: MAGNESIUM GLUCONATE 27.5 MG PO SCH ×6 (00:58→20:48)
[2022-05-03 02:50] LABS: BUN/Creatinine Ratio 4 (6-26); Blood Urea Nitrogen 3 mg/dL (8-23); Calcium 8.5 mg/dL (8.6-10.3); Carbon Dioxide 30 mEq/L (23-29); Chloride 105 mEq/L (98-107); Glucose 99 mg/dL (70-105); Magnesium 1.3 mg/dL (1.6-2.6); Osmolality,Calculated 287 (280-300); Red Cell Distribution Width 25.2 % (11.5-14.5); Sodium 140 mEq/L (136-145); White Blood Count 6.8 K/mcL (4.3-11.1)
[2022-05-03 02:52] LABS: Basophils # 0.1 K/mcL (0.0-0.2); Basophils % 0.9 %; Eosinophils # 0.2 K/mcL (0.0-0.6); Eosinophils % 2.8 %; Hematocrit 28.5 % (35.3-44.9); Hemoglobin 7.3 g/dL (11.5-15.4); Immature Granulocytes % 0.4 % (0-4); Lymphocytes # 1.3 K/mcL (0.6-4.6); Lymphocytes % 19.2 %; Mean Corpuscular HGB Conc 25.6 g/dL (31.6-35.5); Mean Corpuscular Hemoglobin 17.3 pg (28.0-33.3); Mean Corpuscular Volume 67.4 fL (83.0-100.0); Monocytes # 0.6 K/mcL (0.0-1.3); Monocytes % 9.3 %; Neutrophils # 4.6 K/mcL (1.6-8.9); Nucleated Red Blood Cells 0.3 /100 WBC (0); Platelet Count 173 K/mcL (140-400); Red Blood Count 4.23 M/mcL (3.82-4.97); Segmented Neutrophils % 67.4 %
[2022-05-03 04:26] LABS: Anisocytosis 1+ (Not Present); Hypochromasia Present (Not Present); Microcytosis Present (Not Present)
[2022-05-03] MEDS: Insulin LISPRO 300 UNITS/3 ML VIAL SUBQ SCH ×4 (08:20→20:24)
[2022-05-03] MEDS: Ranolazine 500 MG TAB.ER.12H PO SCH ×2 (10:45→20:24)
[2022-05-03] MEDS: Topiramate 25 MG TABLET PO SCH (11:03)
[2022-05-03] MEDS: Isosorbide MONOnitrate (24 HR) 30 MG TAB.ER.24H PO SCH (11:04)
[2022-05-03] MEDS: Cholecalciferol (D-3) 1,000 UNIT (25MCG) TABLET PO SCH (11:04)
[2022-05-03] MEDS: Furosemide 20 MG TABLET PO SCH ×2 (11:04→16:30)
[2022-05-03] MEDS: Pregabalin 50 MG CAPSULE PO SCH ×3 (11:06→20:23)
[2022-05-03] MEDS: Simethicone 80 MG TAB.CHEW PO SCH ×4 (11:07→20:22)
[2022-05-03] MEDS: Sennosides 8.6 MG TABLET PO SCH ×2 (11:07→20:23)
[2022-05-03] MEDS: Insulin DETEMIR 100 UNIT/ML X5UNITS SUBQ SCH ×2 (11:16→20:42)
[2022-05-03] MEDS: Artificial Tears SOLN 15 ML BOTTLE LEFT EYE SCH ×3 (16:30→20:21)
[2022-05-03] MEDS: *HR* OxyCODONE Immed Rel 5 MG TABLET PO PRN (23:50)
[2022-05-04 03:20] LABS: Immature Granulocytes % 0.3 % (0-4); Mean Corpuscular Hemoglobin 17.5 pg (28.0-33.3)
[2022-05-04 03:22] LABS: Basophils # 0.1 K/mcL (0.0-0.2); Basophils % 0.9 %; Eosinophils # 0.3 K/mcL (0.0-0.6); Eosinophils % 3.8 %; Hematocrit 28.4 % (35.3-44.9); Hemoglobin 7.3 g/dL (11.5-15.4); Immature Platelets 10.7 % (1.1-6.1); Lymphocytes # 1.6 K/mcL (0.6-4.6); Lymphocytes % 23.8 %; Mean Corpuscular HGB Conc 25.7 g/dL (31.6-35.5); Mean Corpuscular Volume 68.3 fL (83.0-100.0); Monocytes # 0.8 K/mcL (0.0-1.3); Monocytes % 11.1 %; Neutrophils # 4.1 K/mcL (1.6-8.9); Nucleated Red Blood Cells 0.3 /100 WBC (0); Platelet Count 170 K/mcL (140-400); Red Blood Count 4.16 M/mcL (3.82-4.97); Red Cell Distribution Width 25.5 % (11.5-14.5); Segmented Neutrophils % 60.1 %; White Blood Count 6.8 K/mcL (4.3-11.1)
[2022-05-04 03:59] LABS: Anisocytosis 2+ (Not Present); Hypochromasia Present (Not Present); Microcytosis Present (Not Present); Platelet Estimate Normal (Normal); Polychromasia 1+ (Not Present)
[2022-05-04 04:27] LABS: Magnesium 1.5 mg/dL (1.6-2.6); Potassium 3.4 mEq/L (3.5-5.1)
[2022-05-04] MEDS: Simethicone 80 MG TAB.CHEW PO SCH ×4 (08:13→21:30)
[2022-05-04] MEDS: Isosorbide MONOnitrate (24 HR) 30 MG TAB.ER.24H PO SCH (08:13)
[2022-05-04] MEDS: Cholecalciferol (D-3) 1,000 UNIT (25MCG) TABLET PO SCH (08:13)
[2022-05-04] MEDS: Ranolazine 500 MG TAB.ER.12H PO SCH ×2 (08:13→21:28)
[2022-05-04] MEDS: Topiramate 25 MG TABLET PO SCH (08:14)
[2022-05-04] MEDS: *HR* OxyCODONE Immed Rel 5 MG TABLET PO PRN ×2 (08:14→14:17)
[2022-05-04] MEDS: Pregabalin 50 MG CAPSULE PO SCH ×3 (08:15→21:29)
[2022-05-04] MEDS: Furosemide 20 MG TABLET PO SCH ×2 (08:15→17:30)
[2022-05-04] MEDS: Artificial Tears SOLN 15 ML BOTTLE LEFT EYE SCH ×4 (08:16→21:31)
[2022-05-04] MEDS: MAGNESIUM GLUCONATE 27.5 MG PO SCH ×5 (08:17→23:46)
[2022-05-04] MEDS: Sennosides 8.6 MG TABLET PO SCH ×2 (08:18→22:24)
[2022-05-04] MEDS: Insulin DETEMIR 100 UNIT/ML X5UNITS SUBQ SCH ×2 (08:21→21:31)
[2022-05-04] MEDS: Insulin LISPRO 300 UNITS/3 ML VIAL SUBQ SCH ×4 (08:22→23:43)
[2022-05-05 01:10] LABS: A.calcoaceticus-baumannii cplx Not Detected (Not Detect); Bacteroides fragilis by PCR Not Detected (Not Detect); Candida albicans by PCR Not Detected (Not Detect); Candida auris by PCR Not Detected (Not Detect); Candida glabrata by PCR Not Detected (Not Detect); Candida krusei by PCR Not Detected (Not Detect); Candida parapsilosis by PCR Not Detected (Not Detect); Candida tropicalis by PCR Not Detected (Not Detect); Crypto. neoformans/gattii PCR Not Detected (Not Detect); Enterobacter cloacae Cmplx PCR Not Detected (Not Detect); Enterobacterales by PCR Not Detected (Not Detect); Enterococcus faecalis by PCR Not Detected (Not Detect); Enterococcus faecium by PCR Not Detected (Not Detect); Escherichia coli by PCR Not Detected (Not Detect); Klebs. pneumoniae group by PCR Not Detected (Not Detect); Klebsiella aerogenes by PCR Not Detected (Not Detect); Klebsiella oxytoca by PCR Not Detected (Not Detect); Proteus by PCR Not Detected (Not Detect); Pseudomonas aeruginosa by PCR Not Detected (Not Detect); Salmonella species by PCR Not Detected (Not Detect); Serratia marcescens by PCR Not Detected (Not Detect); Staph epidermidis by PCR Not Detected (Not Detect); Staph lugdunensis by PCR Not Detected (Not Detect); Staphylococcus aureus by PCR Not Detected (Not Detect); Staphylococcus by PCR Not Detected (Not Detect); Stenotrophomonas maltophilia Not Detected (Not Detect); Streptococcus agalactiae(B)PCR Not Detected (Not Detect); Streptococcus by PCR Not Detected (Not Detect); Streptococcus pneumoniae PCR Not Detected (Not Detect); Streptococcus pyogenes (A) PCR Not Detected (Not Detect)
[2022-05-05 04:35] LABS: Basophils # 0.1 K/mcL (0.0-0.2); Basophils % 0.9 %; Eosinophils # 0.3 K/mcL (0.0-0.6); Eosinophils % 4.4 %; Hemoglobin 7.7 g/dL (11.5-15.4); Immature Granulocytes % 0.7 % (0-4); Immature Platelets 10.9 % (1.1-6.1); Lymphocytes # 1.4 K/mcL (0.6-4.6); Lymphocytes % 19.3 %; Mean Corpuscular HGB Conc 24.8 g/dL (31.6-35.5); Mean Corpuscular Hemoglobin 17.5 pg (28.0-33.3); Mean Corpuscular Volume 70.6 fL (83.0-100.0); Monocytes # 0.6 K/mcL (0.0-1.3); Monocytes % 9.2 %; Neutrophils # 4.6 K/mcL (1.6-8.9); Platelet Count 193 K/mcL (140-400); Red Blood Count 4.39 M/mcL (3.82-4.97); Red Cell Distribution Width 26.1 % (11.5-14.5); Segmented Neutrophils % 65.5 %
[2022-05-05 04:50] LABS: Anisocytosis 3+ (Not Present); Calcium 8.1 mg/dL (8.6-10.3); Magnesium 1.3 mg/dL (1.6-2.6); Microcytosis Present (Not Present); Platelet Estimate Normal (Normal); Potassium 3.8 mEq/L (3.5-5.1)
[2022-05-05 04:51] LABS: Polychromasia 1+ (Not Present)
[2022-05-05] MEDS ORDERED: Iron Sucrose Complex 400 MG in 0.9 % Sodium Chloride 250 ML IVPB ONE (08:56)
[2022-05-05] MEDS: Insulin DETEMIR 100 UNIT/ML X5UNITS SUBQ SCH ×2 (09:56→21:35)
[2022-05-05] MEDS: Furosemide 20 MG TABLET PO SCH ×2 (09:57→17:07)
[2022-05-05] MEDS: Pregabalin 50 MG CAPSULE PO SCH ×3 (09:57→21:36)
[2022-05-05] MEDS: Simethicone 80 MG TAB.CHEW PO SCH ×4 (09:57→21:34)
[2022-05-05] MEDS: Isosorbide MONOnitrate (24 HR) 30 MG TAB.ER.24H PO SCH (09:57)
[2022-05-05] MEDS: Topiramate 25 MG TABLET PO SCH (09:57)
[2022-05-05] MEDS: Cholecalciferol (D-3) 1,000 UNIT (25MCG) TABLET PO SCH (09:57)
[2022-05-05] MEDS: Ranolazine 500 MG TAB.ER.12H PO SCH ×2 (09:58→21:36)
[2022-05-05] MEDS: MAGNESIUM GLUCONATE 27.5 MG PO SCH ×4 (09:58→20:36)
[2022-05-05] MEDS: Artificial Tears SOLN 15 ML BOTTLE LEFT EYE SCH ×4 (09:58→21:33)
[2022-05-05] MEDS: Insulin LISPRO 300 UNITS/3 ML VIAL SUBQ SCH ×4 (09:59→21:35)
[2022-05-05] MEDS: Sennosides 8.6 MG TABLET PO SCH ×2 (10:05→21:13)
[2022-05-05] MEDS ORDERED: Fosfomycin Tromethamine 3 GM Packet PO ONE (10:45)
[2022-05-05] MEDS: *HR* FentaNYL PATCH 12 MCG PATCH TD SCH (11:43)
[2022-05-06] MEDS: *HR* OxyCODONE Immed Rel 5 MG TABLET PO PRN ×2 (00:12→20:35)
[2022-05-06] MEDS: Nicotine 21 MG PATCH.TD24 TD SCH ×2 (00:12→08:08)
[2022-05-06] MEDS: MAGNESIUM GLUCONATE 27.5 MG PO SCH ×5 (00:15→20:15)
[2022-05-06] MEDS: Sennosides 8.6 MG TABLET PO SCH ×2 (08:05→20:15)
[2022-05-06] MEDS: Ranolazine 500 MG TAB.ER.12H PO SCH ×2 (08:05→20:15)
[2022-05-06] MEDS: Pregabalin 50 MG CAPSULE PO SCH ×3 (08:05→20:15)
[2022-05-06] MEDS: Simethicone 80 MG TAB.CHEW PO SCH ×4 (08:05→20:15)
[2022-05-06] MEDS: Isosorbide MONOnitrate (24 HR) 30 MG TAB.ER.24H PO SCH (08:06)
[2022-05-06] MEDS: Furosemide 20 MG TABLET PO SCH ×2 (08:06→18:30)
[2022-05-06] MEDS: Cholecalciferol (D-3) 1,000 UNIT (25MCG) TABLET PO SCH (08:07)
[2022-05-06] MEDS: Artificial Tears SOLN 15 ML BOTTLE LEFT EYE SCH ×4 (08:07→20:15)
[2022-05-06] MEDS: Topiramate 25 MG TABLET PO SCH (08:07)
[2022-05-06] MEDS: Insulin DETEMIR 100 UNIT/ML X5UNITS SUBQ SCH (08:16)
[2022-05-06] MEDS: Insulin LISPRO 300 UNITS/3 ML VIAL SUBQ SCH ×4 (08:54→20:15)
[2022-05-06 12:23] LABS: Hemoglobin 7.9 g/dL (11.5-15.4); Mean Corpuscular HGB Conc 25.2 g/dL (31.6-35.5)
[2022-05-06 12:25] LABS: Basophils # 0.1 K/mcL (0.0-0.2); Basophils % 1.1 %; Eosinophils # 0.3 K/mcL (0.0-0.6); Eosinophils % 3.1 %; Hematocrit 31.3 % (35.3-44.9); Immature Granulocytes % 1.1 % (0-4); Immature Platelets 11.7 % (1.1-6.1); Lymphocytes # 1.2 K/mcL (0.6-4.6); Lymphocytes % 14.9 %; Mean Corpuscular Volume 71.5 fL (83.0-100.0); Monocytes # 0.8 K/mcL (0.0-1.3); Monocytes % 9.4 %; Neutrophils # 5.7 K/mcL (1.6-8.9); Platelet Count 174 K/mcL (140-400); Red Blood Count 4.38 M/mcL (3.82-4.97); Red Cell Distribution Width 27.2 % (11.5-14.5); Segmented Neutrophils % 70.4 %; White Blood Count 8.1 K/mcL (4.3-11.1)
[2022-05-06 12:54] LABS: Anisocytosis 2+ (Not Present); Hypochromasia Present (Not Present); Microcytosis Present (Not Present); Platelet Estimate Normal (Normal)
[2022-05-06 12:55] LABS: Calcium 8.1 mg/dL (8.6-10.3); Poikilocytosis 1+ (Not Present); Potassium 3.9 mEq/L (3.5-5.1)
[2022-05-06 13:59] VITALS: O2SAT 99
[2022-05-06] MEDS ORDERED: Nitroglycerin 0.4 MG TAB.SUBL SL ONE ×2 (15:29→15:45)
[2022-05-06 17:10] LABS: Influenza A PCR Negative (Negative); Influenza B PCR Negative (Negative); Resp. Syncytial Virus PCR Negative (Negative); SARS-CoV-2 by PCR (In House) Negative (Negative)
[2022-05-06] MEDS ORDERED: Furosemide 20 MG TABLET PO ONE (17:56)
[2022-05-06] MEDS ORDERED: Simethicone 80 MG TAB.CHEW PO ONE ×2 (17:57→19:40)
[2022-05-06] MEDS ORDERED: Pregabalin 50 MG CAPSULE ONE (19:39)
[2022-05-06] MEDS ORDERED: Ranolazine 500 MG TAB.ER.12H PO ONE (19:40)
[2022-05-06] MEDS ORDERED: Sennosides 8.6 MG TABLET PO ONE (19:40)
[2022-05-06] MEDS ORDERED: *HR* OxyCODONE Immed Rel 5 MG TABLET ONE (20:31)
[2022-05-07] MEDS: Insulin DETEMIR 100 UNIT/ML X5UNITS SUBQ SCH ×2 (00:13→08:40)
[2022-05-07] MEDS: MAGNESIUM GLUCONATE 27.5 MG PO SCH ×2 (00:13→08:41)
[2022-05-07 05:21] VITALS: TEMP 97.8
[2022-05-07 05:58] LABS: Hematocrit 31.2 % (35.3-44.9); Immature Granulocytes % 1.3 % (0-4)
[2022-05-07 06:00] LABS: Basophils # 0.1 K/mcL (0.0-0.2); Basophils % 1.1 %; Eosinophils # 0.2 K/mcL (0.0-0.6); Eosinophils % 3.4 %; Hemoglobin 7.8 g/dL (11.5-15.4); Immature Platelets 10.8 % (1.1-6.1); Lymphocytes # 1.3 K/mcL (0.6-4.6); Lymphocytes % 20.9 %; Mean Corpuscular Volume 71.9 fL (83.0-100.0); Monocytes # 0.6 K/mcL (0.0-1.3); Monocytes % 9.3 %; Neutrophils # 3.9 K/mcL (1.6-8.9); Platelet Count 167 K/mcL (140-400); Red Blood Count 4.34 M/mcL (3.82-4.97); White Blood Count 6.1 K/mcL (4.3-11.1)
[2022-05-07 06:27] LABS: Calcium 8.4 mg/dL (8.6-10.3); Potassium 3.6 mEq/L (3.5-5.1)
[2022-05-07 06:30] LABS: Anisocytosis 3+ (Not Present); Macrocytosis Present (Not Present)
[2022-05-07 06:31] LABS: Hypochromasia Present (Not Present); Microcytosis Present (Not Present); Platelet Estimate Normal (Normal); Polychromasia 1+ (Not Present)
[2022-05-07 07:09] VITALS: BP 114/69; PULSE 77
[2022-05-07] MEDS: Sennosides 8.6 MG TABLET PO SCH (08:34)
[2022-05-07] MEDS: Pregabalin 50 MG CAPSULE PO SCH (08:34)
[2022-05-07] MEDS: Ranolazine 500 MG TAB.ER.12H PO SCH (08:34)
[2022-05-07] MEDS: Isosorbide MONOnitrate (24 HR) 30 MG TAB.ER.24H PO SCH (08:35)
[2022-05-07] MEDS: Topiramate 25 MG TABLET PO SCH (08:35)
[2022-05-07] MEDS: Furosemide 20 MG TABLET PO SCH (08:36)
[2022-05-07] MEDS: Simethicone 80 MG TAB.CHEW PO SCH (08:36)
[2022-05-07] MEDS: Cholecalciferol (D-3) 1,000 UNIT (25MCG) TABLET PO SCH (08:36)
[2022-05-07] MEDS: Artificial Tears SOLN 15 ML BOTTLE LEFT EYE SCH (08:37)
[2022-05-07] MEDS: Nicotine 21 MG PATCH.TD24 TD SCH (08:39)
[2022-05-07] MEDS: Insulin LISPRO 300 UNITS/3 ML VIAL SUBQ SCH (08:40)
[2022-05-07] MEDS ORDERED: Pfizer Covid-19 Vaccine 30MCG/0.3ML IM ONE (09:17)
== END 2022-05-07 12:05 | DRG 698 ==
LOC: EMEROOARM 13:03 → 3BNU 13:03 → SUATTDRO 16:49 → 3BNU 17:28 → SUATTDRO 05-02 13:47
PROVIDERS: ADMIT Pharmacist; ATTEND Internal Medicine